=== PATIENT | male | born 1950 | race Caucasian/White ===

== ENCOUNTER 2022-01-31 13:13 | Inpatient (IN) | payer OTHER ==
--- NOTE | 2022-01-31 13:41 | RAD REPORT ---
EXAM DESCRIPTION: RAD - Chest Single View - 01/31/2022 1:34 pm CLINICAL HISTORY: SOB COMPARISON: No comparisons FINDINGS: Lines: None. Lungs: Prominence of the pulmonary vasculature. Pleural: Probable pleural effusions, right greater than left. Cardiac: Cardiomegaly. Bones: No acute fractures. Other: IMPRESSION: Findings most likely representing edema with pleural effusions, right greater than left. There is likely associated atelectasis though pneumonia at the lung bases cannot be excluded radiogr aphically.
[2022-01-31 14:01] LABS: Absolute Lymphocytes (CBC) 0.8 K/uL (0.7-4.9); Hematocrit 23.1 % (39.6-49.0); Lymphocytes % 11.8 % (15.3-44.8); MCV 92.8 fL (80-100); MPV 7.2 fL (7.6-11.3); RBC Red Blood Cell Count 2.49 M/uL (4.33-5.43)
[2022-01-31 14:12] LABS: Protime INR 1.11
[2022-01-31 14:22] LABS: ALT/SGPT 16 U/L (12-78); AST/SGOT 10 U/L (15-37); Albumin 2.4 g/dL (3.4-5.0); Alkaline Phosphatase 95 U/L (45-117); BUN Blood Urea Nitrogen 49 mg/dL (7-18); Bicarbonate 23 mmol/L (21-32); Bilirubin Total 0.2 mg/dL (0.2-1.0); Glomerular Filtration Rate 16 ml/min (=/>90); Glucose Level 135 mg/dL (74-106); Magnesium 2.2 mg/dL (1.8-2.4); Potassium 4.5 mmol/L (3.5-5.1); Protein, Total 6.5 g/dL (6.4-8.2); Sodium Level 144 mmol/L (136-145); Troponin High Sensitivity 40.7 pg/mL (<58.9)
[2022-01-31 14:23] LABS: Bilirubin Direct < 0.1 mg/dL (0-0.2)
[2022-01-31] MEDS ORDERED: AMLODIPINE 10 MG TAB ONE (14:25)
[2022-01-31] MEDS ORDERED: carvediloL 6.25 MG TAB ONE ×2 (14:25→21:44)
[2022-01-31 14:32] LABS: NT PRO-BNP 64427 pg/mL (<125)
--- NOTE | 2022-01-31 15:06 | ER ---
Nurse's Notes [facility] Name: Houston Katz Age: 71 yrs Sex: Male : 1950 Arrival Date: 01/31/2022 Time: 13:13 Bed 28 Private MD: Diagnosis: Acute kidney failure, unspecified;Unspecified combined systolic (congestive) and diastolic (congestive) heart failure;Anemia, unspecified Presentation: 01/31 13:18 Chief complaint: Patient states: he feels like he is having a hard time breathing. ap3 patient hasn't had access to his medications for approx one month due to a recent move. Coronavirus screen: Client presents with at least one sign or symptom that may indicate coronavirus-19. Ebola Screen: No symptoms or risks identified at this time. Initial Sepsis Screen:. Initial Sepsis Screen: Does the patient meet any 2 criteria? No. Patient's initial sepsis screen is negative. Does the patient have a suspected source of infection? No. Patient's initial sepsis screen is negative. Risk Assessment: Do you want to hurt yourself or someone else? Patient reports no desire to harm self or others. Onset of symptoms was January 31, 2022. 13:18 Method Of Arrival: Wheelchair ap3 13:18 Acuity: JILLIAN 2 ap3 Triage Assessment: 13:23 General: Appears distressed, Behavior is anxious. Pain: Denies pain. Neuro: Level of ap3 Consciousness is awake, alert, obeys commands, Oriented to person, place, time, situation, Speech is normal. Cardiovascular: Patient's skin is warm and dry. Respiratory: Reports shortness of breath Airway is patent Respiratory effort is even, unlabored, Respiratory pattern is regular, symmetrical, Onset: The symptoms/episode began/occurred gradually, the patient has mild shortness of breath. Musculoskeletal: Swelling present in right leg and left leg. Historical: - Allergies: 13:20 PENICILLINS; ap3 - Home Meds: 13:20 tamsulosin 0.4 mg oral cap [Active]; Eliquis 5 mg oral tab [Active]; aspirin 81 mg Oral ap3 tab [Active]; furosemide 40 mg Oral tab 1 tab once daily [Active]; amlodipine 10 mg tab [Active]; carvedilol 6.25 mg oral tab [Active]; Lantus Sub-Q [Active]; - PMHx: 13:20 Diabetes mellitus; Hypertensive disorder; ap3 - Immunization history:: Client reports receiving the 2nd dose of the Covid vaccine. - Social history:: Smoking status: Patient denies any tobacco usage or history of. Screenin:24 Abuse screen: Denies threats or abuse. Nutritional screening: No deficits noted. ap3 Tuberculosis screening: No symptoms or risk factors identified. 13:59 Fall Risk None identified. jg9 Assessment: 13:58 Reassessment: No changes from previously documented assessment. Patient and/or family jg9 updated on plan of care and expected duration. Pain level reassessed. Patient is alert, oriented x 3, equal unlabored respirations, skin warm/dry/pink. Cardiovascular: Rhythm is sinus rhythm. Respiratory: Airway is patent Trachea midline Respiratory effort is even, labored, Breath sounds are diminished bilaterally. 14:00 Cardiovascular: Reports shortness of breath, bilateral 4+ pitting edema. jg9 15:01 Derm: Decubitus located on right plantar area approximately 1/4 size is stage III has jg9 erythematous edges is draining none noted. Vital Signs: 13:18 BP 196 / 90; Pulse 74; Resp 22; Temp 98.7; Pulse Ox 100% ; Weight 81.65 kg; Height 5 ap3 ft. 10 in. (177.80 cm); 13:45 BP 200 / 85; Pulse 79; Resp 20 S; Pulse Ox 98% on 1 lpm NC; jg9 14:30 BP 186 / 83; Pulse 72; Resp 18 S; Pulse Ox 99% on 1 lpm NC; jg9 13:18 Body Mass Index 25.83 (81.65 kg, 177.80 cm) ap3 ED Course: 13:13 Patient arrived in ED. am2 13:14 Mervat Portillo FNP-C is PHCP. kb 13:14 Jacques Porter MD is Attending Physician. kb 13:20 Triage completed. ap3 13:24 Arm band placed on right wrist. ap3 13:30 Julieta Soriano, SPENCER is Primary Nurse. jg9 13:36 XRAY Chest (1 view) In Process Unspecified. EDMS 13:43 Missed attempt(s): 20 gauge in left forearm. Bleeding controlled, band aid applied, mb7 catheter tip intact. 13:50 Patient has correct armband on for positive identification. Bed in low position. Call jg9 light in reach. Side rails up X 1. 13:50 Inserted saline lock: 18 gauge in right antecubital area, using aseptic technique. jg9 Blood collected. 13:57 Oxygen administration via nasal cannula \T\ 1L/min Response to oxygen therapy: symptoms jg9 improved. 14:14 crackers provided to take ordered medication. jg9 15:04 Anni Patel MD is Hospitalizing Provider. kb 16:15 John Quispe is Hospitalizing Provider. kb 02/01 10:53 No provider procedures requiring assistance completed. Patient admitted, IV remains in ap3 place. Administered Medications: 01/31 14:20 Drug: amLODIPine 10 mg Route: PO; jg9 15:02 Follow up: Response: No adverse reaction; Blood pressure is lowered jg9 14:20 Drug: carvedilol 6.25 mg Route: PO; jg9 15:03 Follow up: Response: No adverse reaction; Blood pressure is lowered jg9 15:15 Drug: Lasix (furosemide) 60 mg Route: IVP; Site: left antecubital; jg9 15:17 Drug: Albumin 25 grams Volume: 100 ml; Route: IVPB; Site: left antecubital; jg9 Medication: 02/01 10:53 VIS not applicable for this client. ap3 Outcome: 01/31 15:04 Decision to Hospitalize by Provider. kb 02/01 10:53 Admitted to ER Hold. Please see [facility] for further documentation. ap3 Condition: good 15:52 Patient left the ED. iw Signatures: Dispatcher [employer] [facility] Mervat Portillo, TUTORING ASSISTANT-C TUTORING ASSISTANT-CkAnnemarie Olivares, RN RN iw Sis Bowers Amanda RN RN ap3 Kaela Elliott mb7 Julieta Soriano RN RN jg9 Corrections: (The following items were deleted from the chart) 01/31 14:41 13:58 Reassessment: No changes from previously documented assessment. Patient and/or jg9 family updated on plan of care and expected duration. Pain level reassessed. Patient is alert, oriented x 3, equal unlabored respirations, skin warm/dry/pink. jg9
--- NOTE | 2022-01-31 15:06 | EDPHYS ---
Physician Documentation [facility] Name: Houston Katz Age: 71 yrs Sex: Male : 1950 Arrival Date: 01/31/2022 Time: 13:13 Bed 28 Private MD: ED Physician Jacques Porter HPI: 01/31 21:11 This 71 yrs old Male presents to ER via Wheelchair with complaints of Shortness Of kb Breath. 21:11 The patient has shortness of breath at rest. Onset: The symptoms/episode began/occurred kb 1 month(s) ago. Duration: The symptoms are continuous. The patient's shortness of breath is aggravated by exertion, light activity. Associated signs and symptoms: Pertinent positives: non-productive cough. Severity of symptoms: At their worst the symptoms were moderate in the emergency department the symptoms are unchanged. The patient has not experienced similar symptoms in the past. The patient has not recently seen a physician. Pt reports shortness of breath that started a month ago and has progressively gotten worse. States he has been out of his regular medications for at least one month. . Historical: - Allergies: 13:20 PENICILLINS; ap3 - Home Meds: 13:20 tamsulosin 0.4 mg oral cap [Active]; Eliquis 5 mg oral tab [Active]; aspirin 81 mg Oral ap3 tab [Active]; furosemide 40 mg Oral tab 1 tab once daily [Active]; amlodipine 10 mg tab [Active]; carvedilol 6.25 mg oral tab [Active]; Lantus Sub-Q [Active]; - PMHx: 13:20 Diabetes mellitus; Hypertensive disorder; ap3 - Immunization history:: Client reports receiving the 2nd dose of the Covid vaccine. - Social history:: Smoking status: Patient denies any tobacco usage or history of. ROS: 15:03 Constitutional: Negative for fever, chills, and weight loss. kb 15:03 Respiratory: Positive for dyspnea on exertion, shortness of breath, Negative for hemoptysis, orthopnea, pleurisy, sputum production, wheezing. 15:03 All other systems are negative. Exam: 14:21 ECG was reviewed by the Attending Physician. kb 14:58 Constitutional: This is a well developed, well nourished patient who is awake, alert, kb and in no acute distress. Head/Face: Normocephalic, atraumatic. Abdomen/GI: Soft, non-tender. No distention Skin: Warm, dry with normal turgor. Normal color. MS/ Extremity: Pulses equal, no cyanosis. Neurovascular intact. Full, normal range of motion. Neuro: Awake and alert, GCS 15, oriented to person, place, time, and situation. Moves all extremities. Normal gait. Psych: Awake, alert, with orientation to person, place and time. Behavior, mood, and affect are within normal limits. 14:58 Cardiovascular: Rate: normal, Rhythm: regular, Pulses: no pulse deficits are appreciated, Edema: 3+ edema to level of left ankle and right ankle. 14:58 Respiratory: mild respiratory distress is noted, Respirations: normal, Breath sounds: decreased breath sounds, that are moderate, are located in both bases. Vital Signs: 13:18 BP 196 / 90; Pulse 74; Resp 22; Temp 98.7; Pulse Ox 100% ; Weight 81.65 kg; Height 5 ap3 ft. 10 in. (177.80 cm); 13:45 BP 200 / 85; Pulse 79; Resp 20 S; Pulse Ox 98% on 1 lpm NC; jg9 14:30 BP 186 / 83; Pulse 72; Resp 18 S; Pulse Ox 99% on 1 lpm NC; jg9 13:18 Body Mass Index 25.83 (81.65 kg, 177.80 cm) ap3 MDM: 13:15 Patient medically screened. kb 15:03 Data reviewed: vital signs, nurses notes. Data interpreted: Pulse oximetry: on room air kb is 97 %. Interpretation: normal. Counseling: I had a detailed discussion with the patient and/or guardian regarding: the historical points, exam findings, and any diagnostic results supporting the discharge/admit diagnosis, lab results, radiology results, the need for further work-up and treatment in the hospital. Physician consultation: Fanny consulted about admission to tele. . 01/31 13:21 Order name: Basic Metabolic Panel; Complete Time: 14:33 kb 01/31 13:21 Order name: CBC with Diff; Complete Time: 14:19 kb 01/31 13:21 Order name: LFT's; Complete Time: 14:33 kb 01/31 13:21 Order name: Magnesium; Complete Time: 14:33 kb 01/31 13:21 Order name: NT PRO-BNP; Complete Time: 14:33 kb 01/31 13:21 Order name: PT-INR; Complete Time: 14:19 kb 01/31 13:21 Order name: Troponin HS; Complete Time: 14:33 kb 01/31 13:22 Order name: SARS RAPID kb 01/31 16:19 Order name: Hemoglobin A1c; Complete Time: 18:10 EDMS 01/31 16:19 Order name: Lipid Profile; Complete Time: 18:10 EDMS 01/31 16:19 Order name: Urinalysis EDMS 01/31 16:19 Order name: Basic Metabolic Panel EDMS 01/31 16:19 Order name: Basic Metabolic Panel EDMS 01/31 16:19 Order name: CBC with Automated Diff EDMS 01/31 13:21 Order name: XRAY Chest (1 view); Complete Time: 13:44 kb 01/31 13:21 Order name: EKG; Complete Time: 13:22 kb 01/31 16:19 Order name: 60g Consistent Carbohydrate (ADA 1800/2000) EDMS 01/31 16:19 Order name: Echo with Doppler EDMS 01/31 16:19 Order name: CBC with Automated Diff EDMS 01/31 18:13 Order name: Thorax Wo Con; Complete Time: 19:13 EDMS 01/31 19:14 Order name: Glucose, Ancillary Testing; Complete Time: 19:22 EDMS 01/31 21:53 Order name: Glucose, Ancillary Testing; Complete Time: 21:54 EDMS 02/01 03:52 Order name: Manual Differential EDMS 02/01 07:57 Order name: Glucose, Ancillary Testing EDMS 02/01 11:07 Order name: US EDMS 02/01 11:44 Order name: Glucose, Ancillary Testing EDMS 01/31 13:21 Order name: Cardiac monitoring; Complete Time: 13:30 kb 01/31 13:21 Order name: EKG - Nurse/Tech; Complete Time: 13:44 kb 01/31 13:21 Order name: IV Saline Lock; Complete Time: 13:57 kb 01/31 13:21 Order name: Labs collected and sent; Complete Time: 13:57 kb 01/31 13:21 Order name: O2 Per Protocol; Complete Time: 13:57 kb 01/31 13:21 Order name: O2 Sat Monitoring; Complete Time: 13:30 kb EC:21 Rate is 71 beats/min. Rhythm is regular. QRS [place] is Normal. OR interval is prolonged kb at 222 msec. QRS interval is normal at 98 msec. QT interval is normal at 484 msec. Administered Medications: 14:20 Drug: amLODIPine 10 mg Route: PO; jg9 15:02 Follow up: Response: No adverse reaction; Blood pressure is lowered jg9 14:20 Drug: carvedilol 6.25 mg Route: PO; jg9 15:03 Follow up: Response: No adverse reaction; Blood pressure is lowered jg9 15:15 Drug: Lasix (furosemide) 60 mg Route: IVP; Site: left antecubital; jg9 15:17 Drug: Albumin 25 grams Volume: 100 ml; Route: IVPB; Site: left antecubital; jg9 Disposition: 02/02 11:19 Co-signature as Attending Physician, Jacques Porter MD I agree with the assessment and kdr plan of care. Disposition Summary: 01/31/22 15:04 Hospitalization Ordered Hospitalization Status: Inpatient Admission kb Condition: Fair kb Problem: new kb Symptoms: are unchanged kb Bed/Room Type: Standard kb Provider: John Quispe(01/31/22 16:15) kb Location: Telemetry/MedSurg (Inpatient)(02/01/22 13:25) dw Room Assignment: [facility](02/01/22 13:25) dw Diagnosis - Acute kidney failure, unspecified kb - Unspecified combined systolic (congestive) and diastolic (congestive) heart failure kb - Anemia, unspecified kb Forms: - Medication Reconciliation Form kb - SBAR form kb Signatures: Dispatcher [employer] Mervat Delcid FNP-C CABIN CLEANER-CkKrissy De Los Santos RN RN dw Rittger, Kevin, MD MD kdr Prokisch, Amanda RN SPENCER [email or web address] Eliana Goodwin RN RN eb1 Julieta Soriano RN RN jg9 Corrections: (The following items were deleted from the chart) 01/31 16:15 15:04 Anni Patel kb kb 20:12 15:04 Telemetry/MedSurg (Inpatient) kb eb1 20:12 15:04 kb eb1 02/01 13:01/31: [facility] ER HOLD eb1 dw 02/01 20:12 ERHOLD- eb1 dw
[2022-01-31] MEDS ORDERED: FUROSEMIDE 20 MG/ 2ML VIAL ONE (15:14)
[2022-01-31] MEDS ORDERED: FUROSEMIDE 40 MG/4 ML VIAL ONE ×2 (15:14→18:50)
[2022-01-31] MEDS ORDERED: ALBUMIN HUMAN 25% 50 ML IV ONE (15:15)
[2022-01-31] MEDS ORDERED: LABETALOL 20 MG/4ML SYRINGE IV PRN (16:07)
[2022-01-31] MEDS ORDERED: HYDROCODONE/APAP 5/325 MG TAB PO PRN (16:08)
[2022-01-31] MEDS ORDERED: MELATONIN 5 MG TABLET PO PRN (16:08)
[2022-01-31] MEDS: INSULIN -REGULAR HUMAN 50 UNIT/0.5 ML ML SQ SCH ×2 (16:30→21:00)
--- NOTE | 2022-01-31 16:57 | P.HP ---
Certification for Inpatient Patient admitted to: Inpatient With expected LOS: >2 Midnights Patient will require the following post-hospital care: None Practitioner: I am a practitioner with admitting privileges, knowledge of patient current condition, hospital course, and medical plan of care. Services: Services provided to patient in accordance with Admission requirements found in Title 42 Section 412.3 of the Code of Federal Regulations Patient History Date of Service: 01/31/22 Reason for admission: SOB History of Present Illness: Patient is a 71-year-old male with a past medical history significant for hypertension, CHF, DM 2, BPH, CAD with stent who presents with complaint of shortness of breath that has been ongoing for a while but became worse yesterday. Patient is a poor historian and unable to provide accurate history. Family reported that patient was in another state--[place] and patient has not been taking his home medications for the past 1 month. Family reported that patient had his last medications filled on November 22, 2021 and has not taken the medication since then. Family decided to bring patient to [place] to live with them. Patient reported associated signs and symptoms of chest tenderness, orthopnea, cough, and bilateral lower extremity edema. Patient denies any other signs and symptoms. Symptoms are aggravated or relieved by nothing. Patient decided to present to the hospital due to worsening symptoms. Allergies Penicillins Allergy (Mild, Verified 01/31/22 16:02) Hives/Rash Home Medications: Amlodipine Besylate 1 tab PO DAILY 01/31/22 Apixaban [Eliquis] 1 tab PO BID 01/31/22 Aspirin Chewable [Aspirin Chewable*] 1 tab PO DAILY 01/31/22 Furosemide 1 tab PO DAILY 01/31/22 Insulin Glargine,Hum.rec.anlog [Lantus Solostar] 15 units SQ BEDTIME 01/31/22 Tamsulosin [Flomax*] 1 cap PO DAILY 01/31/22 carvediloL [Carvedilol] 1 tab PO BID 01/31/22 - Past Medical/Surgical History -: Hypertension -: CHF -: BPH -: CAD with stent -: Cardiac stent placement - Family History Family History: Reviewed- Non-Contributory - Social History Smoking Status: Unknown if ever smoked Alcohol use: No CD- Drugs: No Caffeine use: Yes Place of Residence: Home Review of Systems General: Unremarkable Eyes: Unremarkable ENT: Unremarkable Respiratory: Cough, Shortness of Breath, SOB with Excertion, Other (Chest tightness) Cardiovascular: Orthopnea, Edema Gastrointestinal: Unremarkable Genitourinary: Unremarkable Musculoskeletal: Pedal edema, Other (Bilateral lower extremity swelling) Integumentary: Unremarkable Neurological: Unremarkable Physical Examination - Physical Exam General: Alert, Oriented x3, Mild distress HEENT: Atraumatic, Normocephalic, PERRLA Neck: Supple, 2+ carotid pulse no bruit, JVD not distended Respiratory: Clear to auscultation bilaterally, Diminished Cardiovascular: Normal pulses, Edema Capillary refill: >2 Seconds Gastrointestinal: Soft and benign Musculoskeletal: Swelling Integumentary: Tenderness/swelling Neurological: Normal speech, Normal tone, Normal reflexes 2+ Lymphatics: No axilla or inguinal lymphadenopathy - Studies Laboratory Data (last 24 hrs) 01/31/22 13:50: PT 12.2, INR 1.11 01/31/22 13:50: WBC 6.50, Hgb 7.8 L, Hct 23.1 L, Plt Count 224 01/31/22 13:50: Sodium 144, Potassium 4.5, BUN 49 H, Creatinine 3.73 H, Glucose 135 H, Magnesium 2.2, Total Bilirubin 0.2, AST 10 L, ALT 16, Alkaline Phosphatase 95 Assessment and Plan - Plan --Acute on chronic systolic or diastolic CHF exacerbation. Echocardiogram pending. Cardiology consulted. Continue diuresis with Lasix. Daily weight and strict I/O. We will await further recommendation from design drafter. --FUNMILAYO on CKD 4. Family reported that patient was informed that he might go on dialysis due to his bad kidneys while patient was living in [place]. Nephrology consulted. Will await further recommendations --History of CAD with stent. Continue aspirin . --BPH. Continue Flomax. --Anemia of chronic disease. H&H stable. We will continue to monitor hemoglobin transfuse if less than 7.0. --DM2. BS monitoring with sliding scale insulin and Lantus. --Pneumonia-CT imaging worrisome for pneumonia. Patient placed on antibiotics, steroids and O2 therapy. -- Hypertensive urgency. Continue home medication and labetalol as needed --Anxiety disorder. Ativan as needed. -- DVT prophylaxis with heparin subQ Discharge Plan: Home Plan to discharge in: Greater than 2 days - Advance Directives Does patient have a Living Will: No Does patient have a Durable POA for Healthcare: No - Code Status/Comfort Care Code Status Assessed: Yes Code Status: Full Code Physician Review: Patient Assessed, Agree with Above Assessment and Plan Critical Care: No
[2022-01-31] MEDS: HEPARIN 5000 UNIT/ML 1 ML VIAL SQ SCH (17:00)
[2022-01-31] MEDS: FUROSEMIDE 40 MG/4 ML VIAL IV SCH (17:00)
[2022-01-31] MEDS ORDERED: ASPIRIN EC 81 MG TAB PO SCH (17:00)
[2022-01-31] MEDS ORDERED: HEPARIN 5000 UNIT/ML 1 ML VIAL ONE (18:50)
[2022-01-31] MEDS ORDERED: ASPIRIN EC 81 MG TAB PO ONE (18:50)
--- NOTE | 2022-01-31 19:07 | RAD REPORT ---
EXAM DESCRIPTION: CT - Thorax Wo Con - 01/31/2022 6:48 pm CLINICAL HISTORY: Peristent cough, R O PNA COMPARISON: No comparisons FINDINGS: Chest Wall: No suspicious thyroid nodules or pathologic lymphadenopathy. Lungs: No acute abnormality. Pleura: Moderate right and small moderate left pleural effusions and likely underlying atelectasis. Mediastinum/massimo: No pathologic lymphadenopathy. Pulmonary arteries/Aorta: Limited evaluation without contrast. No aortic aneurysm. Heart: No significant pericardial effusion. Normal heart size. Multi-vessel coronary artery disease. Upper abdomen: Possible bilateral hydronephrosis though this is only partially imaged. Bones: No acute abnormality. Bridging osteophytes in the spine. All CT scans are performed using dose optimization technique as appropriate and may include automated exposure control or mA/KV adjustment according to patient size. IMPRESSION: Moderate right and small to moderate left pleural effusions with underlying atelectasis. Pneumonia difficult to entirely exclude. Question bilateral hydronephrosis. This is only partially imaged. Dedicated imaging of the abdomen an d pelvis could further evaluate if clinically indicated.
[2022-01-31 19:13] VITALS: BMI 25.8
[2022-01-31] MEDS ORDERED: CEFEPIME 2 GM in NA CHLORIDE 0.9% 100 ML IV ONE (19:15)
[2022-01-31] MEDS ORDERED: ALBUTEROL 2.5 MG/3 ML NEB SOL NEB ONE (19:25)
[2022-01-31] MEDS ORDERED: LORazepam 2 MG/ML VIAL IV PRN (19:30)
[2022-01-31] MEDS ORDERED: GUAIFENESIN/DM 5 ML UCUP PO PRN (19:33)
[2022-01-31] MEDS ORDERED: ALBUTEROL 2.5 MG/3 ML NEB SOL ONE (19:59)
[2022-01-31] MEDS ORDERED: HYDRALAZINE HCL 20 MG/ML VIAL IV PRN (20:00)
[2022-01-31] MEDS ORDERED: METHYLPREDNISOLONE 40 MG INJ IV SCH (20:00)
[2022-01-31] MEDS ORDERED: HYDRALAZINE HCL 20 MG/ML VIAL ONE (20:15)
[2022-01-31] MEDS ORDERED: HOME MED 1 EA UNK (Insulin Glargine,Hum.Rec.Anlog [Lantus Solostar] 100 UNIT/ML Insuln.Pen SQ SCH (21:00)
[2022-01-31] MEDS: INSULIN GLARGINE 100 UNIT/ML SQ SCH (21:00)
[2022-01-31] MEDS: carvediloL 6.25 MG TAB PO SCH (21:30)
[2022-01-31] MEDS ORDERED: CEFEPIME 2 GM VIAL ONE (21:40)
[2022-01-31] MEDS ORDERED: NA CHLORIDE 0.9% 100 ML ONE (21:40)
[2022-01-31] MEDS ORDERED: AZITHROMYCIN 500 MG INJ IVPB ONE (21:42)
[2022-01-31] MEDS ORDERED: METHYLPREDNISOLONE 40 MG INJ ONE (21:42)
[2022-01-31] MEDS ORDERED: NA CHLORIDE 0.9% 250 ML ONE (21:44)
[2022-01-31] MEDS: METHYLPREDNISOLONE 40 MG INJ IV SCH (21:50)
[2022-01-31] MEDS: AZITHROMYCIN IV 500 MG in NA CHLORIDE 0.9% 250 ML IVPB SCH (22:03)
[2022-02-01] MEDS: HEPARIN 5000 UNIT/ML 1 ML VIAL SQ SCH ×3 (00:56→16:36)
[2022-02-01] MEDS: METHYLPREDNISOLONE 40 MG INJ IV SCH ×3 (00:56→16:36)
[2022-02-01] MEDS ORDERED: METHYLPREDNISOLONE 40 MG INJ ONE ×2 (01:01→07:55)
[2022-02-01] MEDS ORDERED: HEPARIN 5000 UNIT/ML 1 ML VIAL ONE ×2 (01:01→07:54)
[2022-02-01] MEDS: ALBUTEROL 2.5 MG/3 ML NEB SOL NEB SCH ×3 (02:31→14:00)
[2022-02-01 02:40] LABS: Absolute Lymphocytes (CBC) 0.2 K/uL (0.7-4.9); Hematocrit 22.2 % (39.6-49.0); MCV 93.5 fL (80-100); MPV 7.4 fL (7.6-11.3); RBC Red Blood Cell Count 2.38 M/uL (4.33-5.43)
[2022-02-01] MEDS ORDERED: ALBUTEROL 2.5 MG/3 ML NEB SOL ONE ×3 (02:40→14:25)
[2022-02-01 02:54] LABS: Potassium 4.7 mmol/L (3.5-5.1)
[2022-02-01 03:51] LABS: Blood Morphology Comment NOT SEEN (NOT SEEN); Platelet Estimate ADEQ
[2022-02-01] MEDS: INSULIN -REGULAR HUMAN 50 UNIT/0.5 ML ML SQ SCH ×4 (07:30→21:09)
[2022-02-01] MEDS ORDERED: ASPIRIN 81 MG CHEWABLE TABLET ONE (07:54)
[2022-02-01] MEDS ORDERED: AMLODIPINE 10 MG TAB ONE (07:54)
[2022-02-01] MEDS ORDERED: carvediloL 6.25 MG TAB ONE (07:54)
[2022-02-01] MEDS ORDERED: FUROSEMIDE 40 MG/4 ML VIAL ONE (07:55)
[2022-02-01] MEDS ORDERED: TAMSULOSIN 0.4 MG SR CAP ONE (07:55)
[2022-02-01] MEDS ORDERED: CEFEPIME 1 GM/VIAL ONE (07:55)
[2022-02-01] MEDS ORDERED: NA CHLORIDE 0.9% 100 ML ONE (07:55)
[2022-02-01] MEDS ORDERED: PNEUMOCOCCAL VACCINE 0.5 ML IMVAC ONE (08:00)
[2022-02-01] MEDS: carvediloL 6.25 MG TAB PO SCH ×2 (08:12→21:08)
[2022-02-01] MEDS: FUROSEMIDE 40 MG/4 ML VIAL IV SCH ×2 (08:12→16:36)
[2022-02-01] MEDS: ASPIRIN 81 MG CHEWABLE TABLET PO SCH (08:12)
[2022-02-01] MEDS: TAMSULOSIN 0.4 MG SR CAP PO SCH (08:12)
[2022-02-01] MEDS: CEFEPIME 1 GM in NA CHLORIDE 0.9% 100 ML IV SCH ×2 (08:13→21:08)
[2022-02-01] MEDS: AMLODIPINE 10 MG TAB PO SCH (08:13)
--- NOTE | 2022-02-01 11:02 | CON ---
Date of Consultation: 02/01/2022 Reason For Consultation: Acute renal failure. History Of Present Illness: Mr. Katz is 71, just moved from another State 2 to 3 days ago to be [place] ser to his family. He has a complicated past medical history including CAD, status post stent, hyper tension, CHF, diabetes, and atrial fibrillation. Came in with acute renal failure, hemoglobin 7.4, c reatinine 3.85. He was hypertensive. BNP was more than 64,000, CT showed pneumonia. He has his mary ellen n complaint is weakness and shortness of breath. Denied any chest pain, palpitation, or syncope. Allergies: HE IS ALLERGIC TO PENICILLIN. Review of Systems: Negative. Social History: Negative. Family History: Noncontributory. Medications: At home should be Eliquis, insulin, Coreg, Norvasc, aspirin, Flomax, and Lasix. Physical Examination: Vital Signs: Blood pressure is 174/95. He was in sinus rhythm. HEENT: Negative. Neck: Supple with no bruit. Chest: Revealed bilateral rales. Cardiac: Revealed a regular rhythm and rate with S4 gallops. Abdomen: Benign. Extremities: Revealed no clubbing, cyanosis. He has 1+ edema. Laboratory Data: Chest x-ray showed pulmonary edema. CT scan shows pneumonia. Creatinine is 3.85, hemoglobin is 7.4. BNP is 64,000. Troponin is negative. Impression And Plan: 1.Acute renal failure. 2.Hypertension, poorly controlled. 3.Anemia. 4.Elevated BNP secondary to congestive heart failure and renal failure. Mr. Katz also has hyperten ayla, diabetes, paroxysmal atrial fibrillation, and pneumonia. He is now on antibiotics, steroid, Fl omax, Coreg, inhalers, aspirin, Norvasc, Lasix, and hydralazine. I agree with his present regimen. He needs to have an echocardiogram done, which is pending. He needs to have outpatient followup in t he very near future, continue medical regimen otherwise. Nephrology consultation should be obtained. When he goes home, he should have followup with his Primary Internal Medicine, Nephrology, and Card iology. NEVIN/CHAVA Voice ID: [id number] Report ID: [id number]
--- NOTE | 2022-02-01 11:07 | RAD REPORT ---
EXAM DESCRIPTION: US - Renal Ultrasound-Complete - 02/01/2022 10:39 am CLINICAL HISTORY: FUNMILAYO COMPARISON: Thorax Wo Con dated 01/31/2022 FINDINGS: The right kidney measures 12.1 x 5.3 x 6.4 cm. The left kidney measures 10.5 x 3.3 x 4.7 cm. Left edema was more difficult to visualize. Both kidneys show slight cortical thinning. There is increased cortical echogenicity typical with medical renal disease. No solid mass lesion of either ki dney. No cortical cysts are present. Moderately severe bilateral hydronephrosis is present. Ureters c annot be adequately visualized. Partially filled urinary bladder shows no asymmetric wall thickening or mass. No stone or intralumina l filling defect identifiable. IMPRESSION: Moderate severity bilateral hydronephrosis with no solid mass of either kidney. Increased cortical echogenicity seen typical for medical renal disease. No bladder wall thickening or mass identifiable.
[2022-02-01] MEDS ORDERED: INSULIN -REGULAR HUMAN 50 UNIT/0.5 ML ML ONE (11:47)
[2022-02-01 15:08] LABS: SARS-CoV-2 Antigen Rapid Res Negative (Negative)
--- NOTE | 2022-02-01 15:13 | EKG ---
Test Date: 2022-01-31 Test Time: 13:39:04 Construction Site Manager: JP MEASUREMENT RESULTS: Intervals: Rate: 71 [place]: 222 QRSD: 98 QT: 446 QTc: 484 [place]: P: 73 [place]: 222 QRS: 20 T: 97 INTERPRETIVE STATEMENTS: Sinus rhythm with 1st degree AV block Nonspecific ST and T wave abnormality Prolonged QT Abnormal ECG No previous ECG available for comparison Electronically Signed On 02-01-22 15:12:15 CDT by Igor Sims
[2022-02-01 17:53] LABS: Urine Bilirubin Negative (Negative); Urine Blood Trace-lysed (Negative); Urine Clarity Clear (Clear); Urine Color Yellow (Yellow); Urine Glucose Trace (Negative); Urine Protein 3+ (Negative); Urine Urobilinogen 0.2 mg/dL (0.2-1.0)
--- NOTE | 2022-02-01 17:58 | CON ---
Date of Consultation: 02/01/2022 Reason For Consultation: Elevated BUN and creatinine, over volume, fluid management. History Of Present Illness: This is a pleasant 71-year-old gentleman with significant past medical history of CAD status post PTCA, complicated with congestive heart failure, diabetes since 2009 complicated with neuropathy, no retinopathy, hypertension, hyperlipidemia, chronic kidney disease, unknown baseline, according to him it has been advanced, the patient has been transferred from [place] to live with the family. The patient did not take his medications for almost since November according to him because of the cataract he cannot see his medication bottles so he is not taking it. The patient was brought, found to have congestive heart failure with exacerbation elevation in BUN and creatinine. For that reason, we have been consulted. The patient denied taking any nonsteroidal. No IV contrast recently. Again, the patient not taking his medications. Allergies: TO PENICILLIN. Home Medications: Include amlodipine, Eliquis, aspirin, Lasix, insulin, Flomax, carvedilol. Past Medical History: Includes; 1. Hypertension. 2. CAD complicated with congestive heart failure, status post PTCA. 3. Diabetes since 2009 complicated with neuropathy and nephropathy. 4. Hypertension. 5. Hyperlipidemia. Past Surgical History: Includes; 1. PTCA. 2. Cardiac cath. Family History: Positive for hypertension. Social History: Denied smoking, denied drinking, denied drugs abuse. Review of Systems: Head and Neck: No red eye. No ear pain. GI: No nausea. No vomiting. : No polyuria. No dysuria. No hematuria. 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 Respiratory: Has shortness of breath. Cardiovascular: Has orthopnea. Has leg swelling. Endocrine: No polydipsia. Skin: No rash. Neuro: Has neuropathy. Musculoskeletal: Generalized fatigue. Physical Examination: Vital Signs: When I saw the patient; blood pressure 150/69, pulse of 72, afebrile. Chest: Crackles bilateral. Heart: S1, S2. Systolic murmur. Abdomen: Soft, nontender, ascites. Extremities: +3 edema. Neurologic: Alert. No focality. Laboratory Data: Chest x-ray; cardiomegaly with congestion with right-sided pleural effusion. WBC 7.6, H and H 7.4/22.2. Sodium 145, potassium 4.7, bicarb 23, BUN 50, creatinine 3.8, calcium 7.5. Current Medications: The patient on include Zithromax, cefepime, albuterol, Flomax, heparin, carvedilol 6.25, amlodipine, labetalol, Solu-Medrol, insulin, melatonin. Assessment And Plan: 1. Acute kidney injury on chronic kidney disease, unknown baseline. According to the patient, the patient has been seen by Nephrology before in [place], is Deborah Jaindda. We will try to contact her. Mostly chronic kidney disease is secondary to cardiorenal/diabetes nephropathy with acute exacerbation. Questionable if there is any component of obstructive uropathy as the patient saying he has incontinence. I am going to go ahead and place a Gonzalez. We will follow up ultrasound. Given the presence of the anemia and proteinuria, I am going to send for full workup including serology and serum protein electrophoresis. 2. Obstructive uropathy. We will place Gonzalez and we will consult Urology. 3. Anemia possible secondary to chronic kidney disease with the presence of acute kidney injury. We will send for serum protein electrophoresis. 4. Congestive heart failure with exacerbation. We will optimize the fluid status for the patient. I am going to go ahead and increase his Lasix to 80 mg and we will send for TSH. We will follow up with Cardiology. 5. Diabetes as by primary. Time spent examining the patient [id number], reviewing the data lab and radiology, placing orders, discussing with the patient, explaining risks, benefits, alternatives, discussing with the staff member including nursing discussing with the hospitalist more than 65 minutes. KEAGAN Voice ID: [id number] Report ID: [id number] MARIA D
[2022-02-01 18:12] LABS: UR PROTEIN 343.7 mg/dL (<11.9); Urine Protein/Creatinine Ratio 12.28 ratio (<0.15)
[2022-02-01 18:38] LABS: Urine Bacteria <20 /HPF (<20); Urine RBC <5 /HPF (None Seen)
--- NOTE | 2022-02-01 19:38 | P.PN ---
Subjective Date of Service: 02/01/22 Chief Complaint: SOB States his shortness of breath is better. He denies any chest pain. Physical Examination - Vital Signs Temperature: 98.7 F Blood Pressure: 186/83 Pulse: 72 Respirations: 18 Pulse Ox (%): 98 Assessment And Plan - Current Problems (Diagnosis) (1) Acute on chronic heart failure Current Visit: Yes Status: Acute (2) Chronic kidney disease, stage IV (severe) Current Visit: Yes Status: Acute (3) Bilateral hydronephrosis Current Visit: Yes Status: Acute (4) BPH (benign prostatic hyperplasia) Current Visit: Yes Status: Acute (5) Anemia Current Visit: Yes Status: Acute (6) Accelerated hypertension Current Visit: Yes Status: Acute - Plan Physical Exam General: Alert, Oriented x3, no distress. HEENT: Atraumatic, Normocephalic, PERRLA Neck: Supple, JVD not distended Respiratory: Clear to auscultation bilaterally, Diminished Cardiovascular: Normal pulses, Edema, regular rhythm Gastrointestinal: Soft and benign, nondistended, nontender. Neurological: Normal speech, Normal tone, Normal reflexes 2+ Plan: Respiratory condition improved. Lasix is on hold. Nephrology input appreciated Patient has bilateral hydronephrosis but refused Gonzalez catheter insertion. Bladder scan for residual urine. Echocardiogram done and the result is pending. Wean off oxygen Monitor renal function. Transfuse PRBC for hemoglobin less than 7. Hydralazine as needed for BP spikes. Home antihypertensives resumed. Physician Review: Patient Assessed, Agree with Above Assessment and Plan
--- NOTE | 2022-02-01 20:51 | RAD REPORT ---
EXAM DESCRIPTION: RAD - Foot Right 2 View - 02/01/2022 8:33 pm CLINICAL HISTORY: Foot wound FINDINGS: Ulceration involves the plantar forefoot. A radiopaque foreign body is not demonstrated. Osteoporosis No fracture or dislocation seen. Vascular calcifications. Calcaneal spurs and plantar calcification. Limited 2 view series obtained
[2022-02-01] MEDS: NEPRO SHAKE 237 ML CAN PO SCH (21:00)
[2022-02-01] MEDS: AZITHROMYCIN IV 500 MG in NA CHLORIDE 0.9% 250 ML IVPB SCH (21:07)
[2022-02-01] MEDS: INSULIN GLARGINE 100 UNIT/ML SQ SCH (21:09)
[2022-02-02] MEDS: METHYLPREDNISOLONE 40 MG INJ IV SCH ×3 (01:55→16:09)
[2022-02-02] MEDS: HEPARIN 5000 UNIT/ML 1 ML VIAL SQ SCH ×3 (01:55→16:09)
[2022-02-02 03:48] LABS: Absolute Lymphocytes (CBC) 0.3 K/uL (0.7-4.9); Hematocrit 21.9 % (39.6-49.0); Lymphocytes % 4.7 % (15.3-44.8); MCV 92.2 fL (80-100); MPV 7.6 fL (7.6-11.3); RBC Red Blood Cell Count 2.37 M/uL (4.33-5.43)
[2022-02-02 04:27] LABS: Albumin 2.3 g/dL (3.4-5.0); Ferritin 136.8 ng/mL (26-388); Folic Acid, (Folate) 5.3 ng/mL (3.1-17.5); Phosphorus 6.5 mg/dL (2.5-4.9); Potassium 4.7 mmol/L (3.5-5.1); Thyroid Stimulating Hormone 0.771 uIU/mL (0.360-3.740); Uric Acid 6.3 mg/dL (3.5-7.2)
[2022-02-02 07:24] LABS: Rheumatoid Factor NEG (NEG)
[2022-02-02] MEDS: INSULIN -REGULAR HUMAN 50 UNIT/0.5 ML ML SQ SCH ×4 (07:30→21:53)
[2022-02-02] MEDS: FUROSEMIDE 40 MG/4 ML VIAL IV SCH ×2 (09:21→16:08)
[2022-02-02] MEDS: AMLODIPINE 10 MG TAB PO SCH (09:22)
[2022-02-02] MEDS: carvediloL 6.25 MG TAB PO SCH ×2 (09:22→20:25)
[2022-02-02] MEDS: ASPIRIN 81 MG CHEWABLE TABLET PO SCH (09:22)
[2022-02-02] MEDS: TAMSULOSIN 0.4 MG SR CAP PO SCH (09:22)
[2022-02-02] MEDS: CEFEPIME 1 GM in NA CHLORIDE 0.9% 100 ML IV SCH ×2 (09:23→20:25)
[2022-02-02] MEDS: NEPRO SHAKE 237 ML CAN PO SCH ×2 (09:23→20:26)
--- NOTE | 2022-02-02 10:56 | ECHO ---
HEIGHT: 5 ft 10 in WEIGHT: 179 lb 4.8 oz DATE OF STUDY: 02/01/[address]: [place] 2-DIMENSIONAL: YES M.MODE: YES DOPPLER: YES COLOR FLOW: YES TDS: NO PORTABLE: YES DEFINITY: NO BUBBLE STUDY: NO DIAGNOSIS: CONGESTIVE HEART FAILURE CARDIAC HISTORY: CATHERIZATION: SURGERY: PROSTHETIC VALVE: PACEMAKER: MEASUREMENTS (cm) DIASTOLIC (NORMALS) SYSTOLIC (NORMALS) IVSd 1.2 (0.6-1.2) LA Diam 4.5 (1.9-4.0) LVEF 60% LVIDd 5.9 (3.5-5.7) LVIDs 4.0 (2.0-3.5) %FS 32% LVPWd 1.1 (0.6-1.2) Ao Diam 3.7 (2.0-3.7) 2 DIMENSIONAL ASSESSMENT: RIGHT ATRIUM: NORMAL LEFT ATRIUM: ENLARGED RIGHT VENTRICLE: NORMAL LEFT VENTRICLE: NORMAL TRICUSPID VALVE: MITRAL VALVE: PULMONIC VALVE: AORTIC VALVE: THICKENED PERICARDIAL EFFUSION: NONE AORTIC ROOT: NORMAL LEFT VENTRICULAR WALL MOTION: NORMAL DOPPLER/COLOR FLOW: SEE BELOW COMMENTS: NORMAL LEFT VENTRICULAR EJECTION FRACTION 55-60%. NORMAL WALL MOTION. MODERATE MITRAL AND TRICUSPID REGURGITATION. MILD AORTIC AND PULMONARY REGURGITATION. LEFT ATRIAL ENLARGEMENT. SEVERE PULMONARY HYPERTENSION WITH RIGHT VENTRICULAR SYSTOLIC PRESSURE > 60 mmHg. THICKENED AORTIC VALVE WITH NO AORTIC STENOSIS. MODERATE DIASTOLIC DYSFUNCTION. TECHNOLOGIST: Mario BRENNAN
--- NOTE | 2022-02-02 11:55 | P.PN ---
Subjective Date of Service: 02/02/22 Chief Complaint: SOB Subjective: No new changes Physical Examination - Vital Signs Temperature: 97.8 F Blood Pressure: 158/73 Pulse: 67 Respirations: 16 Pulse Ox (%): 97 - Physical Exam General: In no apparent distress, Other (chronically ill-appearing) HEENT: Atraumatic, Normocephalic Neck: Supple, JVD not distended Respiratory: Other (symmetric chest expansion) Cardiovascular: No rubs, No murmurs Gastrointestinal: Soft and benign, No guarding Integumentary: No warmth Neurological: Normal speech, Normal tone Lymphatics: No axilla or inguinal lymphadenopathy Urinary: Other (no bladder distention) External genitalia: Deferred Rectal: Deferred Assessment And Plan - Plan 1. Acute kidney injury 2/2 obstructive uropathy, on chronic kidney disease, unknown baseline. According to the patient, the patient has been seen by Nephrology before in [place], is Deborah Simon. Has nephrotic-range proteinuria, likely 2/2 DM nephropathy. Insert linda. 2. Obstructive uropathy. CT scan done showed bilateral hydroureteronephrosis. No stricture or stone noted. Pt agreed to have linda placed today. Start NS gtt when linda in place. start Flomax. 3. Anemia. Give Retacrit when BP is better controlled. 4. Congestive heart failure with exacerbation. Lasix received. 5. DM2. Mngt per primary team. 6. Hypertension. Start hydralazine 50 mg po tid. Continue Lasix 80 mg IV twice a day. Continue amlodipine 10 mg by mouth daily. Continue carvedilol 6.25 mg by mouth twice a day. 7. Secondary hyperparathyroidism. Start calcitriol 0.25 mcg by mouth daily. Follow-up serum 25 hydroxyvitamin D. 8. Hyperphosphatemia. Start Sevelamer 1600 mg by mouth 3 times a day with meals Physician Review: Patient Assessed, Agree with Above Assessment and Plan
[2022-02-02] MEDS: HALOPERIDOL LACT 5 MG/ML INJ IV ONE ×2 (12:54→13:34)
--- NOTE | 2022-02-02 13:02 | P.PN ---
Subjective Date of Service: 02/02/22 Chief Complaint: SOB Patient refusing treatment today, including Gonzalez catheter insertion. He is exhibiting incongruent behavior and speech. Sister reports prior history of urinary retention and had to wear Gonzalez catheter for about 6 weeks. Bladder scan today revealed residual 700 ml of urine. Serum creatinine trended up. Physical Examination - Vital Signs Temperature: 97.8 F Blood Pressure: 158/73 Pulse: 67 Respirations: 16 Pulse Ox (%): 97 Assessment And Plan - Current Problems (Diagnosis) (1) Acute on chronic heart failure Current Visit: Yes Status: Acute (2) Chronic kidney disease, stage IV (severe) Current Visit: Yes Status: Acute (3) Bilateral hydronephrosis Current Visit: Yes Status: Acute (4) BPH (benign prostatic hyperplasia) Current Visit: Yes Status: Acute (5) Anemia Current Visit: Yes Status: Acute (6) Accelerated hypertension Current Visit: Yes Status: Acute - Plan Physical Exam General: Confused, no distress. HEENT: Atraumatic, Normocephalic, PERRLA Neck: Supple, JVD not distended Respiratory: Clear to auscultation bilaterally, Diminished Cardiovascular: Normal pulses, Edema, regular rhythm Gastrointestinal: Soft and benign, nondistended, nontender. Neurological: No focal motor deficit. Plan: Respiratory condition improved. Lasix resumed per nephrology Patient will need Gonzalez catheter to relieve obstructive uropathy. Urology consult. Echocardiogram done and the result is pending. I suspect acute psychosis contributing to noncompliance. Trial of Haldol. Monitor renal function. Transfuse PRBC for hemoglobin less than 7. Hydralazine as needed for BP spikes. Continue home antihypertensives. Physician Review: Patient Assessed, Agree with Above Assessment and Plan
[2022-02-02] MEDS: CALCITROL 0.25 MCG CAP PO SCH (14:13)
[2022-02-02] MEDS: HYDRALAZINE HCL 25 MG TABLET PO SCH ×2 (14:13→20:25)
[2022-02-02] MEDS: MEDIHONEY 44 ML TOPICAL TUBE TOP SCH (14:14)
--- NOTE | 2022-02-02 16:03 | RAD REPORT ---
EXAM DESCRIPTION: CT - Abdomen Pelvis Wo Contrast - 02/02/2022 2:47 pm CLINICAL HISTORY: Bilat hydroneph, check for ureteral obstrxn/stone COMPARISON: Renal Ultrasound-Complete dated 02/01/2022 TECHNIQUE: Axial [address] imaging of the abdomen and pelvis was performed without IV contrast. No IV contrast was given because of allergy, abnormal renal function, patient refusal or physician re quest. No oral contrast administered. All CT scans are performed using dose optimization technique as appropriate and may include automated exposure control or mA/KV adjustment according to patient size. FINDINGS: Large bilateral pleural effusions are present only partially imaged. There is complete or near complete atelectasis of each lower lobe. Heart size is upper normal. No pericardial thickening o r effusion. The liver, spleen and pancreas show no suspicious findings on non-contrast imaging. Gallbladder is co ntracted. No biliary tree dilatation. Moderately severe bilateral hydronephrosis and hydroureter present down to each UVJ. The bladder is w ell filled but not grossly dilated. Prostate gland is not enlarged. A mass of the bladder is not seen . Prostatic urethral outlet obstruction as a possible etiology. No significant adrenal finding. Isod ense renal masses and pyelonephritis cannot be excluded in the absence of IV contrast. No dilated bowel loops or bowel wall thickening. Moderate stool volume is present filling but not dil ating the colon. Distal descending and sigmoid colon diverticulosis are present without diverticuliti s. Within the peritoneal and retroperitoneal spaces there is no free air, free fluid or pneumatosis. Fatty tissues are minimally congested. No hernia, mass or bulky lymphadenopathy. Patient has signific ant fluid retention in the subcutaneous fatty tissues of the abdomen and pelvis. No suspicious bony findings. Degenerative changes are seen throughout the spine lower lumbar posterio r decompression. IMPRESSION: Moderately severe bilateral hydronephrosis and hydroureter down to the UVJ level. No obs tructing mass or calcification. Urinary bladder is distended but not grossly dilated. Prostate gland is not enlarged but there could be prostatic urethral stricture as a source for the hydronephrosis. Prominent fluid retention in the subcutaneous fatty tissues of the abdomen and pelvis. There are larg e bilateral pleural effusions with complete or near complete atelectasis of each lower lobe. Full assessment is limited is the absence of IV contrast.
[2022-02-02] MEDS: SEVELAMER CARBONATE 800 MG TABLET PO SCH (16:09)
[2022-02-02] MEDS: ALBUTEROL 2.5 MG/3 ML NEB SOL NEB PRN (16:34)
[2022-02-02] MEDS ORDERED: HALOPERIDOL LACT 5 MG/ML INJ IM PRN (17:11)
[2022-02-02] MEDS: INSULIN GLARGINE 100 UNIT/ML SQ SCH (20:26)
--- NOTE | 2022-02-02 20:47 | PN ---
Date of Progress Note: 02/02/2022 Subjective: Seen by bedside. Continues to have shortness of breath on exertion, but he is significa ntly better, losing significant amount of fluids. Has orthopnea. Generally, he is weak. Review of Systems: No chest pain. Positive shortness of breath. No orthopnea. No lower extremity edema. No nausea, v omiting, or diarrhea. All other systems reviewed and they were negative. Physical Examination: Vital Signs: Temperature is 97.8, pulse 67, breathing at 16, blood pressure 158/73, saturating 97% o n room air. General: Pleasant elderly male, in no distress. Head and Neck: Pupils are equal, reactive to light. Intact eye movements. No JVD. No cervical lym phadenopathy. Neck is supple. Thyroid is not enlarged. Lungs: Clear to auscultation bilaterally. No rhonchi, crackles, or wheezing. Heart: Irregular. No extra sounds. Abdomen: Soft, nontender. Bowel sounds positive. No organomegaly. No masses or hernia. No rigidit y or rebound. Extremities: 2 to 3+ pedal edema. No clubbing or cyanosis. Intact pulses. Skin: No rash. Neurologic: Alert, awake, oriented x3. No acute focal deficits appreciated. Investigations: BUN 68, creatinine is 4.5, significant jump from yesterday. Assessment And Recommendations: 1.Acute on chronic diastolic heart failure. Has severe pulmonary hypertension on echo. Patient nee ds further diuresis. Continue current dose of Lasix. Patient has advanced kidney failure and might require dialysis. Discussed this with the patient and the family. Recommend Nephrology evaluation o n this matter for fluid management. We will plan for an outpatient exercise stress test once his con dition is more stable. 2.Hypertension. Blood pressure is elevated. Continue aggressive diuresis and we will adjust medici roby further based on blood pressure response to diuresis. SR/MODL Voice ID: [id number] Report ID: [id number]
[2022-02-03] MEDS: HEPARIN 5000 UNIT/ML 1 ML VIAL SQ SCH ×3 (00:24→17:04)
[2022-02-03] MEDS: METHYLPREDNISOLONE 40 MG INJ IV SCH ×3 (00:24→17:04)
[2022-02-03 05:48] LABS: Absolute Lymphocytes (CBC) 0.3 K/uL (0.7-4.9); Hematocrit 22.3 % (39.6-49.0); Lymphocytes % 2.6 % (15.3-44.8); MCV 92.3 fL (80-100); MPV 8.1 fL (7.6-11.3); RBC Red Blood Cell Count 2.41 M/uL (4.33-5.43)
[2022-02-03 06:01] LABS: Albumin 2.3 g/dL (3.4-5.0); Phosphorus 6.1 mg/dL (2.5-4.9); Potassium 4.7 mmol/L (3.5-5.1)
[2022-02-03] MEDS ORDERED: NA CHLORIDE 0.9% 1,000 ML IV SCH (07:00)
[2022-02-03 07:13] LABS: Blood Morphology Comment NOT SEEN (NOT SEEN); Platelet Estimate ADEQ; White Blood Cell Scan OK (OK)
[2022-02-03] MEDS: INSULIN -REGULAR HUMAN 50 UNIT/0.5 ML ML SQ SCH ×4 (07:30→20:59)
[2022-02-03] MEDS: NEPRO SHAKE 237 ML CAN PO SCH ×2 (09:00→20:24)
[2022-02-03] MEDS: MEDIHONEY 44 ML TOPICAL TUBE TOP SCH (09:00)
[2022-02-03] MEDS: FUROSEMIDE 40 MG/4 ML VIAL IV SCH (09:17)
[2022-02-03] MEDS: HYDRALAZINE HCL 25 MG TABLET PO SCH ×3 (09:20→20:23)
[2022-02-03] MEDS: AMLODIPINE 10 MG TAB PO SCH (09:20)
[2022-02-03] MEDS: ASPIRIN 81 MG CHEWABLE TABLET PO SCH (09:20)
[2022-02-03] MEDS: CALCITROL 0.25 MCG CAP PO SCH ×2 (09:21→14:11)
[2022-02-03] MEDS: TAMSULOSIN 0.4 MG SR CAP PO SCH (09:21)
[2022-02-03] MEDS: carvediloL 6.25 MG TAB PO SCH ×2 (09:21→20:23)
[2022-02-03] MEDS: SEVELAMER CARBONATE 800 MG TABLET PO SCH ×3 (09:21→17:04)
[2022-02-03] MEDS: ALBUTEROL 2.5 MG/3 ML NEB SOL NEB PRN (09:30)
[2022-02-03 11:11] LABS: Urine Bilirubin Negative (Negative); Urine Blood 3+ (Negative); Urine Clarity Clear (Clear); Urine Glucose Trace (Negative); Urine Protein 3+ (Negative); Urine Urobilinogen 0.2 mg/dL (0.2-1.0)
[2022-02-03 12:06] LABS: Urine Bacteria None Seen /HPF (<20); Urine RBC 21-50 /HPF (None Seen)
[2022-02-03 12:12] LABS: Urine Color Light-Yellow (Yellow)
--- NOTE | 2022-02-03 12:33 | P.PN ---
Subjective Date of Service: 02/03/22 Chief Complaint: SOB Patient doing better today and more cooperative. He denies shortness of breath. He responded well to IV Haldol. He allowed Gonzalez catheter insertion yesterday. About 1200 ml urine drained after Gonzalez insertion. He is currently tolerating room air. Physical Examination - Vital Signs Temperature: 97.4 F Blood Pressure: 155/72 Pulse: 71 Respirations: 18 Pulse Ox (%): 94 Assessment And Plan - Current Problems (Diagnosis) (1) Acute on chronic heart failure Current Visit: Yes Status: Acute (2) Chronic kidney disease, stage IV (severe) Current Visit: Yes Status: Acute (3) Bilateral hydronephrosis Current Visit: Yes Status: Acute (4) BPH (benign prostatic hyperplasia) Current Visit: Yes Status: Acute (5) Anemia Current Visit: Yes Status: Acute (6) Accelerated hypertension Current Visit: Yes Status: Acute - Plan Physical Exam General: Awake and more interactive, no distress. HEENT: Atraumatic, Normocephalic, PERRLA Neck: Supple, JVD not distended Respiratory: Diminished bilaterally, mild crackles in the right lower base. Cardiovascular: Normal pulses, Edema, regular rhythm Gastrointestinal: Soft and benign, nondistended, nontender. Neurological: No focal motor deficit. Plan: Respiratory condition improved. Patient is currently tolerating room air On Lasix per nephrology. Serum creatinine plateaued and trended down slightly from yesterday. Continue Gonzalez catheter for obstructive uropathy. Urology consult. Monitor renal function. Nephrology to follow Echocardiogram reported normal EF and pulmonary hypertension I suspect acute psychosis contributing to noncompliance. Patient responded well to Haldol. We will start Seroquel twice daily. Transfuse PRBC for hemoglobin less than 7. Hydralazine as needed for BP spikes. Continue home antihypertensives. Physician Review: Patient Assessed, Agree with Above Assessment and Plan
[2022-02-03] MEDS ORDERED: EPOETIN ALFA 10,000 UNIT/ML VIAL SQ ONE (13:00)
--- NOTE | 2022-02-03 13:08 | RAD REPORT ---
EXAM DESCRIPTION: RAD - Chest Single View - 02/03/2022 12:49 pm CLINICAL HISTORY: fluid overload COMPARISON: Chest Single View dated 01/31/2022; Abdomen Pelvis Wo Contrast dated 02/02/2022 FINDINGS: Lines: None. Lungs: Diffuse prominence of the pulmonary interstitium . Pleural: Pleural effusions noted. Cardiac: Cardiomegaly. Bones: No acute fractures. Other: IMPRESSION: Similar aeration of the lungs compared with 01/31/2022 with pleural effusions likely sec ondary to pulmonary edema and underlying atelectasis.
--- NOTE | 2022-02-03 13:18 | PN ---
Date of Progress Note: 02/03/2022 Subjective: The patient was admitted with acute kidney injury, multifactorial, secondary to obstructive uropathy and cardiorenal. The patient was started on Gonzalez. Physical Examination: Vital Signs: When I saw the patient; blood pressure 155/72, pulse of 72, afebrile. Chest: Faint rales bilateral. Heart: S1, S2. Systolic murmur. Abdomen: Soft, nontender. Extremity: No edema. Neuro: Alert. No focality. Laboratory Data: WBC 10.6, H and H 7.7/22.3, platelet 233. Sodium 140, potassium 4.7, bicarb 21, BUN 78, creatinine 4.4, GFR of 13, calcium 7.6, phosphorus 6.1, iron saturation of 32, albumin 2.3, corrected calcium is 8.6. Serum protein electrophoresis is still pending. Vitamin D 29. TSH 0.7. PTH is 276. Urinalysis; RBC of 50, PC ratio of 12. Serology still pending. Renal ultrasound; no hydronephrosis bilateral. CT abdomen and pelvis; severe bilateral hydronephrosis with hydroureter down to the UVJ. No obstruction, masses or calcification have been noticed. Bladder distended, but not dilated. Prostate not enlarged. Subcutaneous edema, clear effusion with atelectasis. Chest x-ray; cardiomegaly with congestion. Current Medications: The patient on include; 1. Cefepime. 2. Aspirin. 3. Flomax. 4. Amlodipine 10. 5. Carvedilol. 6. Hydralazine 50 t.i.d. 7. Lasix 80 b.i.d. 8. Renvela. 9. Zofran. 10. Solu-Medrol. 11. IV fluid. Assessment And Plan: 1. Acute kidney injury, multifactorial, secondary to obstructive uropathy, hypertension nephrosclerosis, and cardio renal syndrome. Continue Gonzalez drainage. The patient looked to me on the normal volume currently. I am going to go ahead and discontinue Lasix and I will continue IV hydration for the patient and we will follow up. 2. Hypertension, controlled, not optimal. Keep avoiding any JAMEL inhibitor or ARB. 3. Chronic kidney disease secondary to cardiorenal, obstructive uropathy, and diabetes, nephrotic range of proteinuria with acute kidney injury as above, looked to me the picture is a chronic obstruction supported with elevation in PTH supported with enlargement on the prostate and no significant improvement on the kidney function after Gonzalez. I discussed the case with Dr. Mckinney, the Urology. We will follow up the patient. Continue on Flomax. We will follow up serology and serum protein electrophoresis. 4. Obstructive uropathy as above. 5. Nephrotic range of proteinuria. Follow up serology. We will avoid any JAMEL inhibitor or ARB. 6. Anemia of chronic kidney disease. I will start the patient on EVARISTO. We will follow up serum protein electrophoresis. 7. Congestive heart failure, currently normal volume to the dry side. Discontinue Lasix and we will follow up. 8. Secondary hyperparathyroidism. Continue Renvela. Start the patient on calcitriol. Time spent examining the patient [id number], reviewing the data lab and radiology, placing orders, discussing with the patient, explaining risks, benefits, alternatives, discussing with the staff member including nursing discussing with the hospitalist more than 35 minutes. KEAGAN Voice ID: [id number] Report ID: [id number] MARIA D
[2022-02-03] MEDS: QUETIAPINE 25 MG TAB PO SCH ×2 (14:11→20:24)
--- NOTE | 2022-02-03 15:48 | PN ---
Date of Progress Note: 02/03/2022 Subjective: Seen at bedside. Shortness of breath is still present. Has significant orthopnea with lower extremity edema. No chest pain. Review of Systems: Positive for shortness of breath, orthopnea, and lower extremity edema. Denies weakness. No chest p ain. No nausea, vomiting, diarrhea. No abdominal pain. No dysuria, polyuria, or urinary urgency. All other systems reviewed are negative. Physical Examination: Vital Signs: Reviewed. Head and Neck: Pupils are equal, reactive to light. Intact eye movements. Positive JVD, elevation up to the jaw. Neck: Supple. Thyroid is not enlarged. Lungs: Crackles in the bases. No accessory muscle use or muscle retraction. Heart: Irregular with S3, gallop. Abdomen: Soft, nontender. Bowel sounds positive. No organomegaly. No masses or hernia. No rigidi ty or rebound. Extremities: 2 to 3+ pedal edema. No clubbing, cyanosis. Intact pulses. Skin: No rash. No nodules. Neurologic: Alert, awake, oriented x3. No acute focal deficits appreciated. Investigations: Labs were reviewed. Assessment And Recommendation: 1.Acute on chronic diastolic heart failure exacerbation. The patient appears fluid overloaded, has very high JVD and significant orthopnea. We will discontinue the IV fluids and this patient will req uire further diuresis. His right systolic ventricular pressure is more than 60, indicating severe pu lmonary hypertension and has significant signs of heart failure. We will discuss further with Nephro logy and primary hospitalist. 2.Advanced chronic kidney disease, which is likely a cardiorenal or hypertension induced or a combin ation of both. At this point, this is making the management of his heart failure more difficult. Th e patient needs some more aggressive fluid diuresis and might require dialysis very soon. We will di scuss further with nephrology. SR/MODL Voice ID: [id number] Report ID: [id number]
[2022-02-03] MEDS: INSULIN GLARGINE 100 UNIT/ML SQ SCH (20:24)
[2022-02-03] MEDS: CEFEPIME 2 GM in NA CHLORIDE 0.9% 100 ML IV SCH (20:24)
[2022-02-04] MEDS: METHYLPREDNISOLONE 40 MG INJ IV SCH ×3 (01:00→17:30)
[2022-02-04] MEDS: HEPARIN 5000 UNIT/ML 1 ML VIAL SQ SCH ×3 (01:00→17:30)
[2022-02-04 05:57] LABS: Absolute Lymphocytes (CBC) 0.3 K/uL (0.7-4.9); Hematocrit 21.8 % (39.6-49.0); Lymphocytes % 4.3 % (15.3-44.8); MPV 8.2 fL (7.6-11.3); RBC Red Blood Cell Count 2.37 M/uL (4.33-5.43)
[2022-02-04 06:15] LABS: Potassium 4.4 mmol/L (3.5-5.1)
[2022-02-04 06:16] LABS: Albumin 2.1 g/dL (3.4-5.0)
[2022-02-04] MEDS: INSULIN -REGULAR HUMAN 50 UNIT/0.5 ML ML SQ SCH ×4 (07:30→21:05)
[2022-02-04 08:28] LABS: Blood Morphology Comment NOT SEEN (NOT SEEN); Platelet Estimate ADEQ; White Blood Cell Scan OK (OK)
[2022-02-04] MEDS: carvediloL 6.25 MG TAB PO SCH ×2 (09:00→21:03)
[2022-02-04] MEDS: MEDIHONEY 44 ML TOPICAL TUBE TOP SCH (09:00)
[2022-02-04] MEDS: NEPRO SHAKE 237 ML CAN PO SCH ×2 (09:00→21:05)
[2022-02-04] MEDS: QUETIAPINE 25 MG TAB PO SCH ×2 (09:10→21:03)
[2022-02-04] MEDS: SEVELAMER CARBONATE 800 MG TABLET PO SCH ×3 (09:11→17:30)
[2022-02-04] MEDS: ASPIRIN 81 MG CHEWABLE TABLET PO SCH (09:11)
[2022-02-04] MEDS: AMLODIPINE 10 MG TAB PO SCH (09:12)
[2022-02-04] MEDS: HYDRALAZINE HCL 25 MG TABLET PO SCH ×3 (09:12→21:03)
[2022-02-04] MEDS: TAMSULOSIN 0.4 MG SR CAP PO SCH (09:12)
--- NOTE | 2022-02-04 13:22 | RAD REPORT ---
EXAM DESCRIPTION: RAD - Foot Right 2 View - 02/04/2022 1:07 pm CLINICAL HISTORY: right foot pain COMPARISON: Foot Right 2 View dated 02/01/2022 FINDINGS: No acute fracture. No malalignment. Moderate degenerative changes are present at the first MTP ulceration along the plantar aspect of the foot at the level of the proximal phalanges. Calcanea l spurring. Peripheral vascular calcifications. IMPRESSION: No acute osseous abnormality involving the left foot. No significant change identified c ompared with 02/01/2022.
--- NOTE | 2022-02-04 13:28 | P.PN ---
Subjective Date of Service: 02/04/22 Chief Complaint: SOB Patient has no new complaint. He denies shortness of breath. He allowed Gonzalez catheter insertion yesterday. He has been tolerating room air. Physical Examination - Vital Signs Temperature: 97.0 F Blood Pressure: 161/72 Pulse: 63 Respirations: 18 Pulse Ox (%): 97 Assessment And Plan - Current Problems (Diagnosis) (1) Acute on chronic heart failure Current Visit: Yes Status: Acute (2) Chronic kidney disease, stage IV (severe) Current Visit: Yes Status: Acute (3) Bilateral hydronephrosis Current Visit: Yes Status: Acute (4) BPH (benign prostatic hyperplasia) Current Visit: Yes Status: Acute (5) Anemia Current Visit: Yes Status: Acute (6) Accelerated hypertension Current Visit: Yes Status: Acute (7) Foot ulcer, left Current Visit: Yes Status: Acute - Plan Physical Exam General: Awake and more interactive, no distress. HEENT: Atraumatic, Normocephalic, PERRLA Neck: Supple, JVD not distended Respiratory: Diminished bilaterally, mild crackles in the right lower base. Cardiovascular: Normal pulses, Edema, regular rhythm Gastrointestinal: Soft and benign, nondistended, nontender. Neurological: No focal motor deficit. Plan: Respiratory condition improved. Patient is off Lasix because renal response/improvement has been slow. He is currently tolerating room air. Encouraged oral rehydration Serum creatinine is trending down slowly Continue Gonzalez catheter for obstructive uropathy. Urology consult. Monitor renal function. Nephrology is following Echocardiogram reported normal EF and pulmonary hypertension I suspect acute psychosis contributing to noncompliance. Patient responded well to Haldol. Continue Seroquel twice daily. Monitor H&H and transfuse PRBC for hemoglobin less than 7. Hydralazine as needed for BP spikes. Continue home antihypertensives. Local wound care for left foot ulcer. Physician Review: Patient Assessed, Agree with Above Assessment and Plan
--- NOTE | 2022-02-04 13:31 | PN ---
Date of Progress Note: 02/04/2022 Subjective: Seen by bedside. He is doing fairly well, generally very weak. Still with shortness of breath on activities. No resting shortness of breath. No chest pain. No dysuria, polyuria, or uri nary urgency. No skin rash. Review of Systems: All other systems reviewed and they were negative. Physical Examination: Vital Signs: Reviewed. His blood pressure is 181/71, pulse 62, breathing at 16, saturating 97% on r oom air. No fever. General: A pleasant elderly male, in no apparent distress. Head and Neck: Pupils are equal, reactive to light. Intact eye movements. Positive JVD. No cervic al lymphadenopathy. Neck is supple. Thyroid is not enlarged. Lungs: Crackles in both bases. No accessory muscle use or muscle retraction. Heart: Regular rate and rhythm with S3 gallop. Abdomen: Soft, nontender. Bowel sounds positive. No organomegaly. No masses or hernia. No rigidi ty or rebound. Extremities: 3+ pitting edema bilaterally. No clubbing or cyanosis. Intact pulses. Skin: No rash. Neurologic: Alert, awake, oriented x3. No acute focal deficits appreciated. Investigations: Labs were reviewed. Assessment And Recommendations: 1.Acute on chronic heart failure exacerbation. It is a diastolic dysfunction with advanced kidney f ailure. I will recommend to start him on Bumex at 2 mg by mouth twice a day to establish oral diuret ic regimen and monitor status and response to that. Adjust the dose as needed. Low-salt diet and da sam body weight. 2.Advanced kidney disease. The patient is being monitored by Nephrology. /CHAVA Voice ID: [id number] Report ID: [id number]
--- NOTE | 2022-02-04 14:19 | PN ---
Date of Progress Note: 02/04/2022 Subjective: The patient was admitted with acute kidney injury secondary to cardiorenal/obstructive uropathy. The patient was started on diuresis. As I mentioned, ultrasound showed some obstructive uropathy. I discussed the case with Dr. Mckinney. Dr. Mckinney' opinion it is chronic obstruction to repeat ultrasound in 2-3 days. Physical Examination: Vital Signs: When I saw the patient; blood pressure 181/75, pulse of 62, afebrile. Chest: Clear to auscultation. Heart: S1, S2. Regular. Systolic murmur. Abdomen: Soft, nontender. Extremity: Plus edema. Neurologic: Alert. No focality. Laboratory Data: WBC 7.4, H and H 7.4/21.8. Sodium 140, potassium 4.4, bicarb 21, BUN 85, creatinine 4.3, calcium 7.6, phosphorus 6, GFR of 14. PTH 276. Assessment And Plan: 1. Acute kidney injury secondary to cardiorenal. The patient had right heart failure. IV fluid has been discontinued by Cardiology, we will follow up. We will follow up with Urology regarding obstructive uropathy. Continue on Flomax. Keep holding IV fluid. 2. Hypertension, controlled, not optimal. I am going to go ahead and increase his hydralazine to 100 mg and we will follow up. 3. Congestive heart failure, diastolic function with severe pulmonary hypertension. We will follow up with Cardiology. If the patient is going to need cardiac cath, mostly the patient is going to end up needing dialysis. 4. Obstructive uropathy as above. We will follow up with Urology, repeat ultrasound for tomorrow. Time spent examining the patient [id number], reviewing the data lab and radiology, placing orders, discussing with the patient, explaining risks, benefits, alternatives, discussing with the staff member including nursing discussing with the hospitalist more than 35 minutes. MAC/CHAVA Voice ID: [id number] Report ID: [id number] MARIA D
--- NOTE | 2022-02-04 15:27 | RAD REPORT ---
EXAM DESCRIPTION: US - Renal Ultrasound-Complete - 02/04/2022 3:10 pm CLINICAL HISTORY: acute renal injury COMPARISON: Abdomen Pelvis Wo Contrast dated 02/02/2022 FINDINGS: The right kidney measures 12.1 cm. Hydronephrosis has essentially resolved with some resid ual fullness. . No masses are identified. No stones. The echotexture is normal. . The left kidney was not visualized due to overlying bowel gas. IMPRESSION: Right-sided hydronephrosis has resolved. The left kidney was completely obscured by basim l gas.
[2022-02-04 17:18] LABS: Hepatitis C Virus RNA (PCR)log <1.18 log IU/mL
[2022-02-04] MEDS: CEFEPIME 2 GM in NA CHLORIDE 0.9% 100 ML IV SCH (21:04)
[2022-02-04] MEDS: INSULIN GLARGINE 100 UNIT/ML SQ SCH (21:05)
[2022-02-05] MEDS: METHYLPREDNISOLONE 40 MG INJ IV SCH ×3 (00:12→16:19)
[2022-02-05] MEDS: HEPARIN 5000 UNIT/ML 1 ML VIAL SQ SCH ×3 (00:12→16:19)
[2022-02-05 03:45] LABS: Absolute Lymphocytes (CBC) 0.2 K/uL (0.7-4.9); Hematocrit 21.6 % (39.6-49.0); Lymphocytes % 3.1 % (15.3-44.8); MCV 93.4 fL (80-100); MPV 8.7 fL (7.6-11.3); RBC Red Blood Cell Count 2.31 M/uL (4.33-5.43)
[2022-02-05 04:00] LABS: Phosphorus 5.2 mg/dL (2.5-4.9); Potassium 4.5 mmol/L (3.5-5.1)
[2022-02-05] MEDS: INSULIN -REGULAR HUMAN 50 UNIT/0.5 ML ML SQ SCH ×4 (07:30→21:18)
[2022-02-05] MEDS: carvediloL 6.25 MG TAB PO SCH ×2 (08:46→21:17)
[2022-02-05] MEDS: SEVELAMER CARBONATE 800 MG TABLET PO SCH ×3 (08:46→16:18)
[2022-02-05] MEDS: QUETIAPINE 25 MG TAB PO SCH (08:47)
[2022-02-05] MEDS: ASPIRIN 81 MG CHEWABLE TABLET PO SCH (08:47)
[2022-02-05] MEDS: HYDRALAZINE HCL 25 MG TABLET PO SCH ×3 (08:47→21:17)
[2022-02-05] MEDS: TAMSULOSIN 0.4 MG SR CAP PO SCH (08:47)
[2022-02-05] MEDS: AMLODIPINE 10 MG TAB PO SCH (08:47)
[2022-02-05] MEDS: MEDIHONEY 44 ML TOPICAL TUBE TOP SCH (08:52)
[2022-02-05] MEDS: NEPRO SHAKE 237 ML CAN PO SCH ×2 (08:54→21:00)
--- NOTE | 2022-02-05 11:56 | PN ---
Date of Progress Note: 02/05/2022 Mr. Katz had been followed by Dr. Sims for renal failure, right-sided congestive heart failure, se alexus pulmonary hypertension, obstructive uropathy, hypertension, acute on chronic diastolic congestiv e heart failure. Nephrology is following him. He has a history of CAD, status post PCI, hypertensio n, congestive heart failure, and diabetes in the past. He will eventually need a left heart catheter ization, but we will discuss with Nephrology the timing of this, this would definitely not the time r ight now. I think once his kidney improves or decision is made as far as hemodialysis, then we will do the catheterization then. I will discuss the case further with Dr. Gibson. Continue present re alicia for now. Hydralazine has just been increased for his high blood pressure. NEVIN/CHAVA Voice ID: [id number] Report ID: [id number]
[2022-02-05] MEDS: CALCITROL 0.25 MCG CAP PO SCH (12:41)
--- NOTE | 2022-02-05 12:57 | P.PN ---
Subjective Date of Service: 02/05/22 Chief Complaint: SOB Patient he feels weak today. He took only a few steps with therapy today. Unsteady gait noted during physical therapy. Physical Examination - Vital Signs Temperature: 97.0 F Blood Pressure: 163/73 Pulse: 63 Respirations: 18 Pulse Ox (%): 97 Assessment And Plan - Current Problems (Diagnosis) (1) Acute on chronic heart failure Current Visit: Yes Status: Acute (2) Chronic kidney disease, stage IV (severe) Current Visit: Yes Status: Acute (3) Bilateral hydronephrosis Current Visit: Yes Status: Acute (4) BPH (benign prostatic hyperplasia) Current Visit: Yes Status: Acute (5) Anemia Current Visit: Yes Status: Acute (6) Accelerated hypertension Current Visit: Yes Status: Acute (7) Foot ulcer, left Current Visit: Yes Status: Acute - Plan Physical Exam General: Awake and more interactive, no distress. HEENT: Atraumatic, Normocephalic, PERRLA Neck: Supple, JVD not distended Respiratory: Diminished bilaterally, mild crackles in the right lower base. Cardiovascular: Normal pulses, Edema, regular rhythm Gastrointestinal: Soft and benign, nondistended, nontender. Neurological: No focal motor deficit. Plan: Respiratory condition improved. Patient is off Lasix because renal response/improvement has been slow. He is currently tolerating room air. Encouraged oral rehydration No change in renal function from yesterday. Repeat renal ultrasound showed improvement in right hydronephrosis. Continue Gonzalez catheter for obstructive uropathy. Urology Dr. Mckinney is aware and recommend to maintain the Gonzalez catheter for least 4 weeks and follow-up with him in the office. Monitor renal function. Nephrology is following Echocardiogram reported normal EF and pulmonary hypertension Acute psychosis has responded to antipsychotics. There is a concern that Seroquel is contributing to patient's psychomotor retardation and it is changed to Risperdal which has less sedating effect. Hemoglobin has been stable. Monitor H&H and transfuse PRBC for hemoglobin less than 7. Hydralazine as needed for BP spikes. Continue home antihypertensives. Local wound care for left foot ulcer. Clinically stable for discharge but patient may need placement given his decreased mobility. Need to discuss skilled rehab placement. Physician Review: Patient Assessed, Agree with Above Assessment and Plan
[2022-02-05] MEDS ORDERED: levoFLOXacin 750 MG TAB PO ONE (14:00)
[2022-02-05] MEDS ORDERED: MINERAL OIL ENEMA 135 ML BTL PR SCH (15:00)
[2022-02-05 15:59] LABS: Albumin, (SPE) 2.7 g/dL (3.8-4.8); Alpha-1-Globulins 0.4 g/dL (0.2-0.3); INTERPRETATION REPORT
--- NOTE | 2022-02-05 16:41 | CON ---
Reason For Consultation: Bilateral hydronephrosis. Additional Consulting Physician: Adin Clark MD History Of Present Illness: Mr. Katz is a 71-year-old gentleman with a past medical history signifi cant for hypertension, CHF, type 2 diabetes, BPH, coronary artery disease with stent, who presented o n 01/31/2022 with complaints of shortness of breath that had been going on for some time, but became worse the day prior to his admission. He was an extremely poor historian, and his sister, who was pr esent for my evaluation, noted that he was essentially homeless and living in [place] on the streets. Eventually, her brother and she went and found him and retrieved him and brought him in noting sign ificant bilateral lower extremity and ankle swelling. He had not been taking his home medications fo r at least a month noting that his medications were last filled on 11/22/2021. Upon admission, evalu ation was performed revealing signs of acute or chronic kidney injury with a creatinine of 4.4, BUN o f 96 and anemia with a hemoglobin in the 7 range. The patient acknowledges that for the last month a nd a half he has had some difficulties urinating and also had issues with incontinence of urine suffi cient to wet his clothing. Past Medical History: As above: CHF, hypertension, DM2, CAD with stent. Allergies: TO PENICILLIN CAUSES HIVES OR RASH. Home Medications: Include; 1.Typically Eliquis 1 tablet twice daily. 2.Amlodipine. 3.Aspirin. 4.Furosemide. 5.Glargine insulin. 6.Flomax. 7.Carvedilol. Social History: Noncontributory because the patient was a poor historian, unable to adequately comme nt on such. Physical Examination: The patient was comfortable and well-appearing in no acute distress, lying in the hospital stretcher. He was alert and awake, but no sense of orientation was made. There was no dyspnea or sign of resp iratory distress, though he did have a frequent cough. His abdomen was soft, nontender, and nondiste nded. His genitalia were circumcised without lesion, there was an orthotopic meatus patent with a ur ethral Gonzalez catheter in place that was draining mostly clear urine with some clot material within th e tubing. Laboratory Data: Current laboratory assessment as indicated above. Urinalysis with 3+ heme and 21-5 0 RBCs per HPF. I consulted with the hospitalist via phone over the weekend and explained that since the urethral Fol ey catheter was only placed on Saturday into Saturday that he would need at least 2-3 days for the hydr onephrosis to resolve. I reviewed the CT scan done in detail, and the bladder was significantly distended, but there was no significant thickening of the detrusor, and there was ureteral nephrosis extending from the ureterove sical junction all the way up to the renal pelvis where there was associated pelvocaliectasis bilater ally. As a result, I recommended over the weekend that they repeat an ultrasound after about 3 days of catheterization. 02/04/2022, renal ultrasound revealed resolution of the right-sided hydronephrosis with some mild res idual fullness. No masses identified. No stones. The echotexture is normal. The left kidney was n ot visualized on this study due to overlying bowel gas. Assessment And Recommendations: A 71-year-old gentleman cognitively impaired with history of congest js heart failure, hypertension, DM2, coronary artery disease with stent on Eliquis and history of BP H on Flomax with over a month and a half of overflow incontinence with associated bilateral hydrouret eronephrosis and likely acute on chronic kidney disease. Given the resolution of the hydronephrosis observed with Gonzalez catheter placement, but given the inability to visualize the left kidney, I made the following recommendations: Provide a glycerine enema, since he is unable to receive a Phospho-Soda enema given his acute kidney injury, to clear the overlying bowel gas and repeat the ultrasound to ensure resolution of the left-s ided hydronephrosis as well. If persistence of hydronephrosis on the left side is noted, I would con fork operator placing a left ureteral stent to assist in resolution of his acute on chronic kidney disease. Outpatient followup will be required to assess the nature of his obstruction due to BPH and to follow up the hematuria observed. As a result, he will require a cystoscopy on followup and potentially ur odynamic evaluation in preparation for any surgical therapy to be considered. In the meantime, resume Flomax 0.4 mg daily. Supportive care under the direction of Nephrology to st abilize and help his acute on chronic kidney disease recovered to a new baseline. WR/MODL Voice ID: [id number] Report ID: [id number]
[2022-02-05 18:59] LABS: HBsAG Nonreactive (Nonreactive)
--- NOTE | 2022-02-05 19:54 | P.PN ---
Date of Service: 02/06/22 Subjective: feeling better swelling improving breathing more comfortably, working with PT ROS: 10 point ROS as noted above, otherwise negative Physical Exam: Gen: NAD, AOx3 HEENT: normal conjunctiva, sclera anicteric CV: regular rate & rhythm, trace-1+ b/l lower extremity edema to knees Pulm: non-labored respirations on room air, mild b/l crackles Abd: soft, non-tender, non-distended MSK: no contracture, no tenderness Neuro: normal speech, normal affect, moves all extremities vitals reviewed Problem List: Acute on chronic CHF, diastolic severe pulmonary hypertension HTN CKD IV bilateral hydronephrosis BPH acute psychosis DM2, insulin dependent CAD s/p PCI Anemia, of chronic disease Left chronic diabetic foot ulcer, stage 2 Acute on chronic CHF, diastolic severe pulmonary hypertension HTN Respiratory condition improved, on room air for the past ~2 days encouraged PO hydration Echo: normal EF, +pulmonary hypertension continue home antihypertensives difficult to balance diuresis and renal function has improved b/l effusions remain pt was started on steroids empirically on admission, dc 02/06 CKD IV bilateral hydronephrosis BPH off lasix, renal response has been slow / no significant change discussed with nephrology - lasix ordered to restart repeat renal U/S: improvement in right hydronephrosis Urology consulted - Dr. Mckinney recommended linda for at least 4wks; f/u in office considers findings (b/l hydro, urinary symptoms) more of a chronic issue acute psychosis responded to antipsychotics there was concern that seroquel contributed to pt's psychomotor retardation - > changed to risperdal for less sedating effect DM2, insulin dependent CAD s/p PCI Anemia, of chronic disease Left chronic diabetic foot ulcer, stage 2 continue home insulin Hgb stable in 7s local wound care for left foot ulcer, wound nursing consulted generalized weakness, unsteady gait working with PT family and patient agreeable to SNF VTE: heparin subq Code: full Dispo: home with home health, ~1-2 days Time Spent Managing Pts Care (In Minutes): 35
--- NOTE | 2022-02-05 21:14 | PN ---
Date of Progress Note: 02/05/2022 Chief Complaint: Generalized weakness, acute kidney injury, cardiorenal syndrome. History Of Present Illness: The patient was found to have hydronephrosis and has a Gonzalez catheter. Urologist was consulted and Dr. Mckinney apparently feels that this is chronic obstruction. The patie nt will have a renal ultrasound in 2-3 days. On admission, he was found to have hydronephrosis. Cur rently, he has a Gonzalez catheter. Review of Systems: Denies fever, chills. The patient is complaining of generalized pain and aches. Denies fever, chill s. Denies chest pain. Physical Examination: Lungs: Clear to auscultation bilaterally. Heart: S1, S2. Abdomen: Soft. Extremities: Edema present in both legs. BUN 85, creatinine 4.3, phosphorus 6, estimated GFR 14. Impression And Plan: 1.Acute kidney injury secondary to cardiorenal syndrome. The patient has likely advanced chronic ki dney disease due to obstructive uropathy and hypertensive kidney disease. The patient developed acut e on chronic congestive heart failure with diastolic dysfunction. The patient has severe pulmonary h ypertension. Continue to use diuretic for volume control as needed. Monitor fluid balance. 2.Obstructive uropathy. The patient will follow up with urologist. Plan is to re-evaluate ultrasou nd for further workup. 3.History of obstructive uropathy. Continue Flomax, and currently, the patient has a chronic cathet er. I discussed with the family to monitor with the Gonzalez catheter until urology can clear him to re move the catheter. 4.Hypertension, controlled. The patient is on hydralazine 100 mg twice a day. Continue to monitor and patient is not a candidate for angiotensin receptor alex or JAMEL inhibitor due to having high risk of hyperkalemia. EB/MODL Voice ID: [id number] Report ID: [id number]
[2022-02-05] MEDS: RISPERIDONE 1 MG TABLET PO SCH (21:17)
[2022-02-05] MEDS: INSULIN GLARGINE 100 UNIT/ML SQ SCH (21:18)
[2022-02-06] MEDS: HEPARIN 5000 UNIT/ML 1 ML VIAL SQ SCH ×3 (00:46→16:35)
[2022-02-06] MEDS: METHYLPREDNISOLONE 40 MG INJ IV SCH ×2 (00:49→09:03)
[2022-02-06 03:42] LABS: Absolute Lymphocytes (CBC) 0.3 K/uL (0.7-4.9); Hematocrit 23.7 % (39.6-49.0); Lymphocytes % 3.7 % (15.3-44.8); MCV 93.8 fL (80-100); RBC Red Blood Cell Count 2.53 M/uL (4.33-5.43)
[2022-02-06 04:05] LABS: Albumin 1.8 g/dL (3.4-5.0); Potassium 4.5 mmol/L (3.5-5.1)
[2022-02-06] MEDS: INSULIN -REGULAR HUMAN 50 UNIT/0.5 ML ML SQ SCH ×4 (07:30→21:09)
[2022-02-06 08:22] LABS: HIV AG/AB 4TH GEN Non-reactive (Non-reactive)
[2022-02-06] MEDS: AMLODIPINE 10 MG TAB PO SCH (09:01)
[2022-02-06] MEDS: RISPERIDONE 1 MG TABLET PO SCH ×2 (09:01→21:08)
[2022-02-06] MEDS: ASPIRIN 81 MG CHEWABLE TABLET PO SCH (09:01)
[2022-02-06] MEDS: TAMSULOSIN 0.4 MG SR CAP PO SCH (09:01)
[2022-02-06] MEDS: carvediloL 6.25 MG TAB PO SCH ×2 (09:01→21:09)
[2022-02-06] MEDS: SEVELAMER CARBONATE 800 MG TABLET PO SCH ×3 (09:02→16:34)
[2022-02-06] MEDS: HYDRALAZINE HCL 25 MG TABLET PO SCH ×3 (09:02→21:08)
[2022-02-06] MEDS: MEDIHONEY 44 ML TOPICAL TUBE TOP SCH (09:05)
[2022-02-06] MEDS: NEPRO SHAKE 237 ML CAN PO SCH ×2 (09:05→22:23)
[2022-02-06 10:21] LABS: Vitamin D 1,25-Dihydroxy Total <8 pg/mL (18-72); Vitamin D,1,25-OH2, D2 <8 pg/mL
--- NOTE | 2022-02-06 11:38 | PN ---
Date of Progress Note: 02/06/2022 Subjective: The patient was admitted with acute kidney injury secondary to obstructive uropathy/cardiorenal. The patient had been seen by Cardiology. Repeated ultrasound showing improvement on the obstruction. Physical Examination: Vital Signs: Blood pressure 182/83, pulse of 64, afebrile. Chest: Faint rales bilateral base. Heart: S1, S2. Systolic murmur. Abdomen: Soft, nontender. Extremity: Plus edema. Neuro: Alert. No focality. Laboratory Data: WBC 7.5, H and H 7.8/23.7. Sodium 137, potassium 4.5, bicarb 21, BUN 103, creatinine 4.3, calcium 7.6, phosphorus 5, albumin 1.8. Corrected calcium is 9.2. Current Medications: The patient on include; 1. Aspirin. 2. Levaquin. 3. Flomax. 4. Heparin. 5. Carvedilol 6.25. 6. Hydralazine 100 t.i.d. 7. Risperidone. 8. Haloperidol. 9. Renvela. Assessment And Plan: 1. Chronic kidney disease, stage 5, progression possibly to end-stage renal disease. I had long discussion with the patient and family regarding the option of treatment including close monitoring for the kidney function given the possibility of obstructive component for the acute kidney injury, even though that it looked to me on advanced chronic kidney disease. The patient may be safe from initiating renal replacement therapy in the next couple of months, but he will need it eventually. Family still not decided. We will follow up tomorrow. If the patient agreed on initiating renal replacement therapy, we will go ahead and place a dialysis catheter and initiate the patient on the dialysis. 2. Hypertension, controlled, not optimal. We will utilize blood pressure for more diuresis. I am going to start the patient on Lasix and we will follow up the patient. 3. Obstructive uropathy. Seen by Urology. Recommended leg bag and follow up in 4 weeks. 4. Nephrotic range of proteinuria. Serology is still pending. Hepatitis has been ruled out. Mostly secondary to diabetes. 5. Anemia of chronic kidney disease. Light chain disease has been ruled out. Iron deficiency anemia has been ruled out. The patient was initiated on EVARISTO. Hemoglobin stabilized. The patient received last dose of Retacrit on the . We will follow up. 6. Secondary hyperparathyroidism. Continue calcitriol. Time spent examining the patient [id number], reviewing the data lab and radiology, placing orders, discussing with the patient, explaining risks, benefits, alternatives, discussing with the staff member including nursing discussing with the hospitalist more than 35 minutes. KEAGAN Voice ID: [id number] Report ID: [id number] MARIAD
--- NOTE | 2022-02-06 12:17 | RAD REPORT ---
EXAM DESCRIPTION: Raad Single View02/06/2022 12:06 pm CLINICAL HISTORY: Shortness breath COMPARISON: February 03, 2022 FINDINGS: Moderate right and small to moderate left pleural effusions. By basilar atelectasis. Upper lobes appear clear. Heart remains enlarged
[2022-02-06] MEDS: INSULIN GLARGINE 100 UNIT/ML SQ SCH (21:09)
[2022-02-07] MEDS: HEPARIN 5000 UNIT/ML 1 ML VIAL SQ SCH ×3 (01:01→16:54)
[2022-02-07 03:59] LABS: Hematocrit 23.8 % (39.6-49.0); MPV 8.8 fL (7.6-11.3); RBC Red Blood Cell Count 2.59 M/uL (4.33-5.43)
[2022-02-07 04:11] LABS: Albumin 1.8 g/dL (3.4-5.0); Magnesium 2.3 mg/dL (1.8-2.4); Phosphorus 4.7 mg/dL (2.5-4.9); Potassium 4.3 mmol/L (3.5-5.1)
--- NOTE | 2022-02-07 06:10 | P.PN ---
Date of Service: 02/07/22 Subjective: feels about same, breathing comfortably swelling improving renal function stable ROS: 10 point ROS as noted above, otherwise negative Physical Exam: Gen: NAD, AOx3 HEENT: normal conjunctiva, sclera anicteric CV: regular rate & rhythm, trace-1+ b/l lower extremity edema to knees Pulm: non-labored respirations on room air, diminished at bases bilaterally Neuro: normal speech, normal affect, moves all extremities vitals reviewed Problem List: Acute on chronic CHF, diastolic severe pulmonary hypertension HTN CKD IV bilateral hydronephrosis BPH acute psychosis DM2, insulin dependent CAD s/p PCI Anemia, of chronic disease Left chronic diabetic foot ulcer, stage 2 Acute on chronic CHF, diastolic severe pulmonary hypertension HTN Respiratory condition improved, on room air for the past few days encouraged PO hydration Echo: normal EF, +pulmonary hypertension continue home antihypertensives difficult to balance diuresis and renal function overall improving b/l effusions remain pt was started on steroids empirically on admission, dc'd 02/06 CKD IV bilateral hydronephrosis BPH off lasix, renal response has been slow / no significant change discussed with nephrology - lasix ordered to restart 02/06 to discuss with sister regarding dialysis repeat renal U/S: improvement in right hydronephrosis Urology consulted - Dr. Mckinney recommended linda for at least 4wks; f/u in office considers findings (b/l hydro, urinary symptoms) more of a chronic issue acute psychosis responded to antipsychotics there was concern that seroquel contributed to pt's psychomotor retardation - > changed to risperdal for less sedating effect slight intermittent confusion DM2, insulin dependent CAD s/p PCI Anemia, of chronic disease Left chronic diabetic foot ulcer, stage 2 continue home insulin Hgb stable local wound care for left foot ulcer, wound nursing consulted generalized weakness, unsteady gait working with PT family and patient agreeable to SNF VTE: heparin subq Code: full Dispo: SNF, ~1-2 days Time Spent Managing Pts Care (In Minutes): 35
[2022-02-07] MEDS: RISPERIDONE 1 MG TABLET PO SCH ×2 (08:26→20:14)
[2022-02-07] MEDS: TAMSULOSIN 0.4 MG SR CAP PO SCH (08:26)
[2022-02-07] MEDS: HYDRALAZINE HCL 25 MG TABLET PO SCH ×3 (08:26→20:23)
[2022-02-07] MEDS: carvediloL 6.25 MG TAB PO SCH ×2 (08:27→20:18)
[2022-02-07] MEDS: AMLODIPINE 10 MG TAB PO SCH (08:27)
[2022-02-07] MEDS: FUROSEMIDE 40 MG TABLET PO SCH (08:27)
[2022-02-07] MEDS: ASPIRIN 81 MG CHEWABLE TABLET PO SCH (08:27)
[2022-02-07] MEDS: SEVELAMER CARBONATE 800 MG TABLET PO SCH ×3 (08:27→16:54)
[2022-02-07] MEDS: INSULIN -REGULAR HUMAN 50 UNIT/0.5 ML ML SQ SCH ×4 (08:28→20:13)
[2022-02-07] MEDS: NEPRO SHAKE 237 ML CAN PO SCH ×2 (08:29→20:14)
[2022-02-07] MEDS: MEDIHONEY 44 ML TOPICAL TUBE TOP SCH (08:29)
[2022-02-07] MEDS: CALCITROL 0.25 MCG CAP PO SCH (12:05)
--- NOTE | 2022-02-07 12:27 | PN ---
Date of Progress Note: 02/07/2022 Subjective: The patient was admitted with acute kidney injury secondary to obstructive uropathy, cardiorenal. The patient has been on Gonzalez. Repeated ultrasound showed improvement. Physical Examination: Vital Signs: Blood pressure 153/73, pulse of 75. Chest: Clear to auscultation. Heart: S1, S2. Systolic murmur. Abdomen: Soft, nontender. Extremity: Trace edema. Neuro: Alert. No focality. Laboratory Data: WBC 9.9, H and H 8.3/23.8. Sodium 138, potassium 4.3, bicarb 22, BUN 106, creatinine 4.3, calcium 7.7, phosphorus 4.7, magnesium 2.3. Current Medications: The patient on include; 1. Aspirin. 2. Levaquin 500 every 48 hours. 3. Flomax. 4. Carvedilol 6.25. 5. Hydralazine 100 t.i.d. 6. Risperidone. 7. Renvela 1600 with each meal. 8. Melatonin. 9. Insulin. Assessment And Plan: 1. Acute kidney injury on advanced chronic kidney disease secondary to cardiorenal/chronic obstructive uropathy/diabetes with significant elevation in the BUN. I had long discussion with the patient, waiting for his sister's final decision regarding initiating renal replacement therapy. We will follow up. 2. Obstructive uropathy. Follow up with Urology. 3. Chronic kidney disease as above with a progression. Will need renal replacement therapy in the short-term. 4. Anemia of chronic kidney disease. Continue EVARISTO. 5. 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 Light chain disease has been ruled out. We will follow up serology. Unfortunately, could not add any JAMEL inhibitor or ARB given the advanced disease. We will add it after starting dialysis. 6. Obstructive uropathy. We will follow up with Urology. The patient had repeated ultrasound showing resolving hydronephrosis on the right. 7. Congestive heart failure with exacerbation. Continue diuresis. Time spent examining the patient [id number], reviewing the data lab and radiology, placing orders, discussing with the patient, explaining risks, benefits, alternatives, discussing with the staff member including nursing discussing with the hospitalist more than 35 minutes. KEAGAN Voice ID: [id number] Report ID: [id number] MTDD
[2022-02-07] MEDS: ONDANSETRON 4 MG/2 ML VIAL IV PRN (14:11)
[2022-02-07] MEDS: levoFLOXacin 500 MG TAB PO SCH (14:35)
--- NOTE | 2022-02-07 18:29 | EKG ---
Test Date: 2022-02-07 Test Time: 04:08:55 Intellectual Property Legal Assistant: GERBER MEASUREMENT RESULTS: Intervals: Rate: 62 [place]: QRSD: 104 QT: 432 QTc: 438 [place]: P: [place]: QRS: 8 T: 255 INTERPRETIVE STATEMENTS: Atrial fibrillation Nonspecific T wave abnormality, probably digitalis effect Abnormal ECG Compared to ECG 01/31/2022 13:39:04 T-wave abnormality now present Sinus rhythm no longer present First degree AV block no longer present ST (T wave) deviation no longer present Prolonged QT interval no longer present Electronically Signed On 02-07-22 18:28:00 CDT by Antonio Prajapati
[2022-02-07] MEDS: MORPHINE 2 MG/ML SYR IV PRN (20:13)
[2022-02-07] MEDS: INSULIN GLARGINE 100 UNIT/ML SQ SCH (20:15)
[2022-02-08] MEDS: HEPARIN 5000 UNIT/ML 1 ML VIAL SQ SCH ×3 (00:41→16:59)
--- NOTE | 2022-02-08 02:28 | PN ---
Date of Progress Note: 02/06/2022 Mr. Katz has history of chronic renal disease, CAD status post PCI, hypertension, CHF, and diabetes. He has severe pulmonary hypertension, right-sided failure, obstructive uropathy and hypertension. His hydralazine was increased. His blood pressure is improved to 140/70. He remains in sinus rhythm at a rate of 73, O2 saturations are adequate. Present regimen includes aspirin, amlodipine, Lasix, hydralazine, insulin, steroids, carvedilol. Nephrology is following him. We have eventually a plan for him to have a heart catheterization once the decision is made regarding his kidney function and p ossible hemodialysis. We will continue to follow. NEVIN/CHAVA Voice ID: [id number] Report ID: [id number]
--- NOTE | 2022-02-08 02:41 | PN ---
Date of Progress Note: 02/07/2022 Mr. Katz has been followed for severe pulmonary hypertension; right-sided acute renal failure, histo ry of CAD, status post PCI; hypertension; and diabetes. Today, he went into atrial fibrillation, rat e controlled in the 70s. I recommend to continue his present regimen. He is on heparin subcu right now at 5000 units every 12 hours, which we should continue for now, but once he is ready to go home c onsidering how high his CHADS score is, he should be on Eliquis 2.5 mg b.i.d. The case was discussed with Dr. Acosta. We will continue to follow Mr. Katz on an as-needed basis. Definitely, we will se e him as an outpatient after the decision is made regarding hemodialysis. NEVIN/CHAVA Voice ID: [id number] Report ID: [id number]
[2022-02-08 06:41] LABS: Albumin 1.6 g/dL (3.4-5.0); Phosphorus 4.9 mg/dL (2.5-4.9); Potassium 4.7 mmol/L (3.5-5.1)
--- NOTE | 2022-02-08 07:28 | RAD REPORT ---
EXAM DESCRIPTION: RAD - Chest Single View - 02/08/2022 5:50 am CLINICAL HISTORY: Pleural effusions COMPARISON: Portable February 06 TECHNIQUE: AP portable chest image was obtained 02/08/2022 5:50 am . FINDINGS: The moderately large right-sided pleural effusion and the much smaller left-sided pleural effusion are stable from February 06 imaging. No new lung parenchymal process seen. Heart size and vasc ulature are within normal range for portable imaging. No pneumothorax. IMPRESSION: Stable right greater than left pleural effusions.
[2022-02-08] MEDS: INSULIN -REGULAR HUMAN 50 UNIT/0.5 ML ML SQ SCH ×4 (07:30→20:31)
[2022-02-08] MEDS: SEVELAMER CARBONATE 800 MG TABLET PO SCH ×3 (08:00→16:59)
[2022-02-08] MEDS: NEPRO SHAKE 237 ML CAN PO SCH ×2 (08:34→20:32)
[2022-02-08] MEDS: ASPIRIN 81 MG CHEWABLE TABLET PO SCH (08:34)
[2022-02-08] MEDS: carvediloL 6.25 MG TAB PO SCH ×2 (09:00→20:28)
[2022-02-08] MEDS: AMLODIPINE 10 MG TAB PO SCH (09:00)
[2022-02-08] MEDS: FUROSEMIDE 40 MG TABLET PO SCH (09:00)
[2022-02-08] MEDS: HYDRALAZINE HCL 25 MG TABLET PO SCH ×3 (09:00→20:28)
[2022-02-08] MEDS ORDERED: D10W 250 ML BAG IV PRN (09:35)
[2022-02-08] MEDS ORDERED: DEXTROSE 10%-WATER 500 ML IV BAG IV PRN (09:44)
[2022-02-08] MEDS: RISPERIDONE 1 MG TABLET PO SCH ×2 (09:55→20:28)
[2022-02-08] MEDS: TAMSULOSIN 0.4 MG SR CAP PO SCH (09:55)
[2022-02-08] MEDS: MEDIHONEY 44 ML TOPICAL TUBE TOP SCH (09:56)
[2022-02-08] MEDS ORDERED: NA CHLORIDE 0.9% 500 ML ONE (10:24)
[2022-02-08] MEDS ORDERED: NA CHLORIDE 0.9% 50 ML ONE (10:39)
[2022-02-08] MEDS ORDERED: BUPIVACAINE 0.25% PF 10 ML VIAL ONE (10:39)
[2022-02-08] MEDS ORDERED: HEPARIN 5000 UNIT/ML 1 ML VIAL ONE (10:39)
[2022-02-08] MEDS ORDERED: propofoL 200 MG/20 ML VIAL IV ONE (11:36)
[2022-02-08] MEDS ORDERED: FENTANYL CITR 100 MCG/2 ML ONE (11:36)
[2022-02-08] MEDS ORDERED: LIDOCAINE 1% MPF 5 ML VIAL ONE (11:37)
[2022-02-08] MEDS ORDERED: NS 0.9% VIAL 0 ML ONE (12:25)
[2022-02-08] MEDS ORDERED: Phenylephrine HCl 10 MG/ML 1 ML VIAL ONE (12:25)
[2022-02-08] MEDS ORDERED: EPHEDRINE SULF 50 MG/ML VIAL ONE (12:38)
[2022-02-08] MEDS ORDERED: NS 0.9% VIAL 10 ML ONE (12:39)
--- NOTE | 2022-02-08 12:46 | P.OP ---
Preoperative diagnosis: Acute on Chronic Renal Failure Postoperative diagnosis: Acute on Chronic Renal Failure Primary procedure: Placement of RIGHT internal jugular tunelled HD catheter Secondary procedure: Flouroscopy and ultrasound utilized Anesthesia: MAC + Local Estimated blood loss: <10cc Specimen: none Findings: flouroscopy confirmed catheter position, functional Implants: 19cm Hemosplit tunelled HD catetheter Transferred to: Recovery Room Condition: Good
--- NOTE | 2022-02-08 12:55 | RAD REPORT ---
EXAM DESCRIPTION: RAD - Fluoroscopy <1 Hour - 02/08/2022 12:48 pm CLINICAL HISTORY: Venous catheter insertion. HD CATH PLACEMENT COMPARISON: No comparisons FINDINGS: Fluoroscopic imaging is submitted from placement of a venous catheter. Details of the pro cedure not available. Fluoroscopy time: 0.2 minutes
--- NOTE | 2022-02-08 12:58 | PN ---
Date of Progress Note: 02/08/2022 Subjective: The patient was admitted with acute kidney injury secondary to cardiorenal/obstructive uropathy. Gonzalez was inserted. Hydronephrosis has been resolved. The patient still on Gonzalez. The patient had congestive heart failure. Physical Examination: Vital Signs: Blood pressure 123/61, pulse of 65, afebrile. Chest: Crackles on the bilateral base. Heart: S1, S2. Systolic murmur. Abdomen: Soft, nontender. Extremities: Plus edema. Neuro: Alert. No focality. No tremor. Laboratory Data: H and H of 8.3/23.8. Sodium 140, potassium 4.7, bicarb 22, BUN 105, creatinine 4.1. Calcium 7.5, phosphorous 4.9, albumin 1.6, corrected calcium is 9.5. Current Medications: The patient on include; 1. Aspirin. 2. Levaquin 500 every 48 hours. 3. Flomax. 4. Amlodipine. 5. Carvedilol. 6. Hydralazine 100 t.i.d. 7. Haloperidol. 8. Risperidone. 9. Lasix 40 daily. 10. Renvela. Assessment And Plan: 1. Acute kidney injury on advanced chronic kidney disease, progression to end- stage renal disease, to be initiated on dialysis. The patient is scheduled for catheter placement today. We will arrange for dialysis after catheter, and we will monitor response. 2. Hypertension, controlled, optimal. Continue to utilize blood pressure for more ultrafiltration. 3. Coronary artery disease with congestive heart failure. As by Primary and Cardiology, we will try to establish better volume control with dialysis. Continue Lasix. 4. Obstructive uropathy status post Gonzalez placement. We will follow up with Urology. Plan for leg bag as outpatient. 5. 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 Serology still pending. Serum protein electrophoresis was negative. 6. Anemia of chronic kidney disease. Continue EVARISTO. Time spent examining the patient icik-sh-yxle, reviewing the data lab and radiology, placing orders, discussing with the patient, explaining risks, benefits, alternatives, discussing with the staff member including nursing discussing with the hospitalist more than 35 minutes. KEAGAN Voice ID: [id number] Report ID: [id number] MTDD
--- NOTE | 2022-02-08 13:25 | OP ---
Surgeon: Laci Sotelo MD, Preoperative Diagnosis: Acute on chronic renal failure. Postoperative Diagnosis: Acute on chronic renal failure. Procedure Performed: Placement of right internal jugular tunneled hemodialysis catheter using fluoro scopic and ultrasound guidance with interpretation. Anesthesia: MAC with local with 0.25% Marcaine. Estimated Blood Loss: Less than 10 cc. Specimen: None. Findings: Fluoroscopy confirmed the position of the catheter and it was functional at the end of the procedure, flushing and withdrawing quite easily. Implants: 19 cm HemoSplit tunneled hemodialysis catheter right internal jugular vein. The patient w as transferred to recovery room in good condition. Procedure In Detail: After informed consent was obtained, the patient was brought to the operating r oom, prepped and draped in the usual sterile fashion. After adequate anesthesia was achieved, using ultrasound guidance, I cannulated the right internal jugular vein on the first attempt without eviden ce of complication. I then passed the marker wire at this point and fluoroscopic guidance confirmed the position of the wire into the superior vena cava and into the atrium. At this point, a small ismael k incision was made overlying the insertion site and I placed a microintroducer sheath at this point without evidence of complication. Microwire was removed and standard wire was advanced at this point without incident complication. I then confirmed the position of the standard wire in the superior v leticia cava which was confirmed at this point. I then made a tunneling tract on the anterior chest wall in the infraclavicular position. I anesthetized the entire tract, made a small graciela incision at the insertion site. Then using tunneling device, brought the catheter out through the introduction site . At this point, I then performed sequential dilatation using Seldinger technique and placed the int roducer sheath at this point. I then advanced the catheter to the confluence of the SVC and removed the introducer sheath. At this point, both ports pulled back dark red nonpulsatile blood throughout the entire procedure and flushed quite easily. At this point, I packed with heparin super flush 2 cc per port, and then, capped the ports at this point. The patient was taken out of steep Trendelenbur g position at this point and final chest x-ray confirmed position of the catheter and the confluence of the SVC, and it was functional, and I then secured to the chest wall using a 2-0 nylon suture and a sterile dressing placed over top. I also placed additional stitch in the insertion site which was 2-0 nylon suture and a sterile dressing placed over top of this as well. The patient tolerated the p rocedure without evidence of complication, transferred in good condition. All counts were correct at the end of the case. A stat chest x-ray will be performed in the recovery room. LANCE/CHAVA Voice ID: [id number] Report ID: [id number]
--- NOTE | 2022-02-08 13:28 | RAD REPORT ---
EXAM DESCRIPTION: RAD - Chest Single View - 02/08/2022 1:20 pm CLINICAL HISTORY: s/p HD cath placement Chest pain. COMPARISON: Chest Single View dated 02/08/2022; Chest Single View dated 02/06/2022; Chest Single View d ated 02/03/2022; Chest Single View dated 01/31/2022 FINDINGS: Portable technique limits examination quality. Right venous catheter its tip in the SVC. No postprocedure pneumothorax. The heart is moderately enla rged size. Moderate right pleural effusion. IMPRESSION: No postprocedure pneumothorax.
--- NOTE | 2022-02-08 16:12 | P.PN ---
Date of Service: 02/08/22 Subjective: no significant change breathing comfortably at room air generalized weakness ROS: 10 point ROS as noted above, otherwise negative Physical Exam: Gen: NAD, AOx3 HEENT: normal conjunctiva, sclera anicteric CV: regular rate & rhythm, trace-1+ b/l lower extremity edema to knees Pulm: non-labored respirations on room air, diminished at bases bilaterally Neuro: normal speech, normal affect vitals reviewed Problem List: Acute on chronic CHF, diastolic (HFpEF) severe pulmonary hypertension HTN CKD IV bilateral hydronephrosis BPH acute psychosis DM2, insulin dependent CAD s/p PCI Anemia, of chronic disease Left chronic diabetic foot ulcer, stage 2 Acute on chronic CHF, diastolic severe pulmonary hypertension HTN Respiratory condition improved, on room air for the past few days Echo: normal EF, +pulmonary hypertension continue home antihypertensives difficult to balance diuresis and renal function edema improved, effusions remain, slow to improve pt was started on steroids empirically on admission, dc'd 02/06 lasix held for few day, restarted 02/06 CKD IV bilateral hydronephrosis BPH off lasix for a few days, renal response has been slow / no significant change discussed with nephrology - lasix ordered to restart 02/06 patient's sister discussed with nephrology - to proceed with dialysis. catheter to be placed today repeat renal U/S: improvement in right hydronephrosis Urology consulted - Dr. Mckinney recommended linda for at least 4wks; f/u in office considers findings (b/l hydro, urinary symptoms) more of a chronic issue acute psychosis responded to antipsychotics there was concern that seroquel contributed to pt's psychomotor retardation - > changed to risperdal for less sedating effect slight intermittent confusion, improving DM2, insulin dependent CAD s/p PCI Anemia, of chronic disease Left chronic diabetic foot ulcer, stage 2 continue home insulin Hgb stable local wound care for left foot ulcer, wound nursing consulted generalized weakness, unsteady gait working with PT family and patient agreeable to SNF VTE: heparin subq Code: full Dispo: SNF, ~1-2 days awaiting dialysis catheter, dialysis, and chair time Time Spent Managing Pts Care (In Minutes): 35
[2022-02-08] MEDS: INSULIN GLARGINE 100 UNIT/ML SQ SCH (20:31)
[2022-02-09] MEDS: HEPARIN 5000 UNIT/ML 1 ML VIAL SQ SCH ×3 (00:49→16:18)
[2022-02-09] MEDS: INSULIN -REGULAR HUMAN 50 UNIT/0.5 ML ML SQ SCH ×4 (07:30→21:00)
[2022-02-09 07:46] LABS: Absolute Lymphocytes (CBC) 0.9 K/uL (0.7-4.9); Hematocrit 28.5 % (39.6-49.0); Lymphocytes % 10.1 % (15.3-44.8); MCV 92.2 fL (80-100); MPV 8.8 fL (7.6-11.3)
[2022-02-09 08:07] LABS: Albumin 1.8 g/dL (3.4-5.0); Magnesium 2.5 mg/dL (1.8-2.4); Phosphorus 4.4 mg/dL (2.5-4.9); Potassium 4.6 mmol/L (3.5-5.1)
[2022-02-09] MEDS: HYDRALAZINE HCL 25 MG TABLET PO SCH ×3 (08:47→22:14)
[2022-02-09] MEDS: ASPIRIN 81 MG CHEWABLE TABLET PO SCH (08:47)
[2022-02-09] MEDS: TAMSULOSIN 0.4 MG SR CAP PO SCH (08:48)
[2022-02-09] MEDS: carvediloL 6.25 MG TAB PO SCH ×2 (08:48→21:02)
[2022-02-09] MEDS: RISPERIDONE 1 MG TABLET PO SCH ×2 (08:48→21:02)
[2022-02-09] MEDS: AMLODIPINE 10 MG TAB PO SCH (08:49)
[2022-02-09] MEDS: FUROSEMIDE 40 MG TABLET PO SCH (08:49)
[2022-02-09] MEDS: MEDIHONEY 44 ML TOPICAL TUBE TOP SCH (09:00)
[2022-02-09] MEDS: NEPRO SHAKE 237 ML CAN PO SCH ×2 (09:00→21:00)
[2022-02-09] MEDS: SEVELAMER CARBONATE 800 MG TABLET PO SCH ×3 (09:08→16:18)
--- NOTE | 2022-02-09 10:43 | P.PN ---
Subjective Date of Service: 02/09/22 Chief Complaint: SOB Subjective: No new changes (Received HD yesterday.) Physical Examination - Vital Signs Temperature: 97.1 F Blood Pressure: 152/77 Pulse: 80 Respirations: 16 Pulse Ox (%): 98 - Physical Exam General: In no apparent distress HEENT: Atraumatic, Normocephalic Neck: Supple Respiratory: Other (Symmetric chest expansion) Cardiovascular: No rubs, No murmurs Gastrointestinal: Soft and benign, Non-distended Musculoskeletal: No clubbing Integumentary: No warmth Neurological: Normal speech, Normal tone Urinary: Other (No bladder distention) External genitalia: Deferred Rectal: Deferred Assessment And Plan - Plan 1. Acute kidney injury on advanced chronic kidney disease, progression to end- stage renal disease, initiated on dialysis. He received HD yesterday. HD again today and tomorrow. HD access: TDC. Outpt HD placement ongoing. 2. Hypertension, controlled, optimal. Continue to utilize blood pressure for more ultrafiltration. 3. Coronary artery disease with congestive heart failure. As by Primary and Cardiology, we will try to establish better volume control with dialysis. Continue Lasix. 4. Obstructive uropathy status post Gonzalez placement. We will follow up with Urology. Plan for leg bag as outpatient. 5. 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 The FSGS secondary to obstructive uropathy. Serology still pending. Serum protein electrophoresis was negative. 6. Anemia of chronic kidney disease. Continue EVARISTO. 7. Renal osteodystrophy. Monitor Ca & Phos. Physician Review: Patient Assessed, Agree with Above Assessment and Plan
--- NOTE | 2022-02-09 12:19 | RAD REPORT ---
EXAM DESCRIPTION: US - UPPER EXTREMITY VENOUS UNILATE - 02/09/2022 11:32 am CLINICAL HISTORY: Left arm swelling COMPARISON: None. FINDINGS: Echogenic material consistent with thrombus is present within the left cephalic vein Left internal jugular vein, left subclavian vein, left axillary vein, left brachial vein, left basil ic, left ulnar and left radial veins demonstrate phasic signal. The veins are compressible. Doppler d emonstrates good flow. . IMPRESSION: Left cephalic vein thrombus
[2022-02-09] MEDS: levoFLOXacin 500 MG TAB PO SCH (16:18)
[2022-02-09] MEDS: CALCITROL 0.25 MCG CAP PO SCH (17:40)
--- NOTE | 2022-02-09 19:06 | CON ---
Date of Consultation: 02/07/2022 Brief History Of Present Illness: Patient is a 71-year-old male with past medical history of hyperte nsion, CHF, diabetes, BPH, coronary artery disease with stents, who complained of shortness of breath and presented to the hospital on 01/31/2022. He continued to have worsening of his overall medical condition. He had some evidence of acute on chronic renal dysfunction necessitating initiation of he modialysis. As such, I am consulted to see the patient regarding placement of a tunneled hemodialysi s catheter. Past Medical History: Hypertension, CHF, BPH, diabetes, coronary artery disease, stent placement. Helga teixeira had multiple cardiac stents placed in the past. Home Medications: Include amlodipine, Eliquis, aspirin, Lasix, insulin, Flomax, carvedilol. Allergies: TO PENICILLIN. Family History: Noncontributory. Social History: He denies smoking, alcohol, or recreational drug use. Review of Systems: Ten-point review of systems other than HPI, he currently feels significantly better, less shortness o f breath since he has been to hospital. Physical Examination: Vital Signs: At the time of my examination, his BMI is 27.5. His blood pressure 130/68, pulse of 64 , respiratory rate was 15, temperature 97.1, O2 saturation 98% on room air. General: He is awake, alert, and oriented. Psychiatric: He is appropriate and conversive. HEENT: Normocephalic. His sclerae are anicteric. Mucous membranes are moist. Oropharynx clear. Neck: Supple without JVD. Chest: Normal expansion and excursion. Cardiovascular: Regular rate and rhythm. Pulmonary: Clear to auscultation bilaterally. Abdomen: Soft, nontender, nondistended. Extremities: No clubbing, cyanosis, or edema. Skin: Warm and dry. Laboratory Data: Revealed a white blood cell count of 9.9, hemoglobin is 8.3, hematocrit of 23.8, pl atelet count was 214. Coags were a PT 12.2, INR 1.11. Chemistry showed a sodium of 138, potassium 4 .3, chloride of 107, carbon dioxide 22, BUN 106, creatinine 4.3, glucose was 234. His GFR was 14, ca lcium 7.7, phosphorus 4.7, magnesium 2.3. His albumin is 1.8. He had imaging performed, which inclu ded a chest x-ray on 02/06 officially read as moderate right and small to moderate left pleural effus ions, bibasilar atelectasis. Upper lobes appear clear. Assessment And Plan: This 71-year-old male who comes in with acute on chronic renal dysfunction and initiation of dialysis as requested. I have explained the risks, benefits, and alternatives of placement of a tunneled hemodialysis cathet er including, but not limited to, bleeding; infection; damage to surrounding tissues; injury to heart , great vessels, lungs; lung collapse; need for further operative procedures, which may include place ment of a chest tube and other vascular procedures. Patient agrees to proceed as indicated. Thank you for this interesting consult. LANCE/CHVAA Voice ID: [id number] Report ID: [id number]
[2022-02-09] MEDS: INSULIN GLARGINE 100 UNIT/ML SQ SCH (21:03)
--- NOTE | 2022-02-09 21:36 | P.PN ---
Date of Service: 02/09/22 Subjective: no acute events overnight feels ok tunneled cath placed yesterday weeping from LUE/elbow region, no pain ROS: 10 point ROS as noted above, otherwise negative Physical Exam: Gen: NAD, AOx3 HEENT: normal conjunctiva, sclera anicteric CV: regular rate & rhythm, trace-1+ b/l lower extremity edema to knees, +Edema in b/l elbows, L>R Pulm: non-labored respirations on room air, diminished at bases bilaterally Neuro: normal speech, normal affect vitals reviewed Problem List: Acute on chronic CHF, diastolic (HFpEF) severe pulmonary hypertension HTN left cephalic vein thrombus Afib, new onset; rate controlled CKD IV, now requiring HD bilateral hydronephrosis BPH acute psychosis DM2, insulin dependent CAD s/p PCI Anemia, of chronic disease Left chronic diabetic foot ulcer, stage 2 Acute on chronic CHF, diastolic severe pulmonary hypertension HTN Respiratory condition improved, on room air for the past few days Echo: normal EF, +pulmonary hypertension continue home antihypertensives edema improved, effusions remain, slow to improve pt was started on steroids empirically on admission, dc'd 02/06 lasix held for few day, restarted 02/06 L cephalic vein thrombus U/S ordered 02/09 ordered to eval edema in arm and weeping, confirmed thrombus elevate arm, consider comrpression Afib, new onset; rate controlled patient was noted to have rate controlled afib overnight 02/06-02/07 no current need for further medication for rate would benefit from eliquis 2.5mg BID; start in AM CKD IV, now requiring HD bilateral hydronephrosis, obstructive uropathy BPH off lasix for a few days, renal response has been slow / no significant change discussed with nephrology - lasix ordered to restart 02/06 patient's sister discussed with nephrology - to proceed with dialysis. catheter placed 02/08 repeat renal U/S: improvement in right hydronephrosis Urology consulted - Dr. Mckinney recommended linda for at least 4wks; f/u in office considers findings (b/l hydro, urinary symptoms) more of a chronic issue social work professor consulted for chair time acute psychosis responded to antipsychotics there was concern that seroquel contributed to pt's psychomotor retardation - > changed to risperdal for less sedating effect slight intermittent confusion, improving DM2, insulin dependent CAD s/p PCI Anemia, of chronic disease Left chronic diabetic foot ulcer, stage 2 continue home insulin Hgb stable local wound care for left foot ulcer, wound nursing consulted generalized weakness, unsteady gait working with PT family and patient agreeable to SNF VTE: heparin subq Code: full Dispo: SNF, ~1-2 days awaiting dialysis catheter, dialysis, and chair time Time Spent Managing Pts Care (In Minutes): 35
--- NOTE | 2022-02-10 05:24 | P.PN ---
Subjective Date of Service: 02/10/22 Chief Complaint: SOB Subjective: Other (Received HD today. No c/o SOB/N/V.) Physical Examination - Vital Signs Temperature: 97.1 F Blood Pressure: 152/77 Pulse: 80 Respirations: 16 Pulse Ox (%): 98 - Physical Exam General: In no apparent distress, Other (Appears chronically ill) HEENT: Atraumatic, Normocephalic Neck: Supple, JVD not distended Respiratory: Other (Symmetric chest expansion) Cardiovascular: No rubs, No murmurs Gastrointestinal: Soft and benign, No rebound Musculoskeletal: No clubbing Integumentary: No warmth Neurological: Normal speech, Normal tone Urinary: Other (No bladder distention) External genitalia: Deferred Rectal: Deferred Assessment And Plan - Plan 1. Acute kidney injury on advanced chronic kidney disease, progression to end- stage renal disease, initiated on dialysis. He received today. HD MWF next week. HD access: TDC. Outpt HD placement ongoing. 2. Hypertension, controlled, optimal. Continue to utilize blood pressure for more ultrafiltration. 3. Coronary artery disease with congestive heart failure. As by Primary and Cardiology, we will try to establish better volume control with dialysis. Continue Lasix. 4. Obstructive uropathy status post Gonzalez placement. We will follow up with Urology. Plan for leg bag as outpatient. 5. 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 Serology still pending. Serum protein electrophoresis was negative. 6. Anemia of chronic kidney disease. Continue EVARISTO. 7. Renal osteodystrophy. Monitor Ca & Phos. 8. Aifb. May start low dose Eliquis. 9. Dispo. Dc plan to rehab facility ongoing. Physician Review: Patient Assessed, Agree with Above Assessment and Plan
--- NOTE | 2022-02-10 06:34 | P.PN ---
Date of Service: 02/10/22 Subjective: no acute events overnight tolerated HD yesterday (first time) tired and jittery this morning, hypoglycemic low appetite, metallic taste in mouth ROS: 10 point ROS as noted above, otherwise negative Physical Exam: Gen: NAD, AOx3 HEENT: normal conjunctiva, sclera anicteric CV: regular rate & rhythm, trace-1+ b/l lower extremity edema to knees, +Edema in b/l elbows, L>R Pulm: non-labored respirations on room air, diminished at bases bilaterally Neuro: normal speech, normal affect vitals reviewed Problem List: Acute on chronic CHF, diastolic (HFpEF) severe pulmonary hypertension HTN left cephalic vein thrombus Afib, new onset; rate controlled CKD IV, now requiring HD bilateral hydronephrosis BPH acute psychosis DM2, insulin dependent CAD s/p PCI Anemia, of chronic disease Left chronic diabetic foot ulcer, stage 2 Acute on chronic CHF, diastolic severe pulmonary hypertension HTN Respiratory condition improved, on room air for the past several days Echo: normal EF, +pulmonary hypertension continue home antihypertensives edema improved, effusions remain, slow to improve pt was started on steroids empirically on admission, dc'd 02/06 lasix held for few days, restarted 02/06 L cephalic vein thrombus U/S ordered 02/09 ordered to eval edema in arm and weeping, confirmed thrombus elevate arm, consider compression Afib, new onset; rate controlled patient was noted to have rate controlled afib overnight 02/06-02/07 no current need for further medication for rate would benefit from eliquis 2.5mg BID; started 02/10 CKD IV, now requiring HD bilateral hydronephrosis, obstructive uropathy BPH discussed with nephrology - lasix ordered to restart 02/06 patient's sister discussed with nephrology - to proceed with dialysis. catheter placed 02/08 repeat renal U/S: improvement in right hydronephrosis Urology consulted - Dr. Mckinney recommended linda for at least 4wks; f/u in office considers findings (b/l hydro, urinary symptoms) more of a chronic issue school social worker consulted for chair time 1st HD on 02/09 - 1 L removed, tolerated well acute psychosis responded to antipsychotics there was concern that seroquel contributed to pt's psychomotor retardation - > changed to risperdal for less sedating effect slight intermittent confusion, improving DM2, insulin dependent CAD s/p PCI Anemia, of chronic disease Left chronic diabetic foot ulcer, stage 2 continue home insulin Hgb stable local wound care for left foot ulcer, wound nursing consulted generalized weakness, unsteady gait working with PT family and patient agreeable to SNF VTE: eliquis Code: full Dispo: SNF awaiting chair time Time Spent Managing Pts Care (In Minutes): 35
[2022-02-10] MEDS: INSULIN -REGULAR HUMAN 50 UNIT/0.5 ML ML SQ SCH (07:30)
[2022-02-10] MEDS: carvediloL 6.25 MG TAB PO SCH ×2 (09:00→20:36)
[2022-02-10] MEDS: HYDRALAZINE HCL 25 MG TABLET PO SCH ×3 (09:00→20:38)
[2022-02-10] MEDS: MEDIHONEY 44 ML TOPICAL TUBE TOP SCH (09:00)
[2022-02-10] MEDS: AMLODIPINE 10 MG TAB PO SCH (09:00)
[2022-02-10] MEDS: NEPRO SHAKE 237 ML CAN PO SCH ×2 (09:00→20:47)
[2022-02-10] MEDS: ACETAMINOPHEN 500 MG TAB PO PRN (09:26)
[2022-02-10] MEDS: SEVELAMER CARBONATE 800 MG TABLET PO SCH ×3 (09:32→17:00)
[2022-02-10] MEDS: ASPIRIN 81 MG CHEWABLE TABLET PO SCH (09:32)
[2022-02-10] MEDS: RISPERIDONE 1 MG TABLET PO SCH ×2 (09:33→20:35)
[2022-02-10] MEDS: TAMSULOSIN 0.4 MG SR CAP PO SCH (09:34)
[2022-02-10] MEDS: FUROSEMIDE 40 MG TABLET PO SCH (09:35)
[2022-02-10] MEDS: MORPHINE 2 MG/ML SYR IV PRN (09:48)
[2022-02-10] MEDS: APIXABAN 2.5 MG TABLET PO SCH ×3 (10:00→20:35)
[2022-02-10] MEDS ORDERED: DEXTROSE 10%-WATER 500 ML IV ONE (10:35)
[2022-02-10 11:12] LABS: Albumin 1.8 g/dL (3.4-5.0); Magnesium 2.2 mg/dL (1.8-2.4); Phosphorus 3.7 mg/dL (2.5-4.9); Potassium 4.4 mmol/L (3.5-5.1)
--- NOTE | 2022-02-11 06:17 | P.PN ---
Date of Service: 02/11/22 Subjective: stable, improving no longer has weeping of left elbow peripheral edema much improved tolerating HD ROS: 10 point ROS as noted above, otherwise negative Physical Exam: Gen: NAD, AOx3 HEENT: normal conjunctiva, sclera anicteric CV: regular rate & rhythm, trace-1+ b/l lower extremity edema to knees Pulm: non-labored respirations on room air, diminished at bases bilaterally Neuro: normal speech, normal affect vitals reviewed Problem List: Acute on chronic CHF, diastolic (HFpEF) severe pulmonary hypertension HTN left cephalic vein thrombus Afib, new onset; rate controlled CKD IV, now requiring HD bilateral hydronephrosis BPH acute psychosis DM2, insulin dependent CAD s/p PCI Anemia, of chronic disease Left chronic diabetic foot ulcer, stage 2 Acute on chronic CHF, diastolic severe pulmonary hypertension HTN Respiratory condition improved, on room air for the past several days Echo: normal EF, +pulmonary hypertension continue home antihypertensives edema improved, effusions remain; symptomatically improving pt was started on steroids empirically on admission, dc'd 02/06 lasix held for few days, restarted 02/06 L cephalic vein thrombus U/S ordered 02/09 ordered to eval edema in arm and weeping, confirmed thrombus elevate arm, swelling improved Afib, new onset; rate controlled patient was first noted to have rate controlled afib overnight 02/06-02/07; continues with arrhythmia no current need for further medication for rate would benefit from eliquis 2.5mg BID; started 02/10 CKD IV, now requiring HD bilateral hydronephrosis, obstructive uropathy BPH discussed with nephrology - lasix ordered to restart 02/06 patient's sister discussed with nephrology - to proceed with dialysis. tunneled HD catheter placed 02/08 repeat renal U/S: improvement in right hydronephrosis Urology consulted - Dr. Mckinney recommended linda for at least 4wks; f/u in office considers findings (b/l hydro, urinary symptoms) more of a chronic issue medical social worker consulted for chair time tolerating HD acute psychosis responded to antipsychotics there was concern that seroquel contributed to pt's psychomotor retardation - > changed to risperdal for less sedating effect slight intermittent confusion has improved DM2, insulin dependent CAD s/p PCI Anemia, of chronic disease Left chronic diabetic foot ulcer, stage 2 patient with hypoglycemia on 02/10, A1c: <6.0.; dc'd insulin Hgb stable local wound care for left foot ulcer, wound nursing consulted generalized weakness, unsteady gait working with PT family and patient agreeable to SNF VTE: eliquis Code: full Dispo: SNF awaiting chair time hospitalization prolonged due to holiday weekend / unable to coordinate chair time / outpatient HD Time Spent Managing Pts Care (In Minutes): 25
--- NOTE | 2022-02-11 06:18 | P.PN ---
Subjective Date of Service: 02/11/22 Chief Complaint: SOB Subjective: No new changes, Other (Able to do some walking. Received HD yesterday.) Physical Examination - Vital Signs Temperature: 97.1 F Blood Pressure: 152/77 Pulse: 80 Respirations: 16 Pulse Ox (%): 98 - Physical Exam General: In no apparent distress, Other (Appears as his stated age) HEENT: Atraumatic, Normocephalic Neck: Supple, JVD not distended Respiratory: Other (Symmetric chest expansion) Cardiovascular: No rubs, No murmurs Gastrointestinal: Soft and benign, No rebound Musculoskeletal: No clubbing, Swelling Integumentary: No warmth Neurological: Normal speech, Normal tone Urinary: Dialysis catheter, Other (No bladder distension) External genitalia: Deferred Rectal: Deferred Assessment And Plan - Plan 1. Acute kidney injury on advanced chronic kidney disease, progression to end- stage renal disease, initiated on dialysis. He received HD yesterday. NO acute indication for HD today. Next HD Saturday per qMWF. HD access: TDC. Outpt HD placement ongoing. 2. Hypertension, controlled, optimal. Continue to utilize blood pressure for more ultrafiltration. 3. Coronary artery disease with congestive heart failure. As by Primary and Cardiology, we will try to establish better volume control with dialysis. Continue Lasix. 4. Obstructive uropathy status post Gonzalez placement. We will follow up with Urology. Plan for leg bag as outpatient. 5. 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 Serology still pending. Serum protein electrophoresis was negative. 6. Anemia of chronic kidney disease. Continue EVARISTO. 7. Renal osteodystrophy. Monitor Ca & Phos. 8. Aifb. May start low dose Eliquis. 9. Dispo. Dc plan to rehab facility ongoing. Physician Review: Patient Assessed, Agree with Above Assessment and Plan
[2022-02-11 06:42] LABS: Albumin 1.7 g/dL (3.4-5.0); Magnesium 2.1 mg/dL (1.8-2.4); Potassium 4.3 mmol/L (3.5-5.1)
[2022-02-11] MEDS: MEDIHONEY 44 ML TOPICAL TUBE TOP SCH (09:00)
[2022-02-11] MEDS: FUROSEMIDE 40 MG TABLET PO SCH (09:00)
[2022-02-11] MEDS: NEPRO SHAKE 237 ML CAN PO SCH ×2 (09:00→20:53)
[2022-02-11] MEDS: carvediloL 6.25 MG TAB PO SCH ×2 (10:22→20:52)
[2022-02-11] MEDS: RISPERIDONE 1 MG TABLET PO SCH ×2 (10:22→20:51)
[2022-02-11] MEDS: AMLODIPINE 10 MG TAB PO SCH (10:23)
[2022-02-11] MEDS: HYDRALAZINE HCL 25 MG TABLET PO SCH ×3 (10:23→20:51)
[2022-02-11] MEDS: ASPIRIN 81 MG CHEWABLE TABLET PO SCH (10:23)
[2022-02-11] MEDS: APIXABAN 2.5 MG TABLET PO SCH ×2 (10:23→20:52)
[2022-02-11] MEDS: SEVELAMER CARBONATE 800 MG TABLET PO SCH ×3 (10:24→16:56)
[2022-02-11] MEDS: TAMSULOSIN 0.4 MG SR CAP PO SCH (10:24)
[2022-02-11] MEDS: CALCITROL 0.25 MCG CAP PO SCH (13:52)
[2022-02-11] MEDS: levoFLOXacin 500 MG TAB PO SCH (13:52)
[2022-02-12 04:09] LABS: MCV 93.4 fL (80-100); MPV 8.8 fL (7.6-11.3); RBC Red Blood Cell Count 2.46 M/uL (4.33-5.43)
[2022-02-12 04:33] LABS: Albumin 1.8 g/dL (3.4-5.0); Magnesium 2.1 mg/dL (1.8-2.4); Phosphorus 3.5 mg/dL (2.5-4.9)
--- NOTE | 2022-02-12 06:57 | P.PN ---
Date of Service: 02/12/22 Subjective: no acute events overnight breathing well swelling improved ready to go to SNF for ongoing PT prior to going home tolerating HD ROS: 10 point ROS as noted above, otherwise negative Physical Exam: Gen: NAD, AOx3 HEENT: normal conjunctiva, sclera anicteric CV: regular rate & rhythm, trace-1+ b/l lower extremity edema to knees, R>L Pulm: non-labored respirations on room air, diminished at bases bilaterally Neuro: normal speech, normal affect vitals reviewed Problem List: Acute on chronic CHF, diastolic (HFpEF) severe pulmonary hypertension HTN left cephalic vein thrombus Afib, new onset; rate controlled CKD IV, now requiring HD bilateral hydronephrosis BPH acute psychosis DM2, insulin dependent CAD s/p PCI Anemia, of chronic disease Left chronic diabetic foot ulcer, stage 2 Acute on chronic CHF, diastolic severe pulmonary hypertension HTN on room air for many days Echo: normal EF, +pulmonary hypertension continue home antihypertensives edema improved, symptomatically improving pt was started on steroids empirically on admission, dc'd 02/06 lasix held for few days, restarted 02/06 L cephalic vein thrombus U/S ordered 02/09 ordered to eval edema in arm and weeping, confirmed thrombus elevate arm, swelling improved Afib, new onset; rate controlled patient was first noted to have rate controlled afib overnight 02/06-02/07; continues with arrhythmia no current need for further medication for rate discussed with Dr. Prajapati - would benefit from eliquis 2.5mg BID; started 02/10 CKD IV, now requiring HD bilateral hydronephrosis, obstructive uropathy BPH discussed with nephrology - lasix restarted 02/06 patient's sister discussed with nephrology - to proceed with dialysis. tunneled HD catheter placed 02/08 repeat renal U/S: improvement in right hydronephrosis Urology consulted - Dr. Mckinney recommended linda for at least 4wks; f/u in office considers findings (b/l hydro, urinary symptoms) more of a chronic issue social science professor consulted for chair time tolerating HD acute psychosis responded to antipsychotics there was concern that seroquel contributed to pt's psychomotor retardation - > changed to risperdal for less sedating effect slight intermittent confusion has improved DM2, insulin dependent CAD s/p PCI Anemia, of chronic disease Left chronic diabetic foot ulcer, stage 2 patient with hypoglycemia on 02/10, A1c: <6.0.; dc'd insulin Hgb stable local wound care for left foot ulcer, wound nursing consulted generalized weakness, unsteady gait working with PT family and patient agreeable to SNF VTE: eliquis Code: full Dispo: SNF awaiting chair time, anticipate tomorrow hospitalization prolonged due to holiday weekend / unable to coordinate chair time / outpatient HD Time Spent Managing Pts Care (In Minutes): 25
[2022-02-12] MEDS: SEVELAMER CARBONATE 800 MG TABLET PO SCH ×3 (08:00→16:40)
[2022-02-12] MEDS: NEPRO SHAKE 237 ML CAN PO SCH ×2 (09:00→20:58)
[2022-02-12] MEDS: AMLODIPINE 10 MG TAB PO SCH (09:00)
[2022-02-12] MEDS: carvediloL 6.25 MG TAB PO SCH ×2 (09:00→20:58)
[2022-02-12] MEDS: HYDRALAZINE HCL 25 MG TABLET PO SCH ×3 (09:00→20:57)
[2022-02-12] MEDS: MEDIHONEY 44 ML TOPICAL TUBE TOP SCH (09:00)
[2022-02-12] MEDS: RISPERIDONE 1 MG TABLET PO SCH ×2 (10:29→20:57)
[2022-02-12] MEDS: FUROSEMIDE 40 MG TABLET PO SCH (10:30)
[2022-02-12] MEDS: TAMSULOSIN 0.4 MG SR CAP PO SCH (10:30)
[2022-02-12] MEDS: ASPIRIN 81 MG CHEWABLE TABLET PO SCH (10:30)
[2022-02-12] MEDS: APIXABAN 2.5 MG TABLET PO SCH ×2 (10:31→20:58)
--- NOTE | 2022-02-12 23:39 | PN ---
Date of Progress Note: 02/12/2022 Subjective: Acute kidney injury on chronic kidney disease, kidney function has not improved. Betty casey is initiated on dialysis. He received dialysis on Saturday. Review of Systems: Denies fever or chills. Physical Examination: Lungs: Clear to auscultation bilaterally. Heart: S1 and S2. Abdomen: Soft, benign. Extremities: Slight edema. Impression And Plan: 1.Acute on chronic kidney injury. Continue dialysis. Monitor renal function. 2.Hypertension. Blood pressure controlled. 3.Coronary artery disease with congestive heart failure. Continue low-sodium diet. Lasix will be a lso used to control volemia. 4.Obstructive uropathy, status post Gonzalez catheter placement. 5.Nephrotic range proteinuria, possible secondary to diabetes mellitus and diabetic nephropathy vers us focal segmental glomerulosclerosis secondary to obstructive uropathy. 6.Anemia due to chronic kidney disease. Continue EVARISTO. 7.Atrial fibrillation. Patient is on Eliquis. Further recommendation from Cardiology and primary t eam. 8.Renal osteodystrophy. Monitor calcium and phosphorus. EB/MODL Voice ID: [id number] Report ID: [id number]
[2022-02-13] MEDS: ONDANSETRON 4 MG/2 ML VIAL IV PRN (00:20)
[2022-02-13 04:19] LABS: Hematocrit 24.1 % (39.6-49.0); MCV 94.4 fL (80-100); MPV 8.8 fL (7.6-11.3); RBC Red Blood Cell Count 2.55 M/uL (4.33-5.43)
[2022-02-13 04:30] LABS: Albumin 2.1 g/dL (3.4-5.0); Phosphorus 2.5 mg/dL (2.5-4.9); Potassium 4.6 mmol/L (3.5-5.1)
[2022-02-13] MEDS: SEVELAMER CARBONATE 800 MG TABLET PO SCH ×3 (08:00→17:21)
[2022-02-13] MEDS: carvediloL 6.25 MG TAB PO SCH ×2 (09:00→20:32)
[2022-02-13] MEDS: NEPRO SHAKE 237 ML CAN PO SCH ×2 (09:00→20:32)
[2022-02-13] MEDS: MEDIHONEY 44 ML TOPICAL TUBE TOP SCH (09:00)
[2022-02-13] MEDS: TAMSULOSIN 0.4 MG SR CAP PO SCH (09:43)
[2022-02-13] MEDS: HYDRALAZINE HCL 25 MG TABLET PO SCH ×3 (09:43→20:32)
[2022-02-13] MEDS: AMLODIPINE 10 MG TAB PO SCH (09:43)
[2022-02-13] MEDS: ASPIRIN 81 MG CHEWABLE TABLET PO SCH (09:44)
[2022-02-13] MEDS: FUROSEMIDE 40 MG TABLET PO SCH (09:44)
[2022-02-13] MEDS: POTASS/SODIUM PHOSPHATE 1 PKT POWD.PACK PO SCH ×3 (09:44→13:33)
[2022-02-13] MEDS: APIXABAN 2.5 MG TABLET PO SCH ×2 (09:44→20:31)
[2022-02-13] MEDS: RISPERIDONE 1 MG TABLET PO SCH ×2 (09:44→20:31)
[2022-02-13] MEDS: ACETAMINOPHEN 500 MG TAB PO PRN (13:32)
[2022-02-13] MEDS: CALCITROL 0.25 MCG CAP PO SCH (13:33)
--- NOTE | 2022-02-13 14:37 | PN ---
Date of Progress Note: 02/13/2022 Subjective: The patient was admitted with acute kidney injury secondary to cardiorenal. The patient required to initiate on dialysis. His acute kidney injury was secondary to cardiorenal and obstructive uropathy bilateral. The patient was initiated on dialysis, tolerated the dialysis was waiting for outpatient setup. Physical Examination: Vital Signs: When I saw the patient; blood pressure 153/70, pulse of 75, afebrile. Chest: Clear to auscultation. Heart: S1, S2. Regular. Systolic murmur. Abdomen: Soft, nontender. Extremity: Trace edema. Neuro: Alert. No focality. Laboratory Data: H and H 8.1/24.1. Sodium 140, potassium 4.6, bicarb 30, BUN 32, creatinine 2.1, calcium 7.6, phosphorus 2.5. Current Medications: The patient on include; 1. Flomax. 2. Aspirin. 3. Eliquis. 4. Amlodipine 10 mg. 5. Carvedilol 6.25 b.i.d. 6. Hydralazine 100 t.i.d. 7. Risperidone. 8. Lasix. 9. Melatonin. Assessment And Plan: 1. Acute kidney injury on advanced chronic kidney disease, dialysis dependent. We will continue dialysis. The patient is scheduled for outpatient dialysis as Saturday, Saturday, Saturday. We will arrange for the dialysis for tomorrow. 2. Hypertension, controlled, optimal. Continue current medication. 3. Obstructive uropathy. Gonzalez in place. Needs follow up with Urology in 3-4 weeks. 4. Secondary hyperparathyroidism. Continue Renvela. I am going to decrease it to 1 tablet as phosphorus trending down nicely. 5. Coronary artery disease with congestive heart failure, normal volume. Continue current treatment. time spend exam the patient face to face . reviewing the data lab and radiology , placing order , discussing the case with the patient and staff including nurse and hospitalist 35 min KEAGAN Voice ID: [id number] Report ID: [id number] MTDD
--- NOTE | 2022-02-13 14:48 | P.PN ---
Subjective Date of Service: 02/13/22 Chief Complaint: SOB Patient has no new complaint. He was seen sitting in the chair this morning. He is tolerating room air. Physical Examination - Vital Signs Temperature: 97.4 F Blood Pressure: 153/70 Pulse: 72 Respirations: 16 Pulse Ox (%): 72 Assessment And Plan - Current Problems (Diagnosis) (1) Acute on chronic heart failure Current Visit: Yes Status: Acute (2) Chronic kidney disease, stage IV (severe) Current Visit: Yes Status: Acute (3) Bilateral hydronephrosis Current Visit: Yes Status: Acute (4) BPH (benign prostatic hyperplasia) Current Visit: Yes Status: Acute (5) Anemia Current Visit: Yes Status: Acute (6) Accelerated hypertension Current Visit: Yes Status: Acute (7) Foot ulcer, left Current Visit: Yes Status: Acute - Plan Physical Exam General: Awake, oriented x3, no distress. Neck: Supple, JVD not distended Respiratory: Clear to auscultation bilaterally. Cardiovascular: Normal pulses, trace pedal edema, regular rhythm Gastrointestinal: Soft and benign, nondistended, nontender. Neurological: No focal motor deficit. Plan: Currently stable on room air On oral Lasix per nephrology.. Repeat renal ultrasound showed improvement in right hydronephrosis. Continue Linda catheter for obstructive uropathy. Urology Dr. Mckinney is aware and recommend to maintain the Linda catheter for least 4 weeks and follow-up with him in the office. Monitor renal function. Nephrology is following Echocardiogram reported normal EF and pulmonary hypertension Acute psychosis has responded to antipsychotics. There is a concern that Seroquel is contributing to patient's psychomotor retardation and it is changed to Risperdal which has less sedating effect. Hemoglobin has been stable. Monitor H&H and transfuse PRBC for hemoglobin less than 7. Hydralazine as needed for BP spikes. Continue home antihypertensives. Local wound care for left foot ulcer. Clinically stable for discharge but patient may need placement given his decreased mobility. Need to discuss skilled rehab placement. Physical Exam: Gen: NAD, AOx3 HEENT: normal conjunctiva, sclera anicteric CV: regular rate & rhythm, trace-1+ b/l lower extremity edema to knees, R>L Pulm: non-labored respirations on room air, diminished at bases bilaterally Neuro: normal speech, normal affect vitals reviewed Problem List: Acute on chronic CHF, diastolic (HFpEF) severe pulmonary hypertension HTN left cephalic vein thrombus Afib, new onset; rate controlled CKD IV, now requiring HD bilateral hydronephrosis BPH acute psychosis DM2, insulin dependent CAD s/p PCI Anemia, of chronic disease Left chronic diabetic foot ulcer, stage 2 Acute on chronic CHF, diastolic severe pulmonary hypertension HTN Stable on room air Echo: normal EF, +pulmonary hypertension continue home antihypertensives edema improved, symptomatically improving pt was started on steroids empirically on admission, dc'd 02/06 lasix held for few days, restarted 02/06 L cephalic vein thrombus U/S ordered 02/09 ordered to eval edema in arm and weeping, confirmed thrombus elevate arm, swelling improved. He is on renally dosed Eliquis. Afib, new onset; rate controlled patient was first noted to have rate controlled afib overnight 02/06-02/07. no current need for further medication for rate Continue Eliquis. CKD IV, now requiring HD bilateral hydronephrosis, obstructive uropathy BPH lasix restarted 02/06 per nephrology. Patient started on hemodialysis Tunneled HD catheter placed 02/08 repeat renal U/S: improvement in right hydronephrosis Urology consulted - Dr. Mckinney recommended linda for at least 4wks; f/u in office Patient suspected to have chronic obstructive uropathy given prior history of retained Linda. high school social science teacher arranging for hemodialysis seat tolerating HD acute psychosis responded to antipsychotics there was concern that seroquel contributed to pt's psychomotor retardation - > changed to risperdal for less sedating effect slight intermittent confusion has improved DM2, insulin dependent CAD s/p PCI Anemia, of chronic disease Left chronic diabetic foot ulcer, stage 2 patient with hypoglycemia on 02/10, A1c: <6.0.; dc'd insulin Hgb stable local wound care for left foot ulcer, wound nursing consulted generalized weakness, unsteady gait working with PT family and patient agreeable to SNF VTE: eliquis Code: full Dispo: SNF Waiting for outpatient hemodialysis arrangement. Physician Review: Patient Assessed, Agree with Above Assessment and Plan
[2022-02-14 03:43] LABS: Hematocrit 21.6 % (39.6-49.0); Lymphocytes % 10.7 % (15.3-44.8); MCV 92.9 fL (80-100); MPV 8.4 fL (7.6-11.3); RBC Red Blood Cell Count 2.32 M/uL (4.33-5.43)
[2022-02-14 03:55] LABS: Potassium 4.5 mmol/L (3.5-5.1)
[2022-02-14] MEDS: SEVELAMER CARBONATE 800 MG TABLET PO SCH ×3 (08:00→16:57)
[2022-02-14] MEDS: NEPRO SHAKE 237 ML CAN PO SCH ×2 (09:00→21:21)
[2022-02-14] MEDS: carvediloL 6.25 MG TAB PO SCH (09:00)
[2022-02-14] MEDS: HYDRALAZINE HCL 25 MG TABLET PO SCH ×3 (09:00→21:20)
[2022-02-14] MEDS: MEDIHONEY 44 ML TOPICAL TUBE TOP SCH (09:00)
--- NOTE | 2022-02-14 12:30 | P.PN ---
Subjective Date of Service: 02/14/22 Chief Complaint: SOB Patient has no new complaint. He has been ambulating with a walker. He is tolerating room air. Physical Examination - Vital Signs Temperature: 96.8 F Blood Pressure: 192/86 Pulse: 72 Respirations: 18 Pulse Ox (%): 98 Assessment And Plan - Current Problems (Diagnosis) (1) Acute on chronic heart failure Current Visit: Yes Status: Acute (2) Chronic kidney disease, stage IV (severe) Current Visit: Yes Status: Acute (3) Bilateral hydronephrosis Current Visit: Yes Status: Acute (4) BPH (benign prostatic hyperplasia) Current Visit: Yes Status: Acute (5) Anemia Current Visit: Yes Status: Acute (6) Accelerated hypertension Current Visit: Yes Status: Acute (7) Foot ulcer, left Current Visit: Yes Status: Acute - Plan Physical Exam General: Awake, oriented x3, no distress. Neck: Supple, JVD not distended Respiratory: Clear to auscultation bilaterally. Cardiovascular: Normal pulses, trace pedal edema, regular rhythm Gastrointestinal: Soft and benign, nondistended, nontender. Neurological: No focal motor deficit. vitals reviewed Problem List: Acute on chronic CHF, diastolic (HFpEF) severe pulmonary hypertension HTN left cephalic vein thrombus Afib, new onset; rate controlled CKD IV, now requiring HD bilateral hydronephrosis BPH acute psychosis DM2, insulin dependent CAD s/p PCI Anemia, of chronic disease Left chronic diabetic foot ulcer, stage 2 Acute on chronic CHF, diastolic severe pulmonary hypertension HTN Stable on room air Echo: normal EF, +pulmonary hypertension continue home antihypertensives edema improved. pt was started on steroids empirically on admission, dc'd 02/06 lasix held for few days, restarted 02/06 L cephalic vein thrombus U/S ordered 02/09 ordered to eval edema in arm and weeping, confirmed thrombus elevate arm, swelling improved. He is on renally dosed Eliquis. Afib, new onset; rate controlled patient was first noted to have rate controlled afib overnight 02/06-02/07. no current need for further medication for rate Continue Eliquis. CKD IV, now requiring HD bilateral hydronephrosis, obstructive uropathy BPH lasix restarted 02/06 per nephrology. Patient started on hemodialysis Tunneled HD catheter placed 02/08 repeat renal U/S: improvement in right hydronephrosis Urology consulted - Dr. Mckinney recommended linda for at least 4wks; f/u in office Patient suspected to have chronic obstructive uropathy given prior history of retained Linda. neonatal social worker arranging for hemodialysis seat He is tolerating HD acute psychosis He responded well to antipsychotics there was concern that seroquel contributed to pt's psychomotor retardation - > changed to risperdal for less sedating effect Patient is tolerating the Risperdal. DM2, insulin dependent CAD s/p PCI Anemia, of chronic disease Left chronic diabetic foot ulcer, stage 2 patient with hypoglycemia on 02/10, A1c: <6.0.; dc'd insulin Hgb stable local wound care for left foot ulcer, wound nursing consulted generalized weakness, unsteady gait working with PT family and patient agreeable to SNF VTE: eliquis Code: full Dispo: SNF Waiting for outpatient hemodialysis arrangement for discharge. Physician Review: Patient Assessed, Agree with Above Assessment and Plan
--- NOTE | 2022-02-14 13:01 | PN ---
Date of Progress Note: 02/14/2022 Subjective: The patient was admitted with acute kidney injury secondary to obstructive uropathy, car diorenal. The patient was initiated on dialysis because of metabolic clearance with severe elevation in his BUN. The patient tolerating the dialysis very well. Physical Examination: Vital Signs: Blood pressure 162/70, pulse of 70, afebrile. Chest: Clear to auscultation. Heart: S1, S2. Regular. Abdomen: Soft, nontender. Extremity: Trace edema. Neurologic: Alert. No focality. Laboratory Data: WBC 8.9, H and H 7.4/21.6. Sodium 139, potassium 4.5, bicarb 29, BUN 44, creatinin e 2.5, GFR of 27, calcium of 7.4. Current Medications: The patient on include; 1.Flomax. 2.Eliquis 2.5. 3.Amlodipine 10 mg daily. 4.Carvedilol 6.25 b.i.d. 5.Hydralazine 100 t.i.d. 6.Risperidone. 7.Lasix 40. 8.Renvela. Assessment And Plan: 1.End-stage renal, acute kidney injury on advanced chronic kidney disease secondary to obstructive u ropathy and hypertension nephrosclerosis, cardiorenal, dialysis dependent. We will continue dialysis Saturday, Saturday, Saturday. The patient cleared from the Renal standpoint for discharge planning. W e will follow up. 2.Obstructive uropathy. The patient was started on Flomax. We will follow up with Urology about Gonzalez. 3.Hypertension, controlled, not optimal. I am going to go ahead and increase his carvedilol to 12.5 . 4.Anemia of chronic kidney disease. Continue EVARISTO. 5.Secondary hyperparathyroidism, phosphorus well controlled. We decreased the Renvela yesterday. W e will follow up. 6.Congestive heart failure with exacerbation, currently normal volume. Continue to establish better volume control with dialysis. 7.Over volume as above. MAC/CHAVA Voice ID: [id number] Report ID: [id number]
[2022-02-14] MEDS: FUROSEMIDE 40 MG TABLET PO SCH (13:41)
[2022-02-14] MEDS: ASPIRIN 81 MG CHEWABLE TABLET PO SCH (13:41)
[2022-02-14] MEDS: RISPERIDONE 1 MG TABLET PO SCH ×2 (13:41→21:20)
[2022-02-14] MEDS: TAMSULOSIN 0.4 MG SR CAP PO SCH (13:41)
[2022-02-14] MEDS: AMLODIPINE 10 MG TAB PO SCH (13:42)
[2022-02-14] MEDS: APIXABAN 2.5 MG TABLET PO SCH ×2 (13:48→21:21)
--- NOTE | 2022-02-14 15:37 | PN ---
Date of Progress Note: 02/14/2022 Subjective: Seen by bedside. He has been having dialysis. Appears to be doing much better. No maurice rtness of breath. No nausea, vomiting, diarrhea. No chest pain. Review of Systems: No chest pain, shortness of breath, orthopnea, cough. No nausea, vomiting, diarrhea. No abdominal p ain. No dysuria, polyuria, or urinary urgency. No skin rash. All other systems reviewed and they w ere negative except for what mentioned in HPI. Physical Examination: Vital Signs: Temperature is 96.8, pulse 72, breathing at 18, blood pressure is 192/86, saturating 98 %. General: Pleasant elderly male, in no apparent distress. Head and Neck: Pupils are equal, reactive to light. Intact eye movements. No JVD. No cervical lym phadenopathy. Neck is supple. Thyroid is not enlarged. Lungs: Clear to auscultation bilaterally. No rhonchi, wheezing, or crackles. No accessory muscle u se. Heart: Irregular. No extra sounds. Abdomen: Soft, nontender. Bowel sounds positive. No organomegaly. No masses or hernia. No rigidi ty or rebound. Extremities: No clubbing or cyanosis. Intact pulses. Positive edema bilaterally. Neurologic: Alert, awake, oriented x3. No acute focal deficits appreciated. Investigations: BUN 44 today, creatinine 2.5 and his white blood cell count is 8.9, hemoglobin is 7. 4. Assessment And Recommendations: 1.Acute on chronic diastolic heart failure and fluid overload due to the fact that the patient's kid leisa dysfunction and was not responding very well to diuresis and had advanced kidney failure. He is currently on dialysis and this should help managing his fluid status very well. Blood pressure is ex tremely elevated and needs a better blood pressure control and low-salt diet and daily body weight. 2.Hypertension. Very high blood pressure and currently he is on Coreg and amlodipine as well as Las ix. Discussed with Nephrology the feasibility of adding an JAMEL inhibitor and carefully monitoring hi s electrolytes. I will recommend starting lisinopril 10 mg daily and adjust further as needed for be tter blood pressure control as the patient has significant diastolic dysfunction. 3.Advanced kidney disease, on dialysis currently. SR/MODL Voice ID: [id number] Report ID: [id number]
[2022-02-14] MEDS: carvediloL 12.5 MG TAB PO SCH ×2 (16:56→21:00)
[2022-02-15 04:23] LABS: Absolute Lymphocytes (CBC) 0.8 K/uL (0.7-4.9); Hematocrit 21.5 % (39.6-49.0); Lymphocytes % 10.4 % (15.3-44.8); MCV 92.7 fL (80-100); MPV 8.5 fL (7.6-11.3); RBC Red Blood Cell Count 2.32 M/uL (4.33-5.43)
[2022-02-15 04:32] LABS: Phosphorus 2.9 mg/dL (2.5-4.9); Potassium 4.5 mmol/L (3.5-5.1)
[2022-02-15] MEDS: SEVELAMER CARBONATE 800 MG TABLET PO SCH ×3 (08:00→17:42)
[2022-02-15] MEDS: FUROSEMIDE 40 MG TABLET PO SCH (09:00)
[2022-02-15] MEDS: MEDIHONEY 44 ML TOPICAL TUBE TOP SCH (09:00)
[2022-02-15] MEDS: ASPIRIN 81 MG CHEWABLE TABLET PO SCH (09:00)
[2022-02-15] MEDS: TAMSULOSIN 0.4 MG SR CAP PO SCH (09:00)
[2022-02-15] MEDS: NEPRO SHAKE 237 ML CAN PO SCH ×2 (09:00→20:09)
[2022-02-15] MEDS: carvediloL 12.5 MG TAB PO SCH (09:00)
[2022-02-15] MEDS: AMLODIPINE 10 MG TAB PO SCH (09:00)
[2022-02-15] MEDS: RISPERIDONE 1 MG TABLET PO SCH ×2 (09:00→20:08)
[2022-02-15] MEDS: APIXABAN 2.5 MG TABLET PO SCH ×2 (09:00→20:08)
[2022-02-15] MEDS: HYDRALAZINE HCL 25 MG TABLET PO SCH ×3 (09:00→20:08)
[2022-02-15] MEDS: CALCITROL 0.25 MCG CAP PO SCH (13:11)
--- NOTE | 2022-02-15 13:48 | PN ---
Date of Progress Note: 02/15/2022 Subjective: The patient was admitted with acute kidney injury on advanced chronic kidney disease sec ondary to cardiorenal/obstructive uropathy. The patient was started on dialysis, tolerated very well . The patient is still nonoliguric. Physical Examination: Vital Signs: Blood pressure 177/75, pulse of 72, afebrile. Chest: Clear to auscultation. Heart: S1, S2. Regular. Abdomen: Soft, nontender. Extremity: No edema. Neuro: Alert. No focality. Laboratory Data: WBC 7.7, H and H 7.4/21.5. Sodium 141, potassium 4.5, bicarb 31, BUN 31, creatinin e 2, GFR of 34, calcium 7.6, phosphorus 2.9, albumin 2, corrected calcium is 9.4. Current Medications: The patient on include; 1.Albuterol. 2.Flomax. 3.Eliquis. 4.Carvedilol 12.5 b.i.d. 5.Hydralazine 100 t.i.d. Assessment And Plan: 1.Acute kidney injury on advanced chronic kidney disease. The patient showing possible some recover y. I am going to go ahead and continue the dialysis for the time being. We will consider spacing ou t the dialysis starting next week. The patient is still an inpatient. Otherwise, we will do it as o utpatient. 2.Hypertension, controlled, not optimal. I am going to go ahead and increase carvedilol to 25 mg. Yesterday, we increased hydralazine. We will follow up. 3.Obstructive uropathy. The patient started on Flomax, needs follow up with Urology in 2 weeks. 4.Congestive heart failure with cardiorenal syndrome, over volume. The patient to continue on the L asix. 5.Secondary hyperparathyroidism. Continue binder. 6.Anemia of chronic kidney disease. Continue EVARISTO. 7.Over volume. Continue diuresis. We will follow up. We will try to establish better volume contr ol with dialysis. MAC/CHAVA Voice ID: [id number] Report ID: [id number]
--- NOTE | 2022-02-15 17:32 | P.PN ---
Subjective Date of Service: 02/15/22 Chief Complaint: SOB Patient has no new complaint. He has been ambulating with a walker. No issues overnight. Physical Examination - Vital Signs Temperature: 97.5 F Blood Pressure: 144/70 Pulse: 75 Respirations: 16 Pulse Ox (%): 99 Assessment And Plan - Current Problems (Diagnosis) (1) Acute on chronic heart failure Current Visit: Yes Status: Acute (2) Chronic kidney disease, stage IV (severe) Current Visit: Yes Status: Acute (3) Bilateral hydronephrosis Current Visit: Yes Status: Acute (4) BPH (benign prostatic hyperplasia) Current Visit: Yes Status: Acute (5) Anemia Current Visit: Yes Status: Acute (6) Accelerated hypertension Current Visit: Yes Status: Acute (7) Foot ulcer, left Current Visit: Yes Status: Acute - Plan Physical Exam General: Awake, oriented x3, no distress. Neck: Supple, JVD not distended Respiratory: Clear to auscultation bilaterally. Cardiovascular: Normal pulses, trace pedal edema, regular rhythm Gastrointestinal: Soft and benign, nondistended, nontender. Neurological: No focal motor deficit. Problem List: Acute on chronic CHF, diastolic (HFpEF) severe pulmonary hypertension HTN left cephalic vein thrombus Afib, new onset; rate controlled CKD IV, now requiring HD bilateral hydronephrosis BPH acute psychosis DM2, insulin dependent CAD s/p PCI Anemia, of chronic disease Left chronic diabetic foot ulcer, stage 2 Acute on chronic CHF, diastolic severe pulmonary hypertension HTN Stable on room air Echo: normal EF, +pulmonary hypertension continue home antihypertensives edema improved. pt was started on steroids empirically on admission, dc'd 02/06 lasix held for few days, restarted 02/06 L cephalic vein thrombus U/S ordered 02/09 ordered to eval edema in arm and weeping, confirmed thrombus elevate arm, swelling improved. He is on renally dosed Eliquis. Afib, new onset; rate controlled patient was first noted to have rate controlled afib overnight 02/06-02/07. Continue Eliquis. CKD IV, now requiring HD bilateral hydronephrosis, obstructive uropathy BPH lasix restarted 02/06 per nephrology. Patient started on hemodialysis Tunneled HD catheter placed 02/08 repeat renal U/S: improvement in right hydronephrosis Urology consulted - Dr. Mckinney recommended linda for at least 4wks; f/u in office Patient suspected to have chronic obstructive uropathy given prior history of retained Linda. manager social responsibility arranging for hemodialysis seat He is tolerating HD acute psychosis He responded well to antipsychotics there was concern that seroquel contributed to pt's psychomotor retardation - > changed to risperdal for less sedating effect Patient is tolerating the Risperdal. DM2, insulin dependent CAD s/p PCI Anemia, of chronic disease Left chronic diabetic foot ulcer, stage 2 patient with hypoglycemia on 02/10, A1c: <6.0.; dc'd insulin Hgb stable local wound care for left foot ulcer, wound nursing consulted generalized weakness, unsteady gait Patient is ambulating with a walker. Disposition: Home with home health versus SNF. Need to do peer to peer for insurance approval for SNF. Outpatient hemodialysis set up. VTE: eliquis Code: full Dispo: SNF Physician Review: Patient Assessed, Agree with Above Assessment and Plan
[2022-02-15] MEDS: carvediloL 25 MG TAB PO SCH (17:42)
--- NOTE | 2022-02-15 21:55 | PN ---
Date of Progress Note: 02/15/2022 Subjective: Seen at bedside. Patient does like walking around, having no symptoms. Review of Systems: No chest pain, shortness of breath, orthopnea, and cough. No nausea, vomiting, diarrhea. All other systems reviewed and they were negative. Physical Examination: Vital Signs: Reviewed. Temperature is 96.5, pulse 68, breathing at 16, blood pressure 174/72, satur ating 99% on room air. General: Pleasant, elderly male, in no apparent distress. Head and Neck: Pupils are equal, reactive to light. Intact eye movements. No JVD. No cervical lym phadenopathy. Neck is supple. Thyroid is not enlarged. Lungs: Clear to auscultation bilaterally. No rhonchi, wheezing, or crackles. No accessory muscle u se. Heart: Irregular. No extra sounds. Abdomen: Soft, nontender. Bowel sounds positive. No organomegaly. No masses or hernia. No rigidi ty or rebound. Extremities: Edema bilaterally with improvement. No clubbing, cyanosis. Intact pulses. Skin: No rashes. Neurologic: Alert, awake, oriented x3. No acute focal deficits appreciated. Investigations: Labs were reviewed. Assessment And Recommendations: 1.Acute on chronic diastolic heart failure with significant fluid retention, doing better after dial ysis. Continue current management and continue diuretics as the patient continues to make urine. 2.Hypertension, improving with fluid management. I will add Imdur 30 mg daily. 3.Advanced kidney failure, on hemodialysis and doing well. SR/MODL Voice ID: [id number] Report ID: [id number]
[2022-02-16 03:50] LABS: Absolute Lymphocytes (CBC) 0.7 K/uL (0.7-4.9); Lymphocytes % 9.2 % (15.3-44.8); MCV 94.5 fL (80-100); MPV 8.7 fL (7.6-11.3)
[2022-02-16 03:55] LABS: Hematocrit 20.8 % (39.6-49.0)
[2022-02-16 04:06] LABS: Albumin 1.9 g/dL (3.4-5.0); Phosphorus 3.5 mg/dL (2.5-4.9); Potassium 4.8 mmol/L (3.5-5.1)
[2022-02-16] MEDS: SEVELAMER CARBONATE 800 MG TABLET PO SCH ×3 (08:00→16:10)
[2022-02-16] MEDS ORDERED: NA CHLORIDE 0.9% 250 ML IV SCH (08:00)
[2022-02-16] MEDS: carvediloL 25 MG TAB PO SCH ×2 (08:00→16:11)
[2022-02-16] MEDS: ISOSORBIDE MONO SR 30 MG TAB PO SCH (09:00)
[2022-02-16] MEDS: APIXABAN 2.5 MG TABLET PO SCH ×2 (09:00→23:08)
[2022-02-16] MEDS: NEPRO SHAKE 237 ML CAN PO SCH ×2 (09:00→23:08)
[2022-02-16] MEDS: HYDRALAZINE HCL 25 MG TABLET PO SCH ×3 (09:00→23:08)
[2022-02-16] MEDS: FUROSEMIDE 40 MG TABLET PO SCH (09:00)
[2022-02-16] MEDS: AMLODIPINE 10 MG TAB PO SCH (09:00)
[2022-02-16] MEDS: RISPERIDONE 1 MG TABLET PO SCH ×2 (09:00→23:07)
[2022-02-16] MEDS: ASPIRIN 81 MG CHEWABLE TABLET PO SCH (09:00)
[2022-02-16] MEDS: TAMSULOSIN 0.4 MG SR CAP PO SCH (09:00)
--- NOTE | 2022-02-16 12:30 | P.DS ---
Admission Date: 01/31/22 Discharge Date: 02/16/22 Disposition: AL HOME/HOME HEALTH CARE Discharge Condition: FAIR Reason for Admission: SOB - Problems (1) Acute on chronic heart failure Current Visit: Yes Status: Acute (2) Chronic kidney disease, stage IV (severe) Current Visit: Yes Status: Acute (3) Bilateral hydronephrosis Current Visit: Yes Status: Acute (4) BPH (benign prostatic hyperplasia) Current Visit: Yes Status: Acute (5) Anemia Current Visit: Yes Status: Acute (6) Accelerated hypertension Current Visit: Yes Status: Acute (7) Foot ulcer, left Current Visit: Yes Status: Acute Brief History of Present Illness: Patient is a 71-year-old male with a past medical history significant for hypertension, CHF, DM 2, BPH, CAD with stent who presented with complaint of shortness of breath that has been ongoing for a while but became worse the day before presentation. Patient is a poor historian and was unable to provide accurate history. Family reported that patient was in another state--[place] and was noncompliant with medical treatment for 1 month. Family reported that patient had his last medications filled on November 22, 2021 and had not taken the medication since then. Family decided to bring patient to [place] to live with them. Patient reported associated signs and symptoms of chest tenderness, orthopnea, cough, and bilateral lower extremity edema. He was admitted for further management. Hospital Course: Patient admitted to the medical floor. The following medical problems were addressed during the hospital stay: Acute on chronic CHF, diastolic severe pulmonary hypertension HTN Patient was initially requiring oxygen. He was treated with IV Lasix and was eventually weaned off oxygen. He has been stable on room air both at rest and with ambulation. Echo: normal EF, +pulmonary hypertension continued home antihypertensives edema improved with the Lasix therapy L cephalic vein thrombus U/S ordered 02/09 ordered to eval edema in arm and weeping, which confirmed thrombus. Patient treated with renally dosed Eliquis. Afib, new onset; rate controlled patient was first noted to have rate controlled afib overnight 02/06-02/07. Atrial fibrillation remained rate controlled. Patient placed on Eliquis for A. fib anticoagulation. CKD IV, now requiring HD bilateral hydronephrosis, obstructive uropathy BPH Patient renal function did not respond to hydration or IV Lasix He was started on hemodialysis Tunneled HD catheter placed 02/08 repeat renal U/S: improvement in right hydronephrosis after Linda catheter placement. Urology consulted - Dr. Mckinney recommended linda for at least 4wks; f/u in office Patient suspected to have chronic obstructive uropathy given prior history of retained Linda. Dialysis seat has been arranged He is tolerating HD acute psychosis He responded well to antipsychotics and currently stable on Risperdal. DM2, insulin dependent CAD s/p PCI Anemia, of chronic disease: He was transfused 1 unit PRBC. Left chronic diabetic foot ulcer, stage 2 patient with hypoglycemia on 02/10, A1c: <6.0.; dc'd insulin Hgb stable local wound care for left foot ulcer. Generalized weakness, unsteady gait. Functional status has improved. Patient now able to ambulate in the hallway with a walker unassisted Clinically stable for discharge home with home health. Vital Signs/Physical Exam: Temp Pulse Resp BP Pulse Ox 97.2 F 75 16 172/74 H 98 02/16/22 08:00 02/16/22 08:00 02/16/22 08:00 02/16/22 08:00 02/16/22 08:00 General: Alert, In no apparent distress, Oriented x3 HEENT: Mucous membr. moist/pink Neck: JVD not distended Respiratory: Clear to auscultation bilaterally, Normal air movement Cardiovascular: Normal S1 S2, Irregular heart rate/rhythm Gastrointestinal: Soft and benign, Non-distended Musculoskeletal: Other (Left elbow swelling improved) Neurological: Normal strength at 5/5 x4 extr Laboratory Data at Discharge: WBC 7.30 K/uL (4.3-10.9) 02/16/22 03:28 Hgb 7.0 g/dL (13.6-17.9) L 02/16/22 03:28 Hct 20.8 % (39.6-49.0) L* 02/16/22 03:28 Plt Count 103 K/uL (152-406) L 02/16/22 03:28 PT 12.2 SECONDS (9.5-12.5) 01/31/22 13:50 INR 1.11 01/31/22 13:50 Sodium 141 mmol/L (136-145) 02/16/22 03:28 Potassium 4.8 mmol/L (3.5-5.1) 02/16/22 03:28 BUN 39 mg/dL (7-18) H 02/16/22 03:28 Creatinine 2.43 mg/dL (0.55-1.3) H 02/16/22 03:28 Glucose 171 mg/dL (74-106) H 02/16/22 03:28 Uric Acid 6.3 mg/dL (3.5-7.2) 02/02/22 03:30 Phosphorus 3.5 mg/dL (2.5-4.9) 02/16/22 03:28 Magnesium 2.1 mg/dL (1.8-2.4) 02/12/22 03:41 Total Bilirubin 0.2 mg/dL (0.2-1.0) 01/31/22 13:50 AST 10 U/L (15-37) L 01/31/22 13:50 ALT 16 U/L (12-78) 01/31/22 13:50 Alkaline Phosphatase 95 U/L (45-117) 01/31/22 13:50 Triglycerides 50 mg/dL (<150) 01/31/22 13:50 Cholesterol 138 mg/dL (<200) 01/31/22 13:50 HDL Cholesterol 56 mg/dL (40-60) 01/31/22 13:50 Cholesterol/HDL Ratio 2.46 01/31/22 13:50 Home Medications: Amlodipine Besylate 1 tab PO DAILY 01/31/22 Aspirin Chewable [Aspirin Chewable*] 1 tab PO DAILY 01/31/22 Furosemide 1 tab PO DAILY 01/31/22 Tamsulosin [Flomax*] 1 cap PO DAILY 01/31/22 carvediloL [Carvedilol] 1 tab PO BID 01/31/22 Calcitrol [Rocaltrol*] 0.25 mcg PO Q48H cap 02/12/22 Hydralazine [Apresoline*] 100 mg PO TID tab 02/12/22 Sevelamer Carbonate [Renvela*] 1,600 mg PO TIDWM 02/12/22 risperiDONE [Risperdal 1 mg tab*] 0.5 mg PO BID tab 02/12/22 Apixaban [Eliquis *] 2.5 mg PO BID #60 02/16/22 Furosemide [Lasix*] 40 mg PO DAILY #30 tab 02/16/22 Isosorbide Mononitrate [Isosorbide Mononitrate ER] 30 mg PO DAILY #30 tab 02/16/22 Medihoney [Medihoney Woundcare Gel*] 1 appl TOP DAILY #1 tube 02/16/22 Melatonin 10 mg PO BEDTIME PRN PRN #30 tab 02/16/22 Nepro Shake [Nepro*] 237 ml PO BID #60 can 02/16/22 Sevelamer Carbonate [Renvela*] 800 mg PO TIDWM #90 tab 02/16/22 New Medications: Apixaban [Eliquis *] 2.5 mg PO BID #60 Isosorbide Mononitrate [Isosorbide Mononitrate ER] 30 mg PO DAILY #30 tab Furosemide [Lasix*] 40 mg PO DAILY #30 tab Medihoney [Medihoney Woundcare Gel*] 1 appl TOP DAILY #1 tube Melatonin 10 mg PO BEDTIME PRN PRN #30 tab PRN Reason: Insomnia Nepro Shake [Nepro*] 237 ml PO BID #60 can Sevelamer Carbonate [Renvela*] 800 mg PO TIDWM #90 tab Diet: Renal Activity: Fall precautions Followup: Kashif Mckinney [ACTIVE - CAN ADMIT] - (Within 2 weeks, call to schedule appointment) Time spent managing pt's care (in minutes): 42
[2022-02-16 14:18] LABS: Hematocrit 23.2 % (39.6-49.0)
[2022-02-16] MEDS: MEDIHONEY 44 ML TOPICAL TUBE TOP SCH (16:10)
[2022-02-16 21:09] VITALS: O2SAT 98
[2022-02-17 04:18] LABS: Phosphorus 3.1 mg/dL (2.5-4.9); Potassium 4.1 mmol/L (3.5-5.1)
[2022-02-17 05:12] VITALS: BP 144/66; TEMP 98.2
--- NOTE | 2022-02-17 08:00 | P.PN ---
Subjective Date of Service: 02/16/22 Chief Complaint: SOB Subjective: Other (Received HD today.) Physical Examination - Vital Signs Temperature: 98.2 F Blood Pressure: 144/66 Pulse: 70 Respirations: 17 Pulse Ox (%): 96 - Physical Exam General: In no apparent distress HEENT: Atraumatic, Normocephalic Neck: Supple Respiratory: Other (Symmetric ches expansion) Cardiovascular: No rubs, No murmurs Gastrointestinal: Soft and benign, No guarding Musculoskeletal: No clubbing Integumentary: No warmth Neurological: Normal speech, Normal tone Urinary: Other (No bladder distention) External genitalia: Deferred Rectal: Deferred Assessment And Plan - Plan 1. Acute kidney injury on advanced chronic kidney disease, progression to end- stage renal disease, initiated on dialysis. He received HD today. Cont HD qMWF. HD access: TDC. Outpt HD [facility] at [facility]. 2. Hypertension, controlled, optimal. Continue to utilize blood pressure for more ultrafiltration. 3. Coronary artery disease with congestive heart failure. As by Primary and Cardiology, we will try to establish better volume control with dialysis. Continue Lasix. 4. Obstructive uropathy. Cont linda. On flomax. F/u w/ Urology in 2 wks. 5. Anemia of chronic kidney disease. Continue EVARISTO. 6. Renal osteodystrophy. Monitor Ca & Phos. 7. Dispo. Dc plan to rehab facility ongoing. Physician Review: Patient Assessed, Agree with Above Assessment and Plan
[2022-02-17] MEDS: MEDIHONEY 44 ML TOPICAL TUBE TOP SCH (09:00)
[2022-02-17] MEDS: APIXABAN 2.5 MG TABLET PO SCH (10:24)
[2022-02-17] MEDS: ISOSORBIDE MONO SR 30 MG TAB PO SCH (10:24)
[2022-02-17] MEDS: HYDRALAZINE HCL 25 MG TABLET PO SCH (10:24)
[2022-02-17] MEDS: RISPERIDONE 1 MG TABLET PO SCH (10:25)
[2022-02-17] MEDS: TAMSULOSIN 0.4 MG SR CAP PO SCH (10:25)
[2022-02-17] MEDS: SEVELAMER CARBONATE 800 MG TABLET PO SCH ×2 (10:25→12:00)
[2022-02-17] MEDS: ASPIRIN 81 MG CHEWABLE TABLET PO SCH (10:25)
[2022-02-17] MEDS: FUROSEMIDE 40 MG TABLET PO SCH (10:25)
[2022-02-17] MEDS: carvediloL 25 MG TAB PO SCH (10:26)
[2022-02-17] MEDS: AMLODIPINE 10 MG TAB PO SCH (10:26)
[2022-02-17] MEDS: NEPRO SHAKE 237 ML CAN PO SCH (10:27)
--- NOTE | 2022-02-17 11:41 | P.PN ---
Subjective Date of Service: 02/16/22 Chief Complaint: SOB Patient has no complaint He has been ambulating with a walker. Hemoglobin dropped to 7.0. Physical Examination - Vital Signs Temperature: 98.2 F Blood Pressure: 144/66 Pulse: 70 Respirations: 17 Pulse Ox (%): 96 Assessment And Plan - Current Problems (Diagnosis) (1) Acute on chronic heart failure Current Visit: Yes Status: Acute (2) Chronic kidney disease, stage IV (severe) Current Visit: Yes Status: Acute (3) Bilateral hydronephrosis Current Visit: Yes Status: Acute (4) BPH (benign prostatic hyperplasia) Current Visit: Yes Status: Acute (5) Anemia Current Visit: Yes Status: Acute (6) Accelerated hypertension Current Visit: Yes Status: Acute (7) Foot ulcer, left Current Visit: Yes Status: Acute - Plan Physical Exam General: Awake, oriented x3, no distress. Neck: Supple, JVD not distended Respiratory: Clear to auscultation bilaterally. Cardiovascular: Normal pulses, trace pedal edema, regular rhythm Gastrointestinal: Soft and benign, nondistended, nontender. Neurological: No focal motor deficit. Problem List: Acute on chronic CHF, diastolic (HFpEF) severe pulmonary hypertension HTN left cephalic vein thrombus Afib, new onset; rate controlled CKD IV, now requiring HD bilateral hydronephrosis BPH acute psychosis DM2, insulin dependent CAD s/p PCI Anemia, of chronic disease Left chronic diabetic foot ulcer, stage 2 Acute on chronic CHF, diastolic severe pulmonary hypertension HTN Stable on room air Echo: normal EF, +pulmonary hypertension continue home antihypertensives edema improved. pt was treated briefly with steroid lasix held for few days, restarted 02/06 L cephalic vein thrombus U/S ordered 02/09 ordered to eval edema in arm and weeping, confirmed thrombus elevate arm, swelling improved. He is on renally dosed Eliquis. Afib, new onset; rate controlled patient was first noted to have rate controlled afib overnight 02/06-02/07. Continue Eliquis. He is not needing any rate control medication at the moment. CKD IV, now requiring HD bilateral hydronephrosis, obstructive uropathy BPH lasix restarted 02/06 per nephrology. Patient started on hemodialysis Tunneled HD catheter placed 02/08 repeat renal U/S: improvement in right hydronephrosis Urology consulted - Dr. Mckinney recommended linda for at least 4wks; f/u in office Patient suspected to have chronic obstructive uropathy given prior history of retained Linda. Dialysis seat arranged. He is tolerating HD acute psychosis He responded well to antipsychotics there was concern that seroquel contributed to pt's psychomotor retardation - > changed to risperdal for less sedating effect Patient is tolerating the Risperdal. DM2, insulin dependent CAD s/p PCI Anemia, of chronic disease: Transfused 1 unit PRBC. Posttransfusion hemoglobin is 7.9. Left chronic diabetic foot ulcer, stage 2 patient with hypoglycemia on 02/10, A1c: <6.0.; dc'd insulin Hgb stable local wound care for left foot ulcer, wound nursing consulted generalized weakness, unsteady gait Patient is ambulating with a walker. Disposition: Home with home health. Outpatient hemodialysis set up. VTE: eliquis Code: full Dispo: SNF Physician Review: Patient Assessed, Agree with Above Assessment and Plan
--- NOTE | 2022-02-17 14:16 | P.PN ---
Subjective Date of Service: 02/17/22 Chief Complaint: SOB Today no overnight events Cr down to 1.98 cleared for discharge from nephrology point of view follow with nephrology clinic in 1-2 wks Physical exam General: Awake, alert , NAD HEENT PERRLA, moist mucose membrane neck: supple, no elevated JVD CHEST; CTAB, no wheezes or rales HEART : RRR. Normal S1,2 no murmur or rub Abd: soft, Nt, linda catheter Ext: no edema Skin : No rash A/P 1. chronic kidney disease, progression to end-stage renal disease, initiated on dialysis. He received HD today. Cont HD qMWF. HD access: TDC. [facility]pt HD placement at [facility]. 2. Hypertension, controlled, optimal. Continue to utilize blood pressure for more ultrafiltration. 3. Coronary artery disease with congestive heart failure. As by Primary and Cardiology, we will try to establish better volume control with dialysis. Continue Lasix. 4. Obstructive uropathy. Cont linda. On flomax. F/u w/ Urology in 2 wks. 5. Anemia of chronic kidney disease. Continue EVARISTO. 6. Renal osteodystrophy. Monitor Ca & Phos. Physical Examination - Vital Signs Temperature: 98.2 F Blood Pressure: 144/66 Pulse: 70 Respirations: 17 Pulse Ox (%): 96 Assessment And Plan Physician Review: Patient Assessed, Agree with Above Assessment and Plan
== END 2022-02-17 15:22 | disposition home health service (06) | DRG 291 ==
LOC: ER 13:13 → ERHOLD 16:04 → 4TH 02-01 15:21
PROVIDERS: ADMIT Internal Medicine; ATTEND Internal Medicine
PROC: 5A09557 Assistance with Respiratory Ventilation, Greater than 96 Consecutive Hours, Continuous Positive Airway Pressure (ICD-10-PCS; 2022-01-31)
PROC: 02HV33Z Insertion of Infusion Device into Superior Vena Cava, Percutaneous Approach (ICD-10-PCS; 2022-02-08)
PROC: 0JH63XZ Insertion of Tunneled Vascular Access Device into Chest Subcutaneous Tissue and Fascia, Percutaneous Approach (ICD-10-PCS; principal; 2022-02-08 13:45)
PROC: 5A1D70Z Performance of Urinary Filtration, Intermittent, Less than 6 Hours Per Day (ICD-10-PCS; 2022-02-09)
PROC: 30233N1 Transfusion of Nonautologous Red Blood Cells into Peripheral Vein, Percutaneous Approach (ICD-10-PCS; 2022-02-16)
DX: I13.2 Hypertensive heart and chronic kidney disease with heart failure and with stage 5 chronic kidney disease, or end stage renal disease (principal); J18.9 Pneumonia, unspecified organism; I50.33 Acute on chronic diastolic (congestive) heart failure; N18.6 End stage renal disease; N17.9 Acute kidney failure, unspecified; N13.30 Unspecified hydronephrosis; N25.81 Secondary hyperparathyroidism of renal origin; F23 Brief psychotic disorder; I82.612 Acute embolism and thrombosis of superficial veins of left upper extremity; E11.22 Type 2 diabetes mellitus with diabetic chronic kidney disease; E11.621 Type 2 diabetes mellitus with foot ulcer; E11.649 Type 2 diabetes mellitus with hypoglycemia without coma; L97.529 Non-pressure chronic ulcer of other part of left foot with unspecified severity; D63.1 Anemia in chronic kidney disease; D63.8 Anemia in other chronic diseases classified elsewhere; F41.9 Anxiety disorder, unspecified; I48.0 Paroxysmal atrial fibrillation; E83.39 Other disorders of phosphorus metabolism; I16.0 Hypertensive urgency; I27.20 Pulmonary hypertension, unspecified; I25.10 Atherosclerotic heart disease of native coronary artery without angina pectoris; N40.0 Benign prostatic hyperplasia without lower urinary tract symptoms; N25.0 Renal osteodystrophy; T50.906A Underdosing of unspecified drugs, medicaments and biological substances, initial encounter; R79.89 Other specified abnormal findings of blood chemistry; Z95.5 Presence of coronary angioplasty implant and graft; Z79.4 Long term (current) use of insulin; Z88.0 Allergy status to penicillin; Z79.01 Long term (current) use of anticoagulants; Z59.00 Homelessness unspecified; Z91.14 Patient's other noncompliance with medication regimen; Z79.82 Long term (current) use of aspirin; Z91.19 Patient's noncompliance with other medical treatment and regimen; Z79.899 Other long term (current) drug therapy; Z20.822 Contact with and (suspected) exposure to COVID-19
CPT/HCPCS: 36415; 36430; 71045; 71250; 74176; 76000; 76770; 80048; 80061; 80069; 80076; 81001; 82306; 82550; 82570; 82607; 82652; 82728; 82746; 82947; 83036; 83520; 83540; 83735; 83880; 83970; 84156; 84165; 84443; 84466; 84484; 84550; 85014; 85018; 85025; 85027; 85044; 85610; 86021; 86038; 86160; 86225; 86317; 86430; 86704; 86706; 86850; 86900; 86901; 87340; 87389; 87522; 87811; 90935; 93005; 93306; 93971; 94640; 94660; 94760; 96374; 96375; 97110; 97116; 97161; 97530; 99251; 99285; A4216; C1752; J0360; J0456; J0692; J1630; J1644; J1815; J1940; J2001; J2250; J2270; J2370; J2405; J2704; J2920; J3010; J7030; J7040; J7050; P9016; P9047; U0003

== ENCOUNTER 2022-02-24 14:19 | Inpatient (IN) | payer OTHER ==
--- NOTE | 2022-02-24 15:09 | RAD REPORT ---
EXAM DESCRIPTION: CT - Head Brain Wo Cont - 02/24/2022 2:57 pm CLINICAL HISTORY: Alteration of awareness/confusion COMPARISON: None TECHNIQUE: Computed axial tomography of the head was obtained. IV contrast was not requested. All CT scans are performed using dose optimization technique as appropriate and may include automated exposure control or mA/KV adjustment according to patient size. FINDINGS: An intracranial bleed is not seen . The ventricles are normal in caliber. No extra-axial fluid collection is noted. 2.7 centimeter low-density area left parietal lobe probably an old infarction. Fluid within the sinuses/ mastoids is not seen. IMPRESSION: No acute intracranial abnormality is seen. If patient's symptoms persist MRI of the bra in would be recommended.
--- NOTE | 2022-02-24 15:15 | RAD REPORT ---
EXAM DESCRIPTION: RAD - Foot Right 3 View - 02/24/2022 2:44 pm CLINICAL HISTORY: Right foot pain FINDINGS: No fracture or dislocation is seen Plantar soft tissue ulceration forefoot. No adjacent bony destruction is seen. Cortical irregularity involves distal aspect of the first proximal phalanx. This could be secondary t o an arthropathy or osteomyelitis and should be correlated clinically. Bones are osteoporotic.
--- NOTE | 2022-02-24 15:16 | RAD REPORT ---
EXAM DESCRIPTION: Raad Single View02/24/2022 2:44 pm CLINICAL HISTORY: Chest pain COMPARISON: February 08, 2022 FINDINGS: Small to moderate right and small left pleural effusions with basilar atelectasis. Upper lobes appear clear. Heart is mildly enlarged. Central venous catheter in place
[2022-02-24 15:34] LABS: Protime INR 1.15
[2022-02-24 15:45] LABS: Absolute Lymphocytes (CBC) 0.4 K/uL (0.7-4.9); Hematocrit 21.8 % (39.6-49.0); Lymphocytes % 7.2 % (15.3-44.8); MCV 94.6 fL (80-100)
[2022-02-24 16:05] LABS: Albumin 2.3 g/dL (3.4-5.0); Bilirubin Total 0.2 mg/dL (0.2-1.0); Magnesium 2.2 mg/dL (1.8-2.4); Potassium 4.6 mmol/L (3.5-5.1); Protein, Total 5.7 g/dL (6.4-8.2); Troponin High Sensitivity 27.1 pg/mL (<58.9)
--- NOTE | 2022-02-24 16:49 | RAD REPORT ---
EXAM DESCRIPTION: USExtrem Venous W Compress Bil02/24/2022 4:42 pm CLINICAL HISTORY: Leg swelling COMPARISON: none FINDINGS: The common femoral, superficial femoral, popliteal and posterior tibial veins bilaterally are compressible and demonstrate augmentation. Doppler demonstrates good flow. Grayscale, color and spectral analysis performed on all vessels IMPRESSION: No evidence of deep venous thrombosis involving either lower extremity.
--- NOTE | 2022-02-24 16:58 | RAD REPORT ---
EXAM DESCRIPTION: US - Lower Extremity Arterial Bilat - 02/24/2022 4:42 pm CLINICAL HISTORY: Leg pain COMPARISON: None FINDINGS: Right common femoral and superficial femoral arteries demonstrates a biphasic waveform The right popliteal, posterior tibial and dorsalis pedis arteries demonstrate monophasic waveforms The left common femoral, superficial femoral, popliteal, posterior tibial and dorsalis pedis arteries demonstrate biphasic and triphasic waveforms Grayscale, color and spectral analysis performed on all vessels IMPRESSION: Mild to moderate disease involving right lower extremity arteries Mild disease involving the left lower extremity arteries
--- NOTE | 2022-02-24 17:25 | EDPHYS ---
Physician Documentation [facility] Name: Houston Katz Age: 71 yrs Sex: Male : 1950 Arrival Date: 02/24/2022 Time: 14:20 Bed 17 Private MD: ED Physician Rosa Kearney HPI: 02/24 14:30 This 71 yrs old Male presents to ER via EMS with complaints of Altered Mental Status. cp 14:30 The patient presents with confusion. Onset: The symptoms/episode began/occurred at an cp unknown time. Possible causes: unknown. 14:30 Associated signs and symptoms: Pertinent positives: confusion, Pertinent negatives: cp abdominal pain, chest pain, combativeness, diarrhea, headache, seizure, weakness. Current symptoms: In the emergency department the patient's symptoms are unchanged from the initial presentation, despite EMS interventions. Patient's baseline: Neuro: alert and fully oriented, Motor: no deficits, Ambulation: walks without assistance, Speech: normal. Patient brought to ED by EMS after being observed driving erratically and upon questioning seemed confused. 14:30 Sister at bedside now reports patient has seemed confused for past 4 days. Completed cp dialysis yesterday. Patient reports he was driving today to go to doctor's appointment and to fill prescription. Historical: - Allergies: 14:35 PENICILLINS; bp - Home Meds: 14:35 amlodipine 10 mg tab [Active]; aspirin 81 mg Oral tab [Active]; carvedilol 6.25 mg Oral bp tab [Active]; Eliquis 5 mg Oral tab [Active]; furosemide 40 mg Oral tab 1 tab once daily [Active]; Lantus Sub-Q [Active]; tamsulosin 0.4 mg Oral cap [Active]; - PMHx: 14:35 diabetes mellitus; Hypertensive disorder; End stage renal disease; M-W-F; bp - Immunization history:: Adult Immunizations unknown. - Social history:: Smoking status: Patient denies any tobacco usage or history of. ROS: 14:35 Constitutional: Negative for body aches, chills, fever, poor PO intake. cp 14:35 Cardiovascular: Positive for edema, Negative for chest pain, palpitations. cp Exam: 14:40 Constitutional: The patient appears in no acute distress, alert, awake, cp non-diaphoretic, non-toxic, well developed, well nourished. 14:40 Head/Face: Normocephalic, atraumatic. cp 14:40 Eyes: Periorbital structures: appear normal, Pupils: equal, round, and reactive to light and accomodation, Extraocular movements: intact throughout, Conjunctiva: normal, no exudate, no injection, Sclera: no appreciated abnormality, Lids and lashes: appear normal, bilaterally. 14:40 ENT: External ear(s): are unremarkable, Nose: is normal, Mouth: is normal, Posterior pharynx: Airway: no evidence of obstruction, patent, swelling, is not appreciated, erythema, is not appreciated, exudate, is not appreciated. 14:40 Neck: ROM/movement: is normal, is supple, without pain, no range of motions limitations, no meningismus. 14:40 Chest/axilla: Inspection: normal, Palpation: is normal, no crepitus, no tenderness. 14:40 Cardiovascular: Rate: normal, Rhythm: regular, Edema: bilateral lower leg edema with right worse than left, JVD: is not appreciated. 14:40 Respiratory: the patient does not display signs of respiratory distress, Respirations: normal, no use of accessory muscles, no retractions, labored breathing, is not present, Breath sounds: are clear throughout, no decreased breath sounds, no stridor, no wheezing. 14:40 Abdomen/GI: Inspection: erythematous rash noted to skin folds of lower abdomen, Bowel sounds: active, all quadrants, Palpation: abdomen is soft and non-tender, in all quadrants, voluntary guarding, is not appreciated, involuntary guarding, is not appreciated. 14:40 Back: pain, is absent, ROM is normal. 14:40 Skin: nickel size open wound noted plantar surface of right foot with mild purulent discharge, mild erythema of right lower leg with swelling. 14:40 Neuro: Orientation: to person, situation, Mentation: able to follow commands, confused, Motor: moves all fours, strength is normal, Sensation: no obvious gross deficits. 15:52 ECG was reviewed by the Attending Physician. cp Vital Signs: 14:32 BP 140 / 90; Pulse 65; Resp 16; Temp 98; Pulse Ox 96% ; bp 19:04 BP 171 / 71; Pulse 81; Resp 16; Pulse Ox 100% on R/A; tp1 NIH Stroke Scale Scores: 14:35 NIHSS Score: 3 bp MDM: 14:25 Patient medically screened. cp 15:00 Differential Diagnosis: CVA, electrolyte abnormality, alcohol intoxication, cp hypoglycemia, pneumonia, seizure, sepsis, volume depletion. 17:25 Data reviewed: vital signs, nurses notes, lab test result(s), EKG, radiologic studies, cp CT scan, plain films, ultrasound. 17:25 Test interpretation: by ED physician or midlevel provider: ECG, plain radiologic cp studies. Physician consultation: Adin Clark MD was called at 17:20, was contacted at 17:20, regarding admission, to the telemetry unit. patient's condition. 02/24 14:24 Order name: Blood Culture Adult (2) 02/24 14:24 Order name: CBC with Diff 02/24 16:16 Interpretation: Normal except: RBC 2.30; HGB 7.2; HCT 21.8; RDW 15.4; ODILIA% 75.1; LYM% cp 7.2; MN% 13.4; LYMA 0.4; PLT 60. 02/24 14:24 Order name: CMP; Complete Time: 16:16 02/24 16:16 Interpretation: Normal except: GLUC 126; BUN 35; CRE 2.66; GFR 25; AST 5; CA 8.0; TP cp 5.7; ALB 2.3; A/G 0.7. 02/24 14:24 Order name: Lactate; Complete Time: 16:16 02/24 14:24 Order name: Protime (+inr); Complete Time: 16:16 02/24 14:24 Order name: Ptt, Activated; Complete Time: 16:16 02/24 14:24 Order name: Urine Culture 02/24 14:24 Order name: Urine Microscopic Only 02/24 14:24 Order name: Troponin High Sensitivity; Complete Time: 16:16 02/24 14:24 Order name: Wound Culture 02/24 14:24 Order name: BNP; Complete Time: 16:16 02/24 16:16 Interpretation: Abnormal: NT PRO-BNP 18945. 02/24 14:24 Order name: Magnesium; Complete Time: 16:16 02/24 16:22 Order name: CRP; Complete Time: 17:09 02/24 16:22 Order name: ESR; Complete Time: 17:41 cp 02/24 14:24 Order name: CT Head Brain wo Cont cp 02/24 14:24 Order name: Chest Single View XRAY; Complete Time: 16:16 02/24 16:17 Interpretation: Report review. 02/24 14:24 Order name: XRAY Foot RIGHT 3 View; Complete Time: 16:16 02/24 14:29 Order name: Head Brain Wo Cont; Complete Time: 15:14 EDMS 02/24 15:15 Order name: US Extremity Venous W Compression Momo; Complete Time: 17:09 02/24 15:15 Order name: US LE Arterial Bilateral; Complete Time: 17:09 02/24 17:13 Interpretation: Report reviewed. 02/24 16:22 Order name: LAB Add On 02/24 17:21 Order name: SARS RAPID kj1 02/24 17:33 Order name: CONS Physician Consult EDKS 02/24 17:33 Order name: Basic Metabolic Panel EDMS 02/24 17:33 Order name: Basic Metabolic Panel EDMS 02/24 17:33 Order name: CBC with Automated Diff EDMS 02/24 17:33 Order name: CBC with Automated Diff EDMS 02/24 17:51 Order name: Foot Right Wo Cont EDMS 02/24 18:21 Order name: Urine Dipstick-Ancillary EDKS 02/24 14:24 Order name: Accucheck; Complete Time: 15:38 02/24 14:24 Order name: Cardiac monitoring; Complete Time: 15:52 02/24 14:24 Order name: EKG - Nurse/Tech; Complete Time: 15:38 02/24 14:24 Order name: IV Saline Lock - Large Bore; Complete Time: 15:17 02/24 14:24 Order name: Labs collected and sent; Complete Time: 15:38 02/24 14:24 Order name: O2 Per Protocol; Complete Time: 15:17 02/24 14:24 Order name: O2 Sat Monitoring; Complete Time: 15:17 02/24 14:24 Order name: Urine Dipstick-Ancillary (obtain specimen); Complete Time: 18:21 02/24 17:33 Order name: NPO; Complete Time: 18:15 EDMS EC:52 Rate is 75 beats/min. Rhythm is regular. [place] interval is prolonged at 224 msec. QRS cp interval is prolonged at 104 msec. QT interval is normal. T waves are Inverted in lead aVR. Interpreted by me. Reviewed by me. Administered Medications: 18:14 Drug: vancoMYCIN 1 grams Route: IVPB; Infused Over: 2 hrs; Site: right antecubital; tp1 Disposition Summary: 02/24/22 17:24 Hospitalization Ordered Hospitalization Status: Inpatient Admission cp Provider: Adin Clark cp Location: Telemetry/MedSurg (Inpatient) cp Condition: Stable cp Problem: new cp Symptoms: have improved cp Bed/Room Type: Standard cp Room Assignment: 424(02/24/22 20:06) cg Diagnosis - Altered mental status, unspecified cp - Cellulitis of right lower limb cp Discharge Instructions: - Discharge Summary Sheet kj1 Forms: - SBAR form cp - Work release form kj1 - Medication Reconciliation Form kj1 - Prescription Opioid Use kj1 NIH Stroke Scale - NIH Stroke Score Date: 02/24/2022 Time: 14:35 Total Score = 3 1a. Level of Consciousness (LOC) - 0(Alert) 1b. Level of Consciousness (LOC) (Month \T\ Age) - 1(One) 1c. LOC Commands (Open \T\ Closes Eyes/Hplc Chemist) - 0(Both) 2. Best Gaze (Lateral Gaze Paresis) - 0(Normal) 3. Visual Field Loss - 0(No visual loss) 4. Facial Palsy - 0(Normal) 5a. Left Arm: Motor (10-second hold) - 0(No drift) 5b. Right Arm: Motor (10-second hold) - 0(No drift) 6a. Left Leg: Motor (5-second hold - always test supine) - 1(Drift) 6b. Right Leg: Motor (5-second hold - always test supine) - 1(Drift) 7. Limb Ataxia (finger/nose \T\ heel/walls - test with eyes open) - 0(Absent) 8. Sensory Loss (pinprick arms/legs/face) - 0(Normal) 9. Best Language: Aphasia (description/naming/reading) - 0(No aphasia) 10. Dysarthria (speech clarity - read or repeat words) - 0(Normal) 11. Extinction and Inattention (visual/tactile/auditory/spatial/personal) - 0(No abnormality) Initials: bp Addendum: 02/26/2022 15:31 STAFF ATTESTATION STATEMENT: I was immediately available onsite in the [facility] emergency department for consultation in the care of this patient. I did not see or examine this patient. Rosa Kearney MD. Signatures: Dispatcher [employer] EDMS Ernesto Rodriguez, SIMON-C CLOUD INFRASTRUCTURE ARCHITECT-Cla1 Jair Eli PA PA cp Garcia, Cindy, RN RN cg Lang Rodriguez RN RN bp Parker, Tiffany, RN RN tp1 Rosa Kearney MD MD [facility] Corrections: (The following items were deleted from the chart) 02/24 20:06 17:24 cp cg 02/25 19:21 02/24 14:30 Onset: The symptoms/episode began/occurred 4 day(s) ago, cp cp
--- NOTE | 2022-02-24 17:25 | ER ---
Nurse's Notes [facility] Name: Houston Katz Age: 71 yrs Sex: Male : 1950 Arrival Date: 02/24/2022 Time: 14:20 Bed 17 Private MD: Diagnosis: Altered mental status, unspecified;Cellulitis of right lower limb Presentation: 02/24 14:32 Chief complaint: EMS states: CALLED FOR ERRATIC DRIVING, FOUND TO BE ALTERED. bp Coronavirus screen: At this time, the client does not indicate any symptoms associated with coronavirus-19. Ebola Screen: No symptoms or risks identified at this time. Initial Sepsis Screen: Does the patient meet any 2 criteria? No. Patient's initial sepsis screen is negative. Does the patient have a suspected source of infection? No. Patient's initial sepsis screen is negative. Risk Assessment: Do you want to hurt yourself or someone else? Patient reports no desire to harm self or others. Onset of symptoms is unknown. Care prior to arrival: IV initiated. 20 GA, in the left antecubital area. 14:32 Method Of Arrival: EMS: [facility] bp 14:32 Acuity: JILLIAN 2 bp Triage Assessment: 14:35 General: Appears distressed, Behavior is cooperative, appropriate for age, CONFUSED. bp Pain: Complains of pain in right foot. EENT: No deficits noted. Neuro: Level of Consciousness is awake, obeys commands, confused, Oriented to person, place. Cardiovascular: No deficits noted. Respiratory: No deficits noted. GI: No signs and/or symptoms were reported involving the gastrointestinal system. : Gonzalez in place. Derm: No deficits noted. Musculoskeletal: No deficits noted. Historical: - Allergies: 14:35 PENICILLINS; bp - Home Meds: 14:35 amlodipine 10 mg tab [Active]; aspirin 81 mg Oral tab [Active]; carvedilol 6.25 mg Oral bp tab [Active]; Eliquis 5 mg Oral tab [Active]; furosemide 40 mg Oral tab 1 tab once daily [Active]; Lantus Sub-Q [Active]; tamsulosin 0.4 mg Oral cap [Active]; - PMHx: 14:35 diabetes mellitus; Hypertensive disorder; End stage renal disease; M-W-F; bp - Immunization history:: Adult Immunizations unknown. - Social history:: Smoking status: Patient denies any tobacco usage or history of. Screenin:37 Abuse screen: Denies threats or abuse. Denies injuries from another. Nutritional bp screening: No deficits noted. Tuberculosis screening: No symptoms or risk factors identified. Fall Risk No fall in past 12 months (0 pts). Secondary diagnosis (15 points) dementia. Assessment: 14:37 General: SEE TRIAGE NOTE. bp 14:47 Reassessment: escorted to CT via stretcher with live truck technician. tp1 15:06 Reassessment: returned from CT. tp1 15:35 Reassessment: Patient appears in no apparent distress at this time. Patient and/or tp1 family updated on plan of care and expected duration. Pain level reassessed. Patient is alert, oriented x 3, equal unlabored respirations, skin warm/dry/pink. Patient denies pain at this time. 16:40 Reassessment: Patient appears in no apparent distress at this time. Patient is alert, tp1 oriented x 3, equal unlabored respirations, skin warm/dry/pink. Patient denies pain at this time. 17:10 Reassessment: Patient appears in no apparent distress at this time. Patient is alert, tp1 oriented x 3, equal unlabored respirations, skin warm/dry/pink. Derm: right leg is red, hot, and appears more swollen than left leg, skin to the right leg appears dry and cracking. appears to have red rash to right side of groin. 17:11 Reassessment: Gonzalez catheter bag changed. perineal care provided. tp1 18:30 Reassessment: Patient appears in no apparent distress at this time. No changes from tp1 previously documented assessment. Patient is alert, oriented x 3, equal unlabored respirations, skin warm/dry/pink. resting in bed comfortably. Vital Signs: 14:32 BP 140 / 90; Pulse 65; Resp 16; Temp 98; Pulse Ox 96% ; bp 19:04 BP 171 / 71; Pulse 81; Resp 16; Pulse Ox 100% on R/A; tp1 NIH Stroke Scale Scores: 14:35 NIHSS Score: 3 bp ED Course: 14:20 Patient arrived in ED. bp 14:21 Jair Eli PA is PHCP. cp 14:21 Rosa Kearney MD is Attending Physician. cp 14:32 Lang Rodriguez, RN is Primary Nurse. bp 14:34 Triage completed. bp 14:37 Arm band placed on. bp 14:37 Patient has correct armband on for positive identification. Bed in low position. Call bp light in reach. Side rails up X2. 14:37 Maintain EMS IV. Dressing intact. Good blood return noted. Site clean \T\ dry. Gauge \T\ bp site: 20 GAUGE LEFT FA. 14:46 Chest Single View XRAY In Process Unspecified. EDMS 14:46 XRAY Foot RIGHT 3 View In Process Unspecified. EDMS 14:59 Head Brain Wo Cont In Process Unspecified. EDMS 15:17 Initial lab(s) drawn, by me, sent to lab. vg1 15:31 Second set of blood cultures drawn by me. vg1 15:38 Primary Nurse role handed off by Lang Rodriguez, RN tp1 15:38 Snehal Rothman, SPENCER is Primary Nurse. tp1 16:43 US Extremity Venous W Compression Momo In Process Unspecified. EDMS 16:44 US LE Arterial Bilateral In Process Unspecified. EDMS 17:23 Adin Clark MD is Hospitalizing Provider. cp 19:59 role handed off by Cheyanne Lewis, SPENCER mw2 Administered Medications: 18:14 Drug: vancoMYCIN 1 grams Route: IVPB; Infused Over: 2 hrs; Site: right antecubital; tp1 Medication: 14:37 VIS not applicable for this client. bp Outcome: 17:24 Decision to Hospitalize by Provider. cp 21:04 Patient left the ED. NIH Stroke Scale - NIH Stroke Score Date: 02/24/2022 Time: 14:35 Total Score = 3 1a. Level of Consciousness (LOC) - 0(Alert) 1b. Level of Consciousness (LOC) (Month \T\ Age) - 1(One) 1c. LOC Commands (Open \T\ Closes Eyes/Pharmacy Operations Manager) - 0(Both) 2. Best Gaze (Lateral Gaze Paresis) - 0(Normal) 3. Visual Field Loss - 0(No visual loss) 4. Facial Palsy - 0(Normal) 5a. Left Arm: Motor (10-second hold) - 0(No drift) 5b. Right Arm: Motor (10-second hold) - 0(No drift) 6a. Left Leg: Motor (5-second hold - always test supine) - 1(Drift) 6b. Right Leg: Motor (5-second hold - always test supine) - 1(Drift) 7. Limb Ataxia (finger/nose \T\ heel/walls - test with eyes open) - 0(Absent) 8. Sensory Loss (pinprick arms/legs/face) - 0(Normal) 9. Best Language: Aphasia (description/naming/reading) - 0(No aphasia) 10. Dysarthria (speech clarity - read or repeat words) - 0(Normal) 11. Extinction and Inattention (visual/tactile/auditory/spatial/personal) - 0(No abnormality) Initials: bp Signatures: Dispatcher [employer] EDMS Jair Eli PA PA cp Peltier, Brian RN RN bp Sinan Mcdowell mw2 Cheyanne Lewis RN RN vg1 Snehal Rothman RN RN tp1 Helene Colon Corrections: (The following items were deleted from the chart) 19:08 19:04 BP 116 / 69; Pulse 78bpm; Resp 16bpm; Pulse Ox 100% RA; tp1 tp1
--- NOTE | 2022-02-24 17:47 | P.HP ---
Certification for Inpatient With expected LOS: >2 Midnights Practitioner: I am a practitioner with admitting privileges, knowledge of patient current condition, hospital course, and medical plan of care. Services: Services provided to patient in accordance with Admission requirements found in Title 42 Section 412.3 of the Code of Federal Regulations Patient History Date of Service: 02/25/22 Reason for admission: Altered mental status possible osteomyelitis History of Present Illness: Patient is 71 years of age apparently was found wandering on the street here and at a gas was called and brought him here to the hospital he is very alert responsive answering appropriately has some discomfort in his right foot he has an ulcer of the possibility of osteomyelitis he also has a Gonzalez catheter Allergies Penicillins Allergy (Mild, Verified 01/31/22 16:02) Hives/Rash Home Medications: Amlodipine Besylate 1 tab PO DAILY 01/31/22 Aspirin Chewable [Aspirin Chewable*] 1 tab PO DAILY 01/31/22 Furosemide 1 tab PO DAILY 01/31/22 Tamsulosin [Flomax*] 1 cap PO DAILY 01/31/22 carvediloL [Carvedilol] 1 tab PO BID 01/31/22 Calcitrol [Rocaltrol*] 0.25 mcg PO Q48H cap 02/12/22 Hydralazine [Apresoline*] 100 mg PO TID tab 02/12/22 Sevelamer Carbonate [Renvela*] 1,600 mg PO TIDWM 02/12/22 risperiDONE [Risperdal 1 mg tab*] 0.5 mg PO BID tab 02/12/22 Apixaban [Eliquis *] 2.5 mg PO BID #60 02/16/22 Furosemide [Lasix*] 40 mg PO DAILY #30 tab 02/16/22 Isosorbide Mononitrate [Isosorbide Mononitrate ER] 30 mg PO DAILY #30 tab 02/16/22 Medihoney [Medihoney Woundcare Gel*] 1 appl TOP DAILY #1 tube 02/16/22 Melatonin 10 mg PO BEDTIME PRN PRN #30 tab 02/16/22 Nepro Shake [Nepro*] 237 ml PO BID #60 can 02/16/22 Sevelamer Carbonate [Renvela*] 800 mg PO TIDWM #90 tab 02/16/22 - Past Medical/Surgical History -: Hypertension -: CHF -: BPH -: CAD with stent -: Cardiac stent placement - Social History Alcohol use: No CD- Drugs: No Caffeine use: Yes Review of Systems 10-point ROS is otherwise unremarkable General: Weakness Physical Examination - Vital Signs Temperature: 97 F Blood Pressure: 153/73 Pulse: 67 Respirations: 14 Pulse Ox (%): 93 - Physical Exam General: Alert, Oriented x3, Cachectic Neck: Supple Respiratory: Clear to auscultation bilaterally Cardiovascular: No edema Integumentary: Other (Patient has a wound in his right foot) Neurological: Normal speech, Normal strength at 5/5 x4 extr, Cranial nerves 3-12 intact - Studies Laboratory Data (last 24 hrs) 02/24/22 15:14: PT 12.7 H, INR 1.15, APTT 27.9 02/24/22 15:14: Sodium 139, Potassium 4.6, BUN 35 H, Creatinine 2.66 H, Glucose 126 H, Magnesium 2.2, Total Bilirubin 0.2, AST 5 L, ALT 16, Alkaline Phosphatase 78 02/24/22 15:14: WBC 5.20, Hgb 7.2 L, Hct 21.8 L, Plt Count 60 L Assessment and Plan - Problems (Diagnosis) (1) Osteomyelitis Current Visit: Yes Status: Acute Plan: Patient is 71 years of age was recently discharged she was first found on the street altered mental status. With the possibility of osteomyelitis MRI pending general surgery has been consulted continue with vancomycin (2) Chronic renal failure Current Visit: Yes Status: Acute Plan: Stable Qualifiers: Chronic kidney disease stage: stage 3 (moderate) - Advance Directives Does patient have a Living Will: No Does patient have a Durable POA for Healthcare: No
[2022-02-24] MEDS ORDERED: VANCOMYCIN 1 GM/VIAL ONE (17:56)
[2022-02-24] MEDS ORDERED: NA CHLORIDE 0.9% 0 ML ONE (17:56)
[2022-02-24] MEDS ORDERED: NA CHLORIDE 0.9% 250 ML ONE (18:00)
[2022-02-24 18:20] LABS: Urine Blood 1+ (Negative); Urine Glucose Negative (Negative); Urine Protein 3+ (Negative); Urine pH 7.5 (5.0-7.0)
[2022-02-24 18:23] LABS: SARS-CoV-2 Antigen Rapid Res Negative (Negative)
[2022-02-24 18:44] LABS: Urine RBC >50 /HPF (None Seen)
[2022-02-24] MEDS ORDERED: VANCOMYCIN 1 GM in NA CHLORIDE 0.9% 250 ML IVPB ONE (18:50)
[2022-02-24] MEDS: INSULIN -REGULAR HUMAN 50 UNIT/0.5 ML ML SQ SCH (21:00)
[2022-02-24 21:21] LABS: White Blood Cell Scan OK (OK)
[2022-02-24 21:22] LABS: Blood Morphology Comment NOT SEEN (NOT SEEN); Platelet Estimate ADEQ
[2022-02-24 22:05] VITALS: BMI 23.8
[2022-02-24] MEDS: THIAMINE 200 MG/2 ML INJ IVP SCH (22:46)
[2022-02-24] MEDS ORDERED: VANCOMYCIN 0.5 GM in NA CHLORIDE 0.9% 100 ML IVPB ONE (23:30)
[2022-02-25 03:51] LABS: Absolute Lymphocytes (CBC) 0.5 K/uL (0.7-4.9); Lymphocytes % 11.5 % (15.3-44.8); MCV 95.8 fL (80-100); MPV 8.7 fL (7.6-11.3)
[2022-02-25 04:02] LABS: Potassium 4.4 mmol/L (3.5-5.1)
[2022-02-25] MEDS: INSULIN -REGULAR HUMAN 50 UNIT/0.5 ML ML SQ SCH ×4 (07:30→21:00)
[2022-02-25] MEDS: THIAMINE 200 MG/2 ML INJ IVP SCH ×2 (07:58→21:09)
[2022-02-25] MEDS ORDERED: FUROSEMIDE 40 MG TABLET PO SCH (09:00)
[2022-02-25] MEDS: carvediloL 6.25 MG TAB PO SCH ×2 (09:36→21:08)
[2022-02-25] MEDS: RISPERIDONE 1 MG TABLET PO SCH ×2 (09:36→21:08)
[2022-02-25] MEDS: TAMSULOSIN 0.4 MG SR CAP PO SCH (09:36)
[2022-02-25] MEDS: ISOSORBIDE MONO SR 30 MG TAB PO SCH (09:36)
[2022-02-25] MEDS: ASPIRIN 81 MG CHEWABLE TABLET PO SCH (09:36)
[2022-02-25] MEDS: APIXABAN 2.5 MG TABLET PO SCH ×2 (09:37→21:00)
[2022-02-25] MEDS: AMLODIPINE 10 MG TAB PO SCH (09:37)
--- NOTE | 2022-02-25 10:42 | RAD REPORT ---
EXAM DESCRIPTION: RAD - Chest Single View - 02/25/2022 9:53 am CLINICAL HISTORY: Respiratory failure COMPARISON: Portable February 24 TECHNIQUE: AP portable chest image was obtained 02/25/2022 9:53 am . FINDINGS: Right greater than left pleural effusions and basilar atelectasis show no improvement from prior day imaging. Upper lung malone remain clear. Double-lumen dialysis catheter remains in place. Heart and vasculature are normal. No pneumothorax. N o acute bony abnormality seen. No acute aortic findings suspected. IMPRESSION: Stable portable chest from February 24
[2022-02-25] MEDS ORDERED: VANCOMYCIN IVPB SCH (11:00)
[2022-02-25] MEDS ORDERED: NA CHLORIDE 0.9% IVPB SCH (11:00)
[2022-02-25] MEDS: CALCITROL 0.25 MCG CAP PO SCH (12:21)
[2022-02-25] MEDS: SEVELAMER CARBONATE 800 MG TABLET PO SCH ×2 (12:21→16:15)
[2022-02-25] MEDS ORDERED: VANCOMYCIN 0.5 GM in NA CHLORIDE 0.9% 100 ML IVPB SCH (13:00)
[2022-02-25] MEDS: SODIUM HYPOCHLORITE 0.25% 473 ML TOP SCH (13:26)
--- NOTE | 2022-02-25 16:10 | P.PN ---
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 awaitin MRI and G surgeryCW Vanc Qualifiers: Osteomyelitis location: foot (2) Chronic renal failure Current Visit: Yes Status: Acute Plan: Stable,To f/u with nephrology Qualifiers: Chronic kidney disease stage: stage 3 (moderate)
--- NOTE | 2022-02-25 16:16 | CON ---
Date of Consultation: 02/25/2022 Reason For Consultation: Elevated BUN and creatinine, fluid management, anasarca. History Of Present Illness: This is a 71-year-old gentleman with significant past medical history of CAD, status post PTCA complicated with congestive heart failure, diabetes complicated with neuropath y since 2009, no retinopathy, hypertension, hyperlipidemia, chronic kidney disease secondary to obstr uctive uropathy, diabetes nephropathy, recently started on dialysis for metabolic clearance. The pat ruiz apparently found wandering on the street. For that reason, was brought in. The patient found t o have possible osteomyelitis on the leg. The patient denied any chest pain. Still has some leg swe lling. Allergies: TO PENICILLIN. Medications: Current medications in the hospital include amlodipine, Eliquis, aspirin, Lasix, isosor bide, risperidone, Flomax, and vancomycin. Medications at home include risperidone, carvedilol, Flom ax, Lasix, Eliquis, Renvela, Nepro, calcitriol. Past Medical History: includes; 1.Hypertension. 2.CAD complicated with congestive heart failure, status post PTCA. 3.Diabetes complicated with neuropathy and nephropathy. 4.Hypertension. 5.Hyperlipidemia. 6.Chronic kidney disease, stage 4 with acute kidney injury secondary to obstructive uropathy, cardio renal, dialysis depending currently. Past Surgical History: Includes PTCA, cardiac cath, PermCath placement. Family History: Positive for hypertension. Social History: Denied smoking. Denied drinking. Denied drugs abuse. Review of Systems: Head and Neck: No red eye. No ear pain. GI: No nausea. No vomiting. : Has Gonzalez. Print Shop Stenographer: Not applicable. Respiratory: No shortness of breath. Cardiovascular: Has leg swelling. Has orthopnea. Endocrine: No polydipsia. Skin: No rash. Neuro: Has altered mental status. Has neuropathy. Musculoskeletal: Foot pain. Physical Examination: Vital Signs: When I saw the patient; blood pressure 153/73, pulse of 67, afebrile. Chest: Clear to auscultation. Heart: S1, S2. Systolic murmur. Abdomen: Soft, nontender. Extremity: +2 edema. Two ulcers on the right sole of the foot. Laboratory Data: WBC 2.4, H and H 7.3/22. Sodium 139, potassium 4.4, bicarb 24, BUN 38, creatinine 2.8, GFR 23. Last dialysis was Saturday. Calcium 7.9. Current Medications: The patient on include; 1.Aspirin. 2.Vancomycin. 3.Flomax. 4.Eliquis. 5.Carvedilol. 6.Isosorbide. 7.Lasix. 8.Thiamin. Assessment And Plan: 1.Chronic kidney disease, stage 4, advanced with acute kidney injury secondary to obstructive uropat hy, dialysis dependent, currently showing some recovery, nonoliguric, still on the over volume side. I am going to go ahead and increase his Lasix to b.i.d. and we will monitor the patient. I am going to hold on the dialysis tomorrow. We will follow up the chemistry and fluid status for the patient. 2.Hypertension, controlled, optimal. Continue to utilize blood pressure for more diuresis to establ rhea better volume control for the patient. Increase Lasix. 3.Secondary hyperparathyroidism. I am going to resume his calcitriol and Renvela. 4.Obstructive uropathy. Continue Flomax. The patient is going to need outpatient Urology followup. KEAGAN Voice ID: [id number] Report ID: [id number]
[2022-02-25] MEDS: FUROSEMIDE 40 MG TABLET PO SCH (21:08)
[2022-02-26 04:07] LABS: Albumin 2.1 g/dL (3.4-5.0); Phosphorus 4.4 mg/dL (2.5-4.9); Potassium 4.4 mmol/L (3.5-5.1)
[2022-02-26] MEDS: INSULIN -REGULAR HUMAN 50 UNIT/0.5 ML ML SQ SCH ×4 (07:30→21:00)
[2022-02-26] MEDS: THIAMINE 200 MG/2 ML INJ IVP SCH ×2 (07:37→23:23)
[2022-02-26] MEDS: carvediloL 6.25 MG TAB PO SCH ×2 (07:37→23:22)
[2022-02-26] MEDS: ASPIRIN 81 MG CHEWABLE TABLET PO SCH (07:38)
[2022-02-26] MEDS: SEVELAMER CARBONATE 800 MG TABLET PO SCH ×3 (07:38→17:00)
[2022-02-26] MEDS: SODIUM HYPOCHLORITE 0.25% 473 ML TOP SCH (07:39)
[2022-02-26] MEDS: AMLODIPINE 10 MG TAB PO SCH (07:40)
[2022-02-26] MEDS: ISOSORBIDE MONO SR 30 MG TAB PO SCH (07:40)
[2022-02-26] MEDS: APIXABAN 2.5 MG TABLET PO SCH ×2 (07:40→21:00)
[2022-02-26] MEDS: FUROSEMIDE 40 MG TABLET PO SCH ×2 (07:40→23:21)
[2022-02-26] MEDS: TAMSULOSIN 0.4 MG SR CAP PO SCH (07:40)
[2022-02-26] MEDS: RISPERIDONE 1 MG TABLET PO SCH ×2 (07:41→21:00)
[2022-02-26] MEDS ORDERED: PNEUMOCOCCAL VACCINE 0.5 ML IMVAC ONE (08:00)
--- NOTE | 2022-02-26 08:49 | RAD REPORT ---
EXAM DESCRIPTION: RAD - Chest Single View - 02/26/2022 5:30 am CLINICAL HISTORY: Respiratory failure Chest pain. COMPARISON: Chest Single View dated 02/25/2022; Chest Single View dated 02/24/2022; Chest Single View dated 02/08/2022; Chest Single View dated 02/08/2022 FINDINGS: Portable technique limits examination quality. Moderate bilateral pulmonary opacities, greatest in the right lung base with right pleural effusion, small to moderate. Right lung base aeration appears mildly worsened since comparative study. The hear t is moderately enlarged. Right-sided venous catheter tip in the SVC. IMPRESSION: Mild worsening in right lung base aeration is seen since yesterday's study.
--- NOTE | 2022-02-26 10:33 | RAD REPORT ---
EXAM DESCRIPTION: MRI - Foot Right Wo Cont - 02/26/2022 9:17 am CLINICAL HISTORY: RO OSTEO Open wound, pain and swelling COMPARISON: Foot Right 3 View dated 02/24/2022 FINDINGS: Soft tissue edema and swelling is seen affecting the fourth and fifth toes. Diminished T1 signal is noted involving the proximal phalanx base of the fourth toe with elevated T2/IR signal. Thi s is suspicious for early osteomyelitis. No drainable fluid collections. Small posterior and plantar calcaneal spur. No soft tissue mass or hematoma. IMPRESSION: Early/mild osteomyelitis suspected proximal phalanx base of the fourth toe.
[2022-02-26] MEDS ORDERED: D5 0.45 NS 1,000 ML IV SCH ×2 (13:00→14:25)
[2022-02-26] MEDS: HYDRALAZINE HCL 20 MG/ML VIAL IV PRN (15:38)
[2022-02-26] MEDS ORDERED: VANCOMYCIN 1.25 GM in NA CHLORIDE 0.9% 250 ML IVPB SCH (17:00)
--- NOTE | 2022-02-26 18:29 | P.PN ---
Subjective Date of Service: 02/26/22 Chief Complaint: Altered mental status possible osteomyelitis Patient has no new complain. He denies any shortness of breath. He is not confused. Physical Examination - Vital Signs Temperature: 97.2 F Blood Pressure: 159/80 Pulse: 64 Respirations: 16 Pulse Ox (%): 95 - Physical Exam General: Alert, In no apparent distress, Oriented x3 HEENT: Mucous membr. moist/pink Neck: JVD not distended Respiratory: Clear to auscultation bilaterally, Normal air movement Cardiovascular: No edema, Regular rate/rhythm, Normal S1 S2, No murmurs Gastrointestinal: Normal bowel sounds, Soft and benign, Non-distended, No tenderness Musculoskeletal: No swelling Integumentary: Other (Small ulcer at the sole of the right foot-ulcer base looks clean.) Neurological: Normal strength at 5/5 x4 extr, Cranial nerves 3-12 intact - Studies Microbiology Data (last 24 hrs): 02/24/22 15:28 Wound - Right Foot Gram Stain - Final Assessment And Plan - Current Problems (Diagnosis) (1) Urinary retention Current Visit: Yes Status: Acute (2) Osteomyelitis Current Visit: Yes Status: Acute Qualifiers: Osteomyelitis location: foot (3) BPH (benign prostatic hyperplasia) Current Visit: No Status: Acute (4) Foot ulcer, left Current Visit: No Status: Acute (5) History of psychosis Current Visit: Yes Status: Acute - Plan Continue IV antibiotics. Consult to infectious disease. Place PICC line for prolonged antibiotic therapy. Patient has been responding well to Risperdal. Continue Risperdal for psychosis. Indwelling Gonzalez catheter. UA with no significant evidence of UTI. Patient is on routine hemodialysis. Nephrology to follow for hemodialysis.
--- NOTE | 2022-02-26 22:52 | CON ---
Date of Consultation: 02/25/2022 Brief History Of Present Illness: Patient is a 71-year-old male who is known to me from previous adm ission with a past medical history significant for CHF, BPH, hypertension, coronary artery disease, c ardiac stent placement as well as placement of a right internal jugular tunneled hemodialysis cathete r for acute on chronic kidney dysfunction who presents the hospital with worsening wound of his right plantar foot. It became red, tender, and started draining. As such, he came to the emergency room with the above-stated complaints. Allergies: PENICILLIN. Past Medical History: Hypertension, CHF, BPH, ESRD, coronary artery disease. Past Surgical History: Includes stent placement and right internal jugular vein tunneled hemodialysi s catheter placement. Home Medications: Include amlodipine, aspirin, Lasix, Flomax, carvedilol, calcitriol, Apresoline, Re nvela, Risperdal, Eliquis, Lasix, isosorbide mononitrate, MediHoney, melatonin, Nepro, sevelamer (Jerry ford). Social History: Patient denies smoking, alcohol, or recreational drug use. Review of Systems: 10-point review of systems other than HPI, denies. Physical Examination: At the time of my examination: General: He is awake, alert, and oriented. PSYCHIATRIC: He is appropriately conversive. HEENT: He is normocephalic. His sclerae are anicteric. His mucus membranes are moist. Oropharynx clear. Neck: Supple without JVD. Right-sided tunneled hemodialysis catheter remains in place. Extremities: Focused examination of lower extremity: He has a plantar wound of the right foot along the fourth and fifth toes at the metatarsophalangeal joint/metatarsal region. It is open. Has some peripheral necrosis, sloughing from this area. No drainable collections are appreciated. Laboratory Data: Revealed a white blood cell count of 4.4, hemoglobin 7.3, hematocrit 22.0, platelet count is 75. His coags showed a PT 12.7, INR 1.15, PTT is 27.9. His chemistry shows sodium 140, po tassium 4.4, chloride 110, carbon dioxide 26, BUN 47, creatinine 3.3, glucose was 95, calcium 7.7. P hosphorus 4.4. His rapid COVID was negative. He had imaging performed, which included an MRI of the right foot, officially read as early mild osteomyelitis suspected in the proximal phalanx, base of t he fourth toe. The soft tissue edema and swelling are seen affecting the fourth and fifth toes. Dim inished T1 signal involving the proximal phalanx base of the fourth toe with elevated sign al. This is suspicious for early osteomyelitis. No drainable fluid collections. Assessment And Plan: This is a 71-year-old male who comes in with a right plantar foot wound with po ssible early osteomyelitis and draining open necrotic wound. 1.IV fluid hydration. 2.Antibiotic coverage. 3.Medical management. 4.I have explained the risks, benefits, and alternatives of debridement of the plantar foot wound, i ncluding but not limited to bleeding, infection, damage to surrounding tissue, partial limb loss, amp utation, loss of toes, need for further operation procedures, ongoing wound care, trouble with anesth esia, blood clots, strokes, heart attacks, and other unforeseen complications related to surgery and recovery. Patient agrees to proceed as indicated. All questions were answered. Thank you for this interesting consult. LANCE/CHAVA Voice ID: [id number] Report ID: [id number]
--- NOTE | 2022-02-26 23:31 | PN ---
Date of Progress Note: 02/26/2022 Chief Complaint: Elevated BUN and creatinine, fluid overload, anasarca. Subjective: Patient is a 71-year-old man with past medical history significant for coronary artery d isease status post PTCA, congestive heart failure, diabetes mellitus with peripheral neuropathy, reti nopathy, hypertension, hyperlipidemia, chronic kidney disease due to obstructive uropathy, and diabet ic nephropathy. The patient recently was started on dialysis for lhbjt-dj-gkzasnl kidney injury to c ontrol hyperazotemia. Patient had last dialysis on Saturday. Patient was found to have possible myeli tis of the lower extremity and today he is to have a workup done. Review of Systems: Denies fever or chills. Physical Examination: Lungs: Clear to auscultation bilaterally. Heart: S1, S2. Abdomen: Soft. Extremities: Edema present. Impression And Plan: 1.Gaxhp-cz-owiysqq kidney injury. The patient has underlying advanced chronic kidney disease stage 4. He was started on dialysis for severe hyperazotemia due to tchzh-xm-tozutyg kidney injury. Patie nt has nonoliguric urine output. Patient was found to have pulmonary congestion. He is started on L asix. Plan is to reevaluate renal panel and schedule dialysis, if renal function has not improved. 2.Hypertension. Continue blood pressure medication. Continue Lasix for volume control. 3.Secondary hyperparathyroidism. Patient is on calcitriol and Renvela. Continue treatment and zhen tor calcium and phosphorus. 4.Obstructive uropathy. Continue Flomax and patient will follow up with Urology outpatient. 5.Osteomyelitis. Workup was initiated. Patient may need antibiotics. Patient currently is on vancomycin. Monitor vancomycin panel. EB/MODL Voice ID: [id number] Report ID: [id number]
[2022-02-27] MEDS: INSULIN -REGULAR HUMAN 50 UNIT/0.5 ML ML SQ SCH ×4 (07:30→21:00)
[2022-02-27] MEDS: SEVELAMER CARBONATE 800 MG TABLET PO SCH ×3 (08:00→17:08)
[2022-02-27] MEDS: SODIUM HYPOCHLORITE 0.25% 473 ML TOP SCH (09:00)
[2022-02-27] MEDS: RISPERIDONE 1 MG TABLET PO SCH ×2 (09:00→20:19)
[2022-02-27] MEDS: FUROSEMIDE 40 MG TABLET PO SCH ×2 (09:00→20:19)
[2022-02-27] MEDS: TAMSULOSIN 0.4 MG SR CAP PO SCH (09:00)
[2022-02-27] MEDS: ISOSORBIDE MONO SR 30 MG TAB PO SCH (09:00)
[2022-02-27] MEDS: APIXABAN 2.5 MG TABLET PO SCH ×2 (09:00→20:19)
[2022-02-27] MEDS: ASPIRIN 81 MG CHEWABLE TABLET PO SCH (09:00)
[2022-02-27] MEDS: THIAMINE 200 MG/2 ML INJ IVP SCH ×2 (09:00→20:19)
[2022-02-27] MEDS: AMLODIPINE 10 MG TAB PO SCH (09:18)
[2022-02-27] MEDS: carvediloL 6.25 MG TAB PO SCH ×2 (09:18→20:19)
[2022-02-27 09:19] LABS: Albumin 2.4 g/dL (3.4-5.0); Phosphorus 4.4 mg/dL (2.5-4.9); Potassium 4.1 mmol/L (3.5-5.1)
[2022-02-27] MEDS: SODIUM HYPOCHLORITE 0.25% 473 ML ONE ×2 (10:34→12:35)
[2022-02-27] MEDS: BUPIVACAINE 0.25% PF 10 ML VIAL ONE ×2 (10:34→12:35)
[2022-02-27] MEDS ORDERED: FENTANYL CITR 100 MCG/2 ML ONE (11:14)
[2022-02-27] MEDS ORDERED: propofoL 200 MG/20 ML VIAL IV ONE (11:14)
[2022-02-27] MEDS ORDERED: LIDOCAINE 1% MPF 5 ML VIAL ONE (11:14)
[2022-02-27] MEDS ORDERED: NA CHLORIDE 0.9% 1,000 ML ONE (11:53)
[2022-02-27] MEDS: CALCITROL 0.25 MCG CAP PO SCH (12:00)
--- NOTE | 2022-02-27 12:51 | P.OP ---
Preoperative diagnosis: RIGHT foot plantar wound Postoperative diagnosis: RIGHT foot plantar wound Primary procedure: Debridement of RIGHT foot plantar wound Anesthesia: GETA + Local Estimated blood loss: <5cc Specimen: debridement tissue Findings: ~ 1.5cm diabetic foot ulcer with inflammation, to fascia over MT joint Complications: None Transferred to: Recovery Room Condition: Good
--- NOTE | 2022-02-27 15:58 | CON ---
History Of Present Illness: This is a 71-year-old male. I was consulted for evaluation of right rashaun t osteomyelitis. The patient has significant past medical history of diabetes mellitus, congestive h eart failure, hypertension. The patient was brought in because of right foot infection. MRI showed the patient has osteomyelitis. Past Medical History: As per HPI. Social History: Nonsmoker, nondrinker. Family History: Noncontributory. Medications: Vancomycin. See MAR for other medications. Allergies: PENICILLIN. Review of Systems: A 10-point review was performed. Physical Examination: General: This is a 71-year-old male, lying in bed, not in any acute cardiopulmonary distress. Vital Signs: Temperature 97, pulse 86, respirations 16, blood pressure 178/77. HEENT: Unremarkable. Neck: Supple. Lungs: Basal crackles. Heart: S1, S2. Regular. Abdomen: Soft, nontender. Bowel sounds present. Extremity: Trace edema. Laboratory Data: WBC 4.4, hemoglobin 7.3, platelets 75. Chemistry shows sodium 149, potassium 4.1, chloride 108, bicarb 24, BUN 52, creatinine 3.4, glucose is 139, albumin is 2.4. MRI report right fo ot wound shows MRSA. Urine cultures are growing Enterococcus faecalis. MRI report shows on he patient has early and mild signs of suspected osteomyelitis in the phalanx of fourth toe. Assessment And Plan: Osteomyelitis of fourth toe with diabetic foot ulcer. Consider Medihoney with alginate. Continue antibiotic for 4 weeks, can be switched to doxycycline and Cipro once the patient is stabilized. Keep leg elevated when possible. Continue nutritional support and monitor for signs of infection with WBC and fever trends. Anemia of chronic disease, renal failure, thrombocytopenia. We will follow the patient closely. Thank you, Dr. Quispe for consult. NF/MODL Voice ID: [id number] Report ID: [id number]
--- NOTE | 2022-02-27 16:05 | P.PN ---
Subjective Date of Service: 02/27/22 Chief Complaint: Altered mental status possible osteomyelitis Patient has no new complain. He is not confused. Physical Examination - Vital Signs Temperature: 97.2 F Blood Pressure: 133/57 Pulse: 58 Respirations: 16 Pulse Ox (%): 97 - Studies Microbiology Data (last 24 hrs): 02/24/22 15:28 Wound - Right Foot Gram Stain - Final Assessment And Plan - Current Problems (Diagnosis) (1) Urinary retention Current Visit: Yes Status: Acute (2) Osteomyelitis Current Visit: Yes Status: Acute Qualifiers: Osteomyelitis location: foot (3) BPH (benign prostatic hyperplasia) Current Visit: No Status: Acute (4) Foot ulcer, left Current Visit: No Status: Acute (5) History of psychosis Current Visit: Yes Status: Acute - Plan Continue IV antibiotics. Status post right foot ulcer debridement by general surgery-Dr. Sotelo Infectious disease input appreciated. We will continue with vancomycin to be given with dialysis. Add oral ciprofloxacin. Patient has been responding well to Risperdal. Continue Risperdal for psychosis. Indwelling Gonzalez catheter. UA with no significant evidence of UTI. Patient is on routine hemodialysis. Nephrology to follow for hemodialysis. Follow-up with urology as outpatient regarding urinary retention.
[2022-02-27] MEDS: CIPROFLOXACIN HCL 500 MG TAB PO SCH (17:08)
[2022-02-27] MEDS ORDERED: MELATONIN 5 MG TABLET PO PRN (22:04)
[2022-02-27] MEDS: GUAIFENESIN 600 MG SA TAB PO PRN (22:12)
--- NOTE | 2022-02-27 23:27 | OP ---
Date of Procedure: 02/27/2022 Surgeon: Laci Sotelo MD, Preoperative Diagnosis: Right plantar foot wound. Postoperative Diagnosis: Right plantar foot wound. Procedure Performed: Debridement of a right foot plantar wound near the 5th metatarsophalangeal join t. Anesthesia: General endotracheal plus local with 0.25% Marcaine. Estimated Blood Loss: 5 cc. Specimen: Debrided tissue. Findings: Approximately 1.5 cm round diabetic foot ulcer with inflammation extending to the fascia o verlying the metatarsophalangeal joint at the 4th to 5th metatarsophalangeal joints. Complications: None. Patient transferred to recovery room in good condition. Procedure In Detail: After informed consent was obtained, the patient was brought to the OR and prep ped and draped in the usual sterile fashion. After adequate anesthesia was achieved, I began with a curette down through deep dermal tissues and into the adipose tissue and plantar fascia. There were necrotic extensions down extending up to the fascia overlying the joint capsules of the metatarsophal angeal joints on both the 4th and 5th digits. This was debrided using a combination of sharp dissect ion with tenotomy scissors as well as curette. Good viable bleeding tissue was encountered at this p oint. I then irrigated the area copiously and hemostasis was achieved with electrocautery. The woun d was then packed with half-inch plain packing with 0.25% Dakin solution, damp to dry. The toes were with a gauze and a sterile dressing was placed over top. The patient tolerated the proced ure without evidence of any complication and was transferred back in good condition. All counts were correct at the end of the c ase. TK/MODL Voice ID: [id number] Report ID: [id number]
[2022-02-28 03:47] LABS: Absolute Lymphocytes (CBC) 0.4 K/uL (0.7-4.9); Lymphocytes % 12.2 % (15.3-44.8); MCV 93.9 fL (80-100); MPV 7.9 fL (7.6-11.3); RBC Red Blood Cell Count 2.13 M/uL (4.33-5.43)
[2022-02-28 04:00] LABS: Albumin 2.1 g/dL (3.4-5.0); Phosphorus 4.3 mg/dL (2.5-4.9); Potassium 4.7 mmol/L (3.5-5.1)
[2022-02-28] MEDS ORDERED: NA CHLORIDE 0.9% 250 ML IV SCH (05:00)
--- NOTE | 2022-02-28 06:44 | EKG ---
Test Date: 2022-02-24 Test Time: 15:46:26 General Manager [employer]: CHAVA MEASUREMENT RESULTS: Intervals: Rate: 75 WI: 224 QRSD: 104 QT: 388 QTc: 433 Pinson: P: 55 WI: 224 QRS: -17 T: 45 INTERPRETIVE STATEMENTS: Sinus rhythm with 1st degree AV block Otherwise normal ECG Compared to ECG 02/07/2022 04:08:55 First degree AV block now present Atrial fibrillation no longer present T-wave abnormality no longer present Electronically Signed On 02-28-22 06:32:54 CDT by Antonio Prajapati
[2022-02-28] MEDS: INSULIN -REGULAR HUMAN 50 UNIT/0.5 ML ML SQ SCH ×4 (07:30→21:00)
[2022-02-28] MEDS: CIPROFLOXACIN HCL 500 MG TAB PO SCH (08:56)
[2022-02-28] MEDS: THIAMINE 200 MG/2 ML INJ IVP SCH ×3 (08:56→20:40)
[2022-02-28] MEDS: ASPIRIN 81 MG CHEWABLE TABLET PO SCH (08:56)
[2022-02-28] MEDS: SEVELAMER CARBONATE 800 MG TABLET PO SCH ×3 (08:56→17:55)
[2022-02-28] MEDS: RISPERIDONE 1 MG TABLET PO SCH ×2 (08:57→20:33)
[2022-02-28] MEDS: TAMSULOSIN 0.4 MG SR CAP PO SCH (08:57)
[2022-02-28] MEDS: APIXABAN 2.5 MG TABLET PO SCH ×2 (08:57→20:33)
[2022-02-28] MEDS: FUROSEMIDE 40 MG TABLET PO SCH ×2 (08:58→20:35)
[2022-02-28] MEDS: ISOSORBIDE MONO SR 30 MG TAB PO SCH (08:59)
[2022-02-28] MEDS: SODIUM HYPOCHLORITE 0.25% 473 ML TOP SCH (09:00)
[2022-02-28] MEDS: carvediloL 6.25 MG TAB PO SCH ×2 (09:00→20:32)
[2022-02-28] MEDS: AMLODIPINE 10 MG TAB PO SCH (09:00)
[2022-02-28] MEDS ORDERED: EPOETIN ALFA 10,000 UNIT/ML VIAL IV SCH (10:00)
--- NOTE | 2022-02-28 13:39 | PN ---
Subjective: The patient is lying in bed, getting dialyzed and blood transfusion. The patient denies any headache, nausea, vomiting, chest pain, abdominal pain, constipation, or diarrhea. Objective: Vital Signs: Temperature 97, pulse 56, respirations 16, blood pressure 159/70. Lungs: Basal crackles. Heart: S1, S2. Regular. Abdomen: Soft, nontender. Bowel sounds present. Extremity: Surgical dressing on the foot noted. Laboratory Data: Shows WBC 3, hemoglobin 6.9, platelets are 129. Chemistry shows sodium 138, potass ium 4.7, chloride 110, bicarb 23, BUN 55, creatinine 3.8, glucose 77. Medications: The patient is currently on Cipro and vancomycin. Assessment And Plan: Right foot cellulitis and diabetic foot ulcer, anemia of chronic disease, end-s tage renal disease, on hemodialysis. Continue current treatment total of 2 weeks. Consider Medihone y with alginate, status post debridement, and necrotic tissue removal. We will follow the patient cl osely. Monitor the patient for signs of infection with WBC and fever trends. NF/MODL Voice ID: [id number] Report ID: [id number]
--- NOTE | 2022-02-28 13:42 | PN ---
Date of Progress Note: 02/28/2022 Subjective: The patient was admitted with over volume, deconditioning. The patient had chronic kidn ey disease advanced stage 4, progressed to stage 5, dialysis dependent secondary to cardiorenal, was initiated dialysis last month for metabolic clearance. The patient admitted with severe anemia. The patient's last dialysis was on Saturday. Creatinine started rising up again with elevation in BUN. T he patient has mild shortness of breath and leg edema. No fever. Physical Examination: Vital Signs: When I saw the patient; blood pressure 159/70, pulse of 56, afebrile. Chest: Crackles bilateral. Heart: S1, S2. Systolic murmur. Abdomen: Soft, nontender. Gonzalez in place with leg bag. Extremities: +1 edema. Neurological: Alert, oriented x3. No focal. No tremor. Laboratory Data: WBC 3, H and H 6.9/20, platelets 129. Sodium 138, potassium 4.7, bicarb 23, BUN 55 , creatinine 3.8, calcium is 7.5, phosphorus 4.3, albumin 2.1. Corrected calcium is 9.1. Current Medications: The patient on include; 1.Vancomycin. 2.Ciprofloxacin. 3.Flomax. 4.Amlodipine 10 mg. 5.Carvedilol 6.25. 6.Isosorbide. 7.Lasix 40 b.i.d. 8.Renvela 1 tablet with each meal. 9.Guaifenesin. 10.Calcitriol. 11.Thiamin. Assessment And Plan: 1.Chronic kidney disease, progression to possible end-stage renal disease. Still apparently, I do n ot see possibility of recovery, over volume. I think the patient is going to need to be resumed dial ysis again. I am going to put the patient back on dialysis today. We will dialyze the patient and w e will transfuse 2 units with dialysis and we will continue to watch for any recovery for the patient as outpatient. 2.Obstructive uropathy secondary to outlet obstruction. The patient to continue on Flomax. The [facility] ient is going to need follow up with Urology. 3.Osteomyelitis, status post debridement. Continue current antibiotic. The patient is growing Ente rococcus faecalis. Resistant to quinolones. We will continue on vancomycin. We will follow up with Surgery and ID. 4.Hypertension, controlled, optimal. 5.Anemia. Continue current EVARISTO. We will transfuse the patient. 6.Secondary hyperparathyroidism. Continue Renvela. 7.Over volume. The patient is going to be challenged with dialysis today. 8.Acidosis secondary to renal failure, going to be corrected with dialysis. KEAGAN Voice ID: [id number] Report ID: [id number]
--- NOTE | 2022-02-28 14:58 | P.PN ---
Subjective Date of Service: 02/28/22 Chief Complaint: Altered mental status possible osteomyelitis Patient has no new complain. He is not confused. He desires to go home today. His hemoglobin dropped to 6.9. He denies any bloody stool. Physical Examination - Vital Signs Temperature: 97.4 F Blood Pressure: 153/75 Pulse: 55 Respirations: 16 Pulse Ox (%): 96 - Physical Exam General: Alert, In no apparent distress, Oriented x3 HEENT: Mucous membr. moist/pink Neck: Supple, JVD not distended Respiratory: Clear to auscultation bilaterally, Normal air movement Cardiovascular: No edema, Regular rate/rhythm, Normal S1 S2 Gastrointestinal: Soft and benign, Non-distended, No tenderness Musculoskeletal: No swelling Neurological: Normal strength at 5/5 x4 extr - Studies Microbiology Data (last 24 hrs): 02/24/22 15:28 Wound - Right Foot Gram Stain - Final 02/24/22 15:28 Wound - Right Foot Culture & Sensitivity - Final Meth Resistant Staph Aureus Enterococcus Faecalis Assessment And Plan - Current Problems (Diagnosis) (1) Urinary retention Current Visit: Yes Status: Acute (2) Osteomyelitis Current Visit: Yes Status: Acute Qualifiers: Osteomyelitis location: foot (3) BPH (benign prostatic hyperplasia) Current Visit: No Status: Acute (4) Foot ulcer, left Current Visit: No Status: Acute (5) History of psychosis Current Visit: Yes Status: Acute - Plan Continue IV vancomycin and oral Cipro. Status post right foot ulcer debridement by general surgery-Dr. Sotelo Infectious disease input appreciated. We will continue with vancomycin to be given with dialysis and oral Cipro. Patient is supposed to complete 4 weeks of antibiotics Patient has been responding well to Risperdal. Continue Risperdal for psychosis. Psychiatry input appreciated. MRI of the brain recommended which is ordered. Indwelling Gonzalez catheter for obstructive uropathy. UA with no significant evidence of UTI. Patient is on routine hemodialysis. Nephrology to follow for hemodialysis. Follow-up with urology as outpatient regarding urinary retention.
[2022-02-28] MEDS ORDERED: VANCOMYCIN 1 GM in NA CHLORIDE 0.9% 250 ML IV SCH (17:00)
--- NOTE | 2022-02-28 18:39 | RAD REPORT ---
EXAM DESCRIPTION: MRI - Brain Wo Cont - 02/28/2022 6:27 pm CLINICAL HISTORY: Confusion Headache, drowsiness, alteration of consciousness. COMPARISON: Head Brain Wo Cont dated 02/24/2022 TECHNIQUE: Multi-sequence, multiplanar MR imaging of the brain was performed without contrast. FINDINGS: No intracranial hemorrhage, hydrocephalus or extra-axial fluid collections.Moderate conflu ent T2/FLAIR hyperintensity in the periventricular and deep white matter is present compatible with c hronic microvascular ischemic changes. No edema or shift of midline structures. No findings to suspec t brain mass. DWI is negative for acute CVA. Midline structures are normally formed. Mastoid air cells and paranasal sinuses are clear. IMPRESSION: Negative for acute CVA or other acute intracranial finding.
[2022-02-28] MEDS: GUAIFENESIN 600 MG SA TAB PO PRN (20:32)
[2022-03-01 05:37] VITALS: O2SAT 96
[2022-03-01] MEDS: INSULIN -REGULAR HUMAN 50 UNIT/0.5 ML ML SQ SCH ×3 (07:30→11:28)
[2022-03-01] MEDS: SEVELAMER CARBONATE 800 MG TABLET PO SCH (07:58)
[2022-03-01] MEDS: ASPIRIN 81 MG CHEWABLE TABLET PO SCH (07:58)
[2022-03-01] MEDS: TAMSULOSIN 0.4 MG SR CAP PO SCH (07:58)
[2022-03-01] MEDS: CIPROFLOXACIN HCL 500 MG TAB PO SCH (07:58)
[2022-03-01] MEDS: FUROSEMIDE 40 MG TABLET PO SCH (07:59)
[2022-03-01] MEDS: RISPERIDONE 1 MG TABLET PO SCH (07:59)
[2022-03-01] MEDS: carvediloL 6.25 MG TAB PO SCH (08:04)
[2022-03-01] MEDS: AMLODIPINE 10 MG TAB PO SCH (08:04)
[2022-03-01] MEDS: APIXABAN 2.5 MG TABLET PO SCH (08:04)
[2022-03-01] MEDS: ISOSORBIDE MONO SR 30 MG TAB PO SCH (08:10)
[2022-03-01] MEDS: THIAMINE 200 MG/2 ML INJ IVP SCH (08:12)
[2022-03-01] MEDS: SODIUM HYPOCHLORITE 0.25% 473 ML TOP SCH (08:12)
[2022-03-01 08:27] VITALS: TEMP 98.4
[2022-03-01] MEDS ORDERED: HYDRALAZINE HCL 25 MG TABLET PO ONE (09:11)
--- NOTE | 2022-03-01 09:20 | P.DS ---
Admission Date: 02/24/22 Discharge Date: 03/01/22 Disposition: DC HOME/HOME HEALTH CARE Discharge Condition: GOOD Reason for Admission: Altered mental status possible osteomyelitis - Problems (1) Urinary retention Status: Acute (2) Osteomyelitis Status: Acute Qualifiers: Osteomyelitis location: foot (3) BPH (benign prostatic hyperplasia) Status: Acute (4) Foot ulcer, left Status: Acute (5) History of psychosis Status: Acute Brief History of Present Illness: Patient is 71 years of age apparently stopped by the police for driving above speed limit was brought to the hospital for possible altered mental status. Patient stated he was driving to the gas station to put gasoline in his truck. He was alert, responsive and answering appropriately. He reported discomfort in his right foot where he has an ulcer. He has an indwelling Gonzalez catheter for history of BPH with obstructive uropathy. He has been diagnosed with end-stage renal disease and receiving dialysis. X-ray of the right foot suggested possible osteomyelitis. Patient was hospitalized for further management. Hospital Course: Patient admitted to medical floor and treated with continue IV vancomycin and cefepime. She was seen by general surgery Dr. Sotelo. Status post right foot ulcer debridement by Dr. Sotelo. MRI of the foot suggested early osteomyelitis of proximal fourth phalanx of the right foot Seen by infectious disease. Who recommended 4 weeks of IV vancomycin and oral ciprofloxacin. Vancomycin is to be given during hemodialysis. Patient has been on Risperdal for psychosis and has responded very well. He has been alert, oriented and appropriate with no abnormal behavior. Seen by psychiatry-Dr. Junior who recommended MRI of the brain and to continue risperidone. MRI of the brain did not show any acute disease. Patient will follow-up with psychiatry as outpatient. He has an indwelling Gonzalez catheter. UA with no significant evidence of UTI. Patient is on routine hemodialysis-. He needs to follow-up with urology as outpatient regarding urinary retention. Patient deemed clinically stable for discharge. He has been advised not to drive. Vital Signs/Physical Exam: Temp Pulse Resp BP Pulse Ox 98.4 F 59 14 185/78 H 96 03/01/22 08:00 03/01/22 08:00 03/01/22 08:00 03/01/22 08:00 03/01/22 08:00 General: Alert, In no apparent distress, Oriented x3 HEENT: Mucous membr. moist/pink Neck: JVD not distended Respiratory: Clear to auscultation bilaterally, Normal air movement Cardiovascular: No edema, Regular rate/rhythm, Normal S1 S2 Gastrointestinal: Soft and benign, Non-distended Musculoskeletal: No swelling, No tenderness Integumentary: Other (Ulcer on the sole of the right foot) Neurological: Normal strength at 5/5 x4 extr Laboratory Data at Discharge: WBC 3.00 K/uL (4.3-10.9) L 02/28/22 03:20 Hgb 9.4 g/dL (13.6-17.9) L D 02/28/22 20:05 Hct 27.0 % (39.6-49.0) L 02/28/22 20:05 Plt Count 129 K/uL (152-406) L 02/28/22 03:20 PT 12.7 SECONDS (9.5-12.5) H 02/24/22 15:14 INR 1.15 02/24/22 15:14 APTT 27.9 SECONDS (24.3-36.9) 02/24/22 15:14 Sodium 138 mmol/L (136-145) 02/28/22 03:20 Potassium 4.7 mmol/L (3.5-5.1) D 02/28/22 03:20 BUN 55 mg/dL (7-18) H 02/28/22 03:20 Creatinine 3.87 mg/dL (0.55-1.3) H 02/28/22 03:20 Glucose 77 mg/dL (74-106) 02/28/22 03:20 Phosphorus 4.3 mg/dL (2.5-4.9) 02/28/22 03:20 Magnesium 2.2 mg/dL (1.8-2.4) 02/24/22 15:14 Total Bilirubin 0.2 mg/dL (0.2-1.0) 02/24/22 15:14 AST 5 U/L (15-37) L 02/24/22 15:14 ALT 16 U/L (12-78) 02/24/22 15:14 Alkaline Phosphatase 78 U/L (45-117) 02/24/22 15:14 Home Medications: Amlodipine Besylate 1 tab PO DAILY 01/31/22 Aspirin Chewable [Aspirin Chewable*] 1 tab PO DAILY 01/31/22 Furosemide 1 tab PO DAILY 01/31/22 Tamsulosin [Flomax*] 1 cap PO DAILY 01/31/22 carvediloL [Carvedilol] 1 tab PO BID 01/31/22 Calcitrol [Rocaltrol*] 0.25 mcg PO Q48H cap 02/12/22 Hydralazine [Apresoline*] 100 mg PO TID tab 02/12/22 Apixaban [Eliquis *] 2.5 mg PO BID #60 02/16/22 Isosorbide Mononitrate [Isosorbide Mononitrate ER] 30 mg PO DAILY #30 tab 03/01 Melatonin 10 mg PO BEDTIME PRN PRN #30 tab 02/16/22 Nepro Shake [Nepro*] 237 ml PO BID #60 can 02/16/22 Sevelamer Carbonate [Renvela*] 800 mg PO TIDWM #90 tab 02/16/22 Ciprofloxacin HCl [Cipro 500 MG Tablet] 500 mg PO DAILY #14 tab 03/01/22 Risperidone [Risperdal] 0.5 mg PO BID #60 tab 03/01/22 Sodium Hypochlorite [Dakin's] 1 reagan MC DAILY #473 ml 03/01/22 Vancomycin/0.9 % Sod Chloride [Vanco 1 Gram/250 ml-0.9% NaCl] 1 gm IV M,W,F #12 vial 03/01/22 New Medications: Ciprofloxacin HCl [Cipro 500 MG Tablet] 500 mg PO DAILY #14 tab Sodium Hypochlorite [Dakin's] 1 reagan MC DAILY #473 ml Risperidone [Risperdal] 0.5 mg PO BID #60 tab Vancomycin/0.9 % Sod Chloride [Vanco 1 Gram/250 ml-0.9% NaCl] 1 gm IV M,W,F #12 vial Diet: Renal Activity: Non-weight bearing Followup: Anabelle Gibson MD [ACTIVE - CAN ADMIT] - Hernan Junior [ACTIVE - CAN ADMIT] - (psychiatrist- follow up Within 2 to 4 weeks) Laci Sotelo MD [ACTIVE - CAN ADMIT] - (follow up in office. Dr. Sotelo will assist in setting up orthopedic shoe) Kashif Mckinney [ACTIVE - CAN ADMIT] - 1-2 Weeks (urologist- call to schedule an appointment) Time spent managing pt's care (in minutes): 38
[2022-03-01] MEDS: HYDRALAZINE HCL 20 MG/ML VIAL IV PRN (09:35)
[2022-03-01 09:38] VITALS: BP 183/78
[2022-03-01 10:05] LABS: Absolute Lymphocytes (CBC) 0.6 K/uL (0.7-4.9); Hematocrit 29.1 % (39.6-49.0); MCV 92.1 fL (80-100); MPV 7.3 fL (7.6-11.3); RBC Red Blood Cell Count 3.16 M/uL (4.33-5.43)
[2022-03-01 10:16] LABS: Albumin 2.5 g/dL (3.4-5.0); Phosphorus 3.6 mg/dL (2.5-4.9); Potassium 4.2 mmol/L (3.5-5.1)
[2022-03-01 11:09] LABS: Blood Morphology Comment NOT SEEN (NOT SEEN); Platelet Estimate ADEQ
--- NOTE | 2022-03-01 13:49 | PN ---
Date of Progress Note: 03/01/2022 Subjective: The patient was admitted with acute kidney injury on advanced chronic kidney disease sec ondary to obstructive uropathy, over volume. We saw some recovery, so we held the dialysis Saturday, yesterday kidney function continued to decline and we resumed dialysis. The patient received dial ysis yesterday, tolerated the dialysis. We managed to remove 2 L and the patient received 2 units of blood transfusion. The patient is feeling better. Physical Examination: Vital Signs: Blood pressure 183/78, pulse of 59, afebrile. Chest: Crackles bilateral base. Heart: S1, S2. Systolic murmur. Abdomen: Soft, nontender. Extremities: +1 edema. Neurologic: Alert. No focality. Laboratory Data: WBC 2.6, H and H 9.9/29.1. Sodium 141, potassium 4.2, bicarb 25, BUN 42, creatinin e of 3, calcium 7.8, phosphorus 3.6. Current Medications: The patient on include Cipro, vancomycin, Flomax, Epogen, Eliquis, amlodipine, carvedilol, hydralazine, isosorbide. Assessment And Plan: 1.Acute kidney injury on advanced chronic kidney disease. We will continue the patient on dialysis Saturday, Saturday, Saturday. We will schedule the patient for dialysis tomorrow. 2.Hypertension, not controlled. I am going to resume low dose of hydralazine for better blood press ure control and we will follow up the patient. 3.Anemia of chronic kidney disease, status post transfusion. Continue EVARISTO. 4.Osteomyelitis. Continue current antibiotic. We will follow up with primary. 5.Obstructive uropathy. I am going to resume Flomax. The patient supposed to follow up with Urology in 2-3 weeks. The patient is cleared from the Renal standpoint fo r discharge planning. MAC/CHAVA Voice ID: [id number] Report ID: [id number]
[2022-03-01] MEDS ORDERED: VANCOMYCIN 1 GM in NA CHLORIDE 0.9% 250 ML IV SCH (17:00)
[2022-03-01] MEDS ORDERED: HYDRALAZINE HCL 25 MG TABLET PO SCH (21:00)
== END 2022-03-01 12:23 | disposition home health service (06) | DRG 982 ==
LOC: ER 14:19 → ERHOLD 17:28 → 4TH 20:48
PROVIDERS: ADMIT Internal Medicine Sleep Medicine; ATTEND Internal Medicine
PROC: 02HV33Z Insertion of Infusion Device into Superior Vena Cava, Percutaneous Approach (ICD-10-PCS; 2022-02-26)
PROC: 0JDQ0ZZ Extraction of Right Foot Subcutaneous Tissue and Fascia, Open Approach (ICD-10-PCS; principal; 2022-02-27 11:30)
PROC: 5A1D70Z Performance of Urinary Filtration, Intermittent, Less than 6 Hours Per Day (ICD-10-PCS; 2022-02-28)
DX: E11.69 Type 2 diabetes mellitus with other specified complication (principal); L03.115 Cellulitis of right lower limb; R64 Cachexia; M86.171 Other acute osteomyelitis, right ankle and foot; I12.0 Hypertensive chronic kidney disease with stage 5 chronic kidney disease or end stage renal disease; N18.6 End stage renal disease; E11.22 Type 2 diabetes mellitus with diabetic chronic kidney disease; E11.621 Type 2 diabetes mellitus with foot ulcer; L97.519 Non-pressure chronic ulcer of other part of right foot with unspecified severity; D63.1 Anemia in chronic kidney disease; I25.10 Atherosclerotic heart disease of native coronary artery without angina pectoris; N40.0 Benign prostatic hyperplasia without lower urinary tract symptoms; D69.6 Thrombocytopenia, unspecified; D63.8 Anemia in other chronic diseases classified elsewhere; B95.2 Enterococcus as the cause of diseases classified elsewhere; B95.62 Methicillin resistant Staphylococcus aureus infection as the cause of diseases classified elsewhere; R33.9 Retention of urine, unspecified; Z88.0 Allergy status to penicillin; Z99.2 Dependence on renal dialysis; Z95.5 Presence of coronary angioplasty implant and graft; Z79.4 Long term (current) use of insulin; Z68.23 Body mass index [BMI] 23.0-23.9, adult; Z79.01 Long term (current) use of anticoagulants; Z79.82 Long term (current) use of aspirin; Z79.899 Other long term (current) drug therapy; Z20.822 Contact with and (suspected) exposure to COVID-19
CPT/HCPCS: 36415; 36430; 70450; 70551; 71045; 80048; 80053; 80069; 80202; 81003; 81015; 82947; 83605; 83735; 83880; 84484; 85014; 85018; 85025; 85610; 85652; 85730; 86140; 86850; 86900; 86901; 87040; 87070; 87077; 87086; 87088; 87186; 87205; 87811; 88304; 90935; 93005; 93925; 93970; 96374; 99284; J0360; J1644; J2001; J2250; J2704; J3010; J3370; J3411; J7030; J7040; J7050; J7799; P9016

== ENCOUNTER 2022-04-03 11:19 | Emergency (ER) | payer OTHER ==
--- OUTSIDE RECORDS SUMMARY | 2022-04-03 11:30 | XMS REPORT | Continuity of Care Document ---
:1950 Author Organization [facility] t Address [address] [place] [address] Care Team Providers Name Role Phone Unavailable Unavailable Unavailable Payers Payer Name Policy Type Policy Number Effective Date Expiration Date S our [employer] MEDICARE 53 [id number] Common Sp jaret [facility] Problems Condition Condition Condition Status Onset Resolution Last Treating Co mments Source Name Details Category Date Date Treatment Clinician Date Benign BPH loc w Problem Common prostatic urin Spirit hypertroph obs/LUTS - [facility] I y with [facility] obstructio [facility] Overflow Overflow Problem Commo n incontinen incontinen Sp jaret ce of [facility] urine urine [facility] [id number] CKD Problem Common (chronic [facility] kidney - [facility] disease) St stage 5, [facility] G[facility] less Medical than 15 Center ml/min [id number] Dependence Problem Co mmon on renal [facility] dialysis [facility] [id number] Acute Problem Common cystitis [facility] without - [facility] hematuria [facility] [id number] Urinary Problem Commo n retention [facility] Allergies, Adverse Reactions, Alerts Allergy Allergy Status Severity Reaction(s) Onset Inactive Treating Comm ents Source Name Type Date Date Clinician penicill penicill Active Unknown Commo n in V in V [facility] Social History Social Habit Start Date Stop Date Quantity Comments Source History of Tobacco Use Co mmon [facility] Sex Assigned At Com mon [facility] Smoking Status Start Date Stop Date Source Never Smoker Common [facility] Medications Ordered Filled Start Stop Current Ordering Indication Dosage Frequency Signature Comments Components Source Medication Medication Date Date Medication? Clinician (SIG) Name Name Cipro 500 Cipro 500 2021-06- No Cipro 500 MG MG 0-19 11-04 MG 00:00: 00:00 00 :00 Cipro 500 Cipro 500 2021-06- No Cipro 500 MG MG 0-19 11-02 MG 00:00: 00:00 00 :00 isosorbide isosorbide No 1{table QD isosorbide mononitrate mononitrate t} mononitrat 30mg 30mg e 30mg amLODIPine amLODIPine No amLODIPine Besylate Besylate Besylate Aspirin 81 Aspirin 81 No 1{table QD Aspirin 81 MG MG t} MG Eliquis 2.5 Eliquis 2.5 No Eliquis mg 2.5 mg mg 2.5 mg 2.5 mg 2.5 mg hydrALAZINE hydrALAZINE No 1{table BID hydrALAZIN HCl 100 MG HCl 100 MG t_with_ E HCl 100 food} MG Furosemide Furosemide No 1{table QD Furosemide 40 MG 40 MG t} 40 MG isosorbide isosorbide No 1{table QD isosorbide mononitrate mononitrate t} mononitrat 30mg 30mg e 30mg amLODIPine amLODIPine No amLODIPine Besylate Besylate Besylate Aspirin 81 Aspirin 81 No 1{table QD Aspirin 81 MG MG t} MG Eliquis 2.5 Eliquis 2.5 No Eliquis mg 2.5 mg mg 2.5 mg 2.5 mg 2.5 mg hydrALAZINE hydrALAZINE No 1{table BID hydrALAZIN HCl 100 MG HCl 100 MG t_with_ E HCl 100 food} MG Furosemide Furosemide No 1{table QD Furosemide 40 MG 40 MG t} 40 MG Tamsulosin Tamsulosin 2022- No 1{capsu QD Tamsulosin HCl 0.4 MG HCl 0.4 MG 10-14 le} HCl 0.4 MG 00:00 :00 Tamsulosin Tamsulosin 2022- No 1{capsu QD Tamsulosin HCl 0.4 MG HCl 0.4 MG 10-14 le} HCl 0.4 MG 00:00 :00 Vital Signs Vital Name Observation Time Observation Value Comments Source height 2022-03-28 17:15:00 66 [in_i] [facility] weight 2022-03-28 17:15:00 155 [lb_av] [facility] temperature 2022-03-28 17:15:00 97.6 [degF] [facility] bmi 2022-03-28 17:15:00 25.01 kg/m2 [facility] oximetry 2022-03-28 17:15:00 97 % [facility] respiratory rate 2022-03-28 17:15:00 16 /min Comm on [facility] blood pressure 2022-03-28 17:15:00 176 mm[Hg] [facility] systolic [facility] blood pressure 2022-03-28 17:15:00 66 mm[Hg] [facility] diastolic [facility] Procedures This patient has no known procedures. Encounters Start End Encounter Admission Attending Care Care Encounter Source Date/Time Date/Time Type Type Clinicians Facility Department ID 2022-03-30 Outpatient STLMLC STLMLC [id number] Common 10:46:03 [facility] 2022-03-28 Outpatient STLMLC STLMLC [id number] Common 17:10:02 [id number] [facility] 2022-03-30 2022-03-30 (TEL) STLMLC STLMLC [id number] Co mmon 00:00:00 00:00:00 [facility] 2022-03-28 2022-03-28 OFFICE STLMLC STLMLC [id number] Co mmon 00:00:00 00:00:00 VISIT [facility] LEVEL 5 [facility] Results This patient has no known results.
[2022-04-03 11:53] LABS: Absolute Lymphocytes (CBC) 0.8 K/uL (0.7-4.9); Hematocrit 30.3 % (39.6-49.0); Lymphocytes % 6.4 % (15.3-44.8); MCV 93.1 fL (80-100); MPV 7.5 fL (7.6-11.3); RBC Red Blood Cell Count 3.26 M/uL (4.33-5.43)
--- NOTE | 2022-04-03 12:14 | RAD REPORT ---
EXAM DESCRIPTION: CT - Head Brain Wo Cont - 04/03/2022 11:48 am CLINICAL HISTORY: seizure vs syncope COMPARISON: Head Brain Wo Cont dated 02/24/2022 TECHNIQUE: Axial 5 mm thick images of the head were obtained without IV contrast. All CT scans are performed using dose optimization technique as appropriate and may include automated exposure control or mA/KV adjustment according to patient size. FINDINGS: No intracranial hemorrhage, mass, edema or shift of mid-line structures. No acute infarcti on changes seen. No cortical edema or sulcal effacement. Mild to moderate severity atrophy changes ar e present. Ventricles may be slightly out of proportion to the volume loss and can be correlated with any history of normal pressure hydrocephalus. Scattered chronic ischemic changes are seen in the cer ebral white matter. Old left parietal small CVA changes are noted. Arterial tree dense calcifications are present. Mastoid air cells and visualized portions of the paranasal sinuses are clear. No acute bony findings. IMPRESSION: No hemorrhage is present. No mass or acute cortical based infarction identified. Atrophy and chronic ischemic changes are present similar to the February 24 study.
[2022-04-03 12:16] LABS: ALT/SGPT 15 U/L (12-78); AST/SGOT 7 U/L (15-37); Albumin 2.6 g/dL (3.4-5.0); Alkaline Phosphatase 98 U/L (45-117); BUN Blood Urea Nitrogen 38 mg/dL (7-18); Bicarbonate 27 mmol/L (21-32); Bilirubin Total 0.3 mg/dL (0.2-1.0); Creatine Phosphokinase 35 U/L (39-308); Glomerular Filtration Rate 21 ml/min (=/>90); Glucose Level 211 mg/dL (74-106); Magnesium 2.2 mg/dL (1.8-2.4); Protein, Total 6.4 g/dL (6.4-8.2); Sodium Level 135 mmol/L (136-145); Troponin High Sensitivity 20.6 pg/mL (<58.9)
[2022-04-03 12:18] LABS: Bilirubin Direct < 0.1 mg/dL (0-0.2)
[2022-04-03 12:20] LABS: Potassium 5.6 mmol/L (3.5-5.1)
[2022-04-03 12:33] LABS: Protime INR 1.36
--- NOTE | 2022-04-03 13:45 | EDPHYS ---
Physician Documentation [facility] Name: Houston Katz Age: 71 yrs Sex: Male : 1950 Arrival Date: 04/03/2022 Time: 11:20 Bed 2 Private MD: ED Physician Ramos Reveles HPI: 04/03 12:23 This 71 yrs old Male presents to ER via EMS with complaints of syncope. sp3 12:25 71-year-old male with history of end-stage renal disease on Saturday sp3 dialysis, hypertension, diabetes presents to the ED via EMS after having a full syncopal episode and hypotension episode with possible seizure while at his surgeon's office (Dr. Jack) for a wound recheck. While at the office, he stood up and his blood pressure dropped and he became lightheaded and had a controlled and down to the floor without any trauma and was "staring off into space". Per EMS, initial blood pressure was 50 diastolic and poor airway control which self resolved with time without any intervention. Currently patient feels weak but has no pain. On review of systems, patient denies current headache, URI symptoms, neck pain, chest pain, shortness of breath, abdominal pain, nausea, vomiting, diarrhea, focal neurodeficit, changes in speech, memory loss, or any other findings at this time.. Historical: - Allergies: 11:51 PENICILLINS; jd3 - Home Meds: 11:51 amlodipine 10 mg tab [Active]; aspirin 81 mg Oral tab [Active]; carvedilol 6.25 mg Oral jd3 tab [Active]; furosemide 40 mg Oral tab 1 tab once daily [Active]; Eliquis 5 mg Oral tab [Active]; Lantus Sub-Q [Active]; tamsulosin 0.4 mg Oral cap [Active]; - PMHx: 11:51 diabetes mellitus; End stage renal disease; M-W-F; Hypertensive disorder; jd3 - Immunization history:: Adult Immunizations up to date, . - Social history:: Smoking status: Patient denies any tobacco usage or history of. ROS: 12:27 Constitutional: Negative for fever, chills, and weight loss, Eyes: Negative for injury, sp3 pain, redness, and discharge, ENT: Negative for injury, pain, and discharge, Neck: Negative for injury, pain, and swelling, Cardiovascular: Negative for chest pain, palpitations, and edema, Respiratory: Negative for shortness of breath, cough, wheezing, and pleuritic chest pain, Abdomen/GI: Negative for abdominal pain, nausea, vomiting, diarrhea, and constipation, Back: Negative for injury and pain, MS/Extremity: Negative for injury and deformity, Skin: Negative for injury, rash, and discoloration, Psych: Negative for depression, anxiety, suicide ideation, homicidal ideation, and hallucinations, Allergy/Immunology: Negative for hives, rash, and allergies, Endocrine: Negative for neck swelling, polydipsia, polyuria, polyphagia, and marked weight changes, Hematologic/Lymphatic: Negative for swollen nodes, abnormal bleeding, and unusual bruising. 12:27 All other systems are negative. Exam: 12:29 Constitutional: This is a well developed, well nourished patient who is awake, alert, sp3 and in no acute distress. Head/Face: Normocephalic, atraumatic. Eyes: Pupils equal round and reactive to light, extra-ocular motions intact. Lids and lashes normal. Conjunctiva and sclera are non-icteric and not injected. Cornea within normal limits. Periorbital areas with no swelling, redness, or edema. ENT: Nares patent. No nasal discharge, no septal abnormalities noted. External auditory canals are clear. Oropharynx with no redness, swelling, or masses, exudates, or evidence of obstruction, uvula midline. Mucous membranes moist. Neck: Trachea midline, no thyromegaly or masses palpated, and no cervical lymphadenopathy. Supple, full range of motion without nuchal rigidity, or vertebral point tenderness. No Meningismus. Chest/axilla: Normal chest wall appearance and motion. Nontender with no deformity. No lesions are appreciated. Cardiovascular: Regular rate and rhythm with a normal S1 and S2. No gallops, murmurs, or rubs. Normal PMI, no JVD. No pulse deficits. Respiratory: Lungs have equal breath sounds bilaterally, clear to auscultation and percussion. No rales, rhonchi or wheezes noted. No increased work of breathing, no retractions or nasal flaring. Abdomen/GI: Soft, non-tender, with normal bowel sounds. No distension or tympany. No guarding or rebound. No evidence of tenderness throughout. Back: No spinal tenderness. No costovertebral tenderness. Full range of motion. Skin: Warm, dry with normal turgor. Normal color with no rashes, no lesions, and no evidence of cellulitis. MS/ Extremity: Pulses equal, no cyanosis. Neurovascular intact. Full, normal range of motion. Neuro: Awake and alert, GCS 15, oriented to person, place, time, and situation. Cranial nerves II-XII grossly intact. Motor strength 5/5 in all extremities. Sensory grossly intact. Cerebellar exam normal. Normal gait. Psych: Awake, alert, with orientation to person, place and time. Behavior, mood, and affect are within normal limits. 13:18 ECG was reviewed by the Attending Physician. AG demonstrates sinus bradycardia at 52 sp3 bpm with a first-degree AV block with a ID interval of 262 ms, normal QRS with leftward axis and nonspecific diffuse ST/T changes. There is no T wave peaking noted. Vital Signs: 11:51 BP 101 / 65; Pulse 56; Resp 18 S; Temp 97.4(A); Pulse Ox 98% on R/A; Weight 81.65 kg jd3 (R); Height 5 ft. 5 in. (165.10 cm) (R); Pain 5/10; 13:09 BP 108 / 64; Pulse 56; Resp 16; Pulse Ox 99% on R/A; jd3 13:48 BP 118 / 68 Supine; Pulse 56; jd3 13:48 BP 112 / 62 Sitting; Pulse 59; jd3 13:48 BP 97 / 52 Standing; Pulse 60; Resp 17 S; Pulse Ox 100% on R/A; jd3 11:51 Body Mass Index 29.95 (81.65 kg, 165.10 cm) jd3 MDM: 12:08 Patient medically screened. sp3 12:29 Data reviewed: vital signs, nurses notes. ED course: 71-year-old male with complex sp3 medical history including ESRD presents with syncopal episode versus seizure. Differential diagnosis includes vasovagal syncope, cardiogenic syncope, seizure of unknown etiology, TIA, intracranial mass, ICH. I am not highly concerned for ACS, sepsis, other toxicity or critical findings. We will do a CT scan of the head, laboratory values, EKG and general observation. If work-up is negative and patient has no recurrent symptoms, will consider discharge to PCP follow-up. Based on history I am more leaning towards vasovagal syncope than seizure however we cannot rule that out and he will need neurology follow-up either inpatient or outpatient. Disposition pending.. 13:44 ED course: She does have orthostatic hypotension which resolved after a few minutes of sp3 standing. Patient will be educated on this diagnosis and given precautions. Patient also has appointment with his primary care physician tomorrow which he intends on keeping. Will discharge patient safely home at this time. All questions have been answered and patient is eager to go home.. 04/03 11:28 Order name: Basic Metabolic Panel; Complete Time: 13: sp3 04/03 11:28 Order name: CBC with Diff; Complete Time: 13: sp3 04/03 11:28 Order name: CPK; Complete Time: 13: sp3 04/03 11:28 Order name: Hepatic Function; Complete Time: 13: sp3 04/03 11:28 Order name: Magnesium; Complete Time: 13: sp3 04/03 11:28 Order name: Protime (+inr); Complete Time: 13: sp3 04/03 11:28 Order name: Ptt, Activated; Complete Time: 13: sp3 04/03 11:28 Order name: CT Head Brain wo Cont; Complete Time: 13: sp3 04/03 11:28 Order name: EKG; Complete Time: 11:29 sp3 04/03 11:28 Order name: Cardiac monitoring; Complete Time: 11: sp3 04/03 11:28 Order name: EKG - Nurse/Tech; Complete Time: 11:46 sp3 04/03 11:28 Order name: IV Saline Lock; Complete Time: 11:46 sp3 04/03 11:28 Order name: Labs collected and sent; Complete Time: 11:46 sp3 04/03 11:28 Order name: Troponin High Sensitivity; Complete Time: 13: sp3 04/03 11:28 Order name: NPO; Complete Time: 11: sp3 04/03 11:28 Order name: O2 Per Protocol; Complete Time: 11: sp3 04/03 11:28 Order name: O2 Sat Monitoring; Complete Time: 11: sp3 Administered Medications: No medications were administered Disposition Summary: 04/03/22 13:45 Discharge Ordered Location: Home sp3 Condition: Stable sp3 Diagnosis - Orthostatic hypotension sp3 Followup: sp3 - With: Private Physician - When: Upon discharge from the Emergency Department - Reason: Recheck today's complaints Discharge Instructions: - Discharge Summary Sheet sp3 - Orthostatic Hypotension sp3 Forms: - Medication Reconciliation Form sp3 - Thank You Letter sp3 - Antibiotic Education sp3 - Prescription Opioid Use sp3 Signatures: Dispatcher [employer] Jordan Giron RN RN jd3 Ramos Reveles MD MD sp3
--- NOTE | 2022-04-03 13:45 | ER ---
Nurse's Notes [facility] Name: Houston Katz Age: 71 yrs Sex: Male : 1950 Arrival Date: 04/03/2022 Time: 11:20 Bed 2 Private MD: Diagnosis: Orthostatic hypotension Presentation: 04/03 11:30 Chief complaint: EMS states: "we were toned out for a possible seizure. the pt was post jd3 ictal, unresponsive at first. he was very diaphoretic and pale. initial systolic blood pressures in the 50's. he woke up and we put him in Trendelenburg and gave 150 ml of NS. 20 G started to the left AC. finally got systolic blood pressures up to 120's. he is reporting a headache, but otherwise denies other complaints.". Coronavirus screen: At this time, the client does not indicate any symptoms associated with coronavirus-19. Ebola Screen: No symptoms or risks identified at this time. Initial Sepsis Screen: Does the patient meet any 2 criteria? No. Patient's initial sepsis screen is negative. Does the patient have a suspected source of infection? No. Patient's initial sepsis screen is negative. Risk Assessment: Do you want to hurt yourself or someone else? Patient reports no desire to harm self or others. Onset of symptoms was April 03, 2022. 11:30 Method Of Arrival: EMS: [facility] jd3 11:30 Acuity: JILLIAN 2 jd3 Historical: - Allergies: 11:51 PENICILLINS; jd3 - Home Meds: 11:51 amlodipine 10 mg tab [Active]; aspirin 81 mg Oral tab [Active]; carvedilol 6.25 mg Oral jd3 tab [Active]; furosemide 40 mg Oral tab 1 tab once daily [Active]; Eliquis 5 mg Oral tab [Active]; Lantus Sub-Q [Active]; tamsulosin 0.4 mg Oral cap [Active]; - PMHx: 11:51 diabetes mellitus; End stage renal disease; M-W-F; Hypertensive disorder; jd3 - Immunization history:: Adult Immunizations up to date, . - Social history:: Smoking status: Patient denies any tobacco usage or history of. Screenin:07 Abuse screen: Denies threats or abuse. Nutritional screening: No deficits noted. jd3 Tuberculosis screening: No symptoms or risk factors identified. Fall Risk IV access (20 points). Ambulatory Aid- None/Bed Rest/Nurse Assist (0 pts). Gait- Normal/Bed Rest/Wheelchair (0 pts) Mental Status- Oriented to own ability (0 pts). Total Newton Fall Scale indicates No Risk (0-24 pts). Assessment: 11:45 General: Appears in no apparent distress. comfortable, Behavior is calm, cooperative, jd3 appropriate for age. Pain: Complains of pain in head Quality of pain is described as aching, pressure. Neuro: Harrison Agitation-Sedation Scale (RASS): 0 - Alert and Calm Level of Consciousness is awake, alert, obeys commands, lethargic, Oriented to person, place, time, situation, Reports dizziness, headache. Cardiovascular: Heart tones S1 S2 present Capillary refill < 3 seconds Patient's skin is warm and dry. Rhythm is sinus bradycardia. Respiratory: Airway is patent Respiratory effort is even, unlabored, Respiratory pattern is regular, symmetrical, Breath sounds are clear bilaterally. Denies cough, shortness of breath. GI: Abdomen is non-distended, Bowel sounds present X 4 quads. Abd is soft and non tender X 4 quads. Reports nausea, vomiting. : No signs and/or symptoms were reported regarding the genitourinary system. EENT: No signs and/or symptoms were reported regarding the EENT system. Derm: Skin is intact, Skin is dry, Skin is normal, Skin temperature is warm right chest dialysis site. Musculoskeletal: Circulation, motion, and sensation intact. Range of motion: intact in all extremities. 12:30 Reassessment: Patient appears in no apparent distress at this time. No changes from jd3 previously documented assessment. Patient and/or family updated on plan of care and expected duration. Pain level reassessed. Patient is alert, oriented x 3, equal unlabored respirations, skin warm/dry/pink. 13:09 Reassessment: Patient appears in no apparent distress at this time. Patient and/or jd3 family updated on plan of care and expected duration. Pain level reassessed. Patient is alert, oriented x 3, equal unlabored respirations, skin warm/dry/pink. 13:48 Reassessment: Patient appears in no apparent distress at this time. Patient and/or jd3 family updated on plan of care and expected duration. Pain level reassessed. Patient is alert, oriented x 3, equal unlabored respirations, skin warm/dry/pink. Patient denies pain at this time. Patient states feeling better. Vital Signs: 11:51 BP 101 / 65; Pulse 56; Resp 18 S; Temp 97.4(A); Pulse Ox 98% on R/A; Weight 81.65 kg jd3 (R); Height 5 ft. 5 in. (165.10 cm) (R); Pain 5/10; 13:09 BP 108 / 64; Pulse 56; Resp 16; Pulse Ox 99% on R/A; jd3 13:48 BP 118 / 68 Supine; Pulse 56; jd3 13:48 BP 112 / 62 Sitting; Pulse 59; jd3 13:48 BP 97 / 52 Standing; Pulse 60; Resp 17 S; Pulse Ox 100% on R/A; jd3 11:51 Body Mass Index 29.95 (81.65 kg, 165.10 cm) jd3 ED Course: 11:20 Patient arrived in ED. am2 11:20 Ramos Reveles MD is Attending Physician. sp3 11:30 Jordan Callejas, SPENCER is Primary Nurse. jd3 11:46 Troponin High Sensitivity Sent. kc6 11:46 Basic Metabolic Panel Sent. kc6 11:46 CBC with Diff Sent. kc6 11:46 CPK Sent. kc6 11:46 Hepatic Function Sent. kc6 11:46 Magnesium Sent. kc6 11:46 Protime (+inr) Sent. kc6 11:46 Ptt, Activated Sent. kc6 11:46 Maintain EMS IV. Dressing intact. Good blood return noted. Site clean \\T\\ dry. Gauge \\T\\ angel 6 site: 20G LAC. 11:50 CT Head Brain wo Cont In Process Unspecified. EDMS 11:51 Triage completed. jd3 11:52 Arm band placed on. jd3 12:07 Patient has correct armband on for positive identification. Bed in low position. Call jd3 light in reach. Side rails up X2. Adult w/ patient. Client placed on continuous cardiac and pulse oximetry monitoring. NIBP monitoring applied. engineering project designer on. Pulse ox on. NIBP on. Warm blanket given. 13:49 No provider procedures requiring assistance completed. jd3 14:17 IV discontinued, intact, bleeding controlled, No redness/swelling at site. Pressure jd3 dressing applied. Administered Medications: No medications were administered Medication: 12:07 VIS not applicable for this client. jd3 Outcome: 13:45 Discharge ordered by . sp3 14:17 Discharged to home via wheelchair, with family. jd3 14:17 Condition: stable 14:17 Discharge instructions given to patient, family, Instructed on discharge instructions, follow up and referral plans. Demonstrated understanding of instructions, follow-up care. 14:17 Patient left the ED. jd3 Signatures: Dispatcher [employer] EDSis Cabrera am2 Jordan Callejas, RN RN jd3 Ramos Reveles MD MD sp3 Kizzy Dahl RN RN kc6 Corrections: (The following items were deleted from the chart) 13:16 13:09 Pulse 56bpm; Resp 16bpm; Pulse Ox 99% RA; jd3 jd3
[2022-04-03 15:05] VITALS: TEMP 97.4
[2022-04-03 15:08] VITALS: BP 97/52; O2SAT 100
--- NOTE | 2022-04-04 13:09 | EKG ---
Test Date: 2022-04-03 Test Time: 11:34:45 Agricultural Lender: TAMIKO MEASUREMENT RESULTS: Intervals: Rate: 52 AK: 262 QRSD: 102 QT: 514 QTc: 478 [place]: P: 81 AK: 262 QRS: -51 T: 24 INTERPRETIVE STATEMENTS: Sinus bradycardia with 1st degree AV block Left anterior fascicular block Nonspecific ST and T wave abnormality Abnormal ECG Compared to ECG 02/24/2022 15:46:26 Left anterior fascicular block now present ST (T wave) deviation now present Sinus rhythm no longer present Electronically Signed On 04-04-22 13:07:02 CDT by Igor Sims
== END 2022-04-03 14:17 | disposition home or self-care (01) ==
LOC: ER 11:19
DX: I95.1 Orthostatic hypotension (principal); E11.22 Type 2 diabetes mellitus with diabetic chronic kidney disease; I12.0 Hypertensive chronic kidney disease with stage 5 chronic kidney disease or end stage renal disease; N18.6 End stage renal disease; Z99.2 Dependence on renal dialysis; Z79.01 Long term (current) use of anticoagulants; Z79.82 Long term (current) use of aspirin; Z79.4 Long term (current) use of insulin
CPT/HCPCS: 36415; 70450; 80048; 80076; 82550; 83735; 84484; 85025; 85610; 85730; 93005; 99284

== ENCOUNTER 2022-04-04 15:26 | Emergency (ER) | payer OTHER ==
--- OUTSIDE RECORDS SUMMARY | 2022-04-04 15:30 | XMS REPORT | Continuity of Care Document ---
:1950 Author Organization [facility] t Address [address] [place] [address] Care Team Providers Name Role Phone Unavailable Unavailable Unavailable Payers Payer Name Policy Type Policy Number Effective Date Expiration Date S our HU[employer] MEDICARE 53 [id number] Common Sp jaret [facility] Problems Condition Condition Condition Status Onset Resolution Last Treating Co mments Source Name Details Category Date Date Treatment Clinician Date Benign BPH loc w Problem Common prostatic urin Spirit hypertroph obs/LUTS - [facility] y with [facility] obstructio Medica l n Center Overflow Overflow Problem Commo n incontinen incontinen Sp jaret ce of [facility] urine urine [facility] [id number] CKD Problem Common (chronic [facility] kidney - CHI disease) St stage 5[facility] GFR less Medical than 15 Center ml/min [id number] Dependence Problem Co mmon on renal [facility] dialysis [facility] [id number] Acute Problem Common cystitis [facility] without - CHI hematuria [facility] [id number] Urinary Problem Commo n retention [facility] Allergies, Adverse Reactions, Alerts Allergy Allergy Status Severity Reaction(s) Onset Inactive Treating Comm ents Source Name Type Date Date Clinician penicill penicill Active Unknown Commo n in V in V [facility] Social History Social Habit Start Date Stop Date Quantity Comments Source History of Tobacco Use Co mmon [facility] Sex Assigned At Com mon [facility] Smoking Status Start Date Stop Date Source Never Smoker Common [facility] Medications Ordered Filled Start Stop Current Ordering [...] Comments Source height 2022-03-28 17:15:00 66 [in_i] [facility] weight 2022-03-28 17:15:00 155 [lb_av] [facility] temperature 2022-03-28 17:15:00 97.6 [degF] [facility] bmi 2022-03-28 17:15:00 25.01 kg/m2 [facility] oximetry 2022-03-28 17:15:00 97 % [facility] respiratory rate 2022-03-28 17:15:00 16 /min Comm on [facility] blood pressure 2022-03-28 17:15:00 176 mm[Hg] [facility] systolic [facility] blood pressure 2022-03-28 17:15:00 66 mm[Hg] [facility] diastolic [facility] Procedures This patient has no known procedures. Encounters Start End Encounter Admission Attending Care Care Encounter Source Date/Time Date/Time Type Type Clinicians Facility Department ID 2022-03-30 Outpatient STLMLC STLMLC [id number] Common 10:46:03 [facility] 2022-03-28 Outpatient STLMLC STLMLC [id number] Common 17:10:02 [id number] [facility] 2022-03-30 2022-03-30 (TEL) STLMLC STLMLC [id number] Co mmon 00:00:00 00:00:00 [facility] 2022-03-28 2022-03-28 OFFICE STLMLC STLMLC [id number] Co mmon 00:00:00 00:00:[address] [facility] LEVEL 5 [facility] Results This patient has no known results.
--- NOTE | 2022-04-04 16:27 | ER ---
Nurse's Notes [facility] Name: Houston Katz Age: 71 yrs Sex: Male : 1950 Arrival Date: 04/04/2022 Time: 15:31 Bed 13 Private MD: Diagnosis: Person with feared health complaint in whom no diagnosis is made-Patient requesting dialysis treatment Presentation: 04/04 15:42 Chief complaint: Patient states: Got in a fight with sister - sister was driving me to ld1 dialysis. Sister dropped patient off at [facility] - missed dialysis at 3pm. Pt unable to drive due to eye problems - dialysis schedule M//. Coronavirus screen: At this time, the client does not indicate any symptoms associated with coronavirus-19. Ebola Screen: No symptoms or risks identified at this time. Initial Sepsis Screen: Does the patient meet any 2 criteria? No. Patient's initial sepsis screen is negative. Does the patient have a suspected source of infection? No. Patient's initial sepsis screen is negative. Risk Assessment: Do you want to hurt yourself or someone else? Patient reports no desire to harm self or others. Onset of symptoms was April 04, 2022. 15:42 Method Of Arrival: Ambulatory ld1 15:42 Acuity: JILLIAN 3 ld1 Triage Assessment: 15:44 General: Appears in no apparent distress. comfortable, Behavior is calm, cooperative, ld1 appropriate for age. Pain: Denies pain. EENT: No signs and/or symptoms were reported regarding the EENT system. Neuro: Level of Consciousness is awake, alert, obeys commands, Oriented to person, place, time, situation, Appropriate for age. Cardiovascular: Capillary refill < 3 seconds Patient's skin is warm and dry. Respiratory: Airway is patent Respiratory effort is even, unlabored. GI: Abdomen is flat, non-distended. : No signs and/or symptoms were reported regarding the genitourinary system. Derm: No signs and/or symptoms reported regarding the dermatologic system. Musculoskeletal: No signs and/or symptoms reported regarding the musculoskeletal system. Historical: - Allergies: 15:44 PENICILLINS; ld1 - PMHx: 15:44 diabetes mellitus; End stage renal disease; M-W-F; Hypertensive disorder; ld1 - PSHx: 15:44 None; ld1 - Immunization history:: Adult Immunizations up to date, Client reports receiving the 2nd dose of the Covid vaccine. - Social history:: Smoking status: Patient denies any tobacco usage or history of. Patient/guardian denies using alcohol. Screenin:28 Abuse screen: Denies threats or abuse. Nutritional screening: No deficits noted. ap3 Tuberculosis screening: No symptoms or risk factors identified. Fall Risk None identified. Vital Signs: 15:42 BP 152 / 71; Pulse 67; Resp 18; Temp 97.8(TE); Pulse Ox 98% on R/A; Weight 81.65 kg; ld1 Height 5 ft. 5 in. (165.10 cm); Pain 0/10; 15:42 Body Mass Index 29.95 (81.65 kg, 165.10 cm) ld1 ED Course: 15:31 Patient arrived in ED. rg4 15:44 Triage completed. ld1 15:44 Arm band placed on right wrist. ld1 15:46 [facility] pm1 15:46 Thomas Ramirez DO is Attending Physician. pm1 16:28 Sis Hernández, RN is Primary Nurse. ap3 16:28 No provider procedures requiring assistance completed. Patient did not have IV access ap3 during this emergency room visit. 16:29 Patient has correct armband on for positive identification. ap3 Administered Medications: No medications were administered Medication: 16:29 VIS not applicable for this client. ap3 Outcome: 16:27 Discharge ordered by MD. pm1 16:28 Discharged to dialysis ap3 16:28 Condition: good 16:28 Discharge instructions given to patient. 16:29 Patient left the ED. ap3 Signatures: Geovanny Terry NP COMBAT SYSTEMS OPERATOR pm1 Jenny Lewis rg4 Sis Hernández, SPENCER RN ap3 Cathy Felipe RN RN ld1
--- NOTE | 2022-04-04 16:28 | EDPHYS ---
Physician Documentation [facility] Name: Houston Katz Age: 71 yrs Sex: Male : 1950 Arrival Date: 04/04/2022 Time: 15:31 Bed 13 Private MD: ED Physician Thomas Ramirez HPI: 04/04 15:50 This 71 yrs old Male presents to ER via Ambulatory with complaints of Needs Dialysis. pm1 15:50 Onset: The symptoms/episode began/occurred today. Associated signs and symptoms: The pm1 patient has no apparent associated signs or symptoms. Modifying factors: The patient symptoms are alleviated by nothing, the patient symptoms are aggravated by nothing. The patient has not experienced similar symptoms in the past. The patient has not recently seen a physician. Patient reports that he got into an argument with his sisters who take care of him. As a result of the argument, they decided to drop him off at the [facility] instead taking him to dialysis. Patient was then brought here to the ER by the preacher of the [facility] and he is requesting dialysis treatment. Patient does not have any complaints. Historical: - Allergies: 15:44 PENICILLINS; ld1 - PMHx: 15:44 diabetes mellitus; End stage renal disease; M-W-F; Hypertensive disorder; ld1 - PSHx: 15:44 None; ld1 - Immunization history:: Adult Immunizations up to date, Client reports receiving the 2nd dose of the Covid vaccine. - Social history:: Smoking status: Patient denies any tobacco usage or history of. Patient/guardian denies using alcohol. ROS: 15:50 Constitutional: Negative for fever, chills, and weight loss, Cardiovascular: Negative pm1 for chest pain, palpitations, and edema, Respiratory: Negative for shortness of breath, cough, wheezing, and pleuritic chest pain, Abdomen/GI: Negative for abdominal pain, nausea, vomiting, diarrhea, and constipation, Back: Negative for injury and pain, Neuro: Negative for headache, weakness, numbness, tingling, and seizure. 15:50 All other systems are negative. Exam: 15:50 Constitutional: This is a well developed, well nourished patient who is awake, alert, pm1 and in no acute distress. Head/Face: Normocephalic, atraumatic. 15:50 Skin: Warm, dry with normal turgor. Normal color with no rashes, no lesions, and no evidence of cellulitis. MS/ Extremity: Pulses equal, no cyanosis. Neurovascular intact. Full, normal range of motion. 15:50 Back: No spinal tenderness. No costovertebral tenderness. Full range of motion. 15:50 Cardiovascular: Exam negative for acute changes, Rate: normal, Rhythm: regular, Pulses: no pulse deficits are appreciated. 15:50 Respiratory: Exam negative for acute changes, respiratory distress, shortness of breath. 15:50 Neuro: Orientation: appropriate for stated age, to person, place, time, situation, Motor: moves all fours. Vital Signs: 15:42 BP 152 / 71; Pulse 67; Resp 18; Temp 97.8(TE); Pulse Ox 98% on R/A; Weight 81.65 kg; ld1 Height 5 ft. 5 in. (165.10 cm); Pain 0/10; 15:42 Body Mass Index 29.95 (81.65 kg, 165.10 cm) ld1 MDM: 15:46 Patient medically screened. pm1 15:50 Data reviewed: vital signs. Data interpreted: Pulse oximetry: on room air is 98 %. pm1 Interpretation: normal. 16:03 ED course: Patient is presented to the ER with request for dialysis treatment. Patient pm1 is a Saturday dialysis patient. Patient reports getting an argument with his sister who drives him to his dialysis treatment as a result of the argument she dropped him off at the [facility]. Patient was then brought to the ER by the preacher. Patient's dialysis treatment was scheduled for 3:00. Patient did not know where his dialysis treatment is performed because he does not drive and is dependent on his sisters for taking him there. I contacted Dr. Pugh's office and I was informed that the patient gets dialysis over at the [facility]. I contacted Tiffani at [facility] and she will keep his seat available for him provided I can get him transferred to the dialysis center. We contacted the wheelchair van who will picker and packer the patient and bring him to the dialysis center. Tiffani at [facility] was updated that he will be arriving shortly. Administered Medications: No medications were administered Disposition: 21:16 Co-signature as Attending Physician, Thomas Ramirez DO I was immediately available on-site ms3 in the Emergency Department for consultation in the care of the patient.. Disposition Summary: 04/04/22 16:27 Discharge Ordered Location: Home pm1 Problem: new pm1 Symptoms: have improved pm1 Condition: Stable pm1 Diagnosis - Person with feared health complaint in whom no diagnosis is made - Patient pm1 requesting dialysis treatment Followup: pm1 - With: Emergency Department - When: As needed - Reason: Worsening of condition Followup: pm1 - With: Private Physician - When: 2 - 3 days - Reason: Recheck today's complaints, Continuance of care, Re-evaluation by your physician Forms: - Medication Reconciliation Form pm1 - Thank You Letter pm1 - Antibiotic Education pm1 - Prescription Opioid Use pm1 Signatures: Geovanny Terry, GILBERTO STAFFING BRANCH MANAGER pm1 Thomas Ramirez DO DO ms3 Cathy Felipe, RN RN ld1
[2022-04-04 17:20] VITALS: BP 152/71; TEMP 97.8; O2SAT 98
== END 2022-04-04 16:29 | disposition home or self-care (01) ==
LOC: ER 15:26
DX: Z71.1 Person with feared health complaint in whom no diagnosis is made (principal); E11.22 Type 2 diabetes mellitus with diabetic chronic kidney disease; I12.0 Hypertensive chronic kidney disease with stage 5 chronic kidney disease or end stage renal disease; N18.6 End stage renal disease; Z99.2 Dependence on renal dialysis; Z88.0 Allergy status to penicillin
CPT/HCPCS: 99281

== ENCOUNTER 2022-04-05 15:59 | Emergency (ER) | payer OTHER ==
--- OUTSIDE RECORDS SUMMARY | 2022-04-05 16:02 | XMS REPORT | Continuity of Care Document ---
:1950 Author Organization [facility] t Address [address] [place] [address] Care Team Providers Name Role Phone Unavailable Unavailable Unavailable Payers Payer Name Policy Type Policy Number Effective Date Expiration Date S our HUMANA MEDICARE 53 [id number] Common Sp jaret [facility] Problems Condition Condition Condition Status Onset Resolution Last Treating Co mments Source Name Details Category Date Date Treatment Clinician Date Benign BPH loc w Problem Common prostatic urin Spirit hypertroph obs/LUTS - [facility] with [facility] obstructio Medica l n Center Overflow Overflow Problem Commo n incontinen incontinen Sp jaret ce of [facility] urine urine [facility] [id number] CKD Problem Common (chronic [facility] kidney - CHI disease) St stage 5, [facility] GFR less Medical than 15 Center ml/min [id number] Dependence Problem Co mmon on renal [facility] dialysis [facility] [id number] Acute Problem Common cystitis [facility] without - CHI hematuria [facility] [id number] Urinary Problem Commo n retention [facility] Allergies, Adverse Reactions, Alerts Allergy Allergy Status Severity Reaction(s) Onset Inactive Treating Comm ents Source Name Type Date Date Clinician penicill penicill Active Unknown Commo n in V in V [facility] Social History Social Habit Start Date Stop Date Quantity Comments Source History of Tobacco Use Co mmon [facility] Sex Assigned At Com mon [facility] Smoking Status Start Date Stop Date Source Never Smoker Common [facility] Medications Ordered Filled Start Stop Current Ordering [...] Source height 2022-03-28 17:15:00 66 [in_i] [facility] weight 2022-03-28 17:15:00 155 [lb_av] [facility] temperature 2022-03-28 17:15:00 97.6 [degF] [facility] bmi 2022-03-28 17:15:00 25.01 kg/m2 [facility] oximetry 2022-03-28 17:15:00 97 % [facility] respiratory rate 2022-03-28 17:15:00 16 /min Comm on [facility] blood pressure 2022-03-28 17:15:00 176 mm[Hg] [facility] systolic [facility] blood pressure 2022-03-28 17:15:00 66 mm[Hg] [facility] diastolic [facility] Procedures This patient has no known procedures. Encounters Start End Encounter Admission Attending Care Care Encounter Source Date/Time Date/Time Type Type Clinicians Facility Department ID 2022-03-30 Outpatient STLMLC STLMLC [id number] Common 10:46:03 [facility] 2022-03-28 Outpatient STLMLC STLMLC [id number] Common 17:10:02 [id number] [facility] 2022-03-30 2022-03-30 (TEL) STLMLC STLMLC [id number] Co mmon 00:00:00 00:00:00 [facility] 2022-03-28 2022-03-28 OFFICE STLMLC STLMLC [id number] Co mmon 00:00:00 00:00:00 VISIT [facility] LEVEL 5 [facility] Results This patient has no known results.
[2022-04-05 18:26] LABS: Potassium 4.3 mmol/L (3.5-5.1)
--- NOTE | 2022-04-05 18:29 | ER ---
Nurse's Notes [facility]ly [facility] Name: Houston Katz Age: 71 yrs Sex: Male : 1950 Arrival Date: 04/05/2022 Time: 16:00 Bed 6 Private MD: Diagnosis: Other malaise and fatigue;Patient's noncompliance with renal dialysis Presentation: 04/05 16:00 Chief complaint: EMS states: was seen here yesterday, today he has been weak and tired iw for the past 3 hours, he may have mixed up his meds , he does not know which ones he mixed up, VSS. Coronavirus screen: At this time, the client does not indicate any symptoms associated with coronavirus-19. Ebola Screen: Patient negative for fever greater than or equal to 101.5 degrees Fahrenheit, and additional compatible Ebola Virus Disease symptoms Patient denies exposure to infectious person. Patient denies travel to an Ebola-affected area in the 21 days before illness onset. No symptoms or risks identified at this time. Initial Sepsis Screen: Does the patient meet any 2 criteria? No. Patient's initial sepsis screen is negative. Does the patient have a suspected source of infection? No. Patient's initial sepsis screen is negative. Risk Assessment: Do you want to hurt yourself or someone else? Patient reports no desire to harm self or others. Onset of symptoms was April 05, 2022. 16:00 Method Of Arrival: EMS: [facility] 16:00 Acuity: JILLIAN 3 iw Historical: - Allergies: 16:02 PENICILLINS; iw - Home Meds: 16:08 amlodipine 10 mg tab 1 tab once daily [Active]; calcitriol 0.25 mcg oral cap [Active]; iw hydralazine 100 mg Oral tab 1 tab 3 times per day [Active]; Eliquis 2.5 mg oral tab 1 tab 2 times per day [Active]; tamsulosin 0.4 mg oral cap 1 cap once daily [Active]; furosemide 40 mg Oral tab 1 tab once daily [Active]; isosorbide mononitrate 30 mg Oral Tb24 1 tab once daily [Active]; carvedilol 6.25 mg oral tab 1 tab 2 times per day [Active]; sevelamer carbonate 800 mg oral tab 1 tab 3 times per day [Active]; - PMHx: 16:02 diabetes mellitus; End stage renal disease; M-W-F; Hypertensive disorder; iw - Immunization history:: Adult Immunizations up to date. - Social history:: Patient/guardian denies using Smoking status: . Screenin:00 Abuse screen: Denies threats or abuse. Nutritional screening: No deficits noted. mb9 Tuberculosis screening: No symptoms or risk factors identified. Fall Risk None identified. Assessment: 17:32 General: Appears in no apparent distress. comfortable, Behavior is calm, cooperative, mb9 appropriate for age. Pain: Denies pain. Neuro: Level of Consciousness is awake, obeys commands, Oriented to person, place, situation, Scene Shifter are weak bilaterally Gait is Speech is normal, Reports weakness since yesterday. Cardiovascular: Heart tones S1 S2 present Rhythm is regular. Respiratory: Airway is patent Respiratory effort is even, unlabored, Respiratory pattern is regular, symmetrical, Breath sounds are clear bilaterally. GI: No signs and/or symptoms were reported involving the gastrointestinal system. : No signs and/or symptoms were reported regarding the genitourinary system. EENT: No signs and/or symptoms were reported regarding the EENT system. Derm: Skin is pink, warm \T\ dry. Musculoskeletal: Range of motion: intact in all extremities. 18:15 Reassessment: pt currently sleeping. mb9 Vital Signs: 16:00 BP 153 / 77; Pulse 72; Resp 16; Temp 97.2; Pulse Ox 100% on R/A; iw 17:37 BP 153 / 66; Pulse 65; Resp 16; Pulse Ox 100% on R/A; Pain 0/10; mb9 18:21 BP 161 / 62; Pulse 51; Resp 14; Pulse Ox 100% on R/A; mb9 ED Course: 16:00 Patient arrived in ED. iw 16:02 Triage completed. iw 16:03 Arm band placed on. iw 16:03 Patient has correct armband on for positive identification. Bed in low position. Call mb9 light in reach. Side rails up X 1. 16:39 Aurora Toth FNP-C is PHCP. snw 16:39 Jair Andrea MD is Attending Physician. snw 17:19 April Romo, RN is Primary Nurse. kb3 18:02 Chem 7 Sent. mb9 18:02 EKG done, by ED staff, reviewed by Aurora VALADEZ. Inserted 23 gauge, straight mb9 stick. 18:58 No provider procedures requiring assistance completed. Patient did not have IV access mb9 during this emergency room visit. Administered Medications: No medications were administered Medication: 17:00 VIS not applicable for this client. mb9 Outcome: 18:29 Discharge ordered by MD. logan 18:59 Discharged to home mb9 18:59 Condition: stable 18:59 Discharge instructions given to patient, Instructed on discharge instructions, follow up and referral plans. Demonstrated understanding of instructions, follow-up care. 19:00 Patient left the ED. mb9 Signatures: Aurora Toth, RORY BUTTER WRAPPER-Csnw Annemarie Adan RN RN iw April Romo RN RN kb3 Kaela Elliott RN RN mb9 Corrections: (The following items were deleted from the chart) 18:15 17:32 Neuro: Level of Consciousness is awake, obeys commands, Oriented to person, mb9 place, situation, Scene Shifter are weak bilaterally Gait is Speech is normal, mb9
--- NOTE | 2022-04-05 18:30 | EDPHYS ---
Physician Documentation [facility] Name: Houston Katz Age: 71 yrs Sex: Male : 1950 Arrival Date: 04/05/2022 Time: 16:00 Bed 6 Private MD: ED Physician Jair Andrea HPI: 04/05 18:30 This 71 yrs old Male presents to ER via EMS with complaints of General Weakness. snw 18:30 Pt states he had a sudden fatigue, malaise over the past three hours. Onset: The snw symptoms/episode began/occurred suddenly. Severity of symptoms: At their worst the symptoms were very mild mild. The patient has experienced similar episodes in the past. It is unknown whether or not the patient has recently seen a physician. Historical: - Allergies: 16:02 PENICILLINS; iw - Home Meds: 16:08 amlodipine 10 mg tab 1 tab once daily [Active]; calcitriol 0.25 mcg oral cap [Active]; iw hydralazine 100 mg Oral tab 1 tab 3 times per day [Active]; Eliquis 2.5 mg oral tab 1 tab 2 times per day [Active]; tamsulosin 0.4 mg oral cap 1 cap once daily [Active]; furosemide 40 mg Oral tab 1 tab once daily [Active]; isosorbide mononitrate 30 mg Oral Tb24 1 tab once daily [Active]; carvedilol 6.25 mg oral tab 1 tab 2 times per day [Active]; sevelamer carbonate 800 mg oral tab 1 tab 3 times per day [Active]; - PMHx: 16:02 diabetes mellitus; End stage renal disease; M-W-F; Hypertensive disorder; iw - Immunization history:: Adult Immunizations up to date. - Social history:: Patient/guardian denies using Smoking status: . ROS: 18:11 Eyes: Negative for injury, pain, redness, and discharge, ENT: Negative for injury, snw pain, and discharge, Neck: Negative for injury, pain, and swelling, Cardiovascular: Negative for chest pain, palpitations, and edema, Respiratory: Negative for shortness of breath, cough, wheezing, and pleuritic chest pain, Abdomen/GI: Negative for abdominal pain, nausea, vomiting, diarrhea, and constipation, Back: Negative for injury and pain, : Negative for injury, bleeding, discharge, and swelling, MS/Extremity: Negative for injury and deformity, Skin: Negative for injury, rash, and discoloration. 18:11 Constitutional: Positive for malaise, "sinking feeling for a few hours". 18:11 Neuro: Positive for weakness. Exam: 18:09 Head/Face: Normocephalic, atraumatic. Eyes: Pupils equal round and reactive to light, snw extra-ocular motions intact. Lids and lashes normal. Conjunctiva and sclera are non-icteric and not injected. Cornea within normal limits. Periorbital areas with no swelling, redness, or edema. ENT: Nares patent. No nasal discharge, no septal abnormalities noted. Tympanic membranes are normal and external auditory canals are clear. Oropharynx with no redness, swelling, or masses, exudates, or evidence of obstruction, uvula midline. Mucous membranes moist. Neck: Trachea midline, no thyromegaly or masses palpated, and no cervical lymphadenopathy. Supple, full range of motion without nuchal rigidity, or vertebral point tenderness. No Meningismus. Chest/axilla: Normal chest wall appearance and motion. Nontender with no deformity. No lesions are appreciated. 18:09 Respiratory: Lungs have equal breath sounds bilaterally, clear to auscultation and percussion. No rales, rhonchi or wheezes noted. No increased work of breathing, no retractions or nasal flaring. Abdomen/GI: Soft, non-tender, with normal bowel sounds. No distension or tympany. No guarding or rebound. No evidence of tenderness throughout. Back: No spinal tenderness. No costovertebral tenderness. Full range of motion. 18:09 Neuro: Awake and alert, GCS 15, oriented to person, place, time, and situation. Cranial nerves II-XII grossly intact. Motor strength 5/5 in all extremities. Sensory grossly intact. Cerebellar exam normal. Normal gait. 18:09 Constitutional: The patient appears awake, frail, pale. 18:09 Cardiovascular: Rate: bradycardic, Heart sounds: murmur. 18:09 Skin: Appearance: Color: pale. Vital Signs: 16:00 BP 153 / 77; Pulse 72; Resp 16; Temp 97.2; Pulse Ox 100% on R/A; iw 17:37 BP 153 / 66; Pulse 65; Resp 16; Pulse Ox 100% on R/A; Pain 0/10; mb9 18:21 BP 161 / 62; Pulse 51; Resp 14; Pulse Ox 100% on R/A; mb9 MDM: 16:46 Patient medically screened. [facility] 18:29 Data reviewed: vital signs, nurses notes. Data interpreted: Pulse oximetry: on room air snw is 100 %. Interpretation: normal. Counseling: I had a detailed discussion with the patient and/or guardian regarding: the historical points, exam findings, and any diagnostic results supporting the discharge/admit diagnosis, the presence of at least one elevated blood pressure reading (>120/80) during this emergency department visit, lab results, the need for outpatient follow up, for definitive care, to return to the emergency department if symptoms worsen or persist or if there are any questions or concerns that arise at home. Special discussion: Based on the history and exam findings, there is no indication for further emergent testing or inpatient evaluation. I discussed with the patient/guardian the need to see the primary care provider for further evaluation of the symptoms. 04/05 17:29 Order name: Chem 7; Complete Time: 18:27 snw 04/05 17:41 Order name: Glucose, Ancillary Testing; Complete Time: 17:42 EDMS 04/05 17:01 Order name: FSBS; Complete Time: 17:30 snw 04/05 17:01 Order name: EKG; Complete Time: 17:02 snw 04/05 17:01 Order name: EKG - Nurse/Tech; Complete Time: 18:02 snw EC:18 Rate is 58 beats/min. Rhythm is regular. ND interval is prolonged. Clinical impression: snw Abnormal EKG without significant change and Sinus bradycardia. Administered Medications: No medications were administered Disposition Summary: 04/05/22 18:29 Discharge Ordered Location: Home snw Condition: Stable snw Diagnosis - Other malaise and fatigue snw - Patient's noncompliance with renal dialysis snw Followup: snw - With: Emergency Department - When: As needed - Reason: Worsening of condition Followup: snw - With: Private Physician - When: Tomorrow - Reason: Recheck today's complaints, Continuance of care, Re-evaluation by your physician Discharge Instructions: - Discharge Summary Sheet snw - Fatigue snw - Dialysis snw Forms: - Medication Reconciliation Form snw - Thank You Letter snw - Antibiotic Education snw - Prescription Opioid Use snw Signatures: Dispatcher [employer] EDJair Giron MD MD cha Waters, Shelly, SIMON-C TOGGLE PRESS OPERATOR-Csnw Annemarie Adan RN Kaela Villagran RN RN mb9
[2022-04-05 19:38] VITALS: TEMP 97.2; O2SAT 100
[2022-04-05 19:40] VITALS: BP 161/62
== END 2022-04-05 19:00 | disposition home or self-care (01) ==
LOC: ER 15:59
DX: R53.81 Other malaise (principal); R53.83 Other fatigue; Z91.15 Patient's noncompliance with renal dialysis; E11.22 Type 2 diabetes mellitus with diabetic chronic kidney disease; I12.0 Hypertensive chronic kidney disease with stage 5 chronic kidney disease or end stage renal disease; N18.6 End stage renal disease; Z99.2 Dependence on renal dialysis; Z88.0 Allergy status to penicillin
CPT/HCPCS: 36415; 80048; 82947; 93005; 99283

== ENCOUNTER 2022-04-12 12:42 | Observation (INO) | payer OTHER ==
--- OUTSIDE RECORDS SUMMARY | 2022-04-12 12:47 | XMS REPORT | Continuity of Care Document ---
:1950 Author Organization [facility] t Address [address] [place] [address] Care Team Providers Name Role Phone Unavailable Unavailable Unavailable Payers Payer Name Policy Type Policy Number Effective Date Expiration Date S our [employer] MEDICARE 53 [id number] Common Sp jaret [facility] Problems Condition Condition Condition Status Onset Resolution Last Treating Co mments Source Name Details Category Date Date Treatment Clinician Date Benign BPH loc w Problem Common prostatic urin [facility] hypertroph obs/LUTS - [facility] I y with [facility] obstructio [facility] Center Overflow Overflow Problem Commo n incontinen incontinen Sp jaret ce of [employer] [facility] urine urine [facility] [id number] CKD Problem Common (chronic [facility] kidney - [facility] disease) St stage 5, [facility] G[facility] less Medical than 15 Center ml/min [id number] Dependence Problem Co mmon on renal [facility] dialysis [facility] [id number] Acute Problem Common cystitis [facility] without - [facility] hematuria [facility] [id number] Urinary Problem Commo n retention [facility] Allergies, Adverse Reactions, Alerts Allergy Allergy Status Severity Reaction(s) Onset Inactive Treating Comm ents Source Name Type Date Date Clinician penicill penicill Active Unknown Commo n in V in V [facility] Social History Social Habit Start Date Stop Date Quantity Comments Source History of Tobacco Use Co mmon [facility] Sex Assigned At Com mon [facility] Smoking Status Start Date Stop Date Source Never Smoker Common [facility] Medications Ordered Filled Start Stop [...] mononitrate t} mononitrat 30mg 30mg e 30mg Aspirin 81 Aspirin 81 No 1{table QD Aspirin 81 MG MG t} MG Furosemide Furosemide No 1{table QD Furosemide 40 MG 40 MG t} 40 MG Eliquis 2.5 Eliquis 2.5 No Eliquis mg 2.5 mg mg 2.5 mg 2.5 mg 2.5 mg hydrALAZINE hydrALAZINE No 1{table BID hydrALAZIN HCl 100 MG HCl 100 MG t_with_ E HCl 100 food} MG amLODIPine amLODIPine No amLODIPine Besylate Besylate Besylate Tamsulosin Tamsulosin No 1{capsu QD Tamsulosin HCl 0.4 MG HCl 0.4 MG 10-14 le} HCl 0.4 MG 00:00 :00 Tamsulosin Tamsulosin No 1{capsu QD Tamsulosin HCl 0.4 MG HCl 0.4 MG 10-14 le} HCl 0.4 MG 00:00 :00 Tamsulosin Tamsulosin No 1{capsu QD Tamsulosin HCl 0.4 MG HCl 0.4 MG 10-14 le} HCl 0.4 MG 00:00 :00 Vital Signs Vital Name Observation Time Observation Value Comments Source height 2022-04-11 10:45:00 66 [in_i] [facility] weight 2022-04-11 10:45:00 152 [lb_av] [facility] temperature 2022-04-11 10:45:00 98.6 [degF] [facility] bmi 2022-04-11 10:45:00 24.53 kg/m2 [facility] oximetry 2022-04-11 10:45:00 99 % [facility] respiratory rate 2022-04-11 10:45:00 16 /min Comm on [facility] blood pressure 2022-04-11 10:45:00 136 mm[Hg] [facility] - systolic [facility] blood pressure 2022-04-11 10:45:00 61 mm[Hg] Common [facility] - diastolic [facility] height 2022-03-28 17:15:00 66 [in_i] [facility] weight 2022-03-28 17:15:00 155 [lb_av] [facility] temperature 2022-03-28 17:15:00 97.6 [degF] [facility] bmi 2022-03-28 17:15:00 25.01 kg/m2 [facility] oximetry 2022-03-28 17:15:00 97 % [facility] respiratory rate 2022-03-28 17:15:00 16 /min Comm on [facility] blood pressure 2022-03-28 17:15:00 176 mm[Hg] Common [facility] systolic [facility] blood pressure 2022-03-28 17:15:00 66 mm[Hg] [facility] diastolic [facility] Procedures This patient has no known procedures. Encounters Start End Encounter Admission Attending Care Care Encounter Source Date/Time Date/Time Type Type Clinicians Facility Department ID 2022-03-30 Outpatient STLMLC STLMLC [id number] Common 10:46:03 [id number] [facility] 2022-03-28 Outpatient STLMLC STLMLC [id number] Common 17:10:02 [id number] [facility] 2022-04-11 2022-04-11 OFFICE STLMLC STLMLC [id number] Co mmon 00:00:00 00:00:00 VISIT EST Spir it PT LEVEL 3 [facility] 2022-03-30 2022-03-30 (TEL) STLMLC STLMLC [id number] Co mmon 00:00:00 00:00:00 [facility] 2022-03-28 2022-03-28 OFFICE STLMLC STLMLC [id number] Co mmon 00:00:00 00:00:00 VISIT [facility] PT [facility] LEVEL 5 [facility] Results This patient has no known results.
[2022-04-12] MEDS ORDERED: NA CHLORIDE 0.9% 1,000 ML ONE (13:30)
--- NOTE | 2022-04-12 13:36 | RAD REPORT ---
EXAM DESCRIPTION: CT - Chest Abd Pelvis Wo Con - 04/12/2022 1:21 pm CLINICAL HISTORY: Chest and abdomen pain. syncope COMPARISON: Head Brain Wo Cont dated 04/03/2022; Thorax Wo Con dated 01/31/2022 TECHNIQUE: A limited noncontrast study was performed. All CT scans are performed using dose optimization technique as appropriate and may include automated exposure control or mA/KV adjustment according to patient size. FINDINGS: The lungs are clear.No pleural or pericardial effusion.No intrathoracic adenopathy. The liver, spleen, pancreas, adrenal glands are within normal limits. Moderate bilateral hydronephros is and hydroureter is present. Grossly unremarkable urinary bladder. Cholelithiasis. No bowel obstruction, free air, free fluid or abscess. Normal appendix. Moderate aortoiliac atheroscl erosis. No pathologic lymphadenopathy in the abdomen or pelvis. Moderate lumbar degenerative changes. IMPRESSION: Moderate bilateral hydronephrosis and hydroureter.No obstructing stone is seen. No bladd er masses grossly appreciated. Bladder outlet obstruction or atonic bladder could be a possibility.
[2022-04-12 14:12] LABS: Protime INR 1.14
[2022-04-12 14:16] LABS: Absolute Lymphocytes (CBC) 0.6 K/uL (0.7-4.9); Hematocrit 28.6 % (39.6-49.0); Lymphocytes % 9.2 % (15.3-44.8); MCV 93.7 fL (80-100); MPV 8.2 fL (7.6-11.3); RBC Red Blood Cell Count 3.05 M/uL (4.33-5.43)
--- NOTE | 2022-04-12 14:20 | RAD REPORT ---
EXAM DESCRIPTION: RAD - Chest Single View - 04/12/2022 2:11 pm CLINICAL HISTORY: COUGH Chest pain. COMPARISON: Chest Single View dated 02/26/2022; Chest Single View dated 02/25/2022; Chest Single View dated 02/24/2022; Chest Single View dated 02/08/2022 FINDINGS: Portable technique limits examination quality. The lungs are grossly clear. Small right pleural effusion. The heart is mildly enlarged in size. No d isplaced fractures.Right-sided venous catheter tip in the SVC.
[2022-04-12 14:21] LABS: Albumin 2.6 g/dL (3.4-5.0); Bilirubin Direct 0.1 mg/dL (0-0.2); Bilirubin Total 0.2 mg/dL (0.2-1.0); Magnesium 2.3 mg/dL (1.8-2.4); Potassium 5.2 mmol/L (3.5-5.1); Protein, Total 6.2 g/dL (6.4-8.2); Troponin High Sensitivity 32.5 pg/mL (<58.9)
--- NOTE | 2022-04-12 15:14 | ER ---
Nurse's Notes [facility] Name: Houston Katz Age: 71 yrs Sex: Male : 1950 Arrival Date: 04/12/2022 Time: 12:57 Bed 6 Private MD: Diagnosis: Hypotension, unspecified;Weakness;Anemia in chronic kidney disease;Syncope Near;Pleural effusion, not elsewhere classified;Hyperkalemia;Essential (primary) hypertension-overmedicated Presentation: 04/12 13:00 Chief complaint: EMS states: hypotension started today at doctor's office. BP 50's db systolic at office. For EMS 75/50. Coronavirus screen: Vaccine status: Patient reports being unvaccinated. Client denies travel out of the [place] in the last 14 days. At this time, the client does not indicate any symptoms associated with coronavirus-19. Ebola Screen: Patient negative for fever greater than or equal to 101.5 degrees Fahrenheit, and additional compatible Ebola Virus Disease symptoms Patient denies exposure to infectious person. Patient denies travel to an Ebola-affected area in the 21 days before illness onset. No symptoms or risks identified at this time. Initial Sepsis Screen: Does the patient meet any 2 criteria? No. Patient's initial sepsis screen is negative. Does the patient have a suspected source of infection? No. Patient's initial sepsis screen is negative. Risk Assessment: Do you want to hurt yourself or someone else? Patient reports no desire to harm self or others. Onset of symptoms was April 12, 2022. 13:00 Method Of Arrival: EMS: [facility] db 13:00 Acuity: JILLIAN 2 db Triage Assessment: 13:13 General: Appears in no apparent distress. comfortable, Behavior is calm, cooperative, db appropriate for age, quiet. Pain: Denies pain. Neuro: No deficits noted. Historical: - Allergies: 13:13 PENICILLINS; db - Home Meds: 13:13 amlodipine 10 mg tab 1 tab once daily [Active]; calcitriol 0.25 mcg Oral cap [Active]; db carvedilol 6.25 mg Oral tab 1 tab 2 times per day [Active]; Eliquis 2.5 mg Oral tab 1 tab 2 times per day [Active]; furosemide 40 mg Oral tab 1 tab once daily [Active]; hydralazine 100 mg Oral tab 1 tab 3 times per day [Active]; isosorbide mononitrate 30 mg Oral Tb24 1 tab once daily [Active]; sevelamer carbonate 800 mg Oral tab 1 tab 3 times per day [Active]; tamsulosin 0.4 mg Oral cap 1 cap once daily [Active]; - PMHx: 13:13 diabetes mellitus; End stage renal disease; M-W-F; Hypertensive disorder; Congestive db heart failure; - Immunization history:: Adult Immunizations unknown, Client reports having NOT received the Covid vaccine. - Social history:: Smoking status: unknown. - Family history:: not pertinent. Screenin:00 Abuse screen: Denies threats or abuse. Denies injuries from another. Nutritional db screening: No deficits noted. Tuberculosis screening: No symptoms or risk factors identified. Fall Risk None identified. No fall in past 12 months (0 pts). No secondary diagnosis (0 pts). IV access (20 points). Ambulatory Aid- None/Bed Rest/Nurse Assist (0 pts). Gait- Normal/Bed Rest/Wheelchair (0 pts) Mental Status- Oriented to own ability (0 pts). Total Newton Fall Scale indicates No Risk (0-24 pts). Assessment: 13:43 Reassessment: Patient appears in no apparent distress at this time. No changes from db previously documented assessment. Patient and/or family updated on plan of care and expected duration. Pain level reassessed. Patient is alert, oriented x 3, equal unlabored respirations, skin warm/dry/pink. Patient denies pain at this time. General: Appears in no apparent distress. Behavior is calm, cooperative, appropriate for age. Pain: Denies pain. Neuro: No deficits noted. Level of Consciousness is awake, alert, obeys commands, Oriented to person, place, time, situation, Appropriate for age. Cardiovascular: No deficits noted. Respiratory: No deficits noted. : No deficits noted. No signs and/or symptoms were reported regarding the genitourinary system. 19:00 General: Appears in no apparent distress. comfortable, Behavior is calm, cooperative, eh3 appropriate for age. Pain: Denies pain. Neuro: Level of Consciousness is awake, alert, obeys commands, Oriented to person, place, time, situation. Cardiovascular: Capillary refill < 3 seconds Patient's skin is warm and dry. Respiratory: Airway is patent Respiratory effort is even, unlabored, Respiratory pattern is regular, symmetrical. GI: Abdomen is flat, non-distended. : No signs and/or symptoms were reported regarding the genitourinary system. EENT: No signs and/or symptoms were reported regarding the EENT system. Derm: No signs and/or symptoms reported regarding the dermatologic system. Musculoskeletal: Circulation, motion, and sensation intact. Range of motion: intact in all extremities. 19:00 Reassessment: Pt refuses Rapid COVID-19 swab. States, "I don't believe in those things, eh3 I won't let you do it". Pt verbalizes understanding that he cannot be admitted to Med Surg floor without covid test. 20:00 Reassessment: Patient and/or family updated on plan of care and expected duration. Pain eh3 level reassessed. Patient is alert, oriented x 3, equal unlabored respirations, skin warm/dry/pink. 21:00 Reassessment: Patient and/or family updated on plan of care and expected duration. Pain eh3 level reassessed. Patient is alert, oriented x 3, equal unlabored respirations, skin warm/dry/pink. 22:00 Reassessment: Patient and/or family updated on plan of care and expected duration. Pain eh3 level reassessed. Patient is alert, oriented x 3, equal unlabored respirations, skin warm/dry/pink. 23:00 Reassessment: Patient and/or family updated on plan of care and expected duration. Pain eh3 level reassessed. Patient is alert, oriented x 3, equal unlabored respirations, skin warm/dry/pink. 04/13 00:00 Reassessment: Patient and/or family updated on plan of care and expected duration. Pain eh3 level reassessed. Patient is alert/active/playful, equal unlabored respirations, skin warm/dry/pink. Vital Signs: 04/12 13:00 BP 149 / 72; Pulse 55; Resp 16; Temp 98.3(O); Pulse Ox 100% on R/A; Weight 77.11 kg; db Height 5 ft. 5 in. (165.10 cm); Pain 0/10; 13:00 BP 149 / 72; Pulse 57; Resp 15; Pulse Ox 100% ; eh3 14:00 BP 154 / 63; Pulse 56; Resp 15; Pulse Ox 100% ; eh3 15:00 BP 149 / 127; Pulse 73; Resp 21; Pulse Ox 99% ; eh3 16:00 BP 149 / 69; Pulse 67; Resp 15; Pulse Ox 100% ; eh3 17:00 BP 173 / 68; Pulse 60; Resp 18; Pulse Ox 99% ; db 18:00 BP 186 / 85; Pulse 90; Resp 18; Pulse Ox 100% ; db 19:00 BP 195 / 79; Pulse 57; Resp 15; Pulse Ox 100% on R/A; eh3 20:00 BP 198 / 74; Pulse 57; Resp 14; Pulse Ox 99% on R/A; eh3 21:00 BP 199 / 73; Pulse 58; Resp 16; Pulse Ox 100% on R/A; eh3 22:00 BP 187 / 94; Pulse 60; Resp 16; Pulse Ox 99% on R/A; eh3 23:00 BP 196 / 76; Pulse 61; Resp 16; Pulse Ox 99% on R/A; eh3 04/13 00:00 BP 187 / 78; Pulse 59; Resp 16; Pulse Ox 99% on R/A; eh3 04/12 13:00 Body Mass Index 28.29 (77.11 kg, 165.10 cm) db Vitals: 04/12 19:00 Cardiac Rhythm Assessment Sinus celia. eh3 ED Course: 12:57 Patient arrived in ED. iw 12:58 Jair Andrea MD is Attending Physician. naye 13:11 Cammie Nj, RN is Primary Nurse. db 13:13 Triage completed. db 13:15 No provider procedures requiring assistance completed. Maintain EMS IV. Dressing db intact. Good blood return noted. Site clean \\T\\ dry. Gauge \\T\\ site: right AC 18 G. 13:23 CT Chest Abdomen Pelvis W/O Contrast In Process Unspecified. EDMS 13:38 First set of blood cultures drawn by me. db 14:13 XRAY Chest (1 view) In Process Unspecified. EDMS 15:12 Anni Patel MD is Hospitalizing Provider. naye 19:00 Client placed on continuous cardiac and pulse oximetry monitoring. NIBP monitoring eh3 applied. Door closed. Noise minimized. Lights dimmed. Warm blanket given. Pillow given. 19:00 Arm band placed on right wrist. eh3 19:09 Patient has correct armband on for positive identification. Side rails up X 1. 04/13 00:13 Patient admitted, IV remains in place. eh3 Administered Medications: 04/12 13:42 Drug: NS 0.9% 1000 ml Route: IV; Rate: 75 ml/hr; Site: right antecubital; db 04/13 13:33 Follow up: IV Status: Completed infusion 1 04/12 16:20 Drug: Kayexalate (polystyrene) 30 grams Route: PO; 3 19:04 Follow up: Response: No adverse reaction db Medication: 04/13 00:12 VIS not applicable for this client. 3 Outcome: 04/12 15:14 Decision to Hospitalize by Provider. [facility] 04/13 00:12 Admitted to ER Hold. Please see [facility] for further documentation. 3 Condition: stable Instructed on the need for admit. 13:31 Patient left the ED. 1 Signatures: Dispatcher [employer] EDJair Giron MD MD cha Williams, Irene, RN SPENCER Kenny Nice RN RN 1 Yani Jose, SPENCER RN 3 Cammie Nj, SPENCER RN db
--- NOTE | 2022-04-12 15:14 | EDPHYS ---
Physician Documentation [facility] Name: Houston Katz Age: 71 yrs Sex: Male : 1950 Arrival Date: 04/12/2022 Time: 12:57 Bed 6 Private MD: ED Physician Jair Andrea HPI: 04/12 15:08 This 71 yrs old Male presents to ER via EMS with complaints of hypotension naye and near syncope. 15:08 The patient presents to the emergency department with nausea. Onset: The naye symptoms/episode began/occurred just prior to arrival. Possible causes: unknown. The symptoms are aggravated by nothing. The symptoms are alleviated by nothing. new bp med, dialysis yesterday. The patient has experienced near-syncope, almost passed out, felt dizzy, felt faint, felt generally weak. Duration: The patient has had multiple episodes, that last an unknown period of time. Context: the episode(s) was witnessed, by a bystander, by family. Historical: - Allergies: 13:13 PENICILLINS; db - Home Meds: 13:13 amlodipine 10 mg tab 1 tab once daily [Active]; calcitriol 0.25 mcg Oral cap [Active]; db carvedilol 6.25 mg Oral tab 1 tab 2 times per day [Active]; Eliquis 2.5 mg Oral tab 1 tab 2 times per day [Active]; furosemide 40 mg Oral tab 1 tab once daily [Active]; hydralazine 100 mg Oral tab 1 tab 3 times per day [Active]; isosorbide mononitrate 30 mg Oral Tb24 1 tab once daily [Active]; sevelamer carbonate 800 mg Oral tab 1 tab 3 times per day [Active]; tamsulosin 0.4 mg Oral cap 1 cap once daily [Active]; - PMHx: 13:13 diabetes mellitus; End stage renal disease; M-W-F; Hypertensive disorder; Congestive db heart failure; - Immunization history:: Adult Immunizations unknown, Client reports having NOT received the Covid vaccine. - Social history:: Smoking status: unknown. - Family history:: not pertinent. ROS: 15:08 Constitutional: Negative for fever, chills, and weight loss, Eyes: Negative for injury, naye pain, redness, and discharge, ENT: Negative for injury, pain, and discharge, Neck: Negative for injury, pain, and swelling, Cardiovascular: Negative for chest pain, palpitations, and edema, Respiratory: Negative for shortness of breath, cough, wheezing, and pleuritic chest pain, Abdomen/GI: Negative for abdominal pain, nausea, vomiting, diarrhea, and constipation, Back: Negative for injury and pain, : Negative for injury, bleeding, discharge, and swelling, MS/Extremity: Negative for injury and deformity, Skin: Negative for injury, rash, and discoloration, Psych: Negative for depression, anxiety, suicide ideation, homicidal ideation, and hallucinations, Allergy/Immunology: Negative for hives, rash, and allergies, Endocrine: Negative for neck swelling, polydipsia, polyuria, polyphagia, and marked weight changes, Hematologic/Lymphatic: Negative for swollen nodes, abnormal bleeding, and unusual bruising. 15:08 Neuro: Positive for near syncope, weakness. Exam: 15:08 Constitutional: This is a well developed, well nourished patient who is awake, alert, naye and in no acute distress. Head/Face: Normocephalic, atraumatic. Eyes: Pupils equal round and reactive to light, extra-ocular motions intact. Lids and lashes normal. Conjunctiva and sclera are non-icteric and not injected. Cornea within normal limits. Periorbital areas with no swelling, redness, or edema. ENT: Nares patent. No nasal discharge, no septal abnormalities noted. Tympanic membranes are normal and external auditory canals are clear. Oropharynx with no redness, swelling, or masses, exudates, or evidence of obstruction, uvula midline. Mucous membranes moist. Neck: Trachea midline, no thyromegaly or masses palpated, and no cervical lymphadenopathy. Supple, full range of motion without nuchal rigidity, or vertebral point tenderness. No Meningismus. Chest/axilla: Normal chest wall appearance and motion. Nontender with no deformity. No lesions are appreciated. Cardiovascular: Regular rate and rhythm with a normal S1 and S2. No gallops, murmurs, or rubs. Normal PMI, no JVD. No pulse deficits. Respiratory: Lungs have equal breath sounds bilaterally, clear to auscultation and percussion. No rales, rhonchi or wheezes noted. No increased work of breathing, no retractions or nasal flaring. Abdomen/GI: Soft, non-tender, with normal bowel sounds. No distension or tympany. No guarding or rebound. No evidence of tenderness throughout. Back: No spinal tenderness. No costovertebral tenderness. Full range of motion. Male : Normal genitalia with no discharge or lesions. Skin: Warm, dry with normal turgor. Normal color with no rashes, no lesions, and no evidence of cellulitis. MS/ Extremity: Pulses equal, no cyanosis. Neurovascular intact. Full, normal range of motion. Neuro: Awake and alert, GCS 15, oriented to person, place, time, and situation. Cranial nerves II-XII grossly intact. Motor strength 5/5 in all extremities. Sensory grossly intact. Cerebellar exam normal. Normal gait. Psych: Awake, alert, with orientation to person, place and time. Behavior, mood, and affect are within normal limits. 15:08 ECG was reviewed by the Attending Physician. Vital Signs: 13:00 BP 149 / 72; Pulse 55; Resp 16; Temp 98.3(O); Pulse Ox 100% on R/A; Weight 77.11 kg; db Height 5 ft. 5 in. (165.10 cm); Pain 0/10; 13:00 BP 149 / 72; Pulse 57; Resp 15; Pulse Ox 100% ; eh3 14:00 BP 154 / 63; Pulse 56; Resp 15; Pulse Ox 100% ; eh3 15:00 BP 149 / 127; Pulse 73; Resp 21; Pulse Ox 99% ; eh3 16:00 BP 149 / 69; Pulse 67; Resp 15; Pulse Ox 100% ; eh3 17:00 BP 173 / 68; Pulse 60; Resp 18; Pulse Ox 99% ; db 18:00 BP 186 / 85; Pulse 90; Resp 18; Pulse Ox 100% ; db 19:00 BP 195 / 79; Pulse 57; Resp 15; Pulse Ox 100% on R/A; eh3 20:00 BP 198 / 74; Pulse 57; Resp 14; Pulse Ox 99% on R/A; eh3 21:00 BP 199 / 73; Pulse 58; Resp 16; Pulse Ox 100% on R/A; eh3 22:00 BP 187 / 94; Pulse 60; Resp 16; Pulse Ox 99% on R/A; eh3 23:00 BP 196 / 76; Pulse 61; Resp 16; Pulse Ox 99% on R/A; [facility] 04/13 00:00 BP 187 / 78; Pulse 59; Resp 16; Pulse Ox 99% on R/A; [facility] 04/12 13:00 Body Mass Index 28.29 (77.11 kg, 165.10 cm) db MDM: 04/12 12:58 Patient medically screened. [facility] 15:11 Differential diagnosis: Nonspecific abd pain, viral gastroenteritis. Differential naye Diagnosis altered mental status. Differential Diagnosis: cardiac arrhythmia, GI bleed, idiopathic syncope, vasovagal episode. Data reviewed: vital signs, nurses notes, lab test result(s), EKG, radiologic studies, CT scan, plain films. Data interpreted: campus monitor: rate is 55 beats/min, rhythm is regular, Pulse oximetry: on room air is 100 %. Test interpretation: by ED physician or midlevel provider: ECG, plain radiologic studies. Counseling: I had a detailed discussion with the patient and/or guardian regarding: the historical points, exam findings, and any diagnostic results supporting the discharge/admit diagnosis, lab results, radiology results, the need for further work-up and treatment in the hospital. 04/12 13:01 Order name: Basic Metabolic Panel; Complete Time: 15:03 [facility] 04/12 13:01 Order name: CBC with Diff; Complete Time: 15:03 [facility] 04/12 13:01 Order name: LFT's; Complete Time: 15:03 [facility] 04/12 13:01 Order name: Magnesium; Complete Time: 15:03 [facility] 04/12 13:01 Order name: NT PRO-BNP; Complete Time: 15:03 [facility] 04/12 13:01 Order name: PT-INR; Complete Time: 15:03 [facility] 04/12 13:01 Order name: Troponin HS; Complete Time: 15:03 [facility] 04/12 13:01 Order name: Lipase; Complete Time: 15:03 [facility] 04/12 13:01 Order name: SARS RAPID [facility] 04/12 13:01 Order name: Blood Culture Adult (2) [facility] 04/12 13:01 Order name: Lactate; Complete Time: 15:03 [facility] 04/12 20:06 Order name: Urine Dipstick-Ancillary; Complete Time: 20:12 [facility] 04/12 20:44 Order name: Urinalysis [facility] 04/12 20:44 Order name: Basic Metabolic Panel [facility] 04/12 20:44 Order name: Basic Metabolic Panel [facility] 04/12 20:44 Order name: CBC with Automated Diff EDMS 04/12 20:44 Order name: CBC with Automated Diff EDMS 04/12 20:44 Order name: Lipid Profile EDMS 04/12 20:44 Order name: Lipid Profile EDMS 04/12 20:44 Order name: Magnesium EDMS 04/12 20:44 Order name: Magnesium EDMS 04/12 20:44 Order name: Phosphorus EDMS 04/12 20:44 Order name: Phosphorus EDMS 04/12 20:44 Order name: Renal Panel EDMS 04/12 20:44 Order name: Renal Panel EDMS 04/12 20:44 Order name: Thyroid Stimulating Hormone EDMS 04/12 20:44 Order name: Thyroid Stimulating Hormone EDMS 04/13 05:11 Order name: CBC with Automated Diff EDMS 04/13 05:34 Order name: Cortisol EDMS 04/13 05:56 Order name: Comprehensive Metabolic Panel EDMS 04/12 13:01 Order name: XRAY Chest (1 view); Complete Time: 15:03 [facility] 04/12 13:01 Order name: EKG; Complete Time: 13:02 [facility] 04/12 13:01 Order name: Cardiac monitoring; Complete Time: 13:18 [facility] 04/12 13:01 Order name: EKG - Nurse/Tech; Complete Time: 19:17 [facility] 04/12 13:01 Order name: IV Saline Lock; Complete Time: 13:18 [facility] 04/12 13:01 Order name: Labs collected and sent; Complete Time: 13:18 [facility] 04/12 13:01 Order name: O2 Per Protocol; Complete Time: 13:18 [facility] 04/12 13:01 Order name: O2 Sat Monitoring; Complete Time: 13:18 [facility] 04/12 13:01 Order name: Urine Dipstick-Ancillary (obtain specimen); Complete Time: 20:09 [facility] 04/12 13:01 Order name: CT Chest Abdomen Pelvis W/O Contrast; Complete Time: 15:03 [facility] 04/12 20:44 Order name: CONS Physician Consult EDMS 04/12 20:44 Order name: Renal EDMS 04/13 05:56 Order name: T4 Free EDMS 04/13 05:56 Order name: Magnesium EDMS 04/13 05:56 Order name: Thyroid Stimulating Hormone EDMS 04/13 05:56 Order name: Folic Acid, (Folate) EDMS 04/13 05:56 Order name: Vitamin B12 Level EDGA 04/13 11:43 Order name: Gram Stain--Aerobic Bottle EDMS EC:08 Rate is 54 beats/min. Rhythm is regular. QRS [place] is Normal. [place] interval is normal. QRS naye interval is normal. QT interval is normal. No Q waves. T waves are Normal. No ST changes noted. Clinical impression: Sinus bradycardia and No evidence of ischemia. Interpreted by me. Reviewed by me. Administered Medications: 13:42 Drug: NS 0.9% 1000 ml Route: IV; Rate: 75 ml/hr; Site: right antecubital; db 04/13 13:33 Follow up: IV Status: Completed infusion [facility] 04/12 16:20 Drug: Kayexalate (polystyrene) 30 grams Route: PO; [facility] 19:04 Follow up: Response: No adverse reaction db Disposition Summary: 04/12/22 15:14 Hospitalization Ordered Hospitalization Status: Observation naye Provider: Anni Patel cha Condition: Fair naye Problem: new naye Symptoms: have improved naye Bed/Room Type: Standard naye Location: [facility] HOLD(04/12/22 20:15) bb Room Assignment: ERHOLD-(04/12/22 20:15) bb Diagnosis - Hypotension, unspecified naye - Weakness naye - Anemia in chronic kidney disease naye - Syncope Near naye - Pleural effusion, not elsewhere classified naye - Hyperkalemia naye - Essential (primary) hypertension - overmedicated naye Forms: - Medication Reconciliation Form naye - SBAR form naye Signatures: Dispatcher [employer] EDGA Jair Andrea MD MD cha Ballard, Brenda RN RN bb Yani Jose RN RN 3 Cammie Nj RN RN Kacie Fernandes PA-C PA-C sb4 Kenny Nice RN ll1 Corrections: (The following items were deleted from the chart) 20:15 15:14 Telemetry/MedSurg (observation) naye bb 20:15 15:14 naye bb
--- NOTE | 2022-04-12 17:24 | P.HP ---
Certification for Inpatient Patient admitted to: Observation With expected LOS: <2 Midnights Patient will require the following post-hospital care: None Practitioner: I am a practitioner with admitting privileges, knowledge of patient current condition, hospital course, and medical plan of care. Services: Services provided to patient in accordance with Admission requirements found in Title 42 Section 412.3 of the Code of Federal Regulations Patient History Date of Service: 04/12/22 Reason for admission: Patient with complaints of weakness History of Present Illness: Patient is a 71-year-old gentleman with a history of end-stage renal disease who presents to the emergency room with generalized weakness. Patient went to hemodialysis yesterday and he states that his blood pressures been running a little on the low side. He had his blood pressure medications increased recently. He sees Dr. Toledo as his primary care provider. Patient states that he does not really have any help at home. He used to have a sister who would help out. He has a daughter in town as well. But he does not have a good relationship with either one of them at this point. He has home health coming to the house as well. He has osteomyelitis that has been taken care of by Dr. Sotelo. She had a slightly low blood pressure on arrival but currently his blood pressure is 170/70. His potassium is slightly elevated at 5.2. He is clinically back to his baseline but he will be observed overnight. Allergies Penicillins Allergy (Mild, Verified 01/31/22 16:02) Hives/Rash Home Medications: Amlodipine Besylate 1 tab PO DAILY 01/31/22 Aspirin Chewable [Aspirin Chewable*] 1 tab PO DAILY 01/31/22 Furosemide 1 tab PO DAILY 01/31/22 Tamsulosin [Flomax*] 1 cap PO DAILY 01/31/22 carvediloL [Carvedilol] 1 tab PO BID 01/31/22 Calcitrol [Rocaltrol*] 0.25 mcg PO Q48H cap 02/12/22 Hydralazine [Apresoline*] 100 mg PO TID tab 02/12/22 Apixaban [Eliquis *] 2.5 mg PO BID #60 02/16/22 Isosorbide Mononitrate [Isosorbide Mononitrate ER] 30 mg PO DAILY #30 tab 02/16/22 Melatonin 10 mg PO BEDTIME PRN PRN #30 tab 02/16/22 Nepro Shake [Nepro*] 237 ml PO BID #60 can 02/16/22 Sevelamer Carbonate [Renvela*] 800 mg PO TIDWM #90 tab 02/16/22 Ciprofloxacin HCl [Cipro 500 MG Tablet] 500 mg PO DAILY #14 tab 03/01/22 Risperidone [Risperdal] 0.5 mg PO BID #60 tab 03/01/22 Sodium Hypochlorite [Dakin's] 1 reaagn MC DAILY #473 ml 03/01/22 Vancomycin/0.9 % Sod Chloride [Vanco 1 Gram/250 ml-0.9% NaCl] 1 gm IV M,W,F #12 vial 03/01/22 - Past Medical/Surgical History Diabetic: Yes -: CHF -: ESRD -: BPH -: CAD with stent -: Osteomyelitis -: Cardiac stent placement -: HD access - Family History Father Family History: Reviewed- Non-Contributory - Social History Smoking Status: Former smoker Alcohol use: No CD- Drugs: No Review of Systems 10-point ROS is otherwise unremarkable Physical Examination - Vital Signs Temperature: 98 F Blood Pressure: 170/70 Pulse: 80 Respirations: 18 Pulse Ox (%): 95 - Physical Exam General: Alert, In no apparent distress, Oriented x3 HEENT: Atraumatic, PERRLA, Mucous membr. moist/pink, EOMI, Sclerae nonicteric Neck: Supple, 2+ carotid pulse no bruit, No LAD, Without JVD or thyroid abnormality Respiratory: Clear to auscultation bilaterally, Normal air movement Cardiovascular: Regular rate/rhythm, Normal S1 S2 Gastrointestinal: Normal bowel sounds, Soft and benign, Non-distended, No tenderness Musculoskeletal: No tenderness Integumentary: Diabetic ulcer Neurological: Normal speech, Normal strength at 5/5 x4 extr, Normal tone, Sensation intact, Cranial nerves 3-12 intact, Normal affect, Abnormal gait Lymphatics: No axilla or inguinal lymphadenopathy - Studies Laboratory Data (last 24 hrs) 04/12/22 13:49: PT 12.5, INR 1.14 04/12/22 13:49: WBC 7.10, Hgb 9.5 L, Hct 28.6 L, Plt Count 88 L 04/12/22 13:49: Sodium 139, Potassium 5.2 H, BUN 50 H, Creatinine 3.53 H, Glucose 140 H, Magnesium 2.3, Total Bilirubin 0.2, AST 6 L, ALT 13, Alkaline Phosphatase 84, Lipase 87 Assessment & Plan - Problems (Diagnosis) (1) ESRD (end stage renal disease) Current Visit: Yes Status: Acute (2) Acute on chronic heart failure Current Visit: No Status: Acute (3) BPH (benign prostatic hyperplasia) Current Visit: No Status: Acute (4) Bilateral hydronephrosis Current Visit: No Status: Acute (5) Diabetes Current Visit: No Status: Acute Qualifiers: Diabetes mellitus type: type 2 (6) Diabetic ulcer of left foot Current Visit: No Status: Acute (7) History of psychosis Current Visit: No Status: Acute (8) Osteomyelitis Current Visit: No Status: Acute Qualifiers: Osteomyelitis location: foot (9) Urinary retention Current Visit: No Status: Acute - Plan Plan: 1. Hemodialysis per nephrology 2. Observe overnight 3. Repeat labs in the morning 4. Anticipate discharge home in a.m. Discharge Plan: Home Plan to discharge in: 24 Hours - Advance Directives Does patient have a Living Will: No Does patient have a Durable POA for Healthcare: No - Code Status/Comfort Care Code Status Assessed: Yes Code Status: Full Code Critical Care: No Time Spent Managing PTS Care (In Minutes): 45
[2022-04-12 20:05] LABS: Urine Blood Trace-intact (Negative); Urine Glucose Trace (Negative); Urine Protein 3+ (Negative)
[2022-04-12] MEDS ORDERED: ACETAMINOPHEN 500 MG TAB PO PRN (20:40)
[2022-04-12] MEDS ORDERED: ONDANSETRON 4 MG/2 ML VIAL IV PRN (20:40)
[2022-04-12] MEDS ORDERED: INSULIN -REGULAR HUMAN 50 UNIT/0.5 ML ML SQ SCH (21:00)
[2022-04-13 00:08] VITALS: BMI 28.3
[2022-04-13] MEDS ORDERED: MORPHINE 2 MG/ML SYR IV PRN (00:14)
[2022-04-13] MEDS ORDERED: ONDANSETRON 4 MG/2 ML VIAL IV PRN (00:40)
[2022-04-13] MEDS ORDERED: HEPARIN 5000 UNIT/ML 1 ML VIAL SQ SCH (01:00)
[2022-04-13] MEDS ORDERED: ACETAMINOPHEN 500 MG TAB PO PRN (02:40)
[2022-04-13 05:10] LABS: Lymphocytes % 11.6 % (15.3-44.8); MCV 92.9 fL (80-100); MPV 7.9 fL (7.6-11.3); RBC Red Blood Cell Count 3.12 M/uL (4.33-5.43)
[2022-04-13 05:49] VITALS: TEMP 98.1
[2022-04-13 05:52] LABS: Albumin 2.6 g/dL (3.4-5.0); Bilirubin Total 0.2 mg/dL (0.2-1.0); Folic Acid, (Folate) 8.1 ng/mL (3.1-17.5); Magnesium 2.2 mg/dL (1.8-2.4); Potassium 4.4 mmol/L (3.5-5.1); Thyroid Stimulating Hormone 1.05 uIU/mL (0.360-3.740)
[2022-04-13] MEDS ORDERED: VANCOMYCIN 1 GM in NA CHLORIDE 0.9% 250 ML IVPB SCH (08:00)
[2022-04-13] MEDS ORDERED: carvediloL 6.25 MG TAB PO SCH ×2 (08:00→09:00)
[2022-04-13] MEDS ORDERED: INFLUENZA VACCINE (for 6+ mo) 0.5 ML DOSE IMVAC ONE (08:00)
[2022-04-13] MEDS ORDERED: SEVELAMER CARBONATE 800 MG TABLET PO SCH (08:00)
[2022-04-13] MEDS ORDERED: TAMSULOSIN 0.4 MG SR CAP ONE (08:31)
[2022-04-13] MEDS ORDERED: carvediloL 6.25 MG TAB ONE (08:31)
[2022-04-13] MEDS ORDERED: HYDRALAZINE HCL 20 MG/ML VIAL IV ONE (08:49)
[2022-04-13] MEDS ORDERED: LOSARTAN POTASSIUM 50 MG TABLET ONE (08:52)
[2022-04-13] MEDS ORDERED: LOSARTAN POTASSIUM 50 MG TABLET PO SCH (09:00)
[2022-04-13] MEDS ORDERED: APIXABAN 5 MG TABLET PO SCH (09:00)
[2022-04-13] MEDS ORDERED: NEPRO SHAKE 237 ML CAN PO SCH (09:00)
[2022-04-13] MEDS ORDERED: HYDRALAZINE HCL 10 MG TABLET PO SCH (09:00)
[2022-04-13] MEDS ORDERED: TAMSULOSIN 0.4 MG SR CAP PO SCH (09:00)
--- NOTE | 2022-04-13 13:13 | P.CNS ---
Date of Consult: 04/13/22 Reason for Consult: esrd Requesting Physician: Anni Patel Chief Complaint: Patient with complaints of weakness History of Present Illness: 71M w/ PMHx of ESRD on HD, Htn, osteomyelitis, anemia & renal osteodystrophy, who p/w generalized wkness, admitted for further eval & mngt. Serum slightly elevated at 5.2. He received HD today. Allergies Penicillins Allergy (Mild, Verified 01/31/22 16:02) Hives/Rash Home Medications: Amlodipine Besylate 10 mg PO DAILY 01/31/22 Aspirin Chewable [Aspirin Chewable*] 81 mg PO DAILY 01/31/22 Furosemide 40 mg PO DAILY 01/31/22 Tamsulosin [Flomax*] 0.4 mg PO DAILY 01/31/22 carvediloL [Carvedilol] 6.25 mg PO BID 01/31/22 Calcitrol [Rocaltrol*] 0.25 mcg PO Q48H cap 02/12/22 Hydralazine [Apresoline*] 100 mg PO TID tab 02/12/22 Isosorbide Mononitrate [Isosorbide Mononitrate ER] 30 mg PO DAILY #30 tab 02/16/22 Nepro Shake [Nepro*] 237 ml PO BID #60 can 02/16/22 Sevelamer Carbonate [Renvela*] 800 mg PO TIDWM #90 tab 02/16/22 Ciprofloxacin HCl [Cipro 500 MG Tablet] 500 mg PO DAILY #14 tab 03/01/22 Sodium Hypochlorite [Dakin's] 1 reagan MC DAILY #473 ml 03/01/22 Vancomycin/0.9 % Sod Chloride [Vanco 1 Gram/250 ml-0.9% NaCl] 1 gm IV M,W,F #12 vial 03/01/22 - Past Medical/Surgical History Diabetic: Yes -: CHF -: ESRD -: BPH -: CAD with stent -: Osteomyelitis -: DM -: Cardiac stent placement -: HD access - Family History Father Family History: Reviewed- Non-Contributory - Social History Alcohol use: No CD- Drugs: No Caffeine use: No Place of Residence: Home Review of Systems General: Weakness Eyes: Unremarkable ENT: Unremarkable Respiratory: Unremarkable Cardiovascular: Unremarkable Gastrointestinal: Unremarkable Genitourinary: Unremarkable Musculoskeletal: Other (osteomyelitis) Integumentary: Unremarkable Neurological: Unremarkable Lymphatics: Unremarkable Physical Examination Temp Pulse Resp BP Pulse Ox 98.1 F 62 19 192/72 H 100 04/13/22 08:48 04/13/22 08:49 04/13/22 08:48 04/13/22 08:49 04/13/22 08:48 General: Other (Appears as his stated age) HEENT: Atraumatic, Normocephalic Neck: Supple Respiratory: Other (Symmetric chest expansion) Cardiovascular: No rubs Gastrointestinal: Soft and benign Musculoskeletal: No clubbing Integumentary: No warmth Neurological: Other (Non focal) Urinary: Other (No bladder distention) External genitalia: Deferred Rectal: Deferred Laboratory Data (last 24 hrs) 04/12/22 13:49: PT 12.5, INR 1.14 04/12/22 13:49: WBC 7.10, Hgb 9.5 L, Hct 28.6 L, Plt Count 88 L 04/12/22 13:49: Sodium 139, Potassium 5.2 H, BUN 50 H, Creatinine 3.53 H, Glucose 140 H, Magnesium 2.3, Total Bilirubin 0.2, AST 6 L, ALT 13, Alkaline Phosphatase 84, Lipase 87 Conclusions/Impression: 1. ESRD on HD. HD received today. 2. Hyperkalemia. HD as above. 3. Hypertension. Cont current med regimen. 4. CAD, CHF. Per primary team. 5. Anemia of chronic kidney disease. Continue EVARISTO. 6. Renal osteodystrophy. Monitor Ca & Phos. 7. Dispo. For dc today.
[2022-04-13 13:35] VITALS: BP 122/78
[2022-04-13 14:09] VITALS: O2SAT 99
[2022-04-13] MEDS ORDERED: APIXABAN 2.5 MG TABLET PO SCH (21:00)
== END 2022-04-13 13:36 | disposition home or self-care (01) ==
LOC: ER 12:42 → ERHOLD 21:00
PROVIDERS: ADMIT Hospitalist; ATTEND Hospitalist
DX: R53.1 Weakness (principal); N18.6 End stage renal disease; I50.9 Heart failure, unspecified; N40.0 Benign prostatic hyperplasia without lower urinary tract symptoms; E11.9 Type 2 diabetes mellitus without complications; E11.621 Type 2 diabetes mellitus with foot ulcer; L97.521 Non-pressure chronic ulcer of other part of left foot limited to breakdown of skin; M86.9 Osteomyelitis, unspecified; R33.9 Retention of urine, unspecified; I25.10 Atherosclerotic heart disease of native coronary artery without angina pectoris; E87.5 Hyperkalemia; N25.0 Renal osteodystrophy; Z99.2 Dependence on renal dialysis; Z88.0 Allergy status to penicillin; D63.1 Anemia in chronic kidney disease
CPT/HCPCS: 96361; 87040 ×2; 85025 ×2; 80048; 36415; 83735 ×2; 87205; 85610; 80076; 83605; 84443; 81003; 84484; 84439; 82746; 82607; 83690; 80053; 82533; 83880; 71250; 74176; 71045; 90935; 96360; 99285; J1644 ×2; J7030; G0378

== ENCOUNTER 2022-05-11 09:12 | Day surgery (SDC) | payer OTHER ==
[2022-05-11 09:41] LABS: Absolute Lymphocytes (CBC) 0.9 K/uL (0.7-4.9); Hematocrit 29.4 % (39.6-49.0); Lymphocytes % 8.9 % (15.3-44.8); MCV 92.4 fL (80-100); MPV 6.9 fL (7.6-11.3); RBC Red Blood Cell Count 3.18 M/uL (4.33-5.43)
[2022-05-11] MEDS ORDERED: CEFAZOLIN SODIUM 2 GM/VIAL ONE (09:46)
[2022-05-11] MEDS ORDERED: NA CHLORIDE 0.9% 500 ML ONE (09:46)
[2022-05-11 10:04] LABS: Potassium 3.8 mmol/L (3.5-5.1)
[2022-05-11 10:15] VITALS: O2SAT 100
[2022-05-11] MEDS ORDERED: BUPIVACAINE 0.25% PF 30 ML VIAL ONE (10:22)
[2022-05-11] MEDS ORDERED: propofoL 200 MG/20 ML VIAL IV ONE (10:24)
[2022-05-11] MEDS ORDERED: FENTANYL CITR 100 MCG/2 ML ONE (10:24)
[2022-05-11] MEDS ORDERED: LIDOCAINE 1% MPF 5 ML VIAL ONE (10:25)
[2022-05-11] MEDS ORDERED: VANCOMYCIN 1 GM in NA CHLORIDE 0.9% 250 ML IVPB ONE (11:00)
[2022-05-11] MEDS ORDERED: ONDANSETRON 4 MG/2 ML VIAL ONE (11:06)
[2022-05-11] MEDS ORDERED: EPHEDRINE SULF 50 MG/ML VIAL ONE (11:10)
--- NOTE | 2022-05-11 11:45 | P.OP ---
Preoperative diagnosis: Osteomyelitis of 5th toe of RIGHT foot Postoperative diagnosis: Osteomyelitis of 5th toe of RIGHT foot Primary procedure: Amputation of 5th toe of RIGHT foot Secondary procedure: Debridement of RIGHT foot Anesthesia: GETA + Local Estimated blood loss: <10cc Specimen: toe and debridement tissue Findings: open wound of foot, necrosis, draining Transferred to: Recovery Room Condition: Good
[2022-05-11 12:39] VITALS: BP 151/73
[2022-05-11] MEDS ORDERED: HYDROCODONE/APAP 7.5/325 MG TAB ONE (12:57)
[2022-05-11 13:19] VITALS: TEMP 96.6
--- NOTE | 2022-05-11 13:42 | EKG ---
Test Date: 2022-05-11 Test Time: 09:50:13 Flat Grinder Operator: RADHA MEASUREMENT RESULTS: Intervals: Rate: 63 DC: 236 QRSD: 112 QT: 434 QTc: 444 [place]: P: 72 DC: 236 QRS: -46 T: 81 INTERPRETIVE STATEMENTS: Sinus rhythm with 1st degree AV block Left anterior fascicular block Cannot rule out Inferior infarct, age undetermined Abnormal ECG Compared to ECG 04/03/2022 11:34:45 Myocardial infarct finding now present Sinus bradycardia no longer present ST (T wave) deviation no longer present Electronically Signed On 05-11-22 13:41:48 SAWMILL MANAGER by Antonio Prajapati
--- NOTE | 2022-05-11 21:19 | OP ---
Date of Procedure: 05/11/2022 Surgeon: Laci Sotelo MD, Preoperative Diagnosis: Osteomyelitis of the 5th toe of the right foot. Postoperative Diagnosis: Osteomyelitis of the 5th toe of the right foot. Procedures Performed: 1.Amputation of the 5th toe of the right foot to the metatarsophalangeal joint. 2.Debridement of right foot necrotic tissue. Anesthesia: General endotracheal plus local. Estimated Blood Loss: Less than 10 cc. Specimen: Toe and debridement tissue sent. Findings: Open wound of the foot with necrosis tracking up to the web space between the 4th and 5th toes with necrosis and drainage. Disposition: The patient was transferred to recovery room in good condition. Procedure In Detail: After informed consent was obtained, patient was brought to the operating room and prepped and draped in the usual sterile fashion. After adequate anesthesia was achieved, I bing cated a flap maintaining some of the lateral foot and 5th toe skin as a closure for partial closure f lap after the amputation. I dissected circumferentially around the metatarsophalangeal joint using b zelda dissection as well as electrocautery. The metatarsophalangeal joint was ligated at this point, the toe was sent off, predominantly on the bony aspects. Some of the skin on the lateral foot was ma intained as this appeared to be viable and perfused. At this point, I irrigated the area copiously a nd debrided some necrotic tissue, which extended to the webspace between the 4th and 5th toes. After all tissue was debrided and the previous wound edges were refreshed and debrided, this was sent off for pathologic examination. I then achieved hemostasis with electrocautery. I used a pulse lavage f or approximately 2 L to irrigate the area copiously and cleansed out any area of possible infection. I palpated and inspected the area. No additional infection was required. No additional amputation was required. The 4th toe was spared and not amputated. At this point, I then reapproximated the la teral skin tissue using interrupted 3-0 nylon sutures and the wound on the plantar aspect was packed with quarter-inch iodoform packing and a sterile dressing placed over the top. The patient tolerated the procedure without evidence of any complication and transferred to PACU in good condition. All c ounts were correct at the end of the case. LANCE/CHAVA Voice ID: [id number] Report ID: [id number]
== END 2022-05-11 13:08 | disposition home or self-care (01) ==
LOC: OR 09:12
PROVIDERS: ATTEND Surgery
PROC: 0JDQ3ZZ Extraction of Right Foot Subcutaneous Tissue and Fascia, Percutaneous Approach (ICD-10-PCS; 2022-05-11)
PROC: 0Y6X0Z0 Detachment at Right 5th Toe, Complete, Open Approach (ICD-10-PCS; principal; 2022-05-11 11:15)
DX: M86.9 Osteomyelitis, unspecified (principal); I96 Gangrene, not elsewhere classified; I10 Essential (primary) hypertension; E78.00 Pure hypercholesterolemia, unspecified; I50.9 Heart failure, unspecified; F32.A Depression, unspecified
CPT/HCPCS: 28820; 11042; 93005; 85025; 80048; 36415; 82947; 88305; 88311; J2704; J2001; J3010; J3370; J7050; J7040; J2405

== ENCOUNTER 2022-05-22 11:54 | Day surgery (SDC) | payer OTHER ==
[2022-05-07 16:01] LABS: Absolute Lymphocytes (CBC) 1.1 K/uL (0.7-4.9); Hematocrit 27.9 % (39.6-49.0); Lymphocytes % 8.3 % (15.3-44.8); MCV 93.1 fL (80-100); MPV 7.2 fL (7.6-11.3); Protime INR 1.03; RBC Red Blood Cell Count 2.99 M/uL (4.33-5.43)
[2022-05-07 16:13] LABS: Potassium 5.2 mmol/L (3.5-5.1)
[2022-05-22] MEDS ORDERED: NA CHLORIDE 0.9% 500 ML ONE ×2 (12:15→14:52)
[2022-05-22] MEDS ORDERED: FENTANYL CITR 100 MCG/2 ML ONE ×2 (12:53→14:27)
[2022-05-22] MEDS ORDERED: propofoL 200 MG/20 ML VIAL IV ONE (12:53)
[2022-05-22] MEDS: CIPROFLOXACIN 400mg IV 400 MG/200 ML BAG IV ONE ×2 (13:12→13:25)
[2022-05-22] MEDS ORDERED: EPHEDRINE SULF 50 MG/ML VIAL ONE (13:49)
[2022-05-22] MEDS ORDERED: ONDANSETRON 4 MG/2 ML VIAL ONE (14:00)
[2022-05-22] MEDS ORDERED: CODEINE 30MG/APAP 300MG TAB PO PRN (15:21)
[2022-05-22] MEDS ORDERED: DIPHENHYDRAMINE 50 MG/ML VIAL ONE (15:25)
[2022-05-22] MEDS ORDERED: HYDRALAZINE HCL 20 MG/ML VIAL ONE (15:36)
[2022-05-22 15:42] VITALS: O2SAT 100
[2022-05-22 16:09] VITALS: BP 154/57; TEMP 96.8
== END 2022-05-22 16:50 | disposition home or self-care (01) ==
LOC: OR 11:54
PROVIDERS: ATTEND Urology
PROC: 0VT08ZZ Resection of Prostate, Via Natural or Artificial Opening Endoscopic (ICD-10-PCS; principal; 2022-05-22 12:45)
DX: N40.1 Benign prostatic hyperplasia with lower urinary tract symptoms (principal); R33.9 Retention of urine, unspecified; I10 Essential (primary) hypertension; E11.9 Type 2 diabetes mellitus without complications; I25.10 Atherosclerotic heart disease of native coronary artery without angina pectoris; N18.9 Chronic kidney disease, unspecified; Z99.2 Dependence on renal dialysis; I50.9 Heart failure, unspecified; N13.30 Unspecified hydronephrosis
CPT/HCPCS: 87088; 85025; 87086; 80048; 36415; 85610; 82947 ×2; 85730; 52601; J0360; J2704; J1200; J3010 ×2; J7040 ×2; J2405; J0744; 88305

== ENCOUNTER 2022-07-06 10:52 | Observation (INO) | payer OTHER ==
--- OUTSIDE RECORDS SUMMARY | 2022-07-06 10:55 | XMS REPORT | Continuity of Care Document ---
:[address] [facility] t Address [address] [place] [address] Care Team Providers Name Role Phone Unavailable Unavailable Unavailable Payers Payer Name Policy Type Policy Effective Date Expiration Date Sour ce Number ON LICENSE OF [facility] [id number] 2022 (MEDICARE 00:00:00 REPLACEMENT HMO) [employer] MEDICARE 53 [id number] Common Sp jaret O [facility] Problems Condition Condition Condition Status Onset Resolution Last Treating Co mments Source Name Details Category Date Date Treatment Clinician Date Benign BPH loc w Problem Common prostatic urin [facility] hypertroph obs/LUTS - [facility] y with [facility] outflow [facility] [id number] S/P TURP Problem Comm on [facility] Overflow Overflow Problem Commo n incontinen incontinen Sp jaret ce of [facility] urine urine [facility] [id number] CKD Problem Common (chronic [facility] kidney - [facility] disease) stage 5, [facility] G[facility] less Medical than 15 Center ml/min [id number] Dependence Problem Co mmon on renal [facility] dialysis [facility] [id number] Acute Problem Common cystitis [facility] without - [facility] hematuria [facility] [id number] Urinary Problem Commo n retention [facility] Benign BPH loc Problem Common prostatic w/o ur [facility] hypertroph obs/LUTS - [facility] I y without [facility] outflow [facility] Low Detrusor Problem Common compliance dysfunctio Sp jaret bladder n - [facility] Allergies, Adverse Reactions, Alerts Allergy Allergy Status Severity Reaction(s) Onset Inactive Treating Comm ents Source Name Type Date Date Clinician penicill penicill Active Unknown Commo n in V in V [facility] Social History Social Habit Start Date Stop Date Quantity Comments Source History of Tobacco Use Co mmon [facility] Sex Assigned At Com mon [facility] Smoking Status Start Date Stop Date Source Never Smoker Common [facility] Medications Ordered Filled Start Stop Current [...] 0-19 11-02 MG 00:00: 00:00 00 :00 Sevelamer Sevelamer No 1{table TID Sevelamer Carbonate Carbonate t_with_ Carbonate 800 MG 800 MG meals} 800 MG Eliquis 2.5 Eliquis 2.5 No Eliquis mg 2.5 mg mg 2.5 mg 2.5 mg 2.5 mg isosorbide isosorbide No 1{table QD isosorbide mononitrate mononitrate t} mononitrat 30mg 30mg e 30mg amLODIPine amLODIPine No amLODIPine Besylate Besylate Besylate hydrALAZINE hydrALAZINE No 1{table BID hydrALAZIN HCl 100 MG HCl 100 MG t_with_ E HCl 100 food} MG Calcitriol Calcitriol No 1{capsu Calcitriol 0.25 MCG 0.25 MCG le} 0.25 MCG Aspirin 81 Aspirin 81 No 1{table QD [...] amLODIPine amLODIPine No amLODIPine Besylate Besylate Besylate Furosemide Furosemide No 1{table QD Furosemide 40 MG 40 MG t} 40 MG hydrALAZINE hydrALAZINE No 1{table BID hydrALAZIN HCl 100 MG HCl 100 MG t_with_ E HCl 100 food} MG Calcitriol Calcitriol No 1{capsu Calcitriol 0.25 MCG 0.25 MCG le} 0.25 MCG amLODIPine amLODIPine No amLODIPine Besylate Besylate Besylate Sevelamer Sevelamer No 1{table TID Sevelamer Carbonate Carbonate t_with_ Carbonate 800 MG 800 MG meals} 800 MG isosorbide isosorbide No 1{table QD isosorbide mononitrate mononitrate t} mononitrat 30mg 30mg e 30mg Eliquis 2.5 Eliquis 2.5 No Eliquis mg 2.5 mg mg 2.5 mg 2.5 mg 2.5 mg Aspirin 81 Aspirin 81 No 1{table QD Aspirin 81 MG MG t} MG Eliquis 2.5 Eliquis 2.5 No Eliquis mg 2.5 mg mg 2.5 mg 2.5 mg 2.5 mg Furosemide Furosemide No 1{table QD Furosemide 40 MG 40 MG t} 40 MG amLODIPine amLODIPine No amLODIPine Besylate Besylate Besylate Aspirin 81 Aspirin 81 No 1{table QD Aspirin 81 MG MG t} MG isosorbide isosorbide No 1{table QD isosorbide mononitrate mononitrate t} mononitrat 30mg 30mg e 30mg Calcitriol Calcitriol No 1{capsu Calcitriol 0.25 MCG 0.25 MCG le} 0.25 MCG hydrALAZINE hydrALAZINE No 1{table BID hydrALAZIN HCl 100 MG HCl 100 MG t_with_ E HCl 100 food} MG Sevelamer Sevelamer No 1{table TID Sevelamer Carbonate Carbonate t_with_ Carbonate 800 MG 800 MG meals} 800 MG Tamsulosin Tamsulosin 2022- No 1{capsu QD [...] Observation Time Observation Value Comments Source height 2022-04-19 17:00:00 66 [in_i] Common [facility] weight 2022-04-19 17:00:00 153.4 [lb_av] [facility] temperature 2022-04-19 17:00:00 98.3 [degF] [facility] bmi 2022-04-19 17:00:00 24.76 kg/m2 [facility] oximetry 2022-04-19 17:00:00 96 % [facility] respiratory rate 2022-04-19 17:00:00 16 /min Comm on [facility] blood pressure 2022-04-19 17:00:00 139 mm[Hg] Common [facility] - systolic [facility] blood pressure 2022-04-19 17:00:00 65 mm[Hg] Common [facility] - diastolic [facility] height 2022-04-11 10:45:00 66 [in_i] [facility] weight 2022-04-11 10:45:00 152 [lb_av] [facility] temperature 2022-04-11 10:45:00 98.6 [degF] Common [facility] bmi 2022-04-11 10:45:00 24.53 kg/m2 [facility] oximetry 2022-04-11 10:45:00 99 % [facility] respiratory rate 2022-04-11 10:45:00 16 /min Comm on [facility] blood pressure 2022-04-11 10:45:00 136 mm[Hg] Common [facility] - systolic [facility] blood pressure 2022-04-11 10:45:00 61 mm[Hg] Common [facility] - diastolic [facility] temperature 2022-03-28 17:15:00 97.6 [degF] [facility] bmi 2022-03-28 17:15:00 25.01 kg/m2 [facility] oximetry 2022-03-28 17:15:00 97 % [facility] respiratory rate 2022-03-28 17:15:00 16 /min Comm on [facility] blood pressure 2022-03-28 17:15:00 176 mm[Hg] Common [facility] - systolic [facility] blood pressure 2022-03-28 17:15:00 66 mm[Hg] Common [facility] - diastolic [facility] height 2022-03-28 17:15:00 66 [in_i] [facility] weight 2022-03-28 17:15:00 155 [lb_av] [facility] Procedures This patient has no known procedures. Encounters Start End Encounter Admission Attending Care Care Encounter Source Date/Time Date/Time Type Type Clinicians Facility Department ID 2022-06-13 Outpatient STLMLC STLMLC [id number] Common 06:53:01 [id number] [facility] 2022-03-30 Outpatient STLMLC STLMLC [id number] Common 10:46:03 [id number] [facility] 2022-03-28 Outpatient STLMLC STLMLC [id number] Common 17:10:02 [id number] [facility] 2022-06-28 2022-06-28 Outpatient DMG DMG [id number] [facility] 00:00:00 00:00:00 [id number] 2022-06-21 2022-06-21 OFFICE STLMLC STLMLC [id number] Co mmon 00:00:00 00:00:00 VISIT [facility] LEVEL 2 [facility] 2022-05-29 2022-05-29 (TEL) STLMLC STLMLC [id number] Co mmon 00:00:00 00:00:00 [facility] 2022-04-19 2022-04-19 OFFICE STLMLC STLMLC [id number] Co mmon 00:00:00 00:00:00 VISIT Braydon YE PT - [facility] LEVEL 4 [facility] 2022-04-11 2022-04-11 OFFICE STLMLC STLMLC [id number] Co mmon 00:00:00 00:00:00 VISIT GERALD Kahn it PT LEVEL 3 - [facility] 2022-03-30 2022-03-30 (TEL) STLMLC STLMLC [id number] Co mmon 00:00:00 00:00:00 [facility] 2022-03-28 2022-03-28 OFFICE STLMLC STLMLC [id number] Co mmon 00:00:00 00:00:00 VISIT Braydon YE PT - [facility] LEVEL 5 [facility] Results This patient has no known results.
[2022-07-06] MEDS ORDERED: ACETAMINOPHEN 500 MG TAB ONE (11:14)
[2022-07-06 11:37] LABS: Absolute Lymphocytes (CBC) 0.8 K/uL (0.7-4.9); Hematocrit 26.8 % (39.6-49.0); Lymphocytes % 4.7 % (15.3-44.8); MCV 92.5 fL (80-100); MPV 7.7 fL (7.6-11.3)
[2022-07-06 12:04] LABS: Albumin 2.3 g/dL (3.4-5.0); Bilirubin Total 0.4 mg/dL (0.2-1.0); Magnesium 2.3 mg/dL (1.6-2.4); Potassium 4.6 mmol/L (3.5-5.1); Protein, Total 7.2 g/dL (6.4-8.2); Troponin High Sensitivity 33.5 pg/mL (<58.9)
--- NOTE | 2022-07-06 12:14 | RAD REPORT ---
EXAM DESCRIPTION: RAD - Shoulder Right 2 View - 07/06/2022 12:10 pm CLINICAL HISTORY: PAIN COMPARISON: No comparisons FINDINGS/IMPRESSION: No acute fracture. No malalignment. Mild right AC joint degenerative changes. M ild right glenohumeral joint degenerative changes. Partially central venous catheter.
--- NOTE | 2022-07-06 12:15 | RAD REPORT ---
EXAM DESCRIPTION: RAD - Chest Single View - 07/06/2022 12:10 pm CLINICAL HISTORY: dizziness COMPARISON: Chest Single View dated 04/12/2022; Chest Single View dated 02/26/2022; Chest Single View dated 02/25/2022; Chest Single View dated 02/24/2022 FINDINGS: Lines: Dialysis catheter. The tip overlies the superior cavoatrial junction. Lungs: No evidence of edema or pneumonia. Pleural: No significant pleural effusions or pneumothorax. Cardiac: The heart size is within normal limits. Mediastinum: Within normal limits. Bones: No acute fractures. Other: None IMPRESSION: No acute cardiopulmonary disease.
--- NOTE | 2022-07-06 13:09 | EDPHYS ---
Physician Documentation [facility] Name: Houston Katz Age: 71 yrs Sex: Male : 1950 Arrival Date: 07/06/2022 Time: 10:56 Bed 13 Private MD: ED Physician Anthony Shepard HPI: 07/06 13:56 This 71 yrs old Male presents to ER via EMS with complaints of General Weakness. rt 13:56 Patient presents to the ED with a fall yesterday. He states he became lightheaded, rt weak, falling not completely losing consciousness. Patient states that he did not hit his head but was unable to walk due to the weakness. Patient has been on the ground since last night. He states that he landed on his shoulder but denies other injury. Pain is aching nature, nonradiating, no other aggravating alleviating factors. Denies other acute complaints.. Historical: - PMHx: 16:20 Congestive heart failure; diabetes mellitus; End stage renal disease; M-W-F; kr3 Hypertensive disorder; - Immunization history:: Adult Immunizations up to date. - Social history:: Smoking status: Patient denies any tobacco usage or history of. - Family history:: not pertinent. ROS: 13:56 Constitutional: Negative for fever, chills, and weight loss, Cardiovascular: Negative rt for chest pain, palpitations, and edema, Respiratory: Negative for shortness of breath, cough, wheezing, and pleuritic chest pain, Abdomen/GI: Negative for abdominal pain, nausea, vomiting, diarrhea, and constipation, Back: Negative for injury and pain, Skin: Negative for injury, rash, and discoloration, Psych: Negative for depression, anxiety, suicide ideation, homicidal ideation, and hallucinations. 13:56 MS/extremity: Positive for pain, Negative for laceration. 13:56 Neuro: Positive for near syncope, weakness. Exam: 13:56 Constitutional: This is a well developed, well nourished patient who is awake, alert, rt and in no acute distress. Head/Face: Normocephalic, atraumatic. Eyes: Pupils equal round and reactive to light, extra-ocular motions intact. Lids and lashes normal. Conjunctiva and sclera are non-icteric and not injected. Cornea within normal limits. Periorbital areas with no swelling, redness, or edema. ENT: Nares patent. No nasal discharge, no septal abnormalities noted. Tympanic membranes are normal and external auditory canals are clear. Oropharynx with no redness, swelling, or masses, exudates, or evidence of obstruction, uvula midline. Mucous membranes moist. Neck: Trachea midline, no thyromegaly or masses palpated, and no cervical lymphadenopathy. Supple, full range of motion without nuchal rigidity, or vertebral point tenderness. No Meningismus. Chest/axilla: Normal chest wall appearance and motion. Nontender with no deformity. No lesions are appreciated. Cardiovascular: Regular rate and rhythm with a normal S1 and S2. No gallops, murmurs, or rubs. Normal PMI, no JVD. No pulse deficits. Respiratory: Lungs have equal breath sounds bilaterally, clear to auscultation and percussion. No rales, rhonchi or wheezes noted. No increased work of breathing, no retractions or nasal flaring. Abdomen/GI: Soft, non-tender, with normal bowel sounds. No distension or tympany. No guarding or rebound. No evidence of tenderness throughout. Skin: Warm, dry with normal turgor. Normal color with no rashes, no lesions, and no evidence of cellulitis. MS/ Extremity: Pulses equal, no cyanosis. Neurovascular intact. Full, normal range of motion. Neuro: Awake and alert, GCS 15, oriented to person, place, time, and situation. Cranial nerves II-XII grossly intact. Motor strength 5/5 in all extremities. Sensory grossly intact. Cerebellar exam normal. Normal gait. Psych: Awake, alert, with orientation to person, place and time. Behavior, mood, and affect are within normal limits. 13:56 ECG was reviewed by the Attending Physician. Vital Signs: 10:57 BP 128 / 48; Pulse 72; Resp 16; Temp 98; Pulse Ox 100% ; bp 11:00 BP 138 / 54 Sitting; Pulse 72; bp 11:02 BP 128 / 48 Standing; Pulse 79; bp 12:37 BP 124 / 57; Pulse 69; Resp 17; Pulse Ox 100% ; kr3 MDM: 10:59 Patient medically screened. rt 14:12 Differential Diagnosis altered mental status, Near syncope, infection, dysrhythmia. rt Data reviewed: vital signs, nurses notes, old medical records, lab test result(s), EKG, radiologic studies. Consideration of Admission/Observation Patient was admitted/placed on observation. Independent interpretation of the following test(s) in the Emergency Department X-Ray: My interpretation is No infiltrates. Test considered but Not performed: CT: Denies head trauma, CT scan of the head not indicated. Care significantly affected by the following chronic conditions: End-stage renal disease. 07/06 11:07 Order name: CBC with Diff; Complete Time: 12:07 rt 07/06 11:07 Order name: CMP; Complete Time: 12:07 rt 07/06 11:07 Order name: Troponin High Sensitivity; Complete Time: 12:07 rt 07/06 11:07 Order name: Magnesium; Complete Time: 12:07 rt 07/06 11:07 Order name: CPK; Complete Time: 12:07 rt 07/06 12:32 Order name: Blood Culture Adult (2) rt 07/06 13:28 Order name: SARS RAPID; Complete Time: 14:39 eb 07/06 13:54 Order name: Creatine Phosphokinase [facility] 07/06 13:54 Order name: Lactate w/ 2H reflex if indic. [facility] 07/06 13:54 Order name: Liver (Hepatic) Function [facility] 07/06 13:54 Order name: T4 Free [facility] 07/06 13:54 Order name: Thyroid Stimulating Hormone [facility] 07/06 13:54 Order name: Urinalysis [facility] 07/06 13:54 Order name: Basic Metabolic Panel [facility] 07/06 11:07 Order name: Shoulder Right (2 View) XRAY; Complete Time: 12:16 rt 07/06 11:07 Order name: Chest Single View XRAY; Complete Time: 12:16 rt 07/06 13:54 Order name: Basic Metabolic Panel [facility] 07/06 13:54 Order name: Basic Metabolic Panel [facility] 07/06 13:54 Order name: Basic Metabolic Panel [facility] 07/06 13:54 Order name: CBC with Automated Diff [facility] 07/06 13:54 Order name: CBC with Automated Diff [facility] 07/06 13:54 Order name: CBC with Automated Diff [facility] 07/06 13:54 Order name: CBC with Automated Diff [facility] 07/06 13:54 Order name: Lipid Profile [facility] 07/06 13:54 Order name: Lipid Profile [facility] 07/06 13:54 Order name: Troponin High Sensitivity [facility] 07/06 13:54 Order name: Troponin High Sensitivity [facility] 07/06 13:54 Order name: Troponin High Sensitivity [facility] 07/06 15:21 Order name: Hemoglobin A1c [facility] 07/06 11:07 Order name: EKG; Complete Time: 11:08 rt 07/06 11:07 Order name: EKG - Nurse/Tech; Complete Time: 11:50 rt 07/06 13:54 Order name: Renal [facility] 07/06 14:01 Order name: Head C Spine Mpr Wo Con; Complete Time: 14:39 EDMS EC:12 Rate is 68 beats/min. Rhythm is regular, 1st Degree Block with No ectopy. Right axis rt deviation noted. IA interval is prolonged at 230 msec. QRS interval is normal. QT interval is normal. No Q waves. Administered Medications: 11:30 Drug: Tylenol 1000 mg Route: PO; kr3 Disposition Summary: 07/06/22 13:08 Hospitalization Ordered Hospitalization Status: Observation rt Provider: Anni Patel rt Location: Telemetry/MedSurg (observation) rt Condition: Stable rt Problem: new rt Symptoms: are unchanged rt Bed/Room Type: Standard rt Room Assignment: 404(07/06/22 15:49) dw Diagnosis - Syncope Near rt Forms: - Medication Reconciliation Form rt - SBAR form rt Signatures: Dispatcher [employer] EDKrissy Moon RN RN dw Lang Rodriguez, RN RN Lorena Doherty RN RN kr3 Anthony Shepard MD MD rt Corrections: (The following items were deleted from the chart) 12:43 12:32 Urine Test ordered. rt rt 14:01 13:56 CT HEAD,C-SPINT W/O ordered. EDMS EDMS 15:49 13:08 rt dw
--- NOTE | 2022-07-06 13:09 | ER ---
Nurse's Notes [facility] Name: Houston Katz Age: 71 yrs Sex: Male : 1950 Arrival Date: 07/06/2022 Time: 10:56 Bed 13 Private MD: Diagnosis: Syncope Near Presentation: 07/06 10:57 Chief complaint: EMS states: FALL TWO DAYS AGO, GENERAL PAIN AND WEAKNESS. Coronavirus bp screen: At this time, the client does not indicate any symptoms associated with coronavirus-19. Ebola Screen: No symptoms or risks identified at this time. Initial Sepsis Screen: Does the patient meet any 2 criteria? No. Patient's initial sepsis screen is negative. Does the patient have a suspected source of infection? No. Patient's initial sepsis screen is negative. Risk Assessment: Do you want to hurt yourself or someone else? Patient reports no desire to harm self or others. Onset of symptoms is unknown. Care prior to arrival: Glucose check: 344. 10:57 Method Of Arrival: EMS: [facility] bp 10:57 Acuity: JILLIAN 3 bp Triage Assessment: 10:57 General: Appears distressed, uncomfortable, Behavior is cooperative, appropriate for bp age, anxious. Pain: Complains of pain in GENERAL MYALGIA. EENT: No deficits noted. Neuro: No deficits noted. Cardiovascular: No deficits noted. Respiratory: No deficits noted. GI: No signs and/or symptoms were reported involving the gastrointestinal system. : No signs and/or symptoms were reported regarding the genitourinary system. Derm: No deficits noted. Musculoskeletal: No deficits noted. Historical: - PMHx: 16:20 Congestive heart failure; diabetes mellitus; End stage renal disease; M-W-F; kr3 Hypertensive disorder; - Immunization history:: Adult Immunizations up to date. - Social history:: Smoking status: Patient denies any tobacco usage or history of. - Family history:: not pertinent. Screenin:[address] [facility] ED Fall Risk Assessment (Adult) History of falling in the last 3 months, bp including since admission Yes- physiologic fall (2 pts) Confusion or Disorientation Yes (5 pts). Abuse screen: Denies threats or abuse. Denies injuries from another. Nutritional screening: No deficits noted. Tuberculosis screening: No symptoms or risk factors identified. Assessment: 11:00 General: SEE TRIAGE NOTE. bp 12:31 Reassessment: No changes from previously documented assessment. kr3 15:09 Reassessment: bladder scan completed, shows 522 mL. kr3 Vital Signs: 10:57 BP 128 / 48; Pulse 72; Resp 16; Temp 98; Pulse Ox 100% ; bp 11:00 BP 138 / 54 Sitting; Pulse 72; bp 11:02 BP 128 / 48 Standing; Pulse 79; bp 12:37 BP 124 / 57; Pulse 69; Resp 17; Pulse Ox 100% ; kr3 ED Course: 10:56 Patient arrived in ED. bp 10:57 Anthony Shepard MD is Attending Physician. rt 10:57 Arm band placed on. bp 10:58 Triage completed. bp 11:00 Patient has correct armband on for positive identification. Bed in low position. Call bp light in reach. Side rails up X2. 11:09 Lorena Wen RN is Primary Nurse. kr3 12:11 Shoulder Right (2 View) XRAY In Process Unspecified. EDMS 12:11 Chest Single View XRAY In Process Unspecified. EDMS 13:07 Anni Patel MD is Hospitalizing Provider. rt 13:41 SARS RAPID Sent. bc6 14:09 Blood Culture Adult (2) Sent. kr3 16:17 Report given to SPENCER Johnson 4th floor. kr3 16:18 No provider procedures requiring assistance completed. Patient admitted, IV remains in kr3 place. Administered Medications: 11:30 Drug: Tylenol 1000 mg Route: PO; kr3 Medication: 11:00 VIS not applicable for this client. bp Outcome: 13:08 Decision to Hospitalize by Provider. rt 16:19 Admitted to Med/surg kr3 16:19 Condition: stable 16:19 Instructed on the need for admit. 16:44 Patient left the ED. kr3 Signatures: Dispatcher [employer] EDMS Lang Rodriguez RN RN bp Lorena Wen RN RN kr3 Anthony Shepard MD MD rt Dari Scruggs bc6
[2022-07-06] MEDS ORDERED: ONDANSETRON 4 MG/2 ML VIAL IV PRN (13:43)
[2022-07-06 14:17] LABS: SARS-CoV-2 Antigen Rapid Res Negative (Negative)
--- NOTE | 2022-07-06 14:31 | RAD REPORT ---
EXAM DESCRIPTION: CT - CTHCSPWOC - 07/06/2022 2:17 pm CLINICAL HISTORY: Trauma, head and neck injury. Fall COMPARISON: Head Brain Wo Cont dated 04/03/2022 TECHNIQUE: Axial 5 mm thick images of the head were obtained. Axial 2 mm thick images of the cervical spine were obtained with sagittal and coronal reconstruction images generated and reviewed. All CT scans are performed using dose optimization technique as appropriate and may include automated exposure control or mA/KV adjustment according to patient size. FINDINGS: CT HEAD WITHOUT CONTRAST: No acute hemorrhage, hydrocephalus or extra-axial collection is identified.No areas of brain edema or midline shift. Remote left parietal lobe infarct. Chronic small vessel ischemic changes. Cerebral at rophy. The paranasal sinuses and mastoids are clear.The calvarium is intact. CT CERVICAL SPINE WITHOUT CONTRAST: No fracture or subluxation.No prevertebral soft tissues swelling is identified. Mild multilevel cervi marivel spondylosis with varying degrees of neural foraminal narrowing. Carotid artery calcifications. IMPRESSION: No acute intracranial or cervical spine findings.
--- NOTE | 2022-07-06 14:48 | P.HP ---
Certification for Inpatient Patient admitted to: Observation With expected LOS: <2 Midnights Patient will require the following post-hospital care: None Practitioner: I am a practitioner with admitting privileges, knowledge of patient current condition, hospital course, and medical plan of care. Services: Services provided to patient in accordance with Admission requirements found in Title 42 Section 412.3 of the Code of Federal Regulations <Reid Wynninald - Last Filed: 07/06/22 17:37> Patient History Date of Service: 07/06/22 Reason for admission: Near syncope History of Present Illness: Patient is a 71-year-old gentleman with a history of end-stage renal disease, BPH, diabetes. Patient presents to the emergency room with generalized weakness. Patient was evaluated in the ER, with no distress noted. Patient is a very poor historian. Patient stated he had a fall last night, patient reports that he is unaware of how long he was down for. Patient reported associated symptoms of dizziness weakness and right eye floaters. He denies any chest pain, sob, palpitations. As a result of the fall, he reported 3 out of 10 right shoulder pain, right leg pain, and sacral pain. Patient states that his home health aide came in this morning, took his vitals, and told patients that he needed to go to the emergency room because his blood pressure was too low (patient unable to recall the blood pressure reading). Patient report having dialysis yesterday, but he is not sure of his regular dialysis days. In the ER, his labs were significant for WBC 17.6, anion gap 17.6, creatinine 5.46, glucose 297, and BUN 79. All imaging were negative for any acute findings. Patient will be admitted under the care of Dr. Patel. Nephrology will be consulted for further evaluation and management. - Past Medical/Surgical History Diabetic: Yes -: CHF -: ESRD -: BPH -: CAD with stent -: Osteomyelitis -: DM -: Cardiac stent placement -: HD access - Family History Mother -: Hypertension, Cancer Sister -: Hypertension, Cancer - Social History Smoking Status: Never smoker Alcohol use: No CD- Drugs: No Caffeine use: No <Momo Wynn - Last Filed: 07/06/22 17:37> Date of Service: 07/07/22 <Anni Patel - Last Filed: 07/07/22 11:36> Allergies Penicillins Allergy (Mild, Verified 05/11/22 10:19) Anaphylaxis Home Medications: Tamsulosin [Flomax*] 0.4 mg PO DAILY 01/31/22 Calcitrol [Rocaltrol*] 0.25 mcg PO Q48H cap 02/12/22 Sevelamer Carbonate [Renvela*] 800 mg PO TIDWM #90 tab 02/16/22 Ciprofloxacin HCl [Cipro] 500 mg PO DAILY #3 05/22/22 Codeine/APAP [Tylenol W/Codeine #3 tab] 1 tab PO Q8H PRN #10 tab 05/22/22 Review of Systems 10-point ROS is otherwise unremarkable General: Weakness Eyes: Vision Change Cardiovascular: Light Headedness Genitourinary: Retention Musculoskeletal: Shoulder Pain, Back Pain, Leg Pain Integumentary: Rash, Bruising Neurological: Weakness, Confusion <Reid Wynninald - Last Filed: 07/06/22 17:37> Physical Examination - Vital Signs Temperature: 98 F Blood Pressure: 124/58 Pulse: 64 Respirations: 18 Pulse Ox (%): 100 - Physical Exam General: Alert, Oriented x1, Confused HEENT: Atraumatic, Normocephalic, PERRLA Neck: Supple, 2+ carotid pulse no bruit Respiratory: Diminished Cardiovascular: No edema, Normal pulses Capillary refill: <2 Seconds Gastrointestinal: Normal bowel sounds Musculoskeletal: No clubbing, No swelling Integumentary: Rash(es) Neurological: Normal tone, Sensation intact Lymphatics: No axilla or inguinal lymphadenopathy - Studies Laboratory Data (last 24 hrs) 07/06/22 11:29: Sodium 136, Potassium 4.6, BUN 79 H, Creatinine 5.46 H*, Glucose 297 H, Magnesium 2.3, Total Bilirubin 0.4, AST 9 L, ALT 22, Alkaline Phosphatase 104 07/06/22 11:29: WBC 17.60 H, Hgb 9.0 L, Hct 26.8 L, Plt Count 195 <Reid Wynninald - Last Filed: 07/06/22 17:37> - Studies Laboratory Data (last 24 hrs) 07/06/22 11:29: Sodium 136, Potassium 4.6, BUN 79 H, Creatinine 5.46 H*, Glucose 297 H, Magnesium 2.3, Total Bilirubin 0.4, AST 9 L, ALT 22, Alkaline Phosphatase 104 07/06/22 11:29: WBC 17.60 H, Hgb 9.0 L, Hct 26.8 L, Plt Count 195 Microbiology Data (last 24 hrs): 07/06/22 13:10 Blood - Blood Blood Culture Gram Stain - Final 07/06/22 13:10 Blood - Blood Gram Stain - Final <Anni Patel - Last Filed: 07/07/22 11:36> Assessment and Plan - Plan Assessment End-stage renal disease on dialysis BPH with urinary retention Fall Diabetes type 2 with hyperglycemia Plan End-stage renal disease on dialysis Nephrology consulted, recommendations appreciated Per patient, had dialysis yesterday Presents with left HD port BPH with urinary retention Resume home medication when appropriate Fall Head CT negative Continue to monitor, assist with transfer Diabetes type 2 with hyperglycemia Accu-Chek before meals and at bedtime with sliding scale insulin Last A1C 5.3% (01/29), A1c in the morning DVT PPX- Heparin Code Status- Full code Discharge Plan: Home Plan to discharge in: 48 Hours - Advance Directives Does patient have a Living Will: No Does patient have a Durable POA for Healthcare: No - Code Status/Comfort Care Code Status Assessed: Yes (Full code) Critical Care: No Time Spent Managing Pts Care (In Minutes): 50 <Momo Wynn - Last Filed: 07/06/22 17:37>
[2022-07-06] MEDS: INSULIN -REGULAR HUMAN 50 UNIT/0.5 ML ML SQ SCH ×2 (16:30→21:00)
[2022-07-06 16:31] LABS: Albumin 2.2 g/dL (3.4-5.0); Bilirubin Direct 0.1 mg/dL (0-0.2); Bilirubin Total 0.3 mg/dL (0.2-1.0); Protein, Total 7.2 g/dL (6.4-8.2); Thyroid Stimulating Hormone 0.683 uIU/mL (0.358-3.740)
[2022-07-06] MEDS: HEPARIN 5000 UNIT/ML 1 ML VIAL SQ SCH (16:51)
[2022-07-06] MEDS: ACETAMINOPHEN 500 MG TAB PO PRN (23:32)
[2022-07-06 23:41] VITALS: O2SAT 97
[2022-07-07] MEDS: HEPARIN 5000 UNIT/ML 1 ML VIAL SQ SCH ×3 (01:16→17:00)
[2022-07-07 05:02] LABS: Absolute Lymphocytes (CBC) 1.2 K/uL (0.7-4.9); Hematocrit 25.5 % (39.6-49.0); Lymphocytes % 8.9 % (15.3-44.8); MCV 93.1 fL (80-100); MPV 7.7 fL (7.6-11.3); RBC Red Blood Cell Count 2.74 M/uL (4.33-5.43)
[2022-07-07 05:39] LABS: Specific Gravity 1.013 (1.005-1.030); Urine Bacteria <20 /HPF (<20); Urine Bilirubin NEGATIVE (Negative); Urine Blood 1+ (Negative); Urine Clarity Extremely Turbid (Clear); Urine Color Light-Orange (Yellow); Urine Glucose NEGATIVE (Negative); Urine Mucus Slight /HPF (None Seen); Urine Protein 3+ (Negative); Urine RBC 21-50 /HPF (None Seen); Urine Urobilinogen Normal (Normal); Urine WBC Clump Moderate /HPF (None Seen); Urine pH 8.5 (5.0-7.0)
[2022-07-07] MEDS: INSULIN -REGULAR HUMAN 50 UNIT/0.5 ML ML SQ SCH ×4 (07:30→21:00)
[2022-07-07] MEDS: ACETAMINOPHEN 500 MG TAB PO PRN (09:19)
--- NOTE | 2022-07-07 11:53 | P.PN ---
Subjective Date of Service: 07/07/22 Patient is a 71-year-old gentleman who came into the hospital with acute renal insufficiency. Patient has end-stage renal disease. Patient has been feeling weak and has not been the dialysis in 1 week. He is not really taking his medications. He came to the hospital for further evaluation. He clinically is feeling better. My plan was to discharge him home today but his blood cultures have come back positive. We will hold his discharge. Contacted nephrology and we will arrange for dialysis. Await for identification of blood cultures. Most likely contamination as only 1 out of 4 bottles is positive. Review of Systems 10-point ROS is otherwise unremarkable Physical Examination - Vital Signs Temperature: 98.3 F Blood Pressure: 133/54 Pulse: 69 Respirations: 16 Pulse Ox (%): 100 - Physical Exam General: Alert, In no apparent distress, Oriented x3 HEENT: Atraumatic, PERRLA, EOMI Neck: Supple, JVD not distended Respiratory: Clear to auscultation bilaterally, Normal air movement Cardiovascular: Regular rate/rhythm, Normal S1 S2 Gastrointestinal: Normal bowel sounds, No tenderness Musculoskeletal: No tenderness Integumentary: No rashes Neurological: Normal speech, Normal tone, Normal affect Lymphatics: No axilla or inguinal lymphadenopathy - Studies Laboratory Data (last 24 hrs) 07/06/22 11:29: Sodium 136, Potassium 4.6, BUN 79 H, Creatinine 5.46 H*, Glucose 297 H, Magnesium 2.3, Total Bilirubin 0.4, AST 9 L, ALT 22, Alkaline Phosphatase 104 07/06/22 11:29: WBC 17.60 H, Hgb 9.0 L, Hct 26.8 L, Plt Count 195 Microbiology Data (last 24 hrs): 07/06/22 13:10 Blood - Blood Blood Culture Gram Stain - Final 07/06/22 13:10 Blood - Blood Gram Stain - Final Medications List Reviewed: Yes Assessment & Plan - Problems (Diagnosis) (1) Near syncope Current Visit: Yes Status: Acute (2) Bacteremia Current Visit: Yes Status: Acute (3) HTN (hypertension) Current Visit: Yes Status: Acute (4) Acute on chronic heart failure Current Visit: No Status: Acute (5) Anemia Current Visit: No Status: Acute (6) BPH (benign prostatic hyperplasia) Current Visit: No Status: Acute (7) Diabetes Current Visit: No Status: Acute Qualifiers: Diabetes mellitus type: type 2 (8) ESRD (end stage renal disease) Current Visit: No Status: Acute (9) History of psychosis Current Visit: No Status: Acute - Advance Directives Does patient have a Living Will: No Does patient have a Durable POA for Healthcare: No
--- NOTE | 2022-07-07 12:02 | P.PN ---
Subjective Date of Service: 07/07/22 Patient is a 71-year-old gentleman who came into the hospital with acute renal insufficiency. Patient has end-stage renal disease. Patient has been feeling weak and has not been the dialysis in 1 week. He is not really taking his medications. He came to the hospital for further evaluation. He clinically is feeling better. My plan was to discharge him home today but his blood cultures have come back positive. We will hold his discharge. Contacted nephrology and we will arrange for dialysis. Await for identification of blood cultures. Most likely contamination as only 1 out of 4 bottles is positive. Review of Systems 10-point ROS is otherwise unremarkable Physical Examination - Vital Signs Temperature: 98.3 F Blood Pressure: 133/54 Pulse: 69 Respirations: 16 Pulse Ox (%): 100 - Physical Exam General: Alert, In no apparent distress, Oriented x3 Respiratory: Clear to auscultation bilaterally, Normal air movement Cardiovascular: Regular rate/rhythm, Normal S1 S2 Gastrointestinal: Normal bowel sounds, Soft and benign, Non-distended, No tenderness Musculoskeletal: No clubbing, No swelling, No tenderness Neurological: Sensation intact, Cranial nerves 3-12 intact - Studies Laboratory Data (last 24 hrs) 07/06/22 11:29: Sodium 136, Potassium 4.6, BUN 79 H, Creatinine 5.46 H*, Glucose 297 H, Magnesium 2.3, Total Bilirubin 0.4, AST 9 L, ALT 22, Alkaline Phosphatase 104 Microbiology Data (last 24 hrs): 07/06/22 13:10 Blood - Blood Blood Culture Gram Stain - Final 07/06/22 13:10 Blood - Blood Gram Stain - Final Medications List Reviewed: Yes Assessment & Plan - Problems (Diagnosis) (1) Near syncope Current Visit: Yes Status: Acute (2) Bacteremia Current Visit: Yes Status: Acute (3) HTN (hypertension) Current Visit: Yes Status: Acute (4) Acute on chronic heart failure Current Visit: No Status: Acute (5) Anemia Current Visit: No Status: Acute (6) BPH (benign prostatic hyperplasia) Current Visit: No Status: Acute (7) Diabetes Current Visit: No Status: Acute Qualifiers: Diabetes mellitus type: type 2 (8) ESRD (end stage renal disease) Current Visit: No Status: Acute (9) History of psychosis Current Visit: No Status: Acute - Plan Plan: 1. Continue with IV antibiotics 2. Hemodialysis per nephrology 3. Strict blood pressure and blood sugar control 4. We will review patient's home medications as he has not gotten these in a while. He has pills in his room. 5. GI DVT prophylaxis Discharge Plan: Home Plan to discharge in: Greater than 2 days - Advance Directives Does patient have a Living Will: No Does patient have a Durable POA for Healthcare: No - Code Status/Comfort Care Code Status Assessed: Yes Code Status: Full Code Critical Care: No Time Spent Managing PTS Care (In Minutes): 35
[2022-07-07] MEDS ORDERED: VANCOMYCIN 2 GM in NA CHLORIDE 0.9% 500 ML IVPB ONE (13:00)
--- NOTE | 2022-07-07 14:19 | P.CNS ---
Date of Consult: 07/07/22 Reason for Consult: ESRD Requesting Physician: Anni Patel Chief Complaint: Near syncope History of Present Illness: 71M w/ PMHx of ESRD on HD TTS, BPH, & DM2, who p/w generalized weakness & presyncope, admitted for further eval & mngt. Received HD today. Allergies Penicillins Allergy (Mild, Verified 05/11/22 10:19) Anaphylaxis Home Medications: Tamsulosin [Flomax*] 0.4 mg PO DAILY 01/31/22 Amlodipine [Norvasc] 10 mg PO DAILY 07/07/22 Apixaban [Eliquis] 2.5 mg PO BID 07/07/22 Furosemide 40 mg PO DAILY 07/07/22 Hydralazine HCl 100 mg PO TID 07/07/22 Isosorbide Mononitrate [Isosorbide Mononitrate ER] 30 mg PO DAILY 07/07/22 Quetiapine [Seroquel] 50 mg PO BEDTIME 07/07/22 - Past Medical/Surgical History Diabetic: Yes -: CHF -: ESRD -: BPH -: CAD with stent -: Osteomyelitis -: DM -: Cardiac stent placement -: HD access - Family History Mother Medical History: Hypertension, Cancer Sister Medical History: Hypertension, Cancer - Social History Smoking Status: Unknown if ever smoked Alcohol use: No CD- Drugs: No Caffeine use: No Place of Residence: Home Review of Systems General: Weakness Eyes: Unremarkable ENT: Unremarkable Respiratory: Unremarkable Cardiovascular: Unremarkable Gastrointestinal: Unremarkable Genitourinary: Unremarkable Musculoskeletal: Unremarkable Neurological: Unremarkable Lymphatics: Unremarkable Physical Examination Temp Pulse Resp BP Pulse Ox 98.3 F 69 16 133/54 L 100 07/07/22 12:02 07/07/22 12:02 07/07/22 12:02 07/07/22 12:02 07/07/22 12:02 General: Other (chronically ill appearing) HEENT: Atraumatic, Normocephalic Neck: Supple Respiratory: Other (symmetric chest expansion) Cardiovascular: No rubs, No murmurs Gastrointestinal: Soft and benign Musculoskeletal: No clubbing Integumentary: No warmth Neurological: Other (non focal) Urinary: Other (no bladder distention) External genitalia: Deferred Rectal: Deferred Conclusions/Impression: (1) Near syncope Current Visit: Yes Status: Acute (2) Bacteremia Current Visit: Yes Status: Acute (3) HTN (hypertension) Current Visit: Yes Status: Acute (4) Acute on chronic heart failure Current Visit: No Status: Acute (5) Anemia Current Visit: No Status: Acute (6) BPH (benign prostatic hyperplasia) Current Visit: No Status: Acute (7) Diabetes Current Visit: No Status: Acute Qualifiers: Diabetes mellitus type: type 2 (8) ESRD (end stage renal disease) Current Visit: No Status: Acute (9) History of psychosis Current Visit: No Status: Acute - Plan # ESRD Received HD today # Presyncope Hx of psychosis Per other services # Bacteremia IV Abx per primary team # Htn Cont current med regimen # Anemia Monitor H/H # Renal osteodystrophy Monitor Ca & Phos # DM2 Mngt per primary team
[2022-07-07 15:35] LABS: Hepatitis B surface AG Interp. Nonreactive (Nonreactive)
[2022-07-07 17:17] VITALS: BMI 22.0
[2022-07-08] MEDS: HEPARIN 5000 UNIT/ML 1 ML VIAL SQ SCH (00:22)
[2022-07-08 04:13] LABS: Absolute Lymphocytes (CBC) 1.1 K/uL (0.7-4.9); Hematocrit 26.7 % (39.6-49.0); Lymphocytes % 8.6 % (15.3-44.8); MPV 7.6 fL (7.6-11.3); RBC Red Blood Cell Count 2.87 M/uL (4.33-5.43)
[2022-07-08] MEDS ORDERED: VANCOMYCIN 1 GM in NA CHLORIDE 0.9% 250 ML IVPB SCH (17:00)
[2022-07-09 03:10] VITALS: BP 133/54; TEMP 98.3
--- NOTE | 2022-07-09 03:13 | P.DS ---
Discharge Date: 07/08/22 Disposition: AMA-LEFT AGAINST MEDICAL ADVIC Reason for Admission: Near syncope - Problems (1) Near syncope Status: Acute (2) Bacteremia Status: Acute (3) HTN (hypertension) Status: Acute (4) Acute on chronic heart failure Status: Acute (5) Anemia Status: Acute (6) BPH (benign prostatic hyperplasia) Status: Acute (7) Diabetes Status: Acute Qualifiers: Diabetes mellitus type: type 2 (8) ESRD (end stage renal disease) Status: Acute (9) History of psychosis Status: Acute Brief History of Present Illness: Patient is a 71-year-old gentleman with a history of end-stage renal disease, BPH, diabetes. Patient presents to the emergency room with generalized weakness. Patient was evaluated in the ER, with no distress noted. Patient is a very poor historian. Patient stated he had a fall last night, patient reports that he is unaware of how long he was down for. Patient reported associated symptoms of dizziness weakness and right eye floaters. He denies any chest pain, sob, palpitations. As a result of the fall, he reported 3 out of 10 right shoulder pain, right leg pain, and sacral pain. Patient states that his home health aide came in this morning, took his vitals, and told patients that he needed to go to the emergency room because his blood pressure was too low (patient unable to recall the blood pressure reading). Patient report having dialysis yesterday, but he is not sure of his regular dialysis days. In the ER, his labs were significant for WBC 17.6, anion gap 17.6, creatinine 5.46, glucose 297, and BUN 79. All imaging were negative for any acute findings. Patient will be admitted under the care of Dr. Patel. Nephrology will be consulted for further evaluation and management. Hospital Course: patient was dialyzed. Patient was found to have positive blood cultures, wound cultures, and urine cultures. However, patient left against medical advice. Will try to contact patient's dialysis center and try to get IV antibiotics that up as an outpatient. Patient may need to come back into the hospital and will talk to the jet pilot regarding this. Vital Signs/Physical Exam: Temp Pulse Resp BP Pulse Ox 98.3 F 69 16 133/54 L 100 07/09/22 03:09 07/09/22 03:09 07/09/22 03:09 07/09/22 03:09 07/09/22 03:09 General: Alert, In no apparent distress, Oriented x3 Laboratory Data at Discharge: WBC 12.50 K/uL (4.3-10.9) H 07/08/22 03:36 Hgb 9.1 g/dL (13.6-17.9) L 07/08/22 03:36 Hct 26.7 % (39.6-49.0) L 07/08/22 03:36 Plt Count 237 K/uL (152-406) 07/08/22 03:36 Sodium 140 mmol/L (136-145) 07/08/22 03:36 Potassium 4.0 mmol/L (3.5-5.1) 07/08/22 03:36 BUN 61 mg/dL (7-18) H 07/08/22 03:36 Creatinine 4.47 mg/dL (0.70-1.30) H 07/08/22 03:36 Glucose 162 mg/dL (74-106) H 07/08/22 03:36 Magnesium 2.3 mg/dL (1.6-2.4) 07/06/22 11:29 Total Bilirubin 0.3 mg/dL (0.2-1.0) 07/06/22 15:52 AST 11 U/L (15-37) L 07/06/22 15:52 ALT 22 U/L (16-61) 07/06/22 15:52 Alkaline Phosphatase 105 U/L (45-117) 07/06/22 15:52 Triglycerides 130 mg/dL (<150) 07/07/22 04:32 Cholesterol 119 mg/dL (<200) 07/07/22 04:32 HDL Cholesterol 26 mg/dL (40-60) L 07/07/22 04:32 Cholesterol/HDL Ratio 4.58 07/07/22 04:32 Home Medications: Tamsulosin [Flomax*] 0.4 mg PO DAILY 01/31/22 Amlodipine [Norvasc] 10 mg PO DAILY 07/07/22 Apixaban [Eliquis] 2.5 mg PO BID 07/07/22 Furosemide 40 mg PO DAILY 07/07/22 Hydralazine HCl 100 mg PO TID 07/07/22 Isosorbide Mononitrate [Isosorbide Mononitrate ER] 30 mg PO DAILY 07/07/22 Quetiapine [Seroquel] 50 mg PO BEDTIME 07/07/22 Physician Discharge Instructions: Patient left against medical advice Diet: Renal Activity: Fall precautions Time spent managing pt's care (in minutes): 35
== END 2022-07-08 06:00 | disposition left against medical advice (07) ==
LOC: ER 10:52 → ERHOLD 13:42 → 4TH 16:18
PROVIDERS: ADMIT Hospitalist; ATTEND Hospitalist
DX: R55 Syncope and collapse (principal); R78.81 Bacteremia; E11.22 Type 2 diabetes mellitus with diabetic chronic kidney disease; N18.6 End stage renal disease; R53.1 Weakness; N40.1 Benign prostatic hyperplasia with lower urinary tract symptoms; R33.8 Other retention of urine; E11.65 Type 2 diabetes mellitus with hyperglycemia; I25.10 Atherosclerotic heart disease of native coronary artery without angina pectoris; I50.9 Heart failure, unspecified; F29 Unspecified psychosis not due to a substance or known physiological condition; Z95.5 Presence of coronary angioplasty implant and graft; Z99.2 Dependence on renal dialysis; Z53.29 Procedure and treatment not carried out because of patient's decision for other reasons; Z20.822 Contact with and (suspected) exposure to COVID-19
CPT/HCPCS: 87040 ×2; 87088; 87070; 85025 ×3; 81001; 87086; 80048 ×2; 36415 ×2; 83735; 82550 ×2; 87205 ×5; 80061; 82947 ×5; 80076; 83605; 84443; 80202; 83036; 84484 ×3; 84439; 80053; 84145; 87340; 70450; 72125; 71045; 73030; 90935; 97116; 97161; 99285; 87811; J1815; J1644 ×3; J3370; J7040; 87077; 87186; 93005; G0378

== ENCOUNTER 2022-07-10 14:12 | Emergency (ER) | payer OTHER ==
--- OUTSIDE RECORDS SUMMARY | 2022-07-10 14:19 | XMS REPORT | Continuity of Care Document ---
:1950 Author Organization [facility] t Address [address] [place] [address] Care Team Providers Name Role Phone Unavailable Unavailable Unavailable Payers Payer Name Policy Type Policy Effective Date Expiration Date Sour ce Number [facility] [id number] 2022 (MEDICARE 00:00:00 REPLACEMENT HMO) [employer] MEDICARE 53 [id number] Common Sp jaret O [facility] Problems Condition Condition Condition Status Onset Resolution Last Treating Co mments Source Name Details Category Date Date Treatment Clinician Date Benign BPH loc w Problem Common prostatic urin [facility] hypertroph obs/LUTS - [facility] I y with [facility] outflow [facility] [id number] S/P TURP Problem Comm on [facility] Overflow Overflow Problem Commo n incontinen incontinen Sp jaret ce of [facility] urine urine [facility] [id number] CKD Problem Common (chronic [facility] kidney - [facility] disease) stage 5, [facility] GFR less Medical than 15 Center ml/min [id number] Dependence Problem Co mmon on renal [facility] dialysis [facility] [id number] Acute Problem Common cystitis [facility] without - [facility]I hematuria [facility] [id number] Urinary Problem Commo n retention [facility] Benign BPH loc Problem Common prostatic w/o ur [facility] hypertroph obs/LUTS - [facility] I y without St outflow [facility] obstructio Medica l n Center Low Detrusor Problem Common compliance dysfunctio Sp jaret bladder n - [facility] Allergies, Adverse Reactions, Alerts Allergy Allergy Status Severity Reaction(s) Onset Inactive Treating Comm ents Source Name Type Date Date Clinician penicill penicill Active Unknown Commo n in V in V [facility] Social History Social Habit Start Date Stop Date Quantity Comments Source History of Tobacco Use Co mmon [facility] Sex Assigned At Com mon [facility] Smoking Status Start Date Stop Date Source Never Smoker Common [facility] Medications Ordered Filled Start Stop Current Ordering [...] Source height 2022-04-19 17:00:00 66 [in_i] Common [facility] weight 2022-04-19 17:00:00 153.4 [lb_av] [facility] temperature 2022-04-19 17:00:00 98.3 [degF] [facility] bmi 2022-04-19 17:00:00 24.76 kg/m2 [facility] oximetry 2022-04-19 17:00:00 96 % [facility] respiratory rate 2022-04-19 17:00:00 16 /min Comm on [facility] blood pressure 2022-04-19 17:00:00 139 mm[Hg] Common [facility] - systolic [facility] blood pressure 2022-04-19 17:00:00 65 mm[Hg] Common [facility] - diastolic [facility] height 2022-04-11 10:45:00 66 [in_i] [facility] weight 2022-04-11 10:45:00 152 [lb_av] [facility] temperature 2022-04-11 10:45:00 98.6 [degF] Common [facility] bmi 2022-04-11 10:45:00 24.53 kg/m2 [facility] oximetry 2022-04-11 10:45:00 99 % [facility] respiratory rate 2022-04-11 10:45:00 16 /min Comm on [facility] blood pressure 2022-04-11 10:45:00 136 mm[Hg] Common [facility] - systolic [facility] blood pressure 2022-04-11 10:45:00 61 mm[Hg] Common [facility] - diastolic [facility] temperature 2022-03-28 17:15:00 97.6 [degF] [facility] bmi 2022-03-28 17:15:00 25.01 kg/m2 [facility] oximetry 2022-03-28 17:15:00 97 % [facility] respiratory rate 2022-03-28 17:15:00 16 /min Comm on [facility] blood pressure 2022-03-28 17:15:00 176 mm[Hg] Common [facility] - systolic [facility] blood pressure 2022-03-28 17:15:00 66 mm[Hg] Common [facility] - diastolic [facility] height 2022-03-28 17:15:00 66 [in_i] [facility] weight 2022-03-28 17:15:00 155 [lb_av] [facility] Procedures This patient has no known procedures. Encounters Start End Encounter Admission Attending Care Care Encounter Source Date/Time Date/Time Type Type Clinicians Facility Department ID 2022-06-13 Outpatient STLMLC STLMLC [id number] Common 06:53:01 [id number] [facility] 2022-03-30 Outpatient STLMLC STLMLC [id number] Common 10:46:03 [id number] [facility] 2022-03-28 Outpatient STLMLC STLMLC [id number] Common 17:10:02 [id number] [facility] 2022-06-28 2022-06-28 Outpatient DMG DMG [id number] [facility] 00:00:00 00:00:00 [id number] [facility] 2022-06-21 2022-06-21 OFFICE STLMLC STLMLC [id number] Co mmon 00:00:00 00:00:00 VISIT [facility] LEVEL [address] [facility] 2022-05-29 2022-05-29 (TEL) STLMLC STLMLC [id number] Co mmon 00:00:00 00:00:00 [facility] 2022-04-19 2022-04-19 OFFICE STLMLC STLMLC [id number] Co mmon 00:00:00 00:00:00 VISIT Braydon YE PT - [facility] LEVEL 4 [facility] 2022-04-11 2022-04-11 OFFICE STLMLC STLMLC [id number] Co mmon 00:00:00 00:00:00 VISIT GERALD Kahn it PT LEVEL 3 - [facility] 2022-03-30 2022-03-30 (TEL) STLMLC STLMLC [id number] Co mmon 00:00:00 00:00:00 [facility] - [facility] 2022-03-28 2022-03-28 OFFICE STLMLC STLMLC [id number] Co mmon 00:00:00 00:00:00 VISIT Braydon YE PT - [facility] LEVEL 5 [facility] Results This patient has no known results.
--- NOTE | 2022-07-10 16:00 | RAD REPORT ---
EXAM DESCRIPTION: CT - Head Brain Wo Cont - 07/10/2022 3:53 pm CLINICAL HISTORY: AGUIRRE Headache, drowsiness COMPARISON: Head Brain Wo Cont dated 04/03/2022; Head Brain Wo Cont dated 02/24/2022; Head C Spine Mp r Wo Con dated 07/06/2022; Brain Wo Cont dated 02/28/2022 TECHNIQUE: All CT scans are performed using dose optimization technique as appropriate and may inclu de automated exposure control or mA/KV adjustment according to patient size. FINDINGS: No intracranial hemorrhage, hydrocephalus or extra-axial fluid collection.Mild generalized brain atrophy is present with mild periventricular and deep white matter chronic microvascular ische myles changes.No areas of brain edema or evidence of midline shift. The paranasal sinuses and mastoids are clear. The calvarium is intact. Mild vertebral atherosclerosis . IMPRESSION: No acute intracranial abnormality.
--- NOTE | 2022-07-10 17:35 | EDPHYS ---
Physician Documentation [facility] Name: Houston Katz Age: 71 yrs Sex: Male : 1950 Arrival Date: 07/10/2022 Time: 14:24 Bed 10 Private MD: ED Physician Trevno Acosta HPI: 07/10 17:41 This 71 yrs old Male presents to ER via Wheelchair with complaints of needs clearance. rn 17:43 The patient or guardian reports pain. The complaints affect the forehead. Onset: The rn symptoms/episode began/occurred 5 day(s) ago. Associated signs and symptoms: Loss of consciousness: This patient did not experience any loss of consciousness. Pertinent positives: headache, Pertinent negatives: neck pain, seizure. Severity of symptoms: At their worst the symptoms were mild, in the emergency department the symptoms are unchanged. The patient has experienced a previous episode. The patient has been recently seen by a physician:. Pt fell 5 days ago, hit head, no LOC, seen here with neg CT head and cspine. Is dialysis patient, went to dialysis today, "got small dialysis that doesn't need heparin". Sent by dialysis center for clearance to get heparin on next visit. Pt reports persistent headache after head injury and right eye pain. NO loss of vision.. Historical: - Allergies: 14:49 PENICILLINS; aa5 - PMHx: 14:49 Congestive heart failure; diabetes mellitus; End stage renal disease; M-W-F; aa5 Hypertensive disorder; - Family history:: not pertinent. - Hospitalizations: : No recent hospitalization is reported. ROS: 17:43 Constitutional: Negative for fever, chills, and weight loss, Eyes: + right eye pain rn with blurred vision Neuro: + headache Exam: 17:43 Constitutional: This is a well developed, well nourished patient who is awake, alert, rn and in no acute distress. Head/Face: Normocephalic, atraumatic. Eyes: PERRL, no nystagmus, no periorbital swelling, no proptosis Neuro: Awake and alert, GCS 15, oriented to person, place, time, and situation. Cranial nerves II-XII grossly intact. Motor strength 5/5 in all extremities. Vital Signs: 14:43 BP 151 / 83; Pulse 80; Resp 16 S; Temp 97.5(TE); Pulse Ox 100% on R/A; aa5 16:42 BP 175 / 80; Pulse 70; Resp 20; Pulse Ox 100% ; mb9 17:50 BP 168 / 82; Pulse 72; Resp 19; Pulse Ox 100% ; mb9 Bi Coma Score: 17:43 Eye Response: spontaneous(4). Verbal Response: oriented(5). Motor Response: obeys rn commands(6). Total: 15. 17:43 Eye Response: spontaneous(4). Verbal Response: oriented(5). Motor Response: obeys rn commands(6). Total: 15. MDM: 14:32 Patient medically screened. rn 17:43 Differential diagnosis: Contusion of Hematoma on Intracranial bleed- Concussion rn cerebral contusion. Differential diagnosis: ocular contusion, vitreous hemorrhage. Data reviewed: vital signs, nurses notes, radiologic studies, CT scan, and as a result, I will discharge patient. Counseling: I had a detailed discussion with the patient and/or guardian regarding: the historical points, exam findings, and any diagnostic results supporting the discharge/admit diagnosis, radiology results, the need for outpatient follow up, to return to the emergency department if symptoms worsen or persist or if there are any questions or concerns that arise at home. Special discussion: Based on the patient's history, exam and DX evaluation, there is no indication for emergent intervention or inpatient [place]. It is understood by the patient/guardian that if the SXs persist or worsen they need to return immediately for re-evaluation. I discussed with the patient/guardian in detail that at this point there is no indication for admission to the hospital. It is understood, however, that if the symptoms persist or worsen the patient needs to return immediately for re-evaluation. ED course: CT head negative for delayed bleeding. Patient has appt with Dr. Stanford tomorrow. Return precautions given and understood. . 07/10 15:34 Order name: Head Brain Wo Cont; Complete Time: 17:03 EDMS Administered Medications: No medications were administered Disposition Summary: 07/10/22 17:34 Discharge Ordered Location: Home rn Problem: new rn Symptoms: have improved rn Condition: Stable rn Diagnosis - Postconcussional syndrome rn - Contusion of eyeball and orbital tissues, right eye rn Followup: rn - With: Private Physician - When: As needed - Reason: Recheck today's complaints, Re-evaluation by your physician Discharge Instructions: - Discharge Summary Sheet rn - Head Injury, Adult rn - Post-Concussion Syndrome rn Forms: - Medication Reconciliation Form rn - Thank You Letter rn - Antibiotic energy attorney - Prescription Opioid Use rn Signatures: Dispatcher [employer] Leon Valenzuela PA PA jmm Nieto, Roman, MD MD rn Calderon, Audri, RN RN aa5
--- NOTE | 2022-07-10 17:35 | ER ---
Nurse's Notes [facility] Name: Houston Katz Age: 71 yrs Sex: Male : 1950 Arrival Date: 07/10/2022 Time: 14:24 Bed 10 Private MD: Diagnosis: Postconcussional syndrome;Contusion of eyeball and orbital tissues, right eye Presentation: 07/10 14:43 Chief complaint: Pt's niece states "he was seen here Cesar after a fall and dialysis aa5 is being cautious sending him here to check him for a bleed before they give him heparin". Pt reports "floater to right eye". Pt had negative CT head 07/06/22. 14:43 Coronavirus screen: At this time, the client does not indicate any symptoms associated aa5 with coronavirus-19. Ebola Screen: Patient denies travel to an Ebola-affected area in the 21 days before illness onset. Initial Sepsis Screen: Does the patient meet any 2 criteria? No. Patient's initial sepsis screen is negative. Does the patient have a suspected source of infection? No. Patient's initial sepsis screen is negative. Risk Assessment: Do you want to hurt yourself or someone else? Patient reports no desire to harm self or others. Onset of symptoms was June 2022. 14:43 Acuity: JILLIAN 4 aa5 14:43 Method Of Arrival: Wheelchair aa5 Historical: - Allergies: 14:49 PENICILLINS; aa5 - PMHx: 14:49 Congestive heart failure; diabetes mellitus; End stage renal disease; M-W-F; aa5 Hypertensive disorder; - Family history:: not pertinent. - Hospitalizations: : No recent hospitalization is reported. Screenin:46 [facility] ED Fall Risk Assessment (Adult) History of falling in the last 3 months, mb9 including since admission Yes- physiologic fall (2 pts) Confusion or Disorientation No (0 pts) Intoxicated or Sedated No (0 pts) Impaired Gait Yes (1 pt) Mobility Assist Device Used Yes (1 pt) Altered Elimination No (0 pt) Score/Fall Risk Level 3 or more points = High Risk Oriented to surroundings, Maintained a safe environment, Educated pt \\T\\ family on fall prevention, incl call for assistance when getting out of bed. Abuse screen: Denies threats or abuse. Nutritional screening: No deficits noted. Nutritional screening: No deficits noted. Tuberculosis screening: No symptoms or risk factors identified. Assessment: 15:15 General: Appears comfortable. Pain: Complains of pain in head Pain does not radiate. mb9 Pain currently is 7 out of 10 on a pain scale. Quality of pain is described as aching, Pain began suddenly, Is intermittent. Neuro: Harrison Agitation-Sedation Scale (RASS): 0 - Alert and Calm Level of Consciousness is awake, alert, obeys commands, Oriented to person, place, time, situation, Appropriate for age Reports "seeing floaters in my right eye". Cardiovascular: Capillary refill < 3 seconds is brisk Patient's skin is warm and dry. Respiratory: Airway is patent Respiratory effort is even, unlabored, Respiratory pattern is regular, symmetrical. GI: No signs and/or symptoms were reported involving the gastrointestinal system. : No signs and/or symptoms were reported regarding the genitourinary system. EENT:. Derm: Skin is pink, warm \\T\\ dry. Musculoskeletal: Range of motion: intact in all extremities. 15:35 Reassessment: pt taken to CT via wheelchair. mb9 16:35 Reassessment: No changes from previously documented assessment. Patient and/or family mb9 updated on plan of care and expected duration. Pain level reassessed. Patient is alert, oriented x 3, equal unlabored respirations, skin warm/dry/pink. 17:50 Reassessment: No changes from previously documented assessment. Patient and/or family mb9 updated on plan of care and expected duration. Pain level reassessed. Patient is alert, oriented x 3, equal unlabored respirations, skin warm/dry/pink. Vital Signs: 14:43 BP 151 / 83; Pulse 80; Resp 16 S; Temp 97.5(TE); Pulse Ox 100% on R/A; aa5 16:42 BP 175 / 80; Pulse 70; Resp 20; Pulse Ox 100% ; mb9 17:50 BP 168 / 82; Pulse 72; Resp 19; Pulse Ox 100% ; mb9 [place] Coma Score: 17:43 Eye Response: spontaneous(4). Verbal Response: oriented(5). Motor Response: obeys rn commands(6). Total: 15. 17:43 Eye Response: spontaneous(4). Verbal Response: oriented(5). Motor Response: obeys rn commands(6). Total: 15. ED Course: 14:24 Patient arrived in ED. am2 14:32 Trevon Acosta MD is Attending Physician. rn 14:46 Arm band placed on. aa5 14:46 Bed in low position. Call light in reach. Side rails up X 1. Client placed on mb9 continuous cardiac and pulse oximetry monitoring. NIBP monitoring applied. 14:48 Triage completed. aa5 15:29 Kaela Elliott, RN is Primary Nurse. mb9 15:54 Head Brain Wo Cont In Process Unspecified. EDMS 16:34 No provider procedures requiring assistance completed. Patient did not have IV access mb9 during this emergency room visit. Administered Medications: No medications were administered Medication: 14:46 VIS not applicable for this client. mb9 Outcome: 17:34 Discharge ordered by . rn 17:55 Discharged to home via wheelchair. mb9 17:55 Condition: stable 17:55 Discharge instructions given to patient, Instructed on discharge instructions, follow up and referral plans. Demonstrated understanding of instructions, follow-up care. 17:55 Patient left the ED. mb9 Signatures: Dispatcher [employer] EDMS Trevon Acosta MD MD rn Calderon, Audri RN RN aa5 Sis Bowers am2 Kaela Elliott, RN RN mb9 Corrections: (The following items were deleted from the chart) 14:49 14:43 Chief complaint: Pt's states "he was seen here Cesar after a fall and dialysis aa5 is being cautious sending him here to check him for a bleed before they give him heparin". Pt reports "floater to right eye". Pt had negative CT head 07/06/22. aa5
[2022-07-10 18:02] VITALS: TEMP 97.5; O2SAT 100
[2022-07-10 18:13] VITALS: BP 168/82
== END 2022-07-10 17:55 | disposition home or self-care (01) ==
LOC: ER 14:12
DX: R51.9 Headache, unspecified (principal); F07.81 Postconcussional syndrome; S05.11XA Contusion of eyeball and orbital tissues, right eye, initial encounter; E11.22 Type 2 diabetes mellitus with diabetic chronic kidney disease; I13.2 Hypertensive heart and chronic kidney disease with heart failure and with stage 5 chronic kidney disease, or end stage renal disease; I50.9 Heart failure, unspecified; N18.6 End stage renal disease; Z99.2 Dependence on renal dialysis; Z88.0 Allergy status to penicillin
CPT/HCPCS: 70450